=== PATIENT | male | born 1945 | race Caucasian/White ===

== ENCOUNTER 2016-12-31 14:08 | Inpatient (IN) | payer MEDICARE, OTHER ==
[2016-12-31] MEDS ORDERED: NS 0.9% 1000 ML* 1,000 ML IV ONE ×2 (14:43→16:18)
[2016-12-31] MEDS ORDERED: Levofloxacin 750 MG IVPREMIX(* 750 MG/150 ML BAG IVPB ONE (15:00)
[2016-12-31 15:09] LABS: Hematocrit 39 % (42-52); Mean Corpuscular HGB Conc 33 g/dl (31-36); Mean Corpuscular Hemoglobin 34 pg (27-31); Mean Corpuscular Volume 101 fL (80-94); Mean Platelet Volume 7 um3 (7.4-10.4); Red Blood Count 3.87 10^6/ul (4.0-5.4); Red Cell Distribution Width 14 % (10.5-15); White Blood Count 13.1 10^3/ul (3.5-10.8)
[2016-12-31 15:22] LABS: Troponin I 0.02 ng/mL (<0.04)
[2016-12-31 15:23] LABS: Albumin 4.1 g/dL (3.2-5.2); C Reactive Protein 155.06 mg/L (< 5.00); EGFR Non-African American 102.7 (>60); Total Bilirubin 0.3 mg/dL (0.2-1.0); Total Protein 7.1 g/dL (6.4-8.9)
--- NOTE | 2016-12-31 15:42 | RAD ---
Indication: Shortness of breath and cough. Comparison: November 04, 2016 chest radiograph and October 19, 2016 CT. Technique: Sitting AP and lateral chest views. Report: Elevated lung volumes and rarefaction of the interstitial markings. No alveolar consolidation, focal pulmonary lesion, pleural effusion, pneumothorax. The heart, pulmonary vasculature, and mediastinal contours are unremarkable. IMPRESSION: Stigmata of advanced chronic obstructive pulmonary disease and emphysema corresponding with prior CT appearance. No acute cardiopulmonary process evident.
[2016-12-31] MEDS ORDERED: Oseltamivir CAP* 75 MG PO ONE (16:16)
[2016-12-31] MEDS ORDERED: Albuterol/Ipratropium NEB.SOL* Albuterol 2.5 MG/Ipratropium 0.5 MG 3 ML INH ONE (16:16)
[2016-12-31] MEDS ORDERED: Ondansetron INJ* 2 MG/ML VIAL IV PRN (16:18)
[2016-12-31] MEDS ORDERED: Acetaminophen TAB* 325 MG PO PRN (16:18)
[2016-12-31] MEDS ORDERED: Albuterol 2.5 MG/3 ML NEB.SOL* (0.083%) INH PRN (16:18)
[2016-12-31] MEDS ORDERED: NS 0.9% 1000 ML* 1,000 ML IV SCH (16:30)
[2016-12-31] MEDS ORDERED: ACETAMINOPHEN 1000 MG PO SCH (16:30)
--- NOTE | 2016-12-31 16:34 | ED ---
Sonu Alfonso Rebecca, scribed for Lisandro Jones MD on 12/31/16 at 1444 . Shortness of Breath - HPI Summary HPI Summary: Pt is a 71 y/o M BIBA who presents to ED c/o SOB. SOB began suddenly today and has been constant since onset. SOB characterized as moderate dyspnea at rest. Sx aggravated and alleviated by nothing. Additionally c/o productive cough, generalized weakness, fever, chills, decreased appetite and CP secondary to cough. PMHx COPD. SHx current smoker. - History of Current Complaint Time Seen by Provider: 12/31/16 14:38 Hx Obtained From: Patient, Family/Clinical Informatics Physician - Daughter Onset/Duration: Gradual Onset, Still Present Timing: Constant Current Severity: Moderate Dyspnea At: Rest Aggrevating Factors: Nothing Alleviating Factors: Nothing Associated Signs & Symptoms: Cough (Productive), Chest Pain w/Cough, Fever, Chills - Allergy/Home Medications Allergies/Adverse Reactions: Allergies Allergy/AdvReac Type Severity Reaction Status Date / Time No Known Allergies Allergy Verified 11/03/16 11:38 PMH/Surg Hx/FS Hx/Imm Hx Cardiovascular History: Reports: Other Cardiovascular Problems/Disorders - DVT , ALCOHOLISM, SYNCOPAL EPISODE W/ COLLAPSE 05/10 Denies: Hx Hypertension, Hx Pacemaker/ICD Respiratory History: Reports: Hx Chronic Obstructive Pulmonary Disease (COPD) Musculoskeletal History: Reports: Hx Arthritis - HIPS, Hx Orthopedic Injury - Patella fracture and old rib fractures, Other Musculoskeletal History - CONTRACTURE HANDS Sensory History: Reports: Hx Contacts or Glasses - GLASSES Denies: Hx Hearing Aid Opthamlomology History: Reports: Hx Contacts or Glasses - GLASSES Psychiatric History: Reports: Hx Anxiety, Hx Depression - GETTING BETTER WITH RX , Hx Substance Abuse - occasional marijuana Denies: Hx Panic Disorder - Surgical History Surgery Procedure, Year, and Place: TONSILLECTOMY A CHILD Hx Anesthesia Reactions: No Infectious Disease History: Reports: Hx Hepatitis - A CHILD Denies: Hx of Known/Suspected MRSA, Traveled Outside the [place] in Last 30 Days - Family History Known Family History: Negative: Cardiac Disease, Hypertension Family History: No malignant hyperthermia - Social History Alcohol Use: Daily Substance Use Type: Reports: None Hx Tobacco Use: Yes Smoking Status (MU): Heavy Every Day Tobacco Smoker Type: Cigarettes Amount Used/How Often: 1/2 PPD FOR 50 YRS Length of Time of Smoking/Using Tobacco: 50 YRS Have You Smoked in the Last Year: Yes Review of Systems Positive: Fever, Chills Positive: Chest Pain - secondary to cough Positive: Shortness Of Breath - dyspnea at rest, Cough - productive Positive: other - Decreased appetite Positive: Weakness - Generalized weakness All Other Systems Reviewed And Are Negative: Yes Physical Exam - Summary Physical Exam Summary: VITAL SIGNS: Reviewed. GENERAL: Patient is a cachectic, fragile male with some distress secondary to the shortness of breath. However, he is able to speak in full sentences. HEAD AND FACE: Normocephalic and atraumatic. EYES: PERRLA, EOMI x 2, No injected conjunctiva. EARS: Hearing grossly intact. Ear canals and tympanic membranes WNL MOUTH: Dry oral mucosa. NECK: Supple, trachea is midline, no adenopathy, no JVD, no carotid bruit. CHEST: Symmetric, No intercostal or abdominal retraction, LUNGS: Diffuse bilateral wheezing and decreased breath sounds.No crackles. CVS: RRR,, S1 and S2 present, no murmurs or gallops appreciated. ABDOMEN: Soft, non-tender. No signs of distention. Positive BS. No rebound, no guarding, and no masses palpated. EXTREMITIES: FROM in all major joints, no edema, no cyanosis or clubbing. NEURO: Alert and oriented x 3. No acute neurological deficits. Speech is normal and follows commands. SKIN: Dry and warm Triage Information Reviewed: Yes Vital Signs On Initial Exam: Initial Vitals Temp Pulse Resp BP Pulse Ox 101.1 F 106 20 106/55 97 12/31/16 14:40 12/31/16 14:40 12/31/16 14:40 12/31/16 14:40 12/31/16 14:40 Vital Signs Reviewed: Yes Diagnostics - Vital Signs Vital Signs Temp Pulse Resp BP Pulse Ox 12/31/16 15:58 83 20 99 12/31/16 15:47 87 18 91/55 98 12/31/16 15:07 102 20 97 12/31/16 14:43 22 12/31/16 14:42 106/55 12/31/16 14:40 101.1 F 106 20 106/55 97 - Laboratory Lab Results: Lab Results 12/31/16 12/31/16 12/31/16 Range/Units 14:55 14:55 14:55 WBC 13.1 H (3.5-10.8) 10^3/ul RBC 3.87 L (4.0-5.4) 10^6/ul Hgb 13.0 L (14.0-18.0) g/dl Hct 39 L (42-52) % MCV 101 H (80-94) fL MCH 34 H (27-31) pg MCHC 33 (31-36) g/dl RDW 14 (10.5-15) % Plt Count 169 (150-450) 10^3/ul MPV 7 L (7.4-10.4) um3 Neut % (Auto) 90.7 H (38-83) % Lymph % (Auto) 3.0 L (25-47) % Sibley % (Auto) 5.9 (1-9) % Eos % (Auto) 0 (0-6) % Baso % (Auto) 0.4 (0-2) % Absolute Neuts (auto) 11.9 H (1.5-7.7) 10^3/ul Absolute Lymphs (auto) 0.4 L (1.0-4.8) 10^3/ul Absolute Monos (auto) 0.8 (0-0.8) 10^3/ul Absolute Eos (auto) 0 (0-0.6) 10^3/ul Absolute Basos (auto) 0 (0-0.2) 10^3/ul Absolute Nucleated RBC 0 10^3/ul Nucleated RBC % 0 Sodium 125 L (133-145) mmol/L Potassium 4.0 (3.5-5.0) mmol/L Chloride 93 L (101-111) mmol/L Carbon Dioxide 23 (22-32) mmol/L Anion Gap 9 (2-11) mmol/L BUN 15 (6-24) mg/dL Creatinine 0.75 (0.67-1.17) mg/dL Est GFR ( Amer) 132.0 (>60) Est GFR (Non-Af Amer) 102.7 (>60) BUN/Creatinine Ratio 20.0 (8-20) Glucose 111 H (70-100) mg/dL Lactic Acid 1.0 (0.5-2.0) mmol/L Calcium 9.0 (8.6-10.3) mg/dL Total Bilirubin 0.30 (0.2-1.0) mg/dL AST 21 (13-39) U/L ALT 12 (7-52) U/L Alkaline Phosphatase 66 (34-104) U/L Troponin I 0.02 (<0.04) ng/mL C-Reactive Protein 155.06 H (< 5.00) mg/L B-Natriuretic Peptide ( - 100) pg/mL Total Protein 7.1 (6.4-8.9) g/dL Albumin 4.1 (3.2-5.2) g/dL Globulin 3.0 (2-4) g/dL Albumin/Globulin Ratio 1.4 (1-3) Influenza A (Rapid) (Negative) Influenza B (Rapid) (Negative) 12/31/16 12/31/16 Range/Units 14:55 15:37 WBC (3.5-10.8) 10^3/ul RBC (4.0-5.4) 10^6/ul Hgb (14.0-18.0) g/dl Hct (42-52) % MCV (80-94) fL MCH (27-31) pg MCHC (31-36) g/dl RDW (10.5-15) % Plt Count (150-450) 10^3/ul MPV (7.4-10.4) um3 Neut % (Auto) (38-83) % Lymph % (Auto) (25-47) % Sibley % (Auto) (1-9) % Eos % (Auto) (0-6) % Baso % (Auto) (0-2) % Absolute Neuts (auto) (1.5-7.7) 10^3/ul Absolute Lymphs (auto) (1.0-4.8) 10^3/ul Absolute Monos (auto) (0-0.8) 10^3/ul Absolute Eos (auto) (0-0.6) 10^3/ul Absolute Basos (auto) (0-0.2) 10^3/ul Absolute Nucleated RBC 10^3/ul Nucleated RBC % Sodium (133-145) mmol/L Potassium (3.5-5.0) mmol/L Chloride (101-111) mmol/L Carbon Dioxide (22-32) mmol/L Anion Gap (2-11) mmol/L BUN (6-24) mg/dL Creatinine (0.67-1.17) mg/dL Est GFR ( Amer) (>60) Est GFR (Non-Af Amer) (>60) BUN/Creatinine Ratio (8-20) Glucose (70-100) mg/dL Lactic Acid (0.5-2.0) mmol/L Calcium (8.6-10.3) mg/dL Total Bilirubin (0.2-1.0) mg/dL AST (13-39) U/L ALT (7-52) U/L Alkaline Phosphatase (34-104) U/L Troponin I (<0.04) ng/mL C-Reactive Protein (< 5.00) mg/L B-Natriuretic Peptide 161 H ( - 100) pg/mL Total Protein (6.4-8.9) g/dL Albumin (3.2-5.2) g/dL Globulin (2-4) g/dL Albumin/Globulin Ratio (1-3) Influenza A (Rapid) Positive H (Negative) Influenza B (Rapid) Negative (Negative) Result Diagrams: 12/31/16 14:55 12/31/16 14:55 Lab Statement: Any lab studies that have been ordered have been reviewed, and results considered in the medical decision making process. - Radiology CXR Xray Interpretation: No Acute Changes - Stigmata of advanced chronic obstructive pulmonary disease and emphysema corresponding with prior CT appearance. No acute cardiopulmonary process evident. Radiology Interpretation Completed By: Radiologist Course/Dx - Course Assessment/Plan: Pt is a 71 y/o M BIBA who presents to ED c/o SOB. SOB began suddenly today and has been constant since onset. SOB characterized as moderate dyspnea at rest. Sx aggravated and alleviated by nothing. Additionally c/o productive cough, generalized weakness, fever, chills, decreased appetite and CP secondary to cough. PMHx COPD. SHx current smoker. Blood work shows a WBC of 13.1, mild anemia. Na 125, CRP 155, Influenza A positive. CXR: IMPRESSION: Stigmata of advanced chronic obstructive pulmonary disease and emphysema corresponding with prior CT appearance. No acute cardiopulmonary process evident. In the ED course he was given Duonebs, Solumedrol for his COPD exacerbation. Levaquin, and tamiflu for his influenza A +. . He was also given IV fluids since he seems very dehydrated. I discuss my physical exam, findings and test results with Dr. Schwarz from the hospitalist services and she agrees to admit patient to his services. Patient is hemodynamically stable alert and oriented x 3. - Diagnoses Differential Diagnosis/HQI/PQRI: Positive: Asthma, CHF, COPD Exacerbation, Pulmonary Edema Provider Diagnoses: COPD exacerbation, Influenza A, Dehydration, Hyponatremia - Physician Notifications Discussed Care of Patient With: Dr. Schwarz, hospitalist, accepts pt for admission. Time Discussed With Above Provider: 16:21 Discharge - Discharge Plan Condition: Stable Disposition: ADMITTED TO [facility] Referrals: Nahum ESCALERA CARDIOGRAPH OPERATOR,Olya [Primary Care Provider] - The documentation as recorded by the Sonu fox Rebecca accurately reflects the service I personally performed and the decisions made by me, Lisandro Jones MD.
[2016-12-31] MEDS ORDERED: LORazepam TAB(*) 1 MG PO SCH (17:00)
[2016-12-31 17:14] LABS: TSH (Thyroid Stimulating Horm) 1.47 mcIU/mL (0.34-5.60)
[2016-12-31] MEDS: Albuterol/Ipratropium NEB.SOL* Albuterol 2.5 MG/Ipratropium 0.5 MG 3 ML INH SCH ×2 (17:50→20:33)
[2016-12-31 20:23] LABS: Urine Bilirubin Negative (Negative); Urine Glucose Negative (Negative); Urine Nitrite Negative (Negative)
[2016-12-31] MEDS: Mometasone/Formoter 200/5 MDI INH SCH (20:38)
[2016-12-31] MEDS: Oseltamivir CAP* 75 MG PO SCH (21:05)
[2016-12-31] MEDS: Heparin VIAL(*) 5000 UNITS/ML VIAL (FIVE THOUSAND) SUBCUT SCH (21:09)
--- NOTE | 2016-12-31 22:51 | HP ---
HISTORY AND PHYSICAL: DATE OF ADMISSION: 12/31/16 PRIMARY CARE PROVIDER: Olya Sidhu NP. ATTENDING PHYSICIAN WHILE IN THE HOSPITAL: Dr. Jarrett Schwarz * (report dictated by Yves Saldivar NP). CHIEF COMPLAINT: 1. Fever. 2. Cough. 3. Sore throat. HISTORY OF PRESENT ILLNESS: Mr. Rosas is a 71-year-old patient who has a history of COPD, BPH, depression, ETOH abuse, and a history of malnutrition. He comes into the ER today stating the last several days he has noticed he has been coughing, sore throat, runny nose that started about 2 to 3 days ago and has gotten progressively worse to now where he has been having fevers and chills off and on and feeling very weak today. His aide was taking care of him this morning. She was concerned of how he was acting and how weak he was, so she brought him into the hospital for evaluation. There was documented fever at home. He states that he has been more short of breath particularly with exertion, now to the point where even at rest he feels short of breath and he has been coughing, unable to have a productive cough. He was evaluated in the ER. It was noted that he was febrile when he came in, he was tachycardic. It was also noted that he tested positive for the flu, so the hospitalist service was asked to evaluate and admission. PAST MEDICAL HISTORY: Significant for: 1. COPD. 2. BPH. 3. Depression. 4. EtOH abuse. 5. Malnutrition. PAST SURGICAL HISTORY: He has had: 1. Carpal tunnel. 2. Laparoscopic cholecystectomy. HOME MEDICATIONS: According to his handwritten list includes, 1. Celebrex 100 mg daily. 2. Spiriva 1 capsule inhale daily. 3. Thiamine 100 mg daily. 4. Flomax 0.8 mg daily. 5. Ditropan 10 mg p.o. daily. 6. Multivitamin one tablet daily. 7. Dulera two puffs inhale b.i.d. 8. Folic acid 1 mg p.o. daily. 9. Lexapro 20 mg daily. 10. Ventolin one puff inhale every 4 hours as needed. 11. Tylenol 1000 mg p.o. b.i.d. ALLERGIES: No known drug allergies. FAMILY HISTORY: Father has history of COPD. SOCIAL HISTORY: He is a smoker about half a pack a day. He does drink about a 6 pack a day. He lives alone. Surrogate decision maker is his aide, Silvia. REVIEW OF SYSTEMS: There is a documented fever. He denied any significant weight change. No double vision. No ear discharge. He does admit to having rhinorrhea. He does admit to sore throat. He admits cough, dyspnea on exertion , but no orthopnea or nocturnal dyspnea. He denies having any abdominal pain. He does states that he has been feeling nauseous at times. He denies any pruritus or any skin ulcerations. He denies having any syncopal episodes. Review of 14 systems completed, all others negative. PHYSICAL EXAMINATION GENERAL: At this time, Mr. Rosas is a 71-year-old male patient. He is chronically ill appearing. He is sitting in the ER stretcher. He does not appear to be in any acute distress. VITAL SIGNS: Blood pressure 91/55 with pulse of 84, respirations 20, O2 sat 99 % on 2 L, temperature of 101.1. HEENT: Head: Atraumatic, normocephalic. Eyes: EOMs are intact. Sclerae was anicteric and not pale. Throat: Oral mucosa appears to be dry. No oropharyngeal erythema. NECK: Supple. LUNGS: He did have rhonchi in the upper lobes, equal diaphragmatic expansion. HEART: Sounds S1, S2. Regular rate and rhythm. No murmurs, rubs, or gallops. ABDOMEN: Soft, flat, nontender. Bowel sounds present. EXTREMITIES: Pulses 2+ throughout. He is able to move all 4 extremities with 5 /5 strength. NEUROLOGIC: He is awake, alert, oriented x3. Manager Of Project Management were equal. No gross focal deficits. SKIN: He did have an old healing wound and does have some to the abdomen and measures approximately 5 x 2 cm wide. It does have an area of erythema surrounding of no discharge noted. Otherwise, skin is intact. DIAGNOSTIC STUDIES/LAB DATA: Labs today revealed WBC of 13.1, RBC of 3.87, hemoglobin 13, hematocrit of 39, platelet count 169. Sodium 125, potassium 4, chloride of 93, bicarb of 23, BUN 15, creatinine of 0.75, glucose 111, lactic 1 , calcium 9, total bili 0.3, AST 21, ALT 12, alk phos 66. His troponin was 0.02. CRP 155. Albumin 4.1. Serology was positive for flu. He had a chest x- ray obtained today and on my review, I did not appreciate any acute infiltrates or effusion. Radiology read it as stigmata of advanced COPD and emphysema corresponding with prior CT. No acute cardio process evident. Old medical records were reviewed. ASSESSMENT AND PLAN: Mr. Rosas is a 71-year-old male patient coming into the ER today with complaints of weakness, fever, cough, and evaluation found to have an Influenza A. He will be admitted under inpatient status for: 1. Influenza: At this point, we will go ahead and start him on Tamiflu. We will also go ahead and hydrate him, place him on antianemics as needed. In addition to this, we will go ahead and continue to follow. 2. Chronic obstructive pulmonary disease: He does have mild exacerbation. We will go ahead and put him on nebs around the clock. I will put him on Levaquin. In addition to this, we will put him on Dulera. I do not think he needs steroids at this point. We will follow. 3. Hyponatremia: Probably related to dehydration. We will hydrate him and will send off urine osmol, serum osmol, and urine sodium and we will check a TSH and also cortisol level. 4. History of EtOH use. I did put him on the [facility] protocol. We will continue folic acid, thiamine, and multivitamin. 5. Depression: Continue with supportive care. 6. Benign prostatic hypertrophy: Continue meds as prescribed. 7. Malnutrition: Place him on a regular diet and I will order Ensure as well. 8. Deep venous thrombosis prophylaxis. He is high risk. We will go ahead and put him on heparin subcu. 9. Code status: He is a full code. 10. Wound infection: I am concerned that he does have erythema around his abdominal wound from his open lap michael in October. The Levaquin should cover this. We will continue to monitor it. If it gets worse, we may consider having a Surgery evaluate this. TIME SPENT: Time spent on the admission was 60 minutes; greater than half the time was spent [id number] with the patient obtaining my history and physical, other half of the time spent going over the plan of care with the patient and implementing plan of care. I did discuss the plan of care with my attending, Dr. Schwarz; he is in agreement. YVES SALDIVAR NP CC: Olya Sidhu, MOLD CLEANING AND STORAGE SUPERVISOR * [id number]/[facility] #: [id number] [id number]
[2017-01-01] MEDS: Albuterol/Ipratropium NEB.SOL* Albuterol 2.5 MG/Ipratropium 0.5 MG 3 ML INH SCH ×6 (00:50→19:45)
[2017-01-01] MEDS: Heparin VIAL(*) 5000 UNITS/ML VIAL (FIVE THOUSAND) SUBCUT SCH ×3 (05:53→21:52)
[2017-01-01 06:54] LABS: Hematocrit 34 % (42-52); Hemoglobin 11.3 g/dl (14.0-18.0); Mean Corpuscular HGB Conc 33 g/dl (31-36); Mean Corpuscular Hemoglobin 34 pg (27-31); Mean Corpuscular Volume 102 fL (80-94); Mean Platelet Volume 8 um3 (7.4-10.4); Red Blood Count 3.31 10^6/ul (4.0-5.4); Red Cell Distribution Width 14 % (10.5-15); White Blood Count 8.5 10^3/ul (3.5-10.8)
[2017-01-01 07:08] LABS: BUN/Creatinine Ratio 15.6 (8-20); Calcium 8.4 mg/dL (8.6-10.3); EGFR African American 158.5 (>60); EGFR Non-African American 123.3 (>60); Potassium 3.8 mmol/L (3.5-5.0)
[2017-01-01] MEDS: Folic Acid TAB* 1 MG PO SCH (08:05)
[2017-01-01] MEDS: Thiamine TAB* 100 MG TAB PO SCH (08:05)
[2017-01-01] MEDS: Tamsulosin CAP* 0.4 MG PO SCH (08:06)
[2017-01-01] MEDS: Multivitamins/Minerals TAB PO SCH (08:06)
[2017-01-01] MEDS: Oxybutynin XL TAB* 5 MG PO SCH (08:06)
[2017-01-01] MEDS: CMCS: Escitalopram (NF) 10 MG TAB PO SCH (08:06)
[2017-01-01] MEDS: Oseltamivir CAP* 75 MG PO SCH ×2 (08:06→20:12)
[2017-01-01] MEDS: Mometasone/Formoter 200/5 MDI INH SCH ×2 (08:21→19:47)
--- NOTE | 2017-01-01 13:59 | PN ---
Progress Note - Progress Note Note: Subjective: 71 yo male with a history of COPD, BPH, depression, tobacco use and alcohol abuse presented to the ED with cough and malaise and was found to test positive for the flu, leading to his admission. While in the hospital, it was noted that his wound from his open cholecystectomy on 11/04 was still open and with concerns for infection, and a surgical consult was ordered. Pt states he has minimal pain around the wound, and has been changing his dressings daily at home. Objective: Gen-71 yo male appears stated age, laying in hospital bed eating lunch in NAD Skin- A 5cm x 1.5cm x 0.2cm healing open wound with eschar tissue in the RUQ was visualized with a 3cm erythamatous halo extending past the wound edges. The wound was debrided with forceps and a #15 scalpel until pink granular tissue was exposed. Covered with telfa dressing. A/P: Order medihoney or hydrogel if available. Continue to monitor wound healing with daily dressing changes. If not improving, contact surg for another consult.
--- NOTE | 2017-01-01 14:07 | PN ---
Progress Note - Progress Note Note: S: Surgery Progress. Patient seen w/ Dr. Fry and PA student Maricruz Hernandez. Asked to see patient re: concerns for infection of RUQ abd wound. Patient was admitted for Influenza and states that he is improving. He is well know to our service and specifically to Dr. Fry who performed an open cholecystectomy 11/04/16. The wound was packed open and has slowly been gagandeep and filling in. Patient states that it feels about the same as it had at home the past couple of weeks. He is currently on Levofloxacin as well as antiviral for his influenza. O: afeb RUQ abd wound: open wound measures 5x 1.5 x 0.2 cm. There is a rim or erythema, mostly inferior, which extends a maximum of 5 cm in craniocaudad direction. A portion of the wound is covered w/ semi-loose eschar. There is mild tenderness to palp around the wound. Patient states that is c/w previous. There is no purulent drainage. The wound was debrided of eschar (combination of blunt and sharp) which he tolerated well. A/P: open wound RUQ, healing slowly, but does not appear actively infected. Debrided of eschar today. Will order hydrogel or Medihoney (if available). Will continue to follow as outpt in office after d/c. Please contact us if there are any further changes of concern during this hospital stay.
[2017-01-01] MEDS ORDERED: Levofloxacin 750 MG IVPREMIX(* 750 MG/150 ML BAG IVPB SCH (16:00)
--- NOTE | 2017-01-01 16:14 | PN ---
Subjective Date of Service: 01/01/17 Interval History: pt feels " better". stated that he ambulates with a roller walker and hid ingot weigher-Corrine visits him daily x 4-5 hrs. Objective Active Medications: Acetaminophen (Tylenol Tab*) 650 mg PO Q4H PRN PRN Reason: FEVER/PAIN Albuterol (Ventolin 2.5 Mg/3 Ml Neb.Danielle*) 2.5 mg INH Q2H PRN PRN Reason: SOB/WHEEZING Albuterol/Ipratropium (Duoneb Neb.Danielle*) 1 neb INH Q4H [facility] Last Admin: 01/01/17 13:56 Dose: 1 neb Escitalopram Oxalate (Lexapro (Nf)) 20 mg PO QAM [facility] Last Admin: 01/01/17 08:06 Dose: 20 mg Folic Acid (Folvite Tab*) 1 mg PO DAILY [facility] Last Admin: 01/01/17 08:05 Dose: 1 mg Heparin Sodium (Porcine) (Heparin Vial(*)) 5,000 units SUBCUT Q8HR [facility] Last Admin: 01/01/17 15:16 Dose: 5,000 units Lorazepam (Ativan Tab(*)) 0 mg PO .PER WAM SCORE [facility] PRN Reason: Protocol Mometasone Furoate/Formoterol Fumar (Dulera 200/5 Mdi*) 2 puff INH BID [facility] Last Admin: 01/01/17 08:21 Dose: 2 puff Multivitamins/Minerals (Theragran/Minerals Tab*) 1 tab PO DAILY [facility] Last Admin: 01/01/17 08:06 Dose: 1 tab Ondansetron HCl (Zofran Inj*) 4 mg IV Q6H PRN PRN Reason: NAUSEA Oseltamivir Phosphate (Tamiflu Cap*) 75 mg PO BID [facility] Stop: 01/05/17 09:01 Last Admin: 01/01/17 08:06 Dose: 75 mg Oxybutynin Chloride (Ditropan Xl Tab*) 10 mg PO DAILY [facility] Last Admin: 01/01/17 08:06 Dose: 10 mg Tamsulosin HCl (Flomax Cap*) 0.8 mg PO DAILY [facility] Last Admin: 01/01/17 08:06 Dose: 0.8 mg Thiamine HCl (Vitamin B-1 Tab*) 100 mg PO DAILY [facility] Last Admin: 01/01/17 08:05 Dose: 100 mg Vital Signs 12/31/16 12/31/16 12/31/16 16:30 17:00 17:02 Temperature Pulse Rate 91 Respiratory 20 22 18 Rate Blood Pressure 97/63 94/81 (mmHg) O2 Sat by Pulse 98 Oximetry 12/31/16 12/31/16 12/31/16 17:30 18:00 18:30 Temperature Pulse Rate 89 Respiratory 18 23 17 Rate Blood Pressure 118/61 112/66 94/54 (mmHg) O2 Sat by Pulse 90 Oximetry 12/31/16 12/31/16 12/31/16 19:50 20:00 20:40 Temperature 97.7 F Pulse Rate 89 79 Respiratory 20 20 16 Rate Blood Pressure 91/56 (mmHg) O2 Sat by Pulse 100 97 Oximetry 12/31/16 12/31/16 01/01/17 22:27 23:30 00:55 Temperature Pulse Rate 83 101 79 Respiratory 20 Rate Blood Pressure 96/55 136/72 (mmHg) O2 Sat by Pulse 80 97 97 Oximetry 01/01/17 01/01/17 01/01/17 01:24 01:46 04:01 Temperature 99.0 F Pulse Rate 78 90 73 Respiratory 20 16 16 Rate Blood Pressure 98/56 93/56 (mmHg) O2 Sat by Pulse 97 94 100 Oximetry 01/01/17 01/01/17 01/01/17 05:39 06:09 07:30 Temperature 97.7 F 97.8 F Pulse Rate 80 85 84 Respiratory 12 18 16 Rate Blood Pressure 101/58 101/57 (mmHg) O2 Sat by Pulse 98 98 100 Oximetry 01/01/17 01/01/17 01/01/17 08:23 10:10 13:57 Temperature Pulse Rate 67 66 Respiratory 16 16 15 Rate Blood Pressure (mmHg) O2 Sat by Pulse 96 99 Oximetry 01/01/17 15:20 Temperature 98.6 F Pulse Rate 36 Respiratory 17 Rate Blood Pressure 105/57 (mmHg) O2 Sat by Pulse 100 Oximetry Oxygen Devices in Use Now: Nasal Cannula - at 4l Appearance: 71 yo M in nAD, AAOx3, poor historian Eyes: No Scleral Icterus, PERRLA Ears/Nose/Mouth/Throat: NL Teeth, Lips, Gums, Mucous Membranes Moist Neck: NL Appearance and Movements; NL JVP, Trachea Midline Respiratory: Symmetrical Chest Expansion and Respiratory Effort, - - crackles at b/l bases and mild b/l mid lung wheezes Cardiovascular: NL Sounds; No Murmurs; No JVD, RRR Abdominal: - - RUQ open post michael wound at 5 x 2 cm with slough on the bottom and inferior part of wound with slight skin erythema. Abs soft, NT BS+ Lymphatic: No Cervical Adenopathy Extremities: No Edema, No Clubbing, Cyanosis Skin: No Rash or Ulcers, No Nodules or Sclerosis Neurological: Alert and Oriented x 3, NL Muscle Strength and Tone Result Diagrams: 01/01/17 06:17 01/01/17 06:17 Additional Lab and Data: Lab Results 12/31/16 12/31/16 12/31/16 Range/Units 14:55 14:55 14:55 WBC 13.1 H (3.5-10.8) 10^3/ul RBC 3.87 L (4.0-5.4) 10^6/ul Hgb 13.0 L (14.0-18.0) g/dl Hct 39 L (42-52) % MCV 101 H (80-94) fL MCH 34 H (27-31) pg MCHC 33 (31-36) g/dl RDW 14 (10.5-15) % Plt Count 169 (150-450) 10^3/ul MPV 7 L (7.4-10.4) um3 Neut % (Auto) 90.7 H (38-83) % Lymph % (Auto) 3.0 L (25-47) % [place] % (Auto) 5.9 (1-9) % Eos % (Auto) 0 (0-6) % Baso % (Auto) 0.4 (0-2) % Absolute Neuts (auto) 11.9 H (1.5-7.7) 10^3/ul Absolute Lymphs (auto) 0.4 L (1.0-4.8) 10^3/ul Absolute Monos (auto) 0.8 (0-0.8) 10^3/ul Absolute Eos (auto) 0 (0-0.6) 10^3/ul Absolute Basos (auto) 0 (0-0.2) 10^3/ul Absolute Nucleated RBC 0 10^3/ul Nucleated RBC % 0 Sodium 125 L (133-145) mmol/L Potassium 4.0 (3.5-5.0) mmol/L Chloride 93 L (101-111) mmol/L Carbon Dioxide 23 (22-32) mmol/L Anion Gap 9 (2-11) mmol/L BUN 15 (6-24) mg/dL Creatinine 0.75 (0.67-1.17) mg/dL Est GFR ( Amer) 132.0 (>60) Est GFR (Non-Af Amer) 102.7 (>60) BUN/Creatinine Ratio 20.0 (8-20) Glucose 111 H (70-100) mg/dL Lactic Acid 1.0 (0.5-2.0) mmol/L Calcium 9.0 (8.6-10.3) mg/dL Total Bilirubin 0.30 (0.2-1.0) mg/dL AST 21 (13-39) U/L ALT 12 (7-52) U/L Alkaline Phosphatase 66 (34-104) U/L Troponin I 0.02 (<0.04) ng/mL C-Reactive Protein 155.06 H (< 5.00) mg/L B-Natriuretic Peptide ( - 100) pg/mL Total Protein 7.1 (6.4-8.9) g/dL Albumin 4.1 (3.2-5.2) g/dL Globulin 3.0 (2-4) g/dL Albumin/Globulin Ratio 1.4 (1-3) Influenza A (Rapid) (Negative) Influenza B (Rapid) (Negative) 12/31/16 12/31/16 Range/Units 14:55 15:37 WBC (3.5-10.8) 10^3/ul RBC (4.0-5.4) 10^6/ul Hgb (14.0-18.0) g/dl Hct (42-52) % MCV (80-94) fL MCH (27-31) pg MCHC (31-36) g/dl RDW (10.5-15) % Plt Count (150-450) 10^3/ul MPV (7.4-10.4) um3 Neut % (Auto) (38-83) % Lymph % (Auto) (25-47) % [place] % (Auto) (1-9) % Eos % (Auto) (0-6) % Baso % (Auto) (0-2) % Absolute Neuts (auto) (1.5-7.7) 10^3/ul Absolute Lymphs (auto) (1.0-4.8) 10^3/ul Absolute Monos (auto) (0-0.8) 10^3/ul Absolute Eos (auto) (0-0.6) 10^3/ul Absolute Basos (auto) (0-0.2) 10^3/ul Absolute Nucleated RBC 10^3/ul Nucleated RBC % Sodium (133-145) mmol/L Potassium (3.5-5.0) mmol/L Chloride (101-111) mmol/L Carbon Dioxide (22-32) mmol/L Anion Gap (2-11) mmol/L BUN (6-24) mg/dL Creatinine (0.67-1.17) mg/dL Est GFR ( Amer) (>60) Est GFR (Non-Af Amer) (>60) BUN/Creatinine Ratio (8-20) Glucose (70-100) mg/dL Lactic Acid (0.5-2.0) mmol/L Calcium (8.6-10.3) mg/dL Total Bilirubin (0.2-1.0) mg/dL AST (13-39) U/L ALT (7-52) U/L Alkaline Phosphatase (34-104) U/L Troponin I (<0.04) ng/mL C-Reactive Protein (< 5.00) mg/L B-Natriuretic Peptide 161 H ( - 100) pg/mL Total Protein (6.4-8.9) g/dL Albumin (3.2-5.2) g/dL Globulin (2-4) g/dL Albumin/Globulin Ratio (1-3) Influenza A (Rapid) Positive H (Negative) Influenza B (Rapid) Negative (Negative) Assess/Plan/Problems-Billing Assessment: 71 yo M with h/o COPD ( pt stated that he has 02 at home, but rarely uses it), ETOH abuse( 6 pack a day), recent open cholecystectomy ( , with wound healing by secondary intent) who presents with Influenza A. - Patient Problems (1) Sepsis Comment: Secondary to Influenza A Improving symptoms of cough and generalized weakness. Cont Tamilfu D/c Levaquin (2) COPD (chronic obstructive pulmonary disease) Comment: No evidence of exacerbation today Continue dulera, and nebs prn (3) Open abdominal wall wound Comment: post cholecystectomy 11/14/17 appreciate surgical consult. Not infected. cont Medihoney (4) Alcohol abuse Comment: No evidence of withdrawal. No interest in rehab or cessation cont WAM x 24H. (5) Hyponatremia Comment: due to dehydration resolving (6) DVT prophylaxis Comment: heparin sc
[2017-01-02] MEDS: Albuterol/Ipratropium NEB.SOL* Albuterol 2.5 MG/Ipratropium 0.5 MG 3 ML INH SCH ×3 (00:41→09:59)
[2017-01-02] MEDS: Heparin VIAL(*) 5000 UNITS/ML VIAL (FIVE THOUSAND) SUBCUT SCH (05:39)
[2017-01-02 05:46] LABS: BUN/Creatinine Ratio 16.1 (8-20); Calcium 8.8 mg/dL (8.6-10.3); EGFR Non-African American 143.8 (>60); Magnesium 1.5 mg/dL (1.9-2.7); Potassium 3.7 mmol/L (3.5-5.0)
[2017-01-02 07:44] VITALS: BP 105/59
[2017-01-02] MEDS: Tamsulosin CAP* 0.4 MG PO SCH (08:36)
[2017-01-02] MEDS: Multivitamins/Minerals TAB PO SCH (08:36)
[2017-01-02] MEDS: Folic Acid TAB* 1 MG PO SCH (08:36)
[2017-01-02] MEDS: Thiamine TAB* 100 MG TAB PO SCH (08:36)
[2017-01-02] MEDS: Oseltamivir CAP* 75 MG PO SCH (08:36)
[2017-01-02] MEDS: Oxybutynin XL TAB* 5 MG PO SCH (08:38)
[2017-01-02] MEDS: CMCS: Escitalopram (NF) 10 MG TAB PO SCH (08:38)
[2017-01-02] MEDS ORDERED: Magnesium Sulfate 2 GM IV* 2 GM/50 ML BAG IVPB ONE (09:15)
--- NOTE | 2017-01-02 09:27 | PN ---
Subjective Date of Service: 01/02/17 Interval History: Pt is feeling well. He denies any SOB. He has mild tenderness in the RUQ (has an open wound). He feels like he can manage at home. Objective Active Medications: Acetaminophen (Tylenol Tab*) 650 mg PO Q4H PRN PRN Reason: FEVER/PAIN Albuterol (Ventolin 2.5 Mg/3 Ml Neb.Danielle*) 2.5 mg INH Q2H PRN PRN Reason: SOB/WHEEZING Albuterol/Ipratropium (Duoneb Neb.Danielle*) 1 neb INH Q4H [facility] Last Admin: 01/02/17 05:18 Dose: 1 neb Escitalopram Oxalate (Lexapro (Nf)) 20 mg PO QAM [facility] Last Admin: 01/02/17 08:38 Dose: 20 mg Folic Acid (Folvite Tab*) 1 mg PO DAILY [facility] Last Admin: 01/02/17 08:36 Dose: 1 mg Heparin Sodium (Porcine) (Heparin Vial(*)) 5,000 units SUBCUT Q8HR [facility] Last Admin: 01/02/17 05:39 Dose: 5,000 units Magnesium Sulfate (Magnesium Sulfate 2 Gm Iv*) 2 gm in 50 mls @ 50 mls/hr IVPB ONCE ONE Stop: 01/02/17 10:14 Lorazepam (Ativan Tab(*)) 0 mg PO .PER WAM SCORE [facility] PRN Reason: Protocol Mometasone Furoate/Formoterol Fumar (Dulera 200/5 Mdi*) 2 puff INH BID [facility] Last Admin: 01/01/17 19:47 Dose: 2 puff Multivitamins/Minerals (Theragran/Minerals Tab*) 1 tab PO DAILY [facility] Last Admin: 01/02/17 08:36 Dose: 1 tab Ondansetron HCl (Zofran Inj*) 4 mg IV Q6H PRN PRN Reason: NAUSEA Oseltamivir Phosphate (Tamiflu Cap*) 75 mg PO BID [facility] Stop: 01/05/17 09:01 Last Admin: 01/02/17 08:36 Dose: 75 mg Oxybutynin Chloride (Ditropan Xl Tab*) 10 mg PO DAILY [facility] Last Admin: 01/02/17 08:38 Dose: 10 mg Tamsulosin HCl (Flomax Cap*) 0.8 mg PO DAILY [facility] Last Admin: 01/02/17 08:36 Dose: 0.8 mg Thiamine HCl (Vitamin B-1 Tab*) 100 mg PO DAILY [facility] Last Admin: 01/02/17 08:36 Dose: 100 mg Vital Signs 01/01/17 01/01/17 01/01/17 10:10 13:57 15:20 Temperature 98.6 F Pulse Rate 66 36 Respiratory 16 15 17 Rate Blood Pressure 105/57 (mmHg) O2 Sat by Pulse 99 100 Oximetry 01/01/17 01/01/17 01/01/17 17:29 19:08 19:48 Temperature 98.5 F Pulse Rate 76 51 Respiratory 16 16 Rate Blood Pressure 88/54 (mmHg) O2 Sat by Pulse 95 98 99 Oximetry 01/01/17 01/01/17 01/01/17 20:00 23:01 23:59 Temperature 97.8 F Pulse Rate 79 78 Respiratory 18 20 Rate Blood Pressure 130/66 118/66 (mmHg) O2 Sat by Pulse 96 Oximetry 01/02/17 01/02/17 01/02/17 00:44 04:40 05:20 Temperature 97.9 F Pulse Rate 74 70 66 Respiratory 20 20 20 Rate Blood Pressure 106/57 (mmHg) O2 Sat by Pulse 100 99 95 Oximetry 01/02/17 07:35 Temperature 97.7 F Pulse Rate 43 Respiratory 20 Rate Blood Pressure 105/59 (mmHg) O2 Sat by Pulse 97 Oximetry Oxygen Devices in Use Now: Nasal Cannula - 97%-2L Appearance: Eldelry male sitting up in bed, NAD Eyes: No Scleral Icterus Ears/Nose/Mouth/Throat: Mucous Membranes Moist Respiratory: Symmetrical Chest Expansion and Respiratory Effort, Clear to Auscultation - decreased breath sounds throughout but clear Cardiovascular: NL Sounds; No Murmurs; No JVD, RRR, No Edema Abdominal: NL Sounds; No Tenderness; No Distention Extremities: No Clubbing, Cyanosis Skin: No Nodules or Sclerosis, - - Open wound with healthy appearing granulation tissue RUQ, no surrounding erythema Neurological: Alert and Oriented x 3 Result Diagrams: 01/01/17 06:17 01/02/17 05:01 Additional Lab and Data: Lab Results 12/31/16 12/31/16 12/31/16 Range/Units 14:55 14:55 14:55 WBC 13.1 H (3.5-10.8) 10^3/ul RBC 3.87 L (4.0-5.4) 10^6/ul Hgb 13.0 L (14.0-18.0) g/dl Hct 39 L (42-52) % MCV 101 H (80-94) fL MCH 34 H (27-31) pg MCHC 33 (31-36) g/dl RDW 14 (10.5-15) % Plt Count 169 (150-450) 10^3/ul MPV 7 L (7.4-10.4) um3 Neut % (Auto) 90.7 H (38-83) % Lymph % (Auto) 3.0 L (25-47) % [place] % (Auto) 5.9 (1-9) % Eos % (Auto) 0 (0-6) % Baso % (Auto) 0.4 (0-2) % Absolute Neuts (auto) 11.9 H (1.5-7.7) 10^3/ul Absolute Lymphs (auto) 0.4 L (1.0-4.8) 10^3/ul Absolute Monos (auto) 0.8 (0-0.8) 10^3/ul Absolute Eos (auto) 0 (0-0.6) 10^3/ul Absolute Basos (auto) 0 (0-0.2) 10^3/ul Absolute Nucleated RBC 0 10^3/ul Nucleated RBC % 0 Sodium 125 L (133-145) mmol/L Potassium 4.0 (3.5-5.0) mmol/L Chloride 93 L (101-111) mmol/L Carbon Dioxide 23 (22-32) mmol/L Anion Gap 9 (2-11) mmol/L BUN 15 (6-24) mg/dL Creatinine 0.75 (0.67-1.17) mg/dL Est GFR ( Amer) 132.0 (>60) Est GFR (Non-Af Amer) 102.7 (>60) BUN/Creatinine Ratio 20.0 (8-20) Glucose 111 H (70-100) mg/dL Lactic Acid 1.0 (0.5-2.0) mmol/L Calcium 9.0 (8.6-10.3) mg/dL Total Bilirubin 0.30 (0.2-1.0) mg/dL AST 21 (13-39) U/L ALT 12 (7-52) U/L Alkaline Phosphatase 66 (34-104) U/L Troponin I 0.02 (<0.04) ng/mL C-Reactive Protein 155.06 H (< 5.00) mg/L B-Natriuretic Peptide ( - 100) pg/mL Total Protein 7.1 (6.4-8.9) g/dL Albumin 4.1 (3.2-5.2) g/dL Globulin 3.0 (2-4) g/dL Albumin/Globulin Ratio 1.4 (1-3) Influenza A (Rapid) (Negative) Influenza B (Rapid) (Negative) 12/31/16 12/31/16 Range/Units 14:55 15:37 WBC (3.5-10.8) 10^3/ul RBC (4.0-5.4) 10^6/ul Hgb (14.0-18.0) g/dl Hct (42-52) % MCV (80-94) fL MCH (27-31) pg MCHC (31-36) g/dl RDW (10.5-15) % Plt Count (150-450) 10^3/ul MPV (7.4-10.4) um3 Neut % (Auto) (38-83) % Lymph % (Auto) (25-47) % [place] % (Auto) (1-9) % Eos % (Auto) (0-6) % Baso % (Auto) (0-2) % Absolute Neuts (auto) (1.5-7.7) 10^3/ul Absolute Lymphs (auto) (1.0-4.8) 10^3/ul Absolute Monos (auto) (0-0.8) 10^3/ul Absolute Eos (auto) (0-0.6) 10^3/ul Absolute Basos (auto) (0-0.2) 10^3/ul Absolute Nucleated RBC 10^3/ul Nucleated RBC % Sodium (133-145) mmol/L Potassium (3.5-5.0) mmol/L Chloride (101-111) mmol/L Carbon Dioxide (22-32) mmol/L Anion Gap (2-11) mmol/L BUN (6-24) mg/dL Creatinine (0.67-1.17) mg/dL Est GFR ( Amer) (>60) Est GFR (Non-Af Amer) (>60) BUN/Creatinine Ratio (8-20) Glucose (70-100) mg/dL Lactic Acid (0.5-2.0) mmol/L Calcium (8.6-10.3) mg/dL Total Bilirubin (0.2-1.0) mg/dL AST (13-39) U/L ALT (7-52) U/L Alkaline Phosphatase (34-104) U/L Troponin I (<0.04) ng/mL C-Reactive Protein (< 5.00) mg/L B-Natriuretic Peptide 161 H ( - 100) pg/mL Total Protein (6.4-8.9) g/dL Albumin (3.2-5.2) g/dL Globulin (2-4) g/dL Albumin/Globulin Ratio (1-3) Influenza A (Rapid) Positive H (Negative) Influenza B (Rapid) Negative (Negative) Microbiology and Other Data: Microbiology 12/31/16 20:10 Urine Culture - Final Urine No Growth (<1,000 CFU/mL) 01/01/17 20:00 Gram Stain - Final Sputum Expectorated Assess/Plan/Problems-Billing Mr Rosas is a 71 yo M with h/o COPD ( pt stated that he has 02 at home, but rarely uses it), ETOH abuse( 6 pack a day), recent open cholecystectomy ( , with wound healing by secondary intent) who presents with Influenza A. - Patient Problems (1) Influenza A Current Visit: Yes Status: Acute Code(s): J10.1 - FLU DUE TO OTH IDENT INFLUENZA VIRUS W OTH RESP MANIFEST SNOMED Code(s): 189321700 Comment: Continue tamiflu to complete a 5 day course of therapy. He is feeling improved and like he can manage at home. (2) Open abdominal wall wound Current Visit: Yes Status: Acute Code(s): S31.109A - UNSP OPN WND ABD WALL, UNSP Q W/O PENET PERIT CAV, INIT SNOMED Code(s): 542486593 Comment: s/p open cholecystectomly 11/05/2016. His wound has not healed completely. There is good granulation tissue present at the wound base. No signs of infection. Continue medihoney. Follow up with Dr Fry in the clinic in about 1 week. (3) Hyponatremia Current Visit: Yes Status: Chronic Code(s): E87.1 - HYPO-OSMOLALITY AND HYPONATREMIA SNOMED Code(s): 23278432 Comment: Na level is stable at 129. Likely chronic related to his h/o alcoholism. (4) COPD (chronic obstructive pulmonary disease) Current Visit: Yes Status: Chronic Code(s): J44.9 - CHRONIC OBSTRUCTIVE PULMONARY DISEASE, UNSPECIFIED SNOMED Code(s): 93160840 Comment: No signs of exacerbation at this time. Continue inhaler/neb regimen. (5) Alcohol abuse Current Visit: Yes Status: Acute Code(s): F10.10 - ALCOHOL ABUSE, UNCOMPLICATED SNOMED Code(s): 11267293 Comment: No evidence of withdrawal. Encourage abstinence. (6) Hypertension Current Visit: Yes Status: Chronic Code(s): I10 - ESSENTIAL (PRIMARY) HYPERTENSION SNOMED Code(s): 94548457 Comment: Under good control without antihypertensives. (7) DVT prophylaxis Current Visit: Yes Status: Acute Code(s): LIE2282 - SNOMED Code(s): 682686572 Comment: SQ heparin (8) Full code status Current Visit: Yes Status: Acute Code(s): Z78.9 - OTHER SPECIFIED HEALTH STATUS SNOMED Code(s): 132793901
[2017-01-02] MEDS: Mometasone/Formoter 200/5 MDI INH SCH (10:06)
[2017-01-02] MEDS ORDERED: Spiriva Inhaler DEVICE* 1 EACH DEVICE INH ONE (11:00)
--- NOTE | 2017-01-02 12:11 | DS ---
DISCHARGE SUMMARY: DATE OF ADMISSION: 12/31/16 DATE OF DISCHARGE: 01/02/17 PRIMARY CARE PROVIDER: Olya Sidhu NP GENERAL SURGEON: Dmitri Fry MD. PRINCIPAL DIAGNOSES: 1. Influenza. 2. Right upper quadrant open abdominal wound, healing by secondary intention. 3. Hyponatremia - stable. 4. History of alcohol abuse. SECONDARY DIAGNOSES: 1. Chronic obstructive pulmonary disease. 2. Benign prostatic hypertrophy. 3. Depression. DISCHARGE MEDICATIONS: 1. Folic acid 1 mg p.o. daily. 2. Celebrex 100 mg p.o. daily. 3. Spiriva 1 puff inhaled daily. 4. Thiamine 100 mg p.o. daily. 5. Flomax 0.8 mg p.o. daily. 6. Ditropan XL 10 mg p.o. daily. 7. Multivitamin 1 tab p.o. daily. 8. Dulera 200/5 two puffs inhaled twice daily. 9. Lexapro 20 mg p.o. daily. 10. Albuterol one puff inhaled q.4 hours p.r.n. shortness of breath. 11. Tylenol 1000 mg p.o. b.i.d. p.r.n. pain. 12. Tamiflu 75 mg p.o. b.i.d. x6 more doses. HOSPITAL COURSE: Mr. Rosas is a 71-year-old male with a history of COPD, alcohol abuse, BPH, and depression, who presents to the emergency room with complaints of fever, cough, and sore throat. The patient was identified to be positive for influenza. The patient was feeling even more short of breath at the time of admission. The patient was felt to have a mild exacerbation at the time of his admission. The patient has been treated with Tamiflu 75 mg twice daily. He will continue on this for another 6 doses. The patient has no signs of COPD exacerbation at the time of discharge. He was not started on steroids during this hospitalization. He will continue on his usual inhaler regimen at home. The patient was found to be mildly hyponatremic with a sodium of 125 on admission. This trended up to 129. The patient in the past has been chronically hyponatremic. This is likely related to his history of alcohol abuse. The patient is felt to be stable from this standpoint. The patient was also found to have a right upper quadrant open abdominal wound. The patient is status post open cholecystectomy on 11/05/[address] Fry. The patient was seen in consultation by Dr. Fry during his hospitalization. His wound was debrided. It has been recommended that he apply Medihoney to the wound daily and cover with Telfa. The patient will continue on this and follow up with Dr. Fry in the office tomorrow, 01/03/17, at 1: 30 p.m. There are no signs of infection at this time. FOLLOWUP CONCERNS: The patient is being discharged home today, 01/02/17. He is to follow up with Dr. Fry tomorrow, 01/03/17, and with Olya Sidhu NP in the next 4-7 days. ACTIVITY LEVEL: As tolerated. DIET: Regular. CONDITION ON DISCHARGE: Stable. 35 minutes were spent discharging this patient. CC: Olya Sidhu NP; Dr. Fry [id number]/[facility] #: [id number] MTDD
[2017-01-03] MEDS ORDERED: Tiotropium CAP.INH* CAP.INH/18 MCG (USE ORDER SET !) INH SCH (09:00)
== END 2017-01-02 10:25 | disposition home or self-care (01) | DRG 194 ==
LOC: ED 14:08 → MED 16:07
PROVIDERS: ADMIT Internal Medicine; ATTEND Hospitalist
PROC: 0HD7XZZ Extraction of Abdomen Skin, External Approach (ICD-10-PCS; principal; 2017-01-01)
DX: J10.1 Influenza due to other identified influenza virus with other respiratory manifestations (principal); E46 Unspecified protein-calorie malnutrition; E87.1 Hypo-osmolality and hyponatremia; J44.1 Chronic obstructive pulmonary disease with (acute) exacerbation; Z68.1 Body mass index [BMI] 19.9 or less, adult; N40.0 Benign prostatic hyperplasia without lower urinary tract symptoms; F17.210 Nicotine dependence, cigarettes, uncomplicated; F10.10 Alcohol abuse, uncomplicated; E03.9 Hypothyroidism, unspecified; E86.0 Dehydration; M13.852 Other specified arthritis, left hip; M13.851 Other specified arthritis, right hip; F41.9 Anxiety disorder, unspecified; F12.90 Cannabis use, unspecified, uncomplicated; S31.100A Unspecified open wound of abdominal wall, right upper quadrant without penetration into peritoneal cavity, initial encounter; F32.9 Major depressive disorder, single episode, unspecified; I10 Essential (primary) hypertension; Z79.899 Other long term (current) drug therapy; Z90.49 Acquired absence of other specified parts of digestive tract; Z82.5 Family history of asthma and other chronic lower respiratory diseases; Z86.718 Personal history of other venous thrombosis and embolism
CPT/HCPCS: 36415; 71020; 80048; 80053; 81003; 82533; 83605; 83735; 83880; 83930; 83935; 84300; 84443; 84484; 85025; 85610; 86140; 87040; 87070; 87086; 87205; 87502; 93005; 94640; 94760; 99406; A9270-GY; J1644

== ENCOUNTER 2017-06-25 14:59 | Emergency (ER) | payer MEDICARE, OTHER ==
--- NOTE | 2017-06-25 15:52 | RAD ---
Patient: Head injury. CT of the brain was performed without IV contrast. Ventricular structures are midline. No midline shift is noted. The extraction spaces are unremarkable. There is no evidence of intracranial mass or hemorrhage. No other high or low density lesions are identified. When compared to previous exam of October 19, 2016 no significant change is noted. IMPRESSION: There is no evidence of intracranial mass or hemorrhage noted. Mastoid air cells and paranasal sinuses are unremarkable.
--- NOTE | 2017-06-25 15:59 | RAD ---
Indication: Neck injury. CT of the cervical spine was obtained in the axial plane. Sagittal and coronal reconstructed images were obtained. The skull base demonstrates no evidence of fracture. Mastoid air cells are otherwise unremarkable. Degenerative changes of the atlantoaxial joint is noted. At C2-C3 there is degenerative disc disease with spondylytic ridge flattening the thecal sac. There is left uncovertebral joint hypertrophy and left facet arthropathy resulting in left foraminal stenosis. No central stenosis is noted. At C3-C4 bilateral uncovertebral joint hypertrophy is noted. Facet arthropathy is noted. Bilateral foraminal stenosis is noted. No central stenosis is identified. At C4-C5 spondylitic ridge flattens the thecal sac. Bilateral uncovertebral joint hypertrophy narrows both foramen. No central stenosis is noted. At C5-C6 spondylitic ridge flattens the thecal sac. Bilateral uncovertebral joint hypertrophy narrows both foramen. No central stenosis is noted. At C6-C7 spondylitic ridge flattens the thecal sac. Bilateral facet arthropathy is noted. Bilateral foraminal stenosis is noted. No central stenosis is noted. At C7-T1 no fracture is noted. IMPRESSION: Degenerative disc disease with bilateral uncovertebral joint hypertrophy and bilateral foraminal stenosis is noted throughout C3-C4 through C6-C7. No fracture of the cervical spine is noted.
--- NOTE | 2017-06-25 17:38 | RAD ---
INDICATION: Left shoulder injury COMPARISON: None TECHNIQUE: Routine frontal, Y and axial views were obtained. FINDINGS: There is a comminuted and displaced distal clavicular fracture. There is no separation of the AC joint. There is moderate osteoarthritis of the glenohumeral joint. There is an acute, mildly displaced left posterior third rib fracture. There is mild deformity of the left seventh and eighth rib ribs consistent with remote injury. These were evident on the CT. IMPRESSION: COMMINUTED DISTAL CLAVICULAR FRACTURE. LEFT THIRD RIB FRACTURE. UNDERLYING GLENOHUMERAL HUMERAL OSTEOARTHRITIS AND REMOTE POST TRAUMATIC LEFT RIB DEFORMITIES
--- NOTE | 2017-06-25 18:00 | ED ---
Anita Alfonso Edward, scribed for Iliana Mccain MD on 06/25/17 at 1526 . Upper Extremity Pain - HPI Summary HPI Summary: 72 male BIBA s/p fall last night. The patient fell on his L side while using his walker last night. The pt fell on his L shoulder and face, and presents to the ED with L shoulder pain, L rib pain, and ecchymosis over the L eye and the nose. The patient's continuous improvement consultant was present during the fall. No LOC. Denies other symptoms. Lives withself. EtOH and smoker. No DM or HTN. - History of Current Complaint Stated Complaint: LT SHOULDER INJURY Time Seen by Provider: 06/25/17 15:08 Hx Obtained From: Patient Mechanism Of Injury: Fall From A Standing Position Onset/Duration: Started Days Ago - Last night Pain Location: Shoulder - L, Other: - L hip Aggravating Factor(s): Movement Associated Signs & Symptoms: Positive: Bruising - Nose and over L eye, Other - L shoulder and L rib pain - Allergies/Home Medications Allergies/Adverse Reactions: Allergies Allergy/AdvReac Type Severity Reaction Status Date / Time No Known Allergies Allergy Verified 05/15/17 12:37 PMH/Surg Hx/FS Hx/Imm Hx Previously Healthy: No Endocrine/Hematology History: Denies: Hx Diabetes Cardiovascular History: Reports: Other Cardiovascular Problems/Disorders - DVT , ALCOHOLISM, SYNCOPAL EPISODE W/ COLLAPSE 05/10 Denies: Hx Hypertension, Hx Pacemaker/ICD Respiratory History: Reports: Hx Chronic Obstructive Pulmonary Disease (COPD) GI History: Reports: Hx Gall Bladder Disease Musculoskeletal History: Reports: Hx Arthritis - HIPS, Hx Orthopedic Injury - Patella fracture and old rib fractures, Other Musculoskeletal History - CONTRACTURE HANDS Sensory History: Reports: Hx Contacts or Glasses - GLASSES Denies: Hx Hearing Aid Opthamlomology History: Reports: Hx Contacts or Glasses - GLASSES Psychiatric History: Reports: Hx Anxiety, Hx Depression - GETTING BETTER WITH RX , Hx Substance Abuse - occasional marijuana Denies: Hx Panic Disorder - Surgical History Surgery Procedure, Year, and Place: TONSILLECTOMY A CHILD; [facility] 12/2014; GALLBLADDER 09/2016. carpal tunnel right Hx Anesthesia Reactions: No Infectious Disease History: Reports: Hx Hepatitis - A CHILD Denies: Hx of Known/Suspected MRSA - Family History Known Family History: Negative: Cardiac Disease, Hypertension Family History: No malignant hyperthermia - Social History Occupation: Disabled Lives: Assisted Living Alcohol Use: Daily Alcohol Amount: NORMALLY 6 PACK PER DAY, BUT PT HASNT BEEN Hx Substance Use: No Substance Use Type: Reports: None Substance Use Comment - Amount & Last Used: Pt "quit cold turkey" ~1.5month ago. Used to drink 6pk or whiskey/day Hx Tobacco Use: Yes Smoking Status (MU): Heavy Every Day Tobacco Smoker Type: Cigarettes Amount Used/How Often: 1/2 PPD FOR 50 YRS Length of Time of Smoking/Using Tobacco: 50 YRS Have You Smoked in the Last Year: Yes Review of Systems Constitutional: Negative Eyes: Negative ENT: Negative Cardiovascular: Negative Respiratory: Negative Gastrointestinal: Negative Genitourinary: Negative Positive: Arthralgia - L shoulder and L rib pain Positive: Bruising - Over nose and over L eye Neurological: Negative Psychological: Normal All Other Systems Reviewed And Are Negative: Yes Physical Exam Triage Information Reviewed: Yes Vital Signs On Initial Exam: Initial Vitals Temp Pulse Resp BP Pulse Ox 97.5 F 72 20 138/74 98 06/25/17 15:23 06/25/17 15:23 06/25/17 15:23 06/25/17 15:23 06/25/17 15:23 Vital Signs Reviewed: Yes Appearance: Positive: Well-Appearing, No Pain Distress Skin: Positive: Warm, Skin Color Reflects Adequate Perfusion, Dry Eyes: Positive: EOMI, STEFANIA, Other: - 1 cm abrasion over L lateral eye with some contusion. No bony stepoff ENT: Positive: Pharynx normal, TMs normal, Other - Contusion over nose Neck: Positive: Supple, Nontender Respiratory/Lung Sounds: Positive: Clear to Auscultation, Breath Sounds Present. Negative: Rales, Rhonchi, Wheezes Cardiovascular: Positive: RRR, Other - No gallop. Negative: Murmur, Rub Abdomen Description: Positive: Nontender, Soft, Hernia @ - Ventral hernia, Other : - No rebound. Negative: Distended, Guarding Bowel Sounds: Positive: Present Musculoskeletal: Positive: Strength/ROM Intact, Other - Contusion over posterior L shoulder Neurological: Positive: Sensory/Motor Intact, Alert, Oriented to Person Place, Time, CN Intact II-III Psychiatric: Positive: Affect/Mood Appropriate Diagnostics - Vital Signs Vital Signs Temp Pulse Resp BP Pulse Ox 06/25/17 15:26 97.5 F 72 20 138/74 98 06/25/17 15:23 97.5 F 72 20 138/74 98 - Laboratory Lab Statement: Any lab studies that have been ordered have been reviewed, and results considered in the medical decision making process. - Radiology SHOULDER XR Xray Interpretation: Positive (See Comments) - COMMINUTED DISTAL CLAVICULAR FRACTURE. LEFT THIRD RIB FRACTURE. UNDERLYING GLENOHUMERAL HUMERAL OSTEOARTHRITIS AND REMOTE POST TRAUMATIC LEFT RIB DEFORMITIES Radiology Interpretation Completed By: Radiologist - CT BRAIN CT CT Interpretation: No Acute Changes - There is no evidence of intracranial mass or hemorrhage noted. Mastoid air cells and paranasal sinuses are unremarkable. CT Interpretation Completed By: Radiologist C-SPINE CT CT Interpretation: Positive (See Comments) - Degenerative disc disease with bilateral uncovertebral joint hypertrophy and bilateral foraminal stenosis is noted throughout C3-C4 through C6-C7. No fracture of the cervical spine is noted. CT Interpretation Completed By: Radiologist Course/Dx - Course Course Of Treatment: 72 yo male s/p mechanical fall with facial contusions and a 3rd rib fx /clavicle fx f/u with orthopedics. Pt given small script for tylenol with codeine for extreme pain only as he is unstable on his feet - Diagnoses Provider Diagnoses: Clavicle fracture, Rib fracture, Contusion Discharge - Discharge Plan Condition: Stable Disposition: HOME Prescriptions: Acetaminop/Codeine 30 MG TAB* [Tylenol/Codeine 30 MG TAB*] 1 tab PO Q8H PRN #14 tab MDD 3 PRN Reason: Pain Patient Education Materials: Clavicle Fracture (ED), Rib Fracture (ED), Contusion in Adults (ED) Referrals: Nahum RN W[employer] SOFTENER SERVICER AND INSTALLER,Olya [Primary Care Provider] - 3 Days (Please f/u in 2-3 days) The documentation as recorded by the Anita fox Edward accurately reflects the service I personally performed and the decisions made by me, Iliana Mccain MD.
[2017-06-25 18:30] VITALS: BP 129/72
== END 2017-06-25 18:30 | disposition home or self-care (01) ==
LOC: ED 14:59
DX: S22.32XA Fracture of one rib, left side, initial encounter for closed fracture (principal); S42.032A Displaced fracture of lateral end of left clavicle, initial encounter for closed fracture; F17.200 Nicotine dependence, unspecified, uncomplicated; S00.83XA Contusion of other part of head, initial encounter; J44.9 Chronic obstructive pulmonary disease, unspecified; F41.9 Anxiety disorder, unspecified; F32.9 Major depressive disorder, single episode, unspecified; F17.210 Nicotine dependence, cigarettes, uncomplicated; W19.XXXA Unspecified fall, initial encounter; Y92.9 Unspecified place or not applicable
CPT/HCPCS: 70450; 72125; 99282

== ENCOUNTER 2017-06-29 19:59 | Inpatient (IN) | payer MEDICARE, OTHER ==
[2017-06-29] MEDS ORDERED: NS 0.9% 1000 ML* 1,000 ML IV ONE (20:27)
[2017-06-29] MEDS ORDERED: Thiamine IV 100 MG, Folic Acid IV* 1 MG, Multiple Vitamin IV ADULT* 10 ML in NS 0.9% 10... IV ONE (20:28)
[2017-06-29] MEDS ORDERED: Magnesium Sulfate 2 GM IV* 2 GM/50 ML BAG IVPB ONE (20:28)
--- NOTE | 2017-06-29 20:57 | RAD ---
INDICATION: Short of breath COMPARISON: December 31, 2016 TECHNIQUE: An AP portable view obtained at 2045 hours is submitted. FINDINGS: Bones/Soft Tissues: There are no acute bony findings. Cardiomediastinal: The cardiomediastinal silhouette is normal. Lungs: There are no infiltrates. There is hyperinflation. Pleura: There are no pleural effusions. Other: None IMPRESSION: HYPERINFLATION. NO ACTIVE DISEASE.
[2017-06-29 21:18] LABS: ALT 13 U/L (7-52); Alkaline Phosphatase 74 U/L (34-104); BUN/Creatinine Ratio 17.9 (8-20); Blood Urea Nitrogen 15 mg/dL (6-24); CO2 Carbon Dioxide 27 mmol/L (22-32); Calcium 9.3 mg/dL (8.6-10.3); Chloride 98 mmol/L (101-111); EGFR African American 115.5 (>60); EGFR Non-African American 89.8 (>60); Globulin 3.2 g/dL (2-4); Glucose 116 mg/dL (70-100); Sodium 130 mmol/L (133-145); Total Protein 7.2 g/dL (6.4-8.9)
[2017-06-29 21:19] LABS: Anion Gap 5 mmol/L (2-11)
--- NOTE | 2017-06-29 21:20 | RAD ---
INDICATION: Fall. Intracranial injury COMPARISON: CT brain June 25, 2017 TECHNIQUE: Noncontrast axial source images were acquired from the skull base to the vertex. FINDINGS: Ventricles/sulci: There is age-related cortical atrophy with compensatory dilatation of the CSF spaces. Brain parenchyma: There is periventricular and subcortical white matter change compatible with chronic ischemia. Intracranial hemorrhage:None. Extra-axial spaces: There are no abnormal extra axial fluid collections or evidence of extra-axial mass. Calvarium: There is no calvarial fracture or other calvarial abnormality. Scalp: There is no evidence of scalp or extracalvarial soft tissue abnormality. Paranasal sinuses/mastoid: The paranasal sinuses and mastoid air cells are clear. Other: None. IMPRESSION: CORTICAL INVOLUTIONAL CHANGE. CHRONIC MICROVASCULAR ISCHEMIA. STABLE EXAMINATION RELATIVE TO THE JUNE 25, 2017 STUDY
[2017-06-29 21:29] LABS: Alcohol < 10 mg/dL (<10)
[2017-06-29 22:07] LABS: Add Diff/Slide Review? Slide Review Added; Comments Flag Yes; Hematocrit 43 % (42-52); Hemoglobin 14.5 g/dl (14.0-18.0); Mean Corpuscular HGB Conc 34 g/dl (31-36); Mean Corpuscular Hemoglobin 36 pg (27-31); Mean Corpuscular Volume 106 fL (80-94); Mean Platelet Volume 9 um3 (7.4-10.4); Red Blood Count 4.06 10^6/ul (4.0-5.4); Red Cell Distribution Width 13 % (10.5-15); White Blood Count 8.4 10^3/ul (3.5-10.8)
[2017-06-29] MEDS ORDERED: Mouth Piece, Nicotine* 1 EACH CARTRIDGE INH ONE (23:00)
[2017-06-29] MEDS ORDERED: Albuterol 2.5 MG/3 ML NEB.SOL* (0.083%) INH PRN (23:02)
[2017-06-29] MEDS ORDERED: CMCS: Melatonin (NF) 3 MG TAB PO PRN (23:02)
[2017-06-29] MEDS ORDERED: Nicotine Inhaler* 10 MG AMP INH PRN (23:02)
[2017-06-29] MEDS ORDERED: Ondansetron INJ* 2 MG/ML VIAL IV PRN (23:02)
[2017-06-29] MEDS ORDERED: Thiamine IV* 100 MG/ML 2 ML VIAL IM ONE (23:22)
--- NOTE | 2017-06-29 23:22 | HP ---
H&P (Free Text) History and Physical: PCP: Serene Sidhu NP Date/Time of Evaluation: 06/29/2017 2230 CC: fall HPI: Mr Rosas is a 72YO male HX COPD, alcoholism, & recurrent falls who fell ~1 week ago sustaining a L clavicular FX. Tonight he re-presents reporting he got up to go to the refrigerator, lost his balance, and fell again. He reports some spinning dizziness just before and after the fall which resolved quickly. He was on the floor for ~20minutes due to pain from his clavicular FX and limitations in using his L arm. His evaluation is negative, but he feels unsafe to return home out of fear of further falls. PMedHx COPD alcoholism malnutrition BPH depression Ambulatory Orders Escitalopram (NF) [Lexapro 20 mg (NF)] 20 mg PO QAM 07/06/15 Multivitamins/Minerals TAB* [Theragran/minerals TAB*] 1 tab PO QAM 07/06/15 celeCOXIB CAP* [Celebrex CAP*] 100 mg PO QAM 07/06/15 Albuterol HFA INHALER* [Ventolin HFA Inhaler*] 1 puff INH Q4H PRN #0 10/19/16 Tamsulosin CAP* [Flomax CAP*] 0.8 mg PO DAILY #0 10/19/16 Oxybutynin XL TAB* [Ditropan Xl TAB*] 10 mg PO DAILY 10/23/16 Folic Acid TAB* [Folvite TAB*] 1 mg PO DAILY #30 tab 10/24/16 Mometasone/Formoter 200/5 MDI* [Dulera 200/5 MDI*] 2 puff INH BID #1 mdi Thiamine TAB* [Vitamin B-1 TAB 100 MG*] 100 mg PO DAILY #30 tab 10/24/16 Tiotropium CAP.INH* [Spiriva CAP.INH*] 1 cap.inh INH QAM #1 cap.inh 10/24/16 Acetaminophen [Acetaminophen Extra Stren] 1,000 mg PO BID PRN 11/03/16 Oseltamivir CAP* [Tamiflu CAP*] 75 mg PO BID #6 cap 01/02/17 Acetaminop/Codeine 30 MG TAB* [Tylenol/Codeine 30 MG TAB*] 1 tab PO Q8H PRN #14 tab MDD 3 06/25/17 Allergies No Known Allergies Allergy (Verified 06/29/17 20:08) PSurgHx carpal tunnel release open choleystectomy SocHx: light daily smoker, admits to 6 beers/day, occasional recreational drugs ; single, lives alone, 3 adult children; 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 Father passed in his 80s of emphysema. ROS: as above, otherwise reviewed and all were negative Constitutional: NAD, normally developed, thin unkempt appearing white male vitals: Vital Signs Temp 36.8 C 06/29/17 20:04 Pulse 77 06/29/17 20:04 Resp 18 06/29/17 20:04 BP 94/62 06/29/17 20:04 Pulse Ox 91 06/29/17 20:04 Intake & Output 06/28/17 06/29/17 06/29/17 23:59 11:59 23:59 Intake Total 50 Balance 50 Weight 54.431 kg Intake: IV Fluids 50 HEENM: atraumatic; sclera/conjunctiva: non-icteric/clear; hearing: clinically intact; oropharynx: clear, mucosa tacky Neck: soft tissue: non-tender; thyroid: normal Pulmonary: clear to auscultation bilaterally, good to fair aeration, no accessory muscle use CV: RR/RR, normal S1S2, no carotid bruit, no jugular venous distention, 2+ B DP/ PT, no edema Abdominal: soft, non-distended, non-tender, no rebound/guarding/rigidity, normoactive bowel sounds, no hepatosplenomegaly or masses, no costovertebral angle tenderness Musculoskeletal: general: deformity of L clavicle w/ tenderness and overlying healing bruise consistent with fall ~1 week ago Integumental: as above, otherwise notable for abrasion to L anterior ankle w/o erythema, discharge, malodor, tenderness, or induration Psychiatric orientation: AA&O to PPS affect: calm mood: cooperative eye contact: good content: reliable responses: timely insight: fair to poor Testing: Lab Results 06/29/17 06/29/17 06/29/17 Range/Units 20:55 20:55 20:55 WBC 8.4 (3.5-10.8) 10^3/ul RBC 4.06 (4.0-5.4) 10^6/ul Hgb 14.5 (14.0-18.0) g/dl Hct 43 (42-52) % MCV 106 H (80-94) fL MCH 36 H (27-31) pg MCHC 34 (31-36) g/dl RDW 13 (10.5-15) % Plt Count 220 (150-450) 10^3/ul MPV 9 (7.4-10.4) um3 Neut % (Auto) 77.6 (38-83) % Lymph % (Auto) 8.3 L (25-47) % [place] % (Auto) 11.7 H (1-9) % Eos % (Auto) 1.8 (0-6) % Baso % (Auto) 0.6 (0-2) % Absolute Neuts (auto) 6.5 (1.5-7.7) 10^3/ul Absolute Lymphs (auto) 0.7 L (1.0-4.8) 10^3/ul Absolute Monos (auto) 1.0 H (0-0.8) 10^3/ul Absolute Eos (auto) 0.1 (0-0.6) 10^3/ul Absolute Basos (auto) 0 (0-0.2) 10^3/ul Absolute Nucleated RBC 0 10^3/ul Nucleated RBC % 0 INR (Anticoag Therapy) 0.93 (0.89-1.11) Sodium (133-145) mmol/L Potassium Chloride (101-111) mmol/L Carbon Dioxide (22-32) mmol/L Anion Gap (2-11) mmol/L BUN (6-24) mg/dL Creatinine (0.67-1.17) mg/dL Est GFR ( Amer) (>60) Est GFR (Non-Af Amer) (>60) BUN/Creatinine Ratio (8-20) Glucose (70-100) mg/dL Lactic Acid 1.0 (0.5-2.0) mmol/L Calcium (8.6-10.3) mg/dL Magnesium Total Bilirubin (0.2-1.0) mg/dL AST ALT (7-52) U/L Alkaline Phosphatase (34-104) U/L Total Protein (6.4-8.9) g/dL Albumin (3.2-5.2) g/dL Globulin (2-4) g/dL Albumin/Globulin Ratio (1-3) Serum Alcohol (<10) mg/dL 06/29/17 06/29/17 Range/Units 20:55 22:30 WBC (3.5-10.8) 10^3/ul RBC (4.0-5.4) 10^6/ul Hgb (14.0-18.0) g/dl Hct (42-52) % MCV (80-94) fL MCH (27-31) pg MCHC (31-36) g/dl RDW (10.5-15) % Plt Count (150-450) 10^3/ul MPV (7.4-10.4) um3 Neut % (Auto) (38-83) % Lymph % (Auto) (25-47) % [place] % (Auto) (1-9) % Eos % (Auto) (0-6) % Baso % (Auto) (0-2) % Absolute Neuts (auto) (1.5-7.7) 10^3/ul Absolute Lymphs (auto) (1.0-4.8) 10^3/ul Absolute Monos (auto) (0-0.8) 10^3/ul Absolute Eos (auto) (0-0.6) 10^3/ul Absolute Basos (auto) (0-0.2) 10^3/ul Absolute Nucleated RBC 10^3/ul Nucleated RBC % INR (Anticoag Therapy) (0.89-1.11) Sodium 130 L (133-145) mmol/L Potassium TNP 4.2 Chloride 98 L (101-111) mmol/L Carbon Dioxide 27 (22-32) mmol/L Anion Gap 5 (2-11) mmol/L BUN 15 (6-24) mg/dL Creatinine 0.84 (0.67-1.17) mg/dL Est GFR ( Amer) 115.5 (>60) Est GFR (Non-Af Amer) 89.8 (>60) BUN/Creatinine Ratio 17.9 (8-20) Glucose 116 H (70-100) mg/dL Lactic Acid (0.5-2.0) mmol/L Calcium 9.3 (8.6-10.3) mg/dL Magnesium TNP Total Bilirubin 0.70 (0.2-1.0) mg/dL AST TNP 14 ALT 13 (7-52) U/L Alkaline Phosphatase 74 (34-104) U/L Total Protein 7.2 (6.4-8.9) g/dL Albumin 4.0 (3.2-5.2) g/dL Globulin 3.2 (2-4) g/dL Albumin/Globulin Ratio 1.3 (1-3) Serum Alcohol < 10 (<10) mg/dL ECG, personally reviewed: sinus RBBB rate 70, no ischemia CXR, personally reviewed: IMPRESSION: HYPERINFLATION. NO ACTIVE DISEASE. CT brain WO, personally reviewed: IMPRESSION: CORTICAL INVOLUTIONAL CHANGE. CHRONIC MICROVASCULAR ISCHEMIA. STABLE EXAMINATION RELATIVE TO THE JUNE 25, 2017 STUDY Impression: 72M presenting with mechanical fall reporting he is unable to care for himself at home DIAGNOSIS & PLAN Primary recurrent falls, unsteady gait : L clavicular FX 2nd fall ~1 week ago : PT/OT evaluations subacute L clavicular FX : s/p fall ~1 week ago : pain control : continue sling immobilization Secondary COPD : albuterol nebs PRN : mometasone/formoterol : tiotropium alcoholism : WAM protocol BPH : continue tamsulosin & oxybutynin once reconciled depression : continue escitalopram once reconciled Admission Rational: observation for PT/OT evaluation and social service manager consult SNF placement, no safe discharge plan DVTp: SCDs Code Status: full HCP: Silvia anderson
[2017-06-29] MEDS ORDERED: LORazepam INJ* 2 MG/ML 1 ML VIAL IM SCH (23:45)
--- NOTE | 2017-06-29 23:55 | ED ---
Renu Alfonso Alfonso, scribed for Josias Levy MD on 06/29/17 at 2020 . Adult Trauma - HPI Summary HPI Summary: This patient is a 72 year old M BIBA to [facility] accompanied by automotive customer experience advisor with a chief complaint of a fall at 1900 today. Pt states I got dizzy, loss my balance , and fell backwards. Pt rates the pain 2/10 in severity. Pt reports head trauma, balance loss, and shoulder pain (fractured collar bone and left-sided third rib three days ago and sore since). Pt denies fever, chills, CP, SOB, abdominal pain, LOC, shaking, and weakness. Denies taking blood thinning medications and thiamine. Pt denies ETOH use today (normally has 6 beers a day but was recently prescribed codeine medication thus began a period of cessation) . Tobacco abuse disorder. Patient is on nasal cannula at home. Pt sees Dr. Miguel (neurologist) who per automotive customer experience advisor thinks he may have had strokes. PMHx of right hand nerve damage, COPD, and syncopal episodes. History of recent falls. - History of Current Complaint Chief Complaint: EDHeadInjury Stated Complaint: FALL Time Seen by Provider: 06/29/17 20:11 Hx Obtained From: Patient, Family/Soda Dialyzer - Soda Dialyzer Mechanism of Injury: Fall Loss of Consciousness: no loss of consciousness Onset/Duration: Started Minutes Ago - 1900 today, Resolved Onset of Pain: Prior to Arrival Onset Severity: Moderate Current Severity: Moderate Pain Intensity: 2 Pain Scale Used: 0-10 Numeric Location: Head Associated Signs & Symptoms: Positive: Other: - Pt reports head trauma, balance loss, and shoulder pain (fractured collar bone and left-sided third rib three days ago and sore since). Pt denies fever, chills, CP, SOB, abdominal pain, LOC , shaking, and weakness. Related History: Similar Episode, Alcohol Abuse - normally has 6 beers a day but was recently prescribed codeine medication thus began a period of cessation - Additional Pertinent History Primary Care Physician: MARIO - Allergy/Home Medications Allergies/Adverse Reactions: Allergies Allergy/AdvReac Type Severity Reaction Status Date / Time No Known Allergies Allergy Verified 06/29/17 20:08 Home Medications: Home Medications Aspirin Low Dose CHEW TAB* [Aspirin Low Dose TAB*] 81 mg PO DAILY 06/29/17 [ History Confirmed 06/29/17] PMH/Surg Hx/FS Hx/Imm Hx Endocrine/Hematology History: Denies: Hx Diabetes Cardiovascular History: Reports: Other Cardiovascular Problems/Disorders - DVT , ALCOHOLISM, SYNCOPAL EPISODE W/ COLLAPSE 05/10 Denies: Hx Hypertension, Hx Pacemaker/ICD Respiratory History: Reports: Hx Chronic Obstructive Pulmonary Disease (COPD) GI History: Reports: Hx Gall Bladder Disease Musculoskeletal History: Reports: Hx Arthritis - HIPS, Hx Orthopedic Injury - Patella fracture and old rib fractures, Other Musculoskeletal History - CONTRACTURE HANDS Sensory History: Reports: Hx Contacts or Glasses - GLASSES Denies: Hx Hearing Aid Opthamlomology History: Reports: Hx Contacts or Glasses - GLASSES Neurological History: Reports: Other Neuro Impairments/Disorders - Right hand nerve damage Psychiatric History: Reports: Hx Anxiety, Hx Depression - GETTING BETTER WITH RX , Hx Substance Abuse - occasional marijuana Denies: Hx Panic Disorder - Surgical History Surgery Procedure, Year, and Place: TONSILLECTOMY A CHILD; [facility] 12/2014; GALLBLADDER 09/2016. carpal tunnel right Hx Anesthesia Reactions: No - Immunization History Date of Tetanus Vaccine: utd Date of Influenza Vaccine: utd Infectious Disease History: Yes Infectious Disease History: Reports: Hx Hepatitis - A CHILD Denies: Hx of Known/Suspected MRSA, Traveled Outside the [place] in Last 30 Days - Family History Known Family History: Negative: Cardiac Disease, Hypertension Family History: No malignant hyperthermia - Social History Alcohol Use: Daily Alcohol Amount: NORMALLY 6 PACK PER DAY, BUT PT HASNT BEEN Hx Substance Use: No Substance Use Type: Reports: None, Marijuana Substance Use Comment - Amount & Last Used: occasionally Hx Tobacco Use: Yes Smoking Status (MU): Heavy Every Day Tobacco Smoker Type: Cigarettes Amount Used/How Often: 1/2 PPD FOR 50 YRS Length of Time of Smoking/Using Tobacco: 50 YRS Have You Smoked in the Last Year: Yes Review of Systems Negative: Fever, Chills Negative: Chest Pain Negative: Shortness Of Breath Negative: Abdominal Pain Positive: Other - Positive fall and shoulder pain (fractured collar bone and left-sided third rib three days ago and sore since). Neurological: Other - Positive head trauma and balance loss; Negative LOC, shaking, and weakness. All Other Systems Reviewed And Are Negative: Yes Physical Exam - Summary Physical Exam Summary: The patient is well-nourished in no acute distress and in no acute pain. No owen signs. No raccoon eyes. The skin has ecchymosis at the left orbit which appears old. Ecchymosis at the left shoulder and left chest. HEENT: The head is normocephalic and atraumatic. The pupils are equal and reactive. The conjunctivae are clear and without drainage. Nares are patent and without drainage. Mouth reveals dry mucous membranes and the throat is without erythema and exudate. The external ears are intact. The ear canals are patent and without drainage. The tympanic membranes are intact. Neck is supple with full range of motion and non-tender. There are no carotid bruits. There is no neck vein distension. Respiratory: Chest is non-tender. Lungs are clear to auscultation and breath sounds are decreased on the left side. Cardiovascular: Heart is regular rate and rhythm. There is no murmur or rub auscultated. Pulses are symmetrical and equal. There are good distal pulses. Abdomen: The abdomen is soft and non-tender. There are normal bowel sounds heard in all four quadrants and there is no organomegaly palpated. Musculoskeletal: There is no back pain noted. Extremities have full range of motion. There is a 3 second capillary refill. There is LLE pitting edema. Left sided occipital tenderness and soft tissue tenderness. Neurological: Patient is alert and cooperative. The patient has symmetrical motor strength in all four extremities. Cranial nerves are grossly intact. Deep tendon reflexes are symmetrical and equal in all four extremities. Psychiatric: The patient has an appropriate affect and does not exhibit any anxiety or depression. Triage Information Reviewed: Yes Vital Signs On Initial Exam: Initial Vitals Temp Pulse Resp BP Pulse Ox 98.3 F 75 18 94/62 90 06/29/17 20:01 06/29/17 20:01 06/29/17 20:01 06/29/17 20:01 06/29/17 20:01 Vital Signs Reviewed: Yes - Pato Coma Scale Coma Scale Total: 15 Diagnostics - Vital Signs Vital Signs Temp Pulse Resp BP Pulse Ox 06/29/17 20:04 98.3 F 77 18 94/62 91 06/29/17 20:01 98.3 F 75 18 94/62 90 - Laboratory Lab Results: Lab Results 06/29/17 06/29/17 06/29/17 Range/Units 20:55 20:55 20:55 WBC 8.4 (3.5-10.8) 10^3/ul RBC 4.06 (4.0-5.4) 10^6/ul Hgb 14.5 (14.0-18.0) g/dl Hct 43 (42-52) % MCV 106 H (80-94) fL MCH 36 H (27-31) pg MCHC 34 (31-36) g/dl RDW 13 (10.5-15) % Plt Count 220 (150-450) 10^3/ul MPV 9 (7.4-10.4) um3 Neut % (Auto) 77.6 (38-83) % Lymph % (Auto) 8.3 L (25-47) % Yell % (Auto) 11.7 H (1-9) % Eos % (Auto) 1.8 (0-6) % Baso % (Auto) 0.6 (0-2) % Absolute Neuts (auto) 6.5 (1.5-7.7) 10^3/ul Absolute Lymphs (auto) 0.7 L (1.0-4.8) 10^3/ul Absolute Monos (auto) 1.0 H (0-0.8) 10^3/ul Absolute Eos (auto) 0.1 (0-0.6) 10^3/ul Absolute Basos (auto) 0 (0-0.2) 10^3/ul Absolute Nucleated RBC 0 10^3/ul Nucleated RBC % 0 INR (Anticoag Therapy) 0.93 (0.89-1.11) Sodium (133-145) mmol/L Potassium Chloride (101-111) mmol/L Carbon Dioxide (22-32) mmol/L Anion Gap (2-11) mmol/L BUN (6-24) mg/dL Creatinine (0.67-1.17) mg/dL Est GFR ( Amer) (>60) Est GFR (Non-Af Amer) (>60) BUN/Creatinine Ratio (8-20) Glucose (70-100) mg/dL Lactic Acid 1.0 (0.5-2.0) mmol/L Calcium (8.6-10.3) mg/dL Magnesium Total Bilirubin (0.2-1.0) mg/dL AST ALT (7-52) U/L Alkaline Phosphatase (34-104) U/L Total Protein (6.4-8.9) g/dL Albumin (3.2-5.2) g/dL Globulin (2-4) g/dL Albumin/Globulin Ratio (1-3) Serum Alcohol (<10) mg/dL 06/29/17 06/29/17 Range/Units 20:55 22:30 WBC (3.5-10.8) 10^3/ul RBC (4.0-5.4) 10^6/ul Hgb (14.0-18.0) g/dl Hct (42-52) % MCV (80-94) fL MCH (27-31) pg MCHC (31-36) g/dl RDW (10.5-15) % Plt Count (150-450) 10^3/ul MPV (7.4-10.4) um3 Neut % (Auto) (38-83) % Lymph % (Auto) (25-47) % Yell % (Auto) (1-9) % Eos % (Auto) (0-6) % Baso % (Auto) (0-2) % Absolute Neuts (auto) (1.5-7.7) 10^3/ul Absolute Lymphs (auto) (1.0-4.8) 10^3/ul Absolute Monos (auto) (0-0.8) 10^3/ul Absolute Eos (auto) (0-0.6) 10^3/ul Absolute Basos (auto) (0-0.2) 10^3/ul Absolute Nucleated RBC 10^3/ul Nucleated RBC % INR (Anticoag Therapy) (0.89-1.11) Sodium 130 L (133-145) mmol/L Potassium TNP 4.2 Chloride 98 L (101-111) mmol/L Carbon Dioxide 27 (22-32) mmol/L Anion Gap 5 (2-11) mmol/L BUN 15 (6-24) mg/dL Creatinine 0.84 (0.67-1.17) mg/dL Est GFR ( Amer) 115.5 (>60) Est GFR (Non-Af Amer) 89.8 (>60) BUN/Creatinine Ratio 17.9 (8-20) Glucose 116 H (70-100) mg/dL Lactic Acid (0.5-2.0) mmol/L Calcium 9.3 (8.6-10.3) mg/dL Magnesium TNP Total Bilirubin 0.70 (0.2-1.0) mg/dL AST TNP 14 ALT 13 (7-52) U/L Alkaline Phosphatase 74 (34-104) U/L Total Protein 7.2 (6.4-8.9) g/dL Albumin 4.0 (3.2-5.2) g/dL Globulin 3.2 (2-4) g/dL Albumin/Globulin Ratio 1.3 (1-3) Serum Alcohol < 10 (<10) mg/dL Result Diagrams: 06/29/17 20:55 06/29/17 22:30 Lab Statement: Any lab studies that have been ordered have been reviewed, and results considered in the medical decision making process. - Radiology CXR Radiology Interpretation Completed By: Radiologist - HYPERINFLATION. NO ACTIVE DISEASE. - CT Brain CT Interpretation Completed By: Radiologist - CORTICAL INVOLUTIONAL CHANGE. CHRONIC MICROVASCULAR ISCHEMIA. STABLE EXAMINATION RELATIVE TO THE JUNE 25, 2017 STUDY - EKG 2132 Cardiac Rate: NL - BPM 70 EKG Rhythm: Sinus Rhythm EKG Interpretation: Poor R-wave prog, RBBB, and nonspecific T-wave changes in inferior leads Adult Trauma Course/Dx - Course Assessment/Plan: 72 year old M BIBA to [facility] accompanied by automotive customer experience advisor with a chief complaint of a fall at 1900 today. Pt states I got dizzy, loss my balance , and fell backwards. Pt reports head trauma, balance loss, and shoulder pain ( fractured collar bone and left-sided third rib three days ago and sore since). Pt denies fever, chills, CP, SOB, abdominal pain, LOC, shaking, and weakness. Denies taking blood thinning medications and thiamine. History of recent falls. CXR reveals HYPERINFLATION. NO ACTIVE DISEASE. CT brain reveals CORTICAL INVOLUTIONAL CHANGE. CHRONIC MICROVASCULAR ISCHEMIA. STABLE EXAMINATION RELATIVE TO THE JUNE 25, 2017 STUDY. An EKG reveals NSR, poor r wave progression , RBBB, and nonspecific T-wave changes in inferior leads. Consulted Dr. Corcoran (hospitalist) who will see the patient in the ED. Patient is unable to ambulate and care for himself at home. Soda Dialyzer is also requesting admission. At 2250 Dr. Corcoran agrees to admit. Patient will be admitted with follow up from Dr. Corcoran. Pt is agreeable with this plan. - Diagnoses Differential Diagnosis/HQI/PQRI: Positive: Fracture, Other - intrcranial bleed, etoh withdraw, hyponatremia, pneumothorax, ambulatory dysfunction, etoh abuse Provider Diagnoses: Ambulatory dysfunction, Left rib fracture, Fracture of left clavicle, History of ETOH abuse - Physician Notifications Discussed Care Of Patient With: Jose Corcoran Time Discussed With Above Provider: 22:26 Instructed by Provider To: Other - Consulted Dr. Corcoran (hospitalist) who will see the patient in the ED. At 2250 Dr. Corcoran agrees to admit. Discharge - Discharge Plan Condition: Stable Disposition: ADMITTED TO [facility] documentation as recorded by the Renu fox Alfonso accurately reflects the service I personally performed and the decisions made by Cam nolan Drew, MD.
[2017-06-30] MEDS: Acetaminop/Codeine 30 MG TAB* 1 TAB (300 MG/30 MG) PO PRN ×3 (00:56→23:44)
[2017-06-30] MEDS: NS 0.9% 1000 ML* 1,000 ML IV SCH ×2 (02:15→22:00)
[2017-06-30] MEDS: Omeprazole CAP* 20 MG PO SCH (05:58)
[2017-06-30] MEDS: Mometasone/Formoter 200/5 MDI INH SCH ×2 (07:35→19:59)
[2017-06-30] MEDS: Tiotropium CAP.INH* CAP.INH/18 MCG INH SCH (07:35)
[2017-06-30] MEDS ORDERED: Spiriva Inhaler DEVICE* 1 EACH DEVICE INH ONE (09:00)
[2017-06-30] MEDS: Docusate CAP* 100 MG PO SCH ×2 (09:38→20:44)
[2017-06-30] MEDS: Folic Acid TAB* 1 MG PO SCH (09:38)
[2017-06-30] MEDS: Thiamine TAB* 100 MG TAB PO SCH (09:38)
[2017-06-30] MEDS: Tamsulosin CAP* 0.4 MG PO SCH (09:38)
[2017-06-30] MEDS: Multivitamins/Minerals TAB PO SCH (09:38)
[2017-06-30] MEDS: Oxybutynin XL TAB* 5 MG PO SCH (09:38)
[2017-06-30] MEDS: CMCS: Escitalopram (NF) 10 MG TAB PO SCH (09:38)
[2017-06-30] MEDS: Aspirin Low Dose CHEW TAB* 81 MG PO SCH (09:38)
--- NOTE | 2017-06-30 10:52 | PN ---
Subjective Date of Service: 06/30/17 Interval History: Patient seen and examined at bedside. Pt states that he is feeling well this morning. He states that he has some left should discomfort. Denies fever, chills , lightheadedness or dizziness, shortness of breath, chest discomfort, N/V/D. Per NSG staff Pt had some coughing with breakfast this AM, but was able to pass bedside swallow eval. Family History: Unchanged from Admission Social History: Unchanged from Admission Past Medical History: Unchanged from Admission Objective Active Medications: Acetaminophen (Tylenol Tab*) 650 mg PO Q6H PRN Reason: FEVER/PAIN Acetaminophen/Codeine Phosphate (Tylenol/Codeine 30 Mg Tab*) 1 tab PO Q8H PRN Reason: PAIN Albuterol (Ventolin 2.5 Mg/3 Ml Neb.Danielle*) 2.5 mg INH Q2H PRN Reason: SOB/ WHEEZING Aspirin (Aspirin Low Dose Tab*) 81 mg PO DAILY [facility] Docusate Sodium (Colace Cap*) 200 mg PO BID [facility] Escitalopram Oxalate (Lexapro (Nf)) 20 mg PO QAM [facility] Folic Acid (Folvite Tab*) 1 mg PO DAILY [facility] Sodium Chloride (Ns 0.9% 1000 Ml*) 1,000 mls @ 50 mls/hr IV PER RATE [facility] Lorazepam (Ativan Inj*) 0 - 6 mg IM .PER [facility] PROTOCOL [facility] Reason: Protocol Melatonin (Melatonin (Nf)) 3 mg PO BEDTIME PRN; Protocol Reason: Sleep Mometasone Furoate/Formoterol Fumar (Dulera 200/5 Mdi*) 2 puff INH BID [facility] Multivitamins/Minerals (Theragran/Minerals Tab*) 1 tab PO DAILY [facility] Nicotine (Nicotine Inhaler*) 10 mg INH Q2H PRN Reason: CRAVING Omeprazole (Prilosec Cap*) 20 mg PO DAILY@0600 [facility] Ondansetron HCl (Zofran Inj*) 4 mg IV Q6H PRN Reason: NAUSEA Oxybutynin Chloride (Ditropan Xl Tab*) 10 mg PO DAILY [facility] Tamsulosin HCl (Flomax Cap*) 0.8 mg PO DAILY [facility] Thiamine HCl (Vitamin B-1 Tab*) 100 mg PO DAILY [facility] Tiotropium [place] (Spiriva Cap.Inh*) 1 cap INH QAM [facility] Vital Signs 08/03/1206/30/17 06/30/17 23:54 00:20 00:21 Temperature 97.4 F 97.4 F Pulse Rate 87 68 68 Respiratory 20 20 Rate Blood Pressure 102/62 116/69 116/69 (mmHg) O2 Sat by Pulse 84 95 95 Oximetry 06/30/17 06/30/17 06/30/17 00:22 00:56 04:17 Temperature 97.8 F Pulse Rate 81 70 Respiratory 18 16 Rate Blood Pressure 125/74 98/58 (mmHg) O2 Sat by Pulse 94 Oximetry 06/30/17 06/30/17 06/30/17 04:56 06:10 07:39 Temperature 97.7 F 98.0 F Pulse Rate 61 63 Respiratory 16 16 18 Rate Blood Pressure 117/62 117/65 (mmHg) O2 Sat by Pulse 94 96 Oximetry 06/30/17 07:40 Temperature Pulse Rate 67 Respiratory 18 Rate Blood Pressure (mmHg) O2 Sat by Pulse 93 Oximetry Oxygen Devices in Use Now: None Appearance: NAD, laying in bed Ears/Nose/Mouth/Throat: Mucous Membranes Moist Respiratory: Symmetrical Chest Expansion and Respiratory Effort, - - Rhonchi bilateral Cardiovascular: NL Sounds; No Murmurs; No JVD, RRR Abdominal: NL Sounds; No Tenderness; No Distention Extremities: No Edema Skin: No Rash or Ulcers, - - Ecchymosis to left upper chest and shoulder Neurological: Alert and Oriented x 3, NL Muscle Strength and Tone Lines/Tubes/Other Access: Clean, Dry and Intact Peripheral IV - site benign Nutrition: Taking PO's Result Diagrams: 06/29/17 20:55 06/29/17 22:30 Additional Lab and Data: Assess/Plan/Problems-Billing Assessment: Mr. Rosas is a 72 yo male with PMH significant for COPD, alcoholism, BPH, depression, malnutrition and a left clavicular fracture who presented to the emergency room unable to care for himself. - Patient Problems (1) Unsteady gait Code(s): R26.81 - UNSTEADINESS ON FEET SNOMED Code(s): 13769193 Comment: - Recurrent falls - PT/OT eval pending (2) Closed left clavicular fracture Code(s): S42.002A - FRACTURE OF UNSP PART OF LEFT CLAVICLE, INIT FOR CLOS FX SNOMED Code(s): 75825609 Comment: - Subacute - Continue Pain management - Continue sling immobilization (3) Alcohol abuse Code(s): F10.10 - ALCOHOL ABUSE, UNCOMPLICATED SNOMED Code(s): 65963391 Comment: - No evidence of withdrawal - Pt reports drinking ~ 6 beers/day - Continue WAM monitoring - Encourage abstinence (4) COPD (chronic obstructive pulmonary disease) Code(s): J44.9 - CHRONIC OBSTRUCTIVE PULMONARY DISEASE, UNSPECIFIED SNOMED Code(s): 59963098 Comment: - No signs of exacerbation at this time. - Continue inhaler/neb regimen. (5) BPH (benign prostatic hyperplasia) Code(s): N40.0 - BENIGN PROSTATIC HYPERPLASIA WITHOUT LOWER URINRY TRACT SYMP SNOMED Code(s): 779776341 Comment: - Continue tamsulosin and oxybutynin (6) Depression Code(s): F32.9 - MAJOR DEPRESSIVE DISORDER, SINGLE EPISODE, UNSPECIFIED SNOMED Code(s): 07420843 Comment: - Continue lexapro (7) DVT prophylaxis Code(s): TAK6314 - SNOMED Code(s): 869785815 Comment: - SCDs (8) Full code status Code(s): Z78.9 - OTHER SPECIFIED HEALTH STATUS SNOMED Code(s): 295226377 Status and Disposition: OBV to Inpatient. Pt will need SNF placement.
[2017-06-30 15:22] LABS: Urine Bilirubin Negative (Negative); Urine Glucose Negative (Negative); Urine Nitrite Negative (Negative)
[2017-06-30] MEDS: Acetaminophen TAB* 325 MG PO PRN (20:47)
[2017-07-01] MEDS: Mometasone/Formoter 200/5 MDI INH SCH ×2 (07:16→19:39)
[2017-07-01] MEDS: Tiotropium CAP.INH* CAP.INH/18 MCG INH SCH (07:16)
[2017-07-01] MEDS: Omeprazole CAP* 20 MG PO SCH (07:20)
[2017-07-01] MEDS: Oxybutynin XL TAB* 5 MG PO SCH (10:21)
[2017-07-01] MEDS: Folic Acid TAB* 1 MG PO SCH (10:21)
[2017-07-01] MEDS: Tamsulosin CAP* 0.4 MG PO SCH (10:21)
[2017-07-01] MEDS: Thiamine TAB* 100 MG TAB PO SCH (10:21)
[2017-07-01] MEDS: CMCS: Escitalopram (NF) 10 MG TAB PO SCH (10:21)
[2017-07-01] MEDS: Docusate CAP* 100 MG PO SCH ×2 (10:22→20:18)
[2017-07-01] MEDS: Aspirin Low Dose CHEW TAB* 81 MG PO SCH (10:22)
[2017-07-01] MEDS: Acetaminop/Codeine 30 MG TAB* 1 TAB (300 MG/30 MG) PO PRN ×2 (10:22→20:19)
[2017-07-01] MEDS: Multivitamins/Minerals TAB PO SCH (10:22)
--- NOTE | 2017-07-01 10:25 | PN ---
Subjective Date of Service: 07/01/17 Interval History: Patient seen and examined at bedside. Pt states that he is feeling well today. Denies fever, chills, shortness of breath, chest discomfort, N/V/D. Pt states that he is having left shoulder pain this morning. Family History: Unchanged from Admission Social History: Unchanged from Admission Past Medical History: Unchanged from Admission Objective Active Medications: Acetaminophen (Tylenol Tab*) 650 mg PO Q6H PRN Reason: FEVER/PAIN Acetaminophen/Codeine Phosphate (Tylenol/Codeine 30 Mg Tab*) 1 tab PO Q8H PRN Reason: PAIN Albuterol (Ventolin 2.5 Mg/3 Ml Neb.Danielle*) 2.5 mg INH Q2H PRN Reason: SOB/ WHEEZING Aspirin (Aspirin Low Dose Tab*) 81 mg PO DAILY [facility] Docusate Sodium (Colace Cap*) 200 mg PO BID [facility] Escitalopram Oxalate (Lexapro (Nf)) 20 mg PO QAM [facility] Folic Acid (Folvite Tab*) 1 mg PO DAILY [facility] Sodium Chloride (Ns 0.9% 1000 Ml*) 1,000 mls @ 50 mls/hr IV PER RATE [facility] Lorazepam (Ativan Inj*) 0 - [address] [facility] PROTOCOL [facility] Reason: Protocol Melatonin (Melatonin (Nf)) 3 mg PO BEDTIME PRN; Protocol Reason: Sleep Mometasone Furoate/Formoterol Fumar (Dulera 200/5 Mdi*) 2 puff INH BID [facility] Multivitamins/Minerals (Theragran/Minerals Tab*) 1 tab PO DAILY [facility] Nicotine (Nicotine Inhaler*) 10 mg INH Q2H PRN Reason: CRAVING Omeprazole (Prilosec Cap*) 20 mg PO DAILY@0600 [facility] Ondansetron HCl (Zofran Inj*) 4 mg IV Q6H PRN Reason: NAUSEA Oxybutynin Chloride (Ditropan Xl Tab*) 10 mg PO DAILY [facility] Tamsulosin HCl (Flomax Cap*) 0.8 mg PO DAILY [facility] Thiamine HCl (Vitamin B-1 Tab*) 100 mg PO DAILY [facility] Tiotropium [place] (Spiriva Cap.Inh*) 1 cap INH QAM [facility] Vital Signs 06/30/17 06/30/17 06/30/17 12:15 14:20 14:22 Temperature 97.7 F Pulse Rate 71 56 Respiratory 18 18 18 Rate Blood Pressure 110/58 95/56 (mmHg) O2 Sat by Pulse 91 95 Oximetry 06/30/17 06/30/17 06/30/17 16:17 18:21 19:20 Temperature 97.8 F 98.1 F Pulse Rate 66 80 Respiratory 22 18 16 Rate Blood Pressure 105/57 94/63 (mmHg) O2 Sat by Pulse 95 90 Oximetry 06/30/17 06/30/17 06/30/17 19:50 20:00 20:50 Temperature 97.9 F Pulse Rate 71 71 Respiratory 18 20 16 Rate Blood Pressure 94/57 (mmHg) O2 Sat by Pulse 94 96 Oximetry 06/30/17 06/30/17 06/30/17 21:14 23:31 23:44 Temperature 98.0 F 98.3 F Pulse Rate 71 67 Respiratory 22 16 16 Rate Blood Pressure 103/58 132/63 (mmHg) O2 Sat by Pulse 92 93 Oximetry 07/01/17 07/01/17 07/01/17 01:17 01:44 03:10 Temperature Pulse Rate 69 60 Respiratory 14 16 16 Rate Blood Pressure 104/62 121/60 (mmHg) O2 Sat by Pulse 93 94 Oximetry 07/01/17 07/01/17 07/01/17 07:19 07:40 08:00 Temperature 96.4 F Pulse Rate 18 60 Respiratory 58 17 17 Rate Blood Pressure 127/65 (mmHg) O2 Sat by Pulse 93 93 Oximetry Oxygen Devices in Use Now: None Appearance: NAD, laying in bed Result Diagrams: 06/29/17 20:55 06/29/17 22:30 Additional Lab and Data: Assess/Plan/Problems-Billing Assessment: Mr. Rosas is a 72 yo male with PMH significant for COPD, alcoholism, BPH, depression, malnutrition and a left clavicular fracture who presented to the emergency room unable to care for himself. - Patient Problems (1) Unsteady gait Code(s): R26.81 - UNSTEADINESS ON FEET SNOMED Code(s): 16271219 Comment: - Recurrent falls - OT eval pending - PT needs identified and will continue PT (2) Closed left clavicular fracture Code(s): S42.002A - FRACTURE OF UNSP PART OF LEFT CLAVICLE, INIT FOR CLOS FX SNOMED Code(s): 20273762 Comment: - Subacute - Continue Pain management - Continue sling immobilization (3) Alcohol abuse Code(s): F10.10 - ALCOHOL ABUSE, UNCOMPLICATED SNOMED Code(s): 62306211 Comment: - No evidence of withdrawal - Pt reports drinking ~ 6 beers/day - Continue WAM monitoring - Encourage abstinence (4) COPD (chronic obstructive pulmonary disease) Code(s): J44.9 - CHRONIC OBSTRUCTIVE PULMONARY DISEASE, UNSPECIFIED SNOMED Code(s): 45310544 Comment: - No signs of exacerbation at this time. - Continue inhaler/neb regimen. (5) BPH (benign prostatic hyperplasia) Code(s): N40.0 - BENIGN PROSTATIC HYPERPLASIA WITHOUT LOWER URINRY TRACT SYMP SNOMED Code(s): 925393105 Comment: - Continue tamsulosin and oxybutynin (6) Depression Code(s): F32.9 - MAJOR DEPRESSIVE DISORDER, SINGLE EPISODE, UNSPECIFIED SNOMED Code(s): 14900227 Comment: - Continue lexapro (7) DVT prophylaxis Code(s): TQW3075 - SNOMED Code(s): 980905610 Comment: - SCDs (8) Full code status Code(s): Z78.9 - OTHER SPECIFIED HEALTH STATUS SNOMED Code(s): 577310321 Status and Disposition: Inpatient. Pt will need SNF placement.
[2017-07-02] MEDS: Omeprazole CAP* 20 MG PO SCH (06:30)
[2017-07-02] MEDS: Mometasone/Formoter 200/5 MDI INH SCH ×2 (08:08→19:46)
[2017-07-02] MEDS: Tiotropium CAP.INH* CAP.INH/18 MCG INH SCH (08:09)
[2017-07-02] MEDS: Aspirin Low Dose CHEW TAB* 81 MG PO SCH (08:15)
[2017-07-02] MEDS: CMCS: Escitalopram (NF) 10 MG TAB PO SCH (08:15)
[2017-07-02] MEDS: Thiamine TAB* 100 MG TAB PO SCH (08:15)
[2017-07-02] MEDS: Docusate CAP* 100 MG PO SCH ×2 (08:15→19:28)
[2017-07-02] MEDS: Oxybutynin XL TAB* 5 MG PO SCH (08:15)
[2017-07-02] MEDS: Tamsulosin CAP* 0.4 MG PO SCH (08:15)
[2017-07-02] MEDS: Folic Acid TAB* 1 MG PO SCH (08:15)
[2017-07-02] MEDS: Multivitamins/Minerals TAB PO SCH (08:15)
--- NOTE | 2017-07-02 11:57 | PN ---
Subjective Date of Service: 07/02/17 Interval History: Patient seen and examined at bedside. He reports feeling "pretty well" this morning, denying fever/chills, CP, SOB, abd pain, n/v. Currently denies left shoulder pain or pain at clavicle. Family History: Unchanged from Admission Social History: Unchanged from Admission Past Medical History: Unchanged from Admission Objective Active Medications: Acetaminophen (Tylenol Tab*) 650 mg PO Q6H PRN PRN Reason: FEVER/PAIN Last Admin: 06/30/17 20:47 Dose: 650 mg Acetaminophen/Codeine Phosphate (Tylenol/Codeine 30 Mg Tab*) 1 tab PO Q8H PRN PRN Reason: PAIN Last Admin: 07/01/17 20:19 Dose: 1 tab Albuterol (Ventolin 2.5 Mg/3 Ml Neb.Danielle*) 2.5 mg INH Q2H PRN PRN Reason: SOB/WHEEZING Aspirin (Aspirin Low Dose Tab*) 81 mg PO DAILY [facility] Last Admin: 07/02/17 08:15 Dose: 81 mg Docusate Sodium (Colace Cap*) 200 mg PO BID [facility] Last Admin: 07/02/17 08:15 Dose: 200 mg Escitalopram Oxalate (Lexapro (Nf)) 20 mg PO QAM [facility] Last Admin: 07/02/17 08:15 Dose: 20 mg Folic Acid (Folvite Tab*) 1 mg PO DAILY [facility] Last Admin: 07/02/17 08:15 Dose: 1 mg Lorazepam (Ativan Inj*) 0 - 6 mg IM .PER [facility] PROTOCOL [facility] PRN Reason: Protocol Melatonin (Melatonin (Nf)) 3 mg PO BEDTIME PRN; Protocol PRN Reason: Sleep Mometasone Furoate/Formoterol Fumar (Dulera 200/5 Mdi*) 2 puff INH BID [facility] Last Admin: 07/02/17 08:08 Dose: 2 puff Multivitamins/Minerals (Theragran/Minerals Tab*) 1 tab PO DAILY [facility] Last Admin: 07/02/17 08:15 Dose: 1 tab Nicotine (Nicotine Inhaler*) 10 mg INH Q2H PRN PRN Reason: CRAVING Last Admin: 06/30/17 00:59 Dose: 10 mg Omeprazole (Prilosec Cap*) 20 mg PO DAILY@0600 [facility] Last Admin: 07/02/17 06:30 Dose: 20 mg Ondansetron HCl (Zofran Inj*) 4 mg IV Q6H PRN PRN Reason: NAUSEA Oxybutynin Chloride (Ditropan Xl Tab*) 10 mg PO DAILY [facility] Last Admin: 07/02/17 08:15 Dose: 10 mg Tamsulosin HCl (Flomax Cap*) 0.8 mg PO DAILY [facility] Last Admin: 07/02/17 08:15 Dose: 0.8 mg Thiamine HCl (Vitamin B-1 Tab*) 100 mg PO DAILY [facility] Last Admin: 07/02/17 08:15 Dose: 100 mg Tiotropium [place] (Spiriva Cap.Inh*) 1 cap INH QAM [facility] Last Admin: 07/02/17 08:09 Dose: 1 cap.inh Vital Signs 07/01/17 07/01/17 07/01/17 12:22 16:56 19:47 Temperature 98.2 F Pulse Rate 58 64 Respiratory 20 18 18 Rate Blood Pressure 109/55 (mmHg) O2 Sat by Pulse 94 93 Oximetry 07/01/17 07/01/17 07/01/17 20:10 20:19 20:21 Temperature 98.2 F Pulse Rate 64 Respiratory 24 16 16 Rate Blood Pressure 102/60 (mmHg) O2 Sat by Pulse 95 Oximetry 07/01/17 07/01/17 07/02/17 22:19 23:36 03:15 Temperature 98.1 F 97.9 F Pulse Rate 63 66 Respiratory 16 16 15 Rate Blood Pressure 116/62 106/64 (mmHg) O2 Sat by Pulse 95 94 Oximetry 07/02/17 07/02/17 07/02/17 07:21 08:00 08:10 Temperature 97.6 F Pulse Rate 57 57 Respiratory 18 18 18 Rate Blood Pressure 114/62 (mmHg) O2 Sat by Pulse 96 96 Oximetry Oxygen Devices in Use Now: None Appearance: Male patient, lying in bed, NAD Eyes: No Scleral Icterus Ears/Nose/Mouth/Throat: Clear Oropharnyx, Mucous Membranes Moist, - - missing several teeth Neck: NL Appearance and Movements; NL JVP Respiratory: Symmetrical Chest Expansion and Respiratory Effort, Clear to Auscultation Cardiovascular: NL Sounds; No Murmurs; No JVD, RRR Abdominal: NL Sounds; No Tenderness; No Distention Extremities: - - left clavicle immobilzer in place Skin: - - ecchymosis to left clavicle/shoulder Neurological: Alert and Oriented x 3 Lines/Tubes/Other Access: Clean, Dry and Intact Peripheral IV Nutrition: Taking PO's Result Diagrams: 06/29/17 20:55 06/29/17 22:30 Additional Lab and Data: Assess/Plan/Problems-Billing Assessment: Mr. Rosas is a 72 yo male with PMH significant for COPD, alcoholism, BPH, depression, malnutrition and a left clavicular fracture who presented to the emergency room unable to care for himself. - Patient Problems (1) Unsteady gait Code(s): R26.81 - UNSTEADINESS ON FEET Comment: Recurrent falls PT/OT following with patient (2) Closed left clavicular fracture Code(s): S42.002A - FRACTURE OF UNSP PART OF LEFT CLAVICLE, INIT FOR CLOS FX Comment: Subacute Continue pain management, sling immobilization (3) Alcohol abuse Code(s): F10.10 - ALCOHOL ABUSE, UNCOMPLICATED Comment: No evidence of withdrawal Pt reports drinking ~ 6 beers/day Continue WAM monitoring Encourage abstinence (4) COPD (chronic obstructive pulmonary disease) Code(s): J44.9 - CHRONIC OBSTRUCTIVE PULMONARY DISEASE, UNSPECIFIED Comment: No signs of exacerbation at this time. Continue inhaler/neb regimen. (5) BPH (benign prostatic hyperplasia) Code(s): N40.0 - BENIGN PROSTATIC HYPERPLASIA WITHOUT LOWER URINRY TRACT SYMP Comment: Continue tamsulosin and oxybutynin (6) Depression Code(s): F32.9 - MAJOR DEPRESSIVE DISORDER, SINGLE EPISODE, UNSPECIFIED Comment: Continue escitalopram. (7) DVT prophylaxis Comment: SCDs (8) Full code status Code(s): Z78.9 - OTHER SPECIFIED HEALTH STATUS Status and Disposition: Inpatient. Pt will need SNF placement. Counseling and/or Coordination of Care Minutes: 40
[2017-07-02] MEDS ORDERED: Senna TAB PO PRN (15:36)
[2017-07-02] MEDS ORDERED: Polyethylene Glycol 3350* 17 GM PACKET PO PRN (15:36)
[2017-07-02] MEDS ORDERED: Magnesium Hydroxide LIQ* 30 ML UDC PO PRN (15:36)
[2017-07-02] MEDS: Acetaminop/Codeine 30 MG TAB* 1 TAB (300 MG/30 MG) PO PRN (19:28)
[2017-07-03] MEDS: Acetaminophen TAB* 325 MG PO PRN (00:54)
[2017-07-03] MEDS: Omeprazole CAP* 20 MG PO SCH (05:38)
[2017-07-03] MEDS: Acetaminop/Codeine 30 MG TAB* 1 TAB (300 MG/30 MG) PO PRN (05:38)
[2017-07-03 07:58] VITALS: BP 120/65
--- NOTE | 2017-07-03 08:16 | DCNOTE ---
Subjective Date of Service: 07/03/17 Interval History: Patient seen and examined at bedside. He is pleasant and denies any complaints, including left shoulder pain, CP, SOB , abd pain. He is in agreement with plan to transfer to [facility]. No other acute concerns from pt or nursing. Family History: Unchanged from Admission Social History: Unchanged from Admission Past Medical History: Unchanged from Admission Objective Active Medications: Acetaminophen (Tylenol Tab*) 650 mg PO Q6H PRN PRN Reason: FEVER/PAIN Last Admin: 07/03/17 00:54 Dose: 650 mg Acetaminophen/Codeine Phosphate (Tylenol/Codeine 30 Mg Tab*) 1 tab PO Q8H PRN PRN Reason: PAIN Last Admin: 07/03/17 05:38 Dose: 1 tab Albuterol (Ventolin 2.5 Mg/3 Ml Neb.Danielle*) 2.5 mg INH Q2H PRN PRN Reason: SOB/WHEEZING Aspirin (Aspirin Low Dose Tab*) 81 mg PO DAILY [facility] Last Admin: 07/02/17 08:15 Dose: 81 mg Docusate Sodium (Colace Cap*) 200 mg PO BID [facility] Last Admin: 07/02/17 19:28 Dose: 200 mg Escitalopram Oxalate (Lexapro (Nf)) 20 mg PO QAM [facility] Last Admin: 07/02/17 08:15 Dose: 20 mg Folic Acid (Folvite Tab*) 1 mg PO DAILY [facility] Last Admin: 07/02/17 08:15 Dose: 1 mg Lorazepam (Ativan Inj*) 0 - 6 mg IM .PER [facility] PROTOCOL [facility] PRN Reason: Protocol Magnesium Hydroxide (Milk Of Magnesia Liq*) 30 ml PO Q4H PRN PRN Reason: CONSTIPATION Last Admin: 07/02/17 15:43 Dose: 30 ml Melatonin (Melatonin (Nf)) 3 mg PO BEDTIME PRN; Protocol PRN Reason: Sleep Last Admin: 07/03/17 00:53 Dose: 3 mg Mometasone Furoate/Formoterol Fumar (Dulera 200/5 Mdi*) 2 puff INH BID [facility] Last Admin: 07/02/17 19:46 Dose: 2 puff Multivitamins/Minerals (Theragran/Minerals Tab*) 1 tab PO DAILY [facility] Last Admin: 07/02/17 08:15 Dose: 1 tab Nicotine (Nicotine Inhaler*) 10 mg INH Q2H PRN PRN Reason: CRAVING Last Admin: 06/30/17 00:59 Dose: 10 mg Omeprazole (Prilosec Cap*) 20 mg PO DAILY@0600 [facility] Last Admin: 07/03/17 05:38 Dose: 20 mg Ondansetron HCl (Zofran Inj*) 4 mg IV Q6H PRN PRN Reason: NAUSEA Oxybutynin Chloride (Ditropan Xl Tab*) 10 mg PO DAILY [facility] Last Admin: 07/02/17 08:15 Dose: 10 mg Polyethylene Glycol/Electrolytes (Miralax*) 17 gm PO DAILY PRN PRN Reason: CONSTIPATION Last Admin: 07/02/17 15:43 Dose: 17 gm Senna (Senokot Tab*) 2 tab PO BEDTIME PRN PRN Reason: CONSTIPATION Last Admin: 07/02/17 19:29 Dose: 2 tab Tamsulosin HCl (Flomax Cap*) 0.8 mg PO DAILY [facility] Last Admin: 07/02/17 08:15 Dose: 0.8 mg Thiamine HCl (Vitamin B-1 Tab*) 100 mg PO DAILY [facility] Last Admin: 07/02/17 08:15 Dose: 100 mg Tiotropium [place] (Spiriva Cap.Inh*) 1 cap INH QAM [facility] Last Admin: 07/02/17 08:09 Dose: 1 cap.inh Vital Signs 07/02/17 07/02/17 07/02/17 15:37 19:16 19:28 Temperature 98.1 F Pulse Rate 69 72 Respiratory 20 22 16 Rate Blood Pressure 108/63 108/65 (mmHg) O2 Sat by Pulse 95 92 Oximetry 07/02/17 07/02/17 07/02/17 19:35 19:51 21:28 Temperature Pulse Rate 68 Respiratory 16 18 18 Rate Blood Pressure (mmHg) O2 Sat by Pulse 94 Oximetry 07/02/17 07/03/17 07/03/17 23:36 03:20 05:38 Temperature 98.0 F 98.4 F Pulse Rate 61 58 Respiratory 16 16 18 Rate Blood Pressure 113/61 136/62 (mmHg) O2 Sat by Pulse 95 93 Oximetry 07/03/17 07/03/17 07:38 07:39 Temperature 98.2 F Pulse Rate 60 Respiratory 16 16 Rate Blood Pressure 120/65 (mmHg) O2 Sat by Pulse 95 Oximetry Oxygen Devices in Use Now: None Appearance: Male patient, lying in bed, in NAD Eyes: No Scleral Icterus Ears/Nose/Mouth/Throat: Clear Oropharnyx, Mucous Membranes Moist Neck: NL Appearance and Movements; NL JVP Respiratory: Symmetrical Chest Expansion and Respiratory Effort, Clear to Auscultation Cardiovascular: NL Sounds; No Murmurs; No JVD, RRR Abdominal: NL Sounds; No Tenderness; No Distention Extremities: - - immobilizer to left clavicle/shoulder Skin: - - ecchymosis to left chest/shoulder Neurological: Alert and Oriented x 3 Lines/Tubes/Other Access: Clean, Dry and Intact Peripheral IV Nutrition: Taking PO's Result Diagrams: 06/29/17 20:55 06/29/17 22:30 Additional Lab and Data: Assess/Plan/Problems-Billing Assessment: Mr. Rosas is a 72 yo male with PMH significant for COPD, alcoholism, BPH, depression, malnutrition and a left clavicular fracture who presented to the emergency room unable to care for himself. - Patient Problems (1) Unsteady gait Code(s): R26.81 - UNSTEADINESS ON FEET Comment: Recurrent falls Pt feels unsafe at home, in agreement with NH placement PT/OT following with patient - would benefit from continued PT/OT (2) Closed left clavicular fracture Code(s): S42.002A - FRACTURE OF UNSP PART OF LEFT CLAVICLE, INIT FOR CLOS FX Comment: Subacute Continue pain management, sling immobilization Outpatient f/u with [facility] provider (3) Alcohol abuse Code(s): F10.10 - ALCOHOL ABUSE, UNCOMPLICATED Comment: No evidence of withdrawal Pt reports drinking ~ 6 beers/day Continue TNM monitoring Encourage abstinence (4) COPD (chronic obstructive pulmonary disease) Code(s): J44.9 - CHRONIC OBSTRUCTIVE PULMONARY DISEASE, UNSPECIFIED Comment: No signs of exacerbation at this time. Continue inhaler/neb regimen. (5) BPH (benign prostatic hyperplasia) Code(s): N40.0 - BENIGN PROSTATIC HYPERPLASIA WITHOUT LOWER URINRY TRACT SYMP Comment: Continue tamsulosin and oxybutynin (6) Depression Code(s): F32.9 - MAJOR DEPRESSIVE DISORDER, SINGLE EPISODE, UNSPECIFIED Comment: Continue escitalopram. (7) DVT prophylaxis Comment: SCDs (8) Full code status Code(s): Z78.9 - OTHER SPECIFIED HEALTH STATUS Status and Disposition: Inpatient. Discharge to [facility].
[2017-07-03] MEDS: Mometasone/Formoter 200/5 MDI INH SCH (08:27)
[2017-07-03] MEDS: Tiotropium CAP.INH* CAP.INH/18 MCG INH SCH (08:28)
--- NOTE | 2017-07-03 08:53 | DS ---
CC: Olya Sidhu NP * DATE OF ADMISSION: 06/29/17 DATE OF DISCHARGE: 07/03/17 PRIMARY CARE PROVIDER: Olya Sidhu NP ATTENDING PHYSICIAN: Desiree Dias MD* (dictated by Krista Pires NP) PRIMARY DISCHARGE DIAGNOSES: 1. Unsteady gait with recurrent falls. 2. Subacute left clavicular fracture. SECONDARY DISCHARGE DIAGNOSES: 1. Chronic obstructive pulmonary disease. 2. History of alcohol abuse. 3. Malnutrition. 4. Benign prostatic hypertrophy. MEDICATIONS AT DISCHARGE: 1. Celebrex 100 mg q a.m. 2. Spiriva one capsule inhaled q a.m. 3. Thiamine 100 mg daily. 4. Tamsulosin 0.8 mg daily. 5. Oxybutynin XL 10 mg daily. 6. Multivitamin one tab q a.m. 7. Dulera 200/5 two puffs inhaled bid. 8. Folic acid 1 mg daily. 9. Escitalopram 20 mg q a.m. 10. Aspirin 81 mg daily. 11. Albuterol inhaler one puff inhaled q 4 hours prn. 12. Tylenol with codeine one tab q 8 hours prn. 13. Senna two tabs at bedtime prn. 14. Omeprazole 20 mg daily at 0600. 15. Melatonin 3 mg at bedtime prn. 16. Milk of magnesia 30 mL q 6 hours prn. 17. Docusate 200 mg bid. 18. Acetaminophen 650 mg q 6 hours prn. HOSPITAL COURSE OF STAY: For full details, please refer to the H and P provided by Dr. Corcoran on 06/29/17. In summary, Mr. Rosas is a 72-year- old male who formerly lived at home by himself. The patient has been having recurrent falls, most recently about 10 days ago where he sustained a left clavicular fracture. Prior to admission, the patient reported that he tried to get up to go to his kitchen, lost his balance, and fell again. He had some feelings of dizziness before and after the fall which resolved quickly. He was unable to get himself easily, especially with the pain from his clavicular fracture. The patient felt unsafe to return home out of fear for further falls. He was admitted here, monitored on the [facility] protocol given his history of alcohol abuse, but did not score. He has been working with physical and occupational therapies. Patient requires two or more person assist given his weakness, poor balance, and left upper extremity pain. He is reportedly very unsteady. Occupational therapy reports that the patient is able to feed himself with assistance for set up. The patient does have an immobilizer for the left clavicular fracture. [place] of ADLs should be encouraged. Patient reports good pain control while he was here. He has no other acute complaints or concerns. In regards to his history of alcohol abuse, he was reportedly drinking approximately six beers a day; and, again, was placed here on the [place] protocol but has not scored, withdrawal here in the hospital. DISPOSITION AT DISCHARGE: Mr. Rosas will be discharged to [facility] on 07/03. Recommend continued PT and OT to work on strengthening and encouraging independence with ADLs. OUTPATIENT FOLLOW-UP NEEDS: Patient will need to follow up with provider regarding his clavicular fracture. He can continue wearing the immobilizer at this time. DIET: Regular diet. ACTIVITIES: As tolerated. CONDITION: Stable. DISPOSITION: [facility]. TIME SPENT: Time spent on this discharge was approximately 45 minutes. Again, this is only a brief summary of patient's hospital course of stay. For full details, please refer to the full medical record. If you have any further questions or need further assistance, please feel free to contact me at [phone]. KRISTA PIRES NP [id number]/CPS #: [id number] DILMA
[2017-07-03] MEDS: Oxybutynin XL TAB* 5 MG PO SCH (09:07)
[2017-07-03] MEDS: Docusate CAP* 100 MG PO SCH (09:08)
[2017-07-03] MEDS: Tamsulosin CAP* 0.4 MG PO SCH (09:08)
[2017-07-03] MEDS: Thiamine TAB* 100 MG TAB PO SCH (09:08)
[2017-07-03] MEDS: Folic Acid TAB* 1 MG PO SCH (09:08)
[2017-07-03] MEDS: Multivitamins/Minerals TAB PO SCH (09:08)
[2017-07-03] MEDS: CMCS: Escitalopram (NF) 10 MG TAB PO SCH (09:08)
[2017-07-03] MEDS: Aspirin Low Dose CHEW TAB* 81 MG PO SCH (09:08)
== END 2017-07-03 11:30 | DRG 92 ==
LOC: ED 19:59 → MED 23:00 → OBSVTOIN 06-30 10:58
PROVIDERS: ADMIT Hospitalist; ATTEND Internal Medicine
DX: R26.81 Unsteadiness on feet (principal); E46 Unspecified protein-calorie malnutrition; J44.9 Chronic obstructive pulmonary disease, unspecified; Z68.1 Body mass index [BMI] 19.9 or less, adult; S42.002D Fracture of unspecified part of left clavicle, subsequent encounter for fracture with routine healing; W18.30XD Fall on same level, unspecified, subsequent encounter; F10.20 Alcohol dependence, uncomplicated; N40.0 Benign prostatic hyperplasia without lower urinary tract symptoms; F32.9 Major depressive disorder, single episode, unspecified; Z91.81 History of falling; Z79.1 Long term (current) use of non-steroidal anti-inflammatories (NSAID); Z79.899 Other long term (current) drug therapy; F17.210 Nicotine dependence, cigarettes, uncomplicated; Z82.5 Family history of asthma and other chronic lower respiratory diseases
CPT/HCPCS: 36415; 70450; 71010; 80053; 80320; 81003; 83605; 85025; 85610; 93005; 94640; 94760; 99406; A9270-GY; G0480; J3411; J3475

== ENCOUNTER 2018-05-16 06:41 | Day surgery (SDC) | payer MEDICARE, OTHER ==
[~2018-05-16 06:41] MED LIST: Buffered Lidocaine 0.9% SYRIN* 5 ML/SYR SYRINGE INTRADERM ONE; Dexamethasone IV* 4 MG/ML 1 ML (4 MG) IV SLOW PU ONE; Famotidine IV* 10 MG/ML 2 ML (20 mg) IV ONE
[2018-05-16] MEDS ORDERED: Famotidine IV* 10 MG/ML 2 ML (20 mg) ONE (07:42)
[2018-05-16] MEDS ORDERED: ceFAZolin 2 GM PREMIX (*) 2 GM/50 ML BAG IVPB ONE (07:42)
[2018-05-16] MEDS ORDERED: Dexamethasone IV* 4 MG/ML 1 ML (4 MG) ONE (07:42)
[2018-05-16] MEDS ORDERED: Lidocaine 0.5%* 50 ML SDV ONE (08:43)
[2018-05-16] MEDS ORDERED: fentaNYL* 50 MCG/ML 2 ML VIAL (100 MCG VIAL) ONE (08:44)
[2018-05-16] MEDS ORDERED: Midazolam* 1 MG/ML 2 ML VIAL (2 MG) ONE (08:44)
[2018-05-16] MEDS ORDERED: Bupivacaine 0.5% SDV PF* 30ML VIAL ONE (09:36)
[2018-05-16 11:28] VITALS: BP 115/65
--- NOTE | 2018-05-17 06:06 | OP ---
DATE OF OPERATION: 05/16/18 - [facility] DATE OF : 45 SURGEON: Rivas Ruffin MD POST DOC FELLOWSHIP: ADARSH Molina ANESTHESIOLOGIST: Dr. Bacon. ANESTHESIA: Thrall block with MAC. PRE-OP DIAGNOSES: 1. 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 2. 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 POST-OP DIAGNOSES: 1. 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 2. 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 OPERATIVE PROCEDURE: Intrinsic release of his right hand via proximal intrinsic slide of the dorsal and palmar interossei. INDICATIONS: Joshua is 73. He has had strokes. 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 The ulnar innervated FDP to the ring and small fingers are also spastic. I told him I did not want to do a fractional lengthening that has very concerned that I would weaken the hand too much and he would lose his ability to generate a tight director life. The biggest issue is that we need to see if we can get the MP joint out of so much flexion to allow him to be able to get things into the hand easier. He understands that there is a chance that with the spasticity of the FDP muscle to the ring and small fingers , the additional surgery may be needed to allow him to sufficiently open up the hand. ESTIMATED BLOOD LOSS: 2 mL. COMPLICATIONS: None. FINDINGS: As expected. DESCRIPTION OF PROCEDURE: Joshua was seen in the preoperative holding area. The correct side, site, and procedure were identified. We came back to the operating room where a Thrall block was performed after the tourniquet had been inflated. The arm was then prepped and draped in the usual fashion and a time- out was performed. I began by making a transverse incision over the distal third of the metacarpals all the way across the dorsum of the hand. Full thickness flaps were raised off of the paratenon dorsally. Care was taken to preserve the traversing sensory nerves and veins. I then incised the interval between the first and second metacarpal bones. I then performed a release of the palmar and dorsal interossei after origin on the second and third metacarpals. I then in similar fashion performed the release of the palmar and dorsal interossei between the third and the fourth metacarpals and then in similar fashion I performed a release of the origin of the palmar and dorsal interossei between the fourth and the fifth metacarpal bones. This significantly improved. The MP joint extension in the index and middle fingers,, the ring finger, although the MP joint extension was dramatically improved. There is still a lot of spasticity of the extrinsics and so it remained with some contracture at the IP joints and the Volkmann's angle on those 2 fingers was around 60 degrees. After I performed the intrinsic release via proximal slide, I came ulnar and isolated out the hypothenar muscles. I released these off of the fifth metacarpal. I clearly could not come across and released them off of the origin of the hook of the hamate, but I was able to isolate the proximal tendon and then divide this transversally with the tenotomy scissors after this was done, the MP joint extension at the small finger dramatically improved. At this point , I could easily bring the MP joints to 90 degrees for all 4 fingers, clearly the extrinsic tightness remained in the ring and small fingers. Everything was looking good, so we irrigated out the wound. The skin was closed with 4-0 nylon suture. A well padded compression dressing was applied as the short arm splint was applied holding the MP joints and IP joints in full extension. The tourniquet was deflated, the hand pinked up immediately. He was then awoken up and taken to the recovery room in stable condition. [id number]/CPS #: [id number] DILMA
== END 2018-05-16 11:35 | disposition home or self-care (01) ==
LOC: OREAST 06:41
PROVIDERS: ATTEND Orthopaedic Surgery Hand Surgery
DX: G81.10 Spastic hemiplegia affecting unspecified side (principal); M72.0 Palmar fascial fibromatosis [Dupuytren]; J44.9 Chronic obstructive pulmonary disease, unspecified; F32.9 Major depressive disorder, single episode, unspecified; F10.10 Alcohol abuse, uncomplicated; F17.210 Nicotine dependence, cigarettes, uncomplicated; Z79.82 Long term (current) use of aspirin
CPT/HCPCS: J0690; J1100; J2250; J3010

== ENCOUNTER 2018-07-24 12:30 | Observation (INO) | payer MEDICARE, OTHER ==
--- OUTSIDE RECORDS SUMMARY | 2018-07-24 12:42 | XMS REPORT ---
:1945 External Reference #:[id number] Author Organization [employer] Address [address] [place] [id number] Phone [phone] Care Team Providers Name Role Phone Olya Sidhu FNP Primary Care Physician Unavailable Payers Type Date Identification Numbers Payment Subscriber Provider Health Maintenance Effective: Policy Number: Medicare Blue Joshua Perez Organization (HMO) 08/26/2014 [id number] o Group Number: [id number] [address] [address] PayID: [id number] [place] [address] [facility] Part B Policy Number: [id number] Medicaid Joshua Perez Group Name: 1 1 [address] PayID: [id number] [place] [address] Problems Date Description Provider Status Onset: 05/01/2017 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 Family History Date Family Member(s) Problem(s) Comments General Non Contributory Social History Type Date Description Comments Marital Status Lives With Alone ETOH Use consumes 5-6 beers per day Recreational Drug Use Denies Drug Use Smoking Light tobacco smoker (10 or fewer cigarettes/day) Exercise Type/Frequency Does not exercise Allergies, Adverse Reactions, Alerts Date Description Reaction Status Severity Comments 03/03/2014 NKDA active Medications Medication Date Status Form Strength Qnty SIG Indications Ordering Provider Hydrocodone-Jose Carlos 05/15/ Active Tablets 5-325mg 30tab 1 or 2 tabs Rivas taminophen 2018 s by mouth Ruffin, every 6-8 MD hours as needed for pain Aspirin Adult 05/01/ Active Tablets DR 81mg 90tab 1 by mouth G81.11 Boogie Fields Low Dose 2017 s five days a jacquelyn Miguel M.D. Centrum / Active one tab Unknown 0000 daily Spiriva / Active Capsules 18mcg 1 unit Unknown Handihaler 0000 inhalation daily Celecoxib / Active Capsules 100mg take one Unknown 0000 bid Escitalopram / Active Tablets 20mg 1 by mouth Unknown Oxalate 0000 every day Flomax / Active Capsules 0.8mg 1 by mouth Unknown 0000 every day Ditropan XL / Active Tablets ER 10mg 1 by mouth Unknown 0000 24HR every day Oxybutynin / Active Tablets ER 10mg 1 by mouth Unknown Chloride ER 0000 24HR every day Proair HFA / Active Aerosol 108(90Base 2 puffs by Unknown 0000 ) mcg/Act mouth every 4 hours as needed Bupropion HCL / Active Tablets ER 150mg 1 by mouth Unknown ER (SR) 0000 12HR every day Acetaminophen / Active Tablets 500mg 2 tabs bid Unknown 0000 [place] 07/05/ Hx Tablets 5-325mg 40tab 1-2 by Destiney 2015 s mouth every Bustamante-Conner 4 hours as chayoDebbie needed Anti / Hx Unknown Infammatory - 2013 Xiaflex / Hx Unknown - 2014 Meclizine HCL / Hx Tablets 12.5mg one tab q6h Unknown 0000 prn Amoxicillin/Cla / Hx Tablets 875-125mg Unknown vulanate 0000 Potassium Vitamin B-1 / Hx Tablets 100mg daily Unknown - 2016 Hydrocodone-Jose Carlos / Hx Tablets 5-325mg as needed Unknown taminophen - 2016 Thiamine HCL 00/ Hx Tablets 100mg 1 by mouth Unknown 0000 - every day 2016 Dulera / Hx Aerosol 200-5mcg/A 2 puff Unknown 0000 - ct twice a day 2016 Medications Administered in Office Medication Date Status Form Strength Qnty SIG Indications Ordering Provider Xiaflex Inj Administered Injection [place] Collagenase,Cl 014 Bustamante-Paige ostridium g, M.D. Histolyticum, 0.01MG Xiaflex Inj Administered Injection [place] Collagenase,Cl 014 Bustamante-Paige ostridium g, M.D. Histolyticum, 0.01MG Xiaflex Inj Administered Injection [place] Collagenase,Cl 011 Bustamante-Paige ostridium g, M.D. Histolyticum, 0.01MG Vital Signs Date Vital Result Comment 07/09/2018 Height 66 inches 5'6" Respiratory Rate 18 /min Pain Level 0 05/28/2018 Height 66 inches 5'6" Heart Rate 81 /min Respiratory Rate 19 /min Body Temperature 98.4 F Pain Level 2 05/10/2018 Height 66 inches 5'6" Weight 125.00 lb BP Systolic Sitting 108 mmHg BP Diastolic Sitting 68 mmHg Respiratory Rate 16 /min Body Temperature 97.0 F BMI (Body Mass Index) 20.2 kg/m2 05/03/2018 Heart Rate 66 /min Respiratory Rate 18 /min Body Temperature 98.1 F 04/26/2018 Weight 121.00 lb Heart Rate 72 /min BP Systolic 114 mmHg BP Diastolic 60 mmHg Respiratory Rate 16 /min Body Temperature 97.7 F 04/19/2018 Height 66 inches 5'6" Weight 120.00 lb Heart Rate 78 /min Respiratory Rate 14 /min Body Temperature 97.8 F Pain Level 5 BMI (Body Mass Index) 19.4 kg/m2 03/26/2018 Height 66 inches 5'6" Weight 120.00 lb Heart Rate 86 /min BP Systolic 98 mmHg BP Diastolic 60 mmHg BMI (Body Mass Index) 19.4 kg/m2 05/01/2017 Height 66 inches 5'6" Weight 117.00 lb Heart Rate 82 /min BP Systolic Sitting 118 mmHg BP Diastolic Sitting 70 mmHg BMI (Body Mass Index) 18.9 kg/m2 04/03/2017 Height 66 inches 5'6" Weight 113.31 lb Heart Rate 84 /min BP Systolic Sitting 100 mmHg BP Diastolic Sitting 68 mmHg Respiratory Rate 16 /min BMI (Body Mass Index) 18.3 kg/m2 01/09/2017 Heart Rate 90 /min BP Systolic 130 mmHg BP Diastolic 80 mmHg Respiratory Rate 18 /min Body Temperature 98.0 F 12/13/2016 Heart Rate 86 /min Respiratory Rate 20 /min Body Temperature 96.0 F 11/22/2016 Height 66 inches 5'6" Weight 113.00 lb Heart Rate 72 /min BP Systolic 128 mmHg BP Diastolic 70 mmHg Respiratory Rate 16 /min Body Temperature 96.6 F BMI (Body Mass Index) 18.2 kg/m2 11/15/2016 Heart Rate 84 /min BP Systolic 104 mmHg BP Diastolic 62 mmHg Respiratory Rate 18 /min Body Temperature 97.8 F 11/03/2016 Height 66 inches 5'6" Weight 113.00 lb Heart Rate 78 /min BP Systolic Sitting 96 mmHg BP Diastolic Sitting 58 mmHg Respiratory Rate 16 /min Body Temperature 97.0 F BMI (Body Mass Index) 18.2 kg/m2 10/27/2016 Height 66 inches 5'6" Weight 114.00 lb Heart Rate 88 /min BP Systolic 118 mmHg BP Diastolic 76 mmHg Respiratory Rate 20 /min Body Temperature 96.7 F BMI (Body Mass Index) 18.4 kg/m2 10/05/2015 Height 66 inches 5'6" Weight 114.00 lb Pain Level 2 BMI (Body Mass Index) 18.4 kg/m2 09/07/2015 Height 66 inches 5'6" Weight 114.00 lb Pain Level 2 BMI (Body Mass Index) 18.4 kg/m2 08/18/2015 Height 66 inches 5'6" Weight 114.00 lb Heart Rate 96 /min BP Systolic 116 mmHg BP Diastolic 77 mmHg BMI (Body Mass Index) 18.4 kg/m2 07/05/2015 Height 66 inches 5'6" Weight 114.00 lb Heart Rate 83 /min BP Systolic 134 mmHg BP Diastolic 72 mmHg BMI (Body Mass Index) 18.4 kg/m2 06/30/2015 Height 66 inches 5'6" Weight 135.00 lb Heart Rate 105 /min BP Systolic 139 mmHg BP Diastolic 83 mmHg BMI (Body Mass Index) 21.8 kg/m2 03/17/2015 Height 66 inches 5'6" Weight 135.00 lb Body Temperature 96.9 F BMI (Body Mass Index) 21.8 kg/m2 03/16/2015 Height 66 inches 5'6" Weight 135.00 lb Pain Level 0 BMI (Body Mass Index) 21.8 kg/m2 02/10/2015 Height 66 inches 5'6" Weight 135.00 lb Pain Level 0 BMI (Body Mass Index) 21.8 kg/m2 11/06/2014 Height 66 inches 5'6" Weight 135.00 lb Heart Rate 70 /min BP Systolic 130 mmHg BP Diastolic 80 mmHg BMI (Body Mass Index) 21.8 kg/m2 10/06/2014 Height 66 inches 5'6" Weight 128.00 lb Heart Rate 78 /min BP Systolic 121 mmHg BP Diastolic 76 mmHg BMI (Body Mass Index) 20.7 kg/m2 07/17/2014 Height 66 inches 5'6" Weight 128.00 lb Heart Rate 92 /min BMI (Body Mass Index) 20.7 kg/m2 05/27/2014 Height 66 inches 5'6" Weight 125.00 lb Body Temperature 99.4 F BMI (Body Mass Index) 20.2 kg/m2 04/21/2014 Height 66 inches 5'6" Weight 140.00 lb Heart Rate 92 /min BMI (Body Mass Index) 22.6 kg/m2 04/01/2014 Height 66 inches 5'6" Weight 140.00 lb Heart Rate 100 /min BP Systolic 144 mmHg BP Diastolic 97 mmHg BMI (Body Mass Index) 22.6 kg/m2 03/31/2014 Height 66 inches 5'6" Weight 130.00 lb Body Temperature 98.6 F BMI (Body Mass Index) 21.0 kg/m2 03/03/2014 Height 66 inches 5'6" Weight 130.00 lb Heart Rate 76 /min BP Systolic 119 mmHg BP Diastolic 74 mmHg BMI (Body Mass Index) 21.0 kg/m2 08/18/2011 Height 66 inches 5'6" Weight 135.00 lb Heart Rate 86 /min BP Systolic 143 mmHg BP Diastolic 84 mmHg BMI (Body Mass Index) 21.8 kg/m2 Results Test Date Test Result H/L Range Note Laboratory test 04/30/2018 Blood Urea Nitrogen 10 mg/dL 6-24 finding BUN Creatinine 04/30/2018 Creatinine 0.84 mg/dL 0.67-1.17 Egfr Non- 89.6 >60 Egfr 115.2 >60 1 Lipid Profile (Trig/Chol/HDL) 05/15/2017 Triglycerides 47 mg/dL 2 Cholesterol 133 mg/dL 3 HDL Cholesterol 71.0 mg/dL 4 LDL Cholesterol 53 mg/dL 5 Vitamin B6 04/17/2017 Pyridoxal 5-Phosphate 60 g/L 5-50 6 Pyridoxic Acid 41 g/L 3-30 7 Laboratory test finding 04/17/2017 Vitamin B1 (Whole Blood) 104 nmol/L 70 -180 8 Vitamin B12 And Folate 04/17/2017 Vitamin B12 566 pg/mL 180-914 9 Serum Folic Acid (Folate) > 20.00 ng/mL >3.99 10 Laboratory test finding 04/17/2017 Lyme Disease Serology Negative Negative 11 Protein Electrophoresis 04/17/2017 Total Protein(Pep) 7.2 g/dL 6.3 - 7.9 Albumin 3.9 g/dL 3.4-4.7 Alpha-1 Globulin 0.3 g/dL 0.1-0.3 Alpha-2 Globulin 1.0 g/dL 0.6-1.0 Beta Globulin 0.8 g/dL 0.7-1.2 Gamma Globulin 1.3 g/dL 0.6-1.6 Albumin/Globulin Ratio 1.18 Impression See Comment 12 Laboratory test finding 04/17/2017 TSH (Thyroid Stim 1.66 mcIU/mL 0.34- 5.60 13 Horm) Comp Metabolic Panel 04/17/2017 Sodium 133 mmol/L 133-145 Potassium 5.0 mmol/L 3.5-5.0 Chloride 100 mmol/L Low 101-111 Co2 Carbon Dioxide 29 mmol/L 22-32 Anion Gap 4 mmol/L 2-11 Glucose 111 mg/dL High 70-100 Blood Urea Nitrogen 12 mg/dL 6-24 Creatinine 0.80 mg/dL 0.67-1.17 BUN/Creatinine Ratio 15.0 8-20 Calcium 9.7 mg/dL 8.6-10.3 Total Protein 6.8 g/dL 6.4-8.9 Albumin 4.3 g/dL 3.2-5.2 Globulin 2.5 g/dL 2-4 Albumin/Globulin Ratio 1.7 1-3 Total Bilirubin 0.60 mg/dL 0.2-1.0 Alkaline Phosphatase 64 U/L 34-104 Alt 16 U/L 7-52 Ast 22 U/L 13-39 Egfr Non- 95.0 >60 Egfr 122.2 >60 14 CBC Auto Diff 04/17/2017 White Blood Count 6.8 10^3/uL 3.5-10.8 Red Blood Count 4.12 10^6/uL 4.0-5.4 Hemoglobin 14.0 g/dL 14.0-18.0 Hematocrit 42 % 42-52 Mean Corpuscular Volume 102 fL High 80-94 Mean Corpuscular Hemoglobin 34 pg High 27-31 Mean Corpuscular HGB Conc 33 g/dL 31-36 Red Cell Distribution Width 14 % 10.5-15 Platelet Count 210 10^3/uL 150-450 Mean Platelet Volume 8 um3 7.4-10.4 Abs Neutrophils 4.4 10^3/uL 1.5-7.7 Abs Lymphocytes 1.5 10^3/uL 1.0-4.8 Abs Monocytes 0.8 10^3/uL 0-0.8 Abs Eosinophils 0.2 10^3/uL 0-0.6 Abs Basophils 0.1 10^3/uL 0-0.2 Abs Nucleated RBC 0.01 10^3/uL Granulocyte % 64.4 % 38-83 Lymphocyte % 21.3 % Low 25-47 Monocyte % 11.1 % High 1-9 Eosinophil % 2.4 % 0-6 Basophil % 0.8 % 0-2 Nucleated Red Blood Cells % 0.1 Laboratory test finding 11/05/2016 Surgical Pathology SEE RESULT BELOW 15 Laboratory test finding 08/26/2015 Surgical Pathology SEE RESULT BELOW 16 1 Because ethnic data is not always readily available, this report includes an eGFR for both -Americans and non- Americans. The National Kidney Disease Education Program (NKDEP) does not endorse the use of the MDRD equation for patients that are not between the ages of 18 and 70, are , have extremes of body size, muscle mass, or nutritional status, or are non- or non-. According to the National Kidney Foundation, irrespective of diagnosis, the stage of the disease is based on the level of kidney function: Stage Description GFR(mL/min/1.73 m(2)) 1 Kidney damage with normal or decreased GFR 90 2 Kidney damage with mild decrease in GFR 60-89 3 Moderate decrease in GFR 30-59 4 Severe decrease in GFR 15-29 5 Kidney failure <15 (or dialysis) 2 Desirable <150 Borderline high 150-199 High 200-499 Very High >500 3 Desirable <200 Borderline high 200-239 High >239 4 Low <40 Desirable: 40-60 High: >60 5 Desirable: <100 mg/dL Near Optimal: 100-129 mg/dL Borderline High: 130-159 mg/dL High: 160-189 mg/dL Very High: >189 mg/dL 6 In this sample, the elevated pyridoxal 5-phosphate is likely related to dietary supplementation. ADDITIONAL INFORMATION This test was developed and its performance characteristics determined by [facility] in a manner consistent with CLIA requirements. This test has not been cleared or approved by the U.S. Food and Drug Administration. 7 ADDITIONAL INFORMATION This test was developed and its performance characteristics determined by [facility] in a manner consistent with CLIA requirements. This test has not been cleared or approved by the U.S. Food and Drug Administration. Test Performed by: [facility] [place] [address] 8 ADDITIONAL INFORMATION This test was developed and its performance characteristics determined by [facility] in a manner consistent with CLIA requirements. This test has not been cleared or approved by the U.S. Food and Drug Administration. Test Performed by: [place] [address] 9 Normal Range 180 to 914 Indeterminate Range 145 to 180 Deficient Range <145 10 Copy Result to: OLYA SIDHU ([id number]) 11 Serologic response to B. burgdorferi infection is not detected, but cannot rule out early infection during which low or undetectable antibody levels to B. burgdorferi may be present. If clinically indicated, a new serum specimen should be submitted in 7-14 days. Test Performed by: [place] [address] 12 RESULT: No apparent monoclonal protein on serum electrophoresis. Test Performed by: [place] [address] 13 Copy Result to: OLYA SIDHU ([id number]) 14 Because ethnic data is not always readily available, this report includes an eGFR for both -Americans and non- Americans. The National Kidney Disease Education Program (NKDEP) does not endorse the use of the MDRD equation for patients that are not between the ages of 18 and 70, are , have extremes of body size, muscle mass, or nutritional status, or are non- or non-. According to the National Kidney Foundation, irrespective of diagnosis, the stage of the disease is based on the level of kidney function: Stage Description GFR(mL/min/1.73 m(2)) 1 Kidney damage with normal or decreased GFR 90 2 Kidney damage with mild decrease in GFR 60-89 3 Moderate decrease in GFR 30-59 4 Severe decrease in GFR 15-29 5 Kidney failure <15 (or dialysis) 15 SEE RESULT BELOW Name: JOSHUA PEREZ JEAN CLAUDE : [address]: Edy Arce MD Acct: [id number] Unit: [id number] AGE: 71 Location: [place] [address] Re11/04/16 SEX: M Status: ADM IN SPEC: [id number] WESLY: 11/05/16- [facility] [place] DR: Dmitri Fry MD REQ: [id number] RECD: 11/05/161028 STATUS: SOUT _ ORDERED: LEVEL III FINAL DIAGNOSIS Gallbladder, cholecystectomy: -- Acute and chronic cholecystitis. PRE-OPERATIVE DIAGNOSIS Cholecystitis GROSS DESCRIPTION The specimen is received in formalin labeled, Gallbladder, and consists of a 6.5 x 2.3 x 2.0 cm previously disrupted gallbladder. The serosa is smooth mottled joiner- brown. The lumen contains scant green-yellow viscid bile. Choleliths are not identified within the lumen or the container. The mucosa is velvety araujo-green and the wall thickness measures up to 0.6 cm. Machine Setter Automatic sections, one cassette. Signed (signature on file) Fabiola Ocasio MD 1031 END OF REPORT * ML=Testing performed at Main Lab DEPARTMENT OF PATHOLOGY, [address] [place] [address] Ruel Alaniz M.D. Director [facility] # [id number] 16 SEE RESULT BELOW Name: JOSHUA PEREZ : [address]: Destiney Senior Acct: [id number] Unit: [id number] AGE: 70 Location: [facility] Re08/26/15 SEX: M Status: [facility] SPEC: [id number] WESLY: 08/26/15 [facility] [place] DR: Destiney Senior MD REQ: [id number] RECD: 08/26/15 STATUS: SOUT _ ORDERED: LEVEL III FINAL DIAGNOSIS Tendon, right hand, excision: -- Benign fibroconnective tissue with fibrosis. PRE-OPERATIVE DIAGNOSIS Right hand Dupuytren's. GROSS DESCRIPTION The specimen is received in formalin labeled, Right Hand Dupuytren's Tissue, and consists of a 3.4 x 1.5 x 0.5 cm aggregate of araujo rubbery irregular fibrous tissue fragments. Machine Setter Automatic sections, one cassette. Signed (signature on file) Fabiola Ocasio MD 01/10 1400 END OF REPORT * ML=Testing performed at Main Lab DEPARTMENT OF PATHOLOGY, [address] [place] [address] Ruel Alaniz M.D. Director [facility] # [id number] Procedures Date CPT Code Description Status 05/16/2018 07974 Release Intrinsic Muscles Hand Completed 05/16/2018 00493 Release Intrinsic Muscles Hand Completed 11/09/2016 63403 EKG, Interpretation Only Completed 11/08/2016 42460 EKG, Interpretation Only Completed 11/07/2016 82490 EKG, Interpretation Only Completed 11/06/2016 08438 EKG, Interpretation Only Completed 11/05/2016 68485 Cholecystectomy Completed 11/05/2016 46490 Cholecystectomy Completed 10/21/2016 67955 EKG, Interpretation Only Completed 10/19/2016 33707 EKG, Interpretation Only Completed 08/26/2015 81473 Fasciectomy,Partial Palmar W/ Release Of Single Digit Completed Incldg PIP 08/26/2015 22500 Fasciectomy,Partial Palmar W/ Release Of Single Digit Completed Incldg PIP 05/07/2015 97124 ECHO Transthorasic Realtime 2D W Doppler & Color Flow Completed Hosp 03/17/2015 31775 Manipulation,Palmar Fascial Cord, Post Enzyme Injection Completed Single 03/16/2015 Injection,Enzyme Palmar Fascial Cord Completed 10/07/2014 00480 Manipulation,Palmar Fascial Cord, Post Enzyme Injection Completed Single 10/06/2014 Injection,Enzyme Palmar Fascial Cord Completed 04/23/2014 39237 Carpal Tunnel Release Completed 04/23/2014 82891 Neuroplasty &/Or Transposition; Ulnar Nerve AT Elbow Completed 04/23/2014 63393 Neuroplasty &/Or Transposition; Ulnar Nerve AT Elbow Completed 04/17/2014 39574 Stress Test Completed 04/01/2014 81364 Manipulation,Palmar Fascial Cord, Post Enzyme Injection Completed Single 03/31/2014 Injection,Enzyme Palmar Fascial Cord Completed 11/08/2011 34200 Unlisted Procedure, Hands/Fingers Completed 11/07/201171150 Inject Tendon Sheath Or Ligament Aponeurosis Eg Plantar Completed Fascia 08/18/2011 22611 Rad Exam; Hand Comp Completed 03/11/2009 12259 ECHO Stress Test Incl Perf Contiuous ekg Monitoring Completed W/Phys Superv Encounters Type Date Location Provider CPT E/M Dx Office Visit 05/03/2018 [place] [address] K43.2 2:00p Of [facility] Office Visit 04/26/2018 [facility] Ugo Ervin, 66122 K43.2 1:00p Of [facility] PA Office Visit 04/19/2018 [place] [address] G81.10 1:00p Of [place] M72.0 Office Visit 03/26/2018 2:00p [facility] Boogie Miguel, 73691 F10.20 Debbie G56.21 G81.11 G56.01 G62.1 Office Visit 06/29/2017 7:05a [facility], 18407 R26.81 Assoc, Hospitalists Debbie S42.002D W19.xxxA F10.20 Office Visit 05/01/2017 10:15a [facility] Boogie Miguel, 00688 G56.21 MLeón G62.9 G81.11 Office Visit 04/03/2017 10:00a [facility] Boogie RubénNarciso Myriam, 86334 G56.01 Services Of [facility] Debbie G56.21 G62.9 G81.11 Office Visit 01/02/2017 12:51p [facility] Zenaida Cancino, 79084 J11.1 Hospitalists DRamiro J44.9 F10.10 F32.9 Office Visit 01/01/2017 12:48p [facility] Cheryl Guerrero, 71566 J44.9 Hospitalists Debbie J11.1 F32.9 F10.10 Office Visit 12/31/2016 12:41p [facility] Slim Saldivar, 68873 J44.9 Hospitalists N.PNarciso J11.1 F10.10 F32.9 Office Visit 11/10/2016 12:27p [facility] Gilmar Altagraciaa-Bakari, 35623 K81.9 Assoc,pc PA Hospitalists J44.9 F10.20 Office Visit 11/09/2016 12:26p [facility] Altagraciaa-Bakari, 18423 K81.0 Assoc,pc PA Hospitalists J44.9 F10.20 Z72.0 Office Visit 11/08/2016 12:25p [facility] Altagraciaa-Bakari, 96952 K81.9 Assoc,pc PA Hospitalists J44.9 F10.20 Z72.0 Office Visit 11/07/2016 12:25p [facility] [place] [address] K81.9 Hospitalists J44.9 F10.20 Z72.0 Office Visit 11/06/2016 12:24p [facility] [place] [address] K81.9 Hospitalists J44.9 F10.20 Z72.0 Office Visit 11/05/2016 12:23p [facility] Nury Doran, N.P. 97564 K81.9 Hospitalists J44.9 F10.20 Z72.0 Office Visit 11/05/2016 7:00a [facility] Dmitri Fry, 26707 K80.00 Of Aliya MACEDO A41.9 Office Visit [facility]/04[facility]2016 [facility] Doran [facility] 41798 K81.9 Hospitalists J44.9 F10.20 Z72.0 Office Visit 11/04/2016 7:00a [facility] Dmitri Fry 38492 K80.00 Of Aliya MACEDO Office Visit 11/03/2016 7:00a [facility] Dmitri Fry 84312 K80.00 Of Aliya MACEDO A41.9 F10.230 J44.9 Office Visit 11/03/2016 11:30a [facility] Dmitri Fry 41458 K80.00 Of Aliya MACEDO F10.230 J44.9 Office Visit 10/27/2016 3:00p [facility] Dmitri Fry, 86991 K80.00 Of Aliya MACEDO F10.230 J44.9 Office Visit 10/24/2016 12:41p [facility] Nichelle Leigh, DENYS 12766 K80.00 Assoc,pc Hospitalists T79.6xxA F10.230 Office Visit 10/24/2016 7:00a [facility] Of Dmitri Fry, 11202 K81.0 Aliya MACEDO Office Visit 10/23/2016 12:40p [place] [address] K80.00 Assoc,pc Hospitalists T79.6xxA F10.230 Office Visit 10/23/2016 7:00a [facility] Of Dmitri Fry, 90684 K81.0 Aliya MACEDO Office Visit 10/22/2016 7:00a [facility] [place], [address] K81.0 Endoscopy Technician FACS Office Visit 10/22/2016 [facility] 9[address] K80.00 Assoc,pc Hospitalists ADARSH Espinosa T79.6xxA F10.230 Office Visit 10/21/2016 12:38p [facility] Gilmar Espinosa, 54289 K80.00 Assoc,pc PA Hospitalists T79.6xxA F10.230 Office Visit 10/21/2016 7:00a [place] [address] K81.0 Of Endoscopy Technician J44.9 F10.10 Office Visit 10/20/2016 12:36p [facility] Fermin Ventura, 73122 K80.00 Assoc, Hospitalists De[facility] T79.6xxA F10.230 Office Visit 10/20/2016 7:00a [place] [address] K81.0 Of Endoscopy Technician D72.829 Office Visit 07/06/2015 7:53a [facility] Assoc,pc ADARSH Avila 97359 860.0 Hospitalists 958.7 807.09 305.00 Office Visit 06/30/2015 8:30a [facility] Destiney 41264 728.6 Of [place] Senior M.D. Office Visit 05/10/2015 9:53a [facility] Marry Wright N.P. 14352 276.2 Assoc, Hospitalists 780.2 924.01 276.1 Office Visit 05/09/2015 [facility] Doran N.P[facility] 46197 276.2 Hospitalists 780.2 924.01 276.1 Office Visit 05/08/2015 [facility] Dorna N.P. 48163 780.2 Hospitalists 924.01 276.1 276.2 Office Visit 05/07/2015 7:00a [facility] Nellie Huerta M.D. 39203 715.35 Of [place] Office Visit 05/07/2015 9:51a [place], [address] 780.2 Assoc, Hospitalkentrell Lewis 924.01 276.1 276.2 Office Visit 02/10/2015 10:45a [facility] Destiney Senior, 24165 728.6 Of [facility] M.D. Office Visit 11/06/2014 2:00p [facility] Luz JUDI Giraldo-C 79416 728.6 Of [facility] Office Visit 07/17/2014 11:30a [facility] Luz JUDI Giraldo-C 58033 354.0 Of [facility]. 728.6 354.2 Office Visit 03/03/2014 11:00a [facility] Destiney Senior, 20486 354.0 Of C.M.Maricruz Lewis 728.6 305.1 Office Visit 08/18/2011 11:30a [facility] Destiney Senior, 12578 727.04 Of C.M.Maricruz Lewis Office Visit 03/11/2009 4:00p [facility] Lawrence Cruz, 46846 786.09 M.D. 786.50 Office Visit 03/11/2009 3:30p [facility] ECHO Schedule 89395 786.09 786.50 Plan of Care Future Appointment(s):09/10/2018 1:00 pm - Rivas Ruffin MD at [facility]08/09/2018 1:00 pm - Dmitri Fry MD at [facility]
--- NOTE | 2018-07-24 13:06 | ED ---
Complex/Multi-Sys Presentation - HPI Summary HPI Summary: This patient is a 73 year old M presenting to [facility] accompanied by barkeep with a chief complaint of right hip pain with three falls in the past week. Business Continuity Strategy Director states that today there is lower extremity swelling. Right hip pain is 8/10 upon triage. She states he has taken 200mg x7 Ibuprofen. She states he has a history of alcoholism and drinks roughly 6 beers a day. He is supposed to use 1L of [place] O2 at home. His SaO2 without oxygen is typically 93%. PMHx of COPD and depression. - History Of Current Complaint Chief Complaint: EDGeneral Time Seen by Provider: 07/24/18 12:51 Hx Obtained From: Patient Onset/Duration: Lasting Weeks Timing: Constant Location: Pain At: - R hip Associated Signs And Symptoms: Positive: Weakness - Allergies/Home Medications Allergies/Adverse Reactions: Allergies Allergy/AdvReac Type Severity Reaction Status Date / Time No Known Allergies Allergy Verified 05/16/18 07:51 Home Medications: Home Medications Ibuprofen TAB* [Advil TAB*] 600 mg PO Q6H PRN 07/24/18 [History Confirmed ] Umeclidin/Vilant 62.5 MDI(NF) [ANORO 62.5/25 Ellipta DEVICE (NF)] 1 puff INH DAILY 07/24/18 [History Confirmed 07/24/18] PMH/Surg Hx/FS Hx/Imm Hx Endocrine/Hematology History: Denies: Hx Diabetes Cardiovascular History: Reports: Other Cardiovascular Problems/Disorders - DVT , ALCOHOLISM, SYNCOPAL EPISODE W/ COLLAPSE 05/10 Denies: Hx Hypertension, Hx Pacemaker/ICD Respiratory History: Reports: Hx Chronic Obstructive Pulmonary Disease (COPD), Other Respiratory Problems/Disorders - COPD GI History: Reports: Hx Gall Bladder Disease, Other GI Disorders - Cholecystectomy History: Reports: Other Problems/Disorders - BPH Denies: Hx Dialysis, Hx Renal Disease Musculoskeletal History: Reports: Hx Arthritis - HIPS, Hx Orthopedic Injury - Patella fracture and old rib fractures, Other Musculoskeletal History - CONTRACTURE HANDS Sensory History: Reports: Hx Contacts or Glasses Denies: Hx Cataracts, Hx Eye Injury, Hx Hearing Aid, Hx Hearing Problem Opthamlomology History: Reports: Hx Contacts or Glasses Denies: Hx Cataracts, Hx Eye Injury Neurological History: Reports: Other Neuro Impairments/Disorders - Right hand nerve damage Denies: Hx Dementia Psychiatric History: Reports: Hx Anxiety, Hx Depression - GETTING BETTER WITH RX , Hx Substance Abuse - occasional marijuana, alcohol Denies: Hx Panic Disorder - Surgical History Surgery Procedure, Year, and Place: TONSILLECTOMY A CHILD; [facility] 12/2014; GALLBLADDER 09/2016. carpal tunnel right Hx Anesthesia Reactions: No - Immunization History Date of Tetanus Vaccine: utd Date of Influenza Vaccine: utd Infectious Disease History: No Infectious Disease History: Reports: Hx Hepatitis - A CHILD Denies: Hx of Known/Suspected MRSA, Traveled Outside the [place] in Last 30 Days - Family History Known Family History: Negative: Cardiac Disease, Hypertension Family History: No malignant hyperthermia - Social History Alcohol Use: Daily Alcohol Amount: 6 beers/daily Hx Substance Use: No Substance Use Type: Reports: Marijuana Substance Use Comment - Amount & Last Used: occasional Hx Tobacco Use: Yes Smoking Status (MU): Heavy Every Day Tobacco Smoker Type: Cigarettes Amount Used/How Often: 1/2 PPD FOR 50 YRS Length of Time of Smoking/Using Tobacco: 50 YRS Have You Smoked in the Last Year: Yes Review of Systems Positive: Myalgia - right hip pain Positive: Weakness - falls All Other Systems Reviewed And Are Negative: Yes Physical Exam - Summary Physical Exam Summary: Appearance: Well appearing, no pain distress Skin: warm, dry, reflects adequate perfusion Head/face: normal Eyes: EOMI, STEFANIA ENT: normal Neck: supple, non-tender Respiratory: CTA, breath sounds present Cardiovascular: RRR, pulses symmetrical Abdomen: non-tender, soft Bowel: present Musculoskeletal: mild tenderness to R hip, mild pitting edema to lower extremity , strength/ROM intact Neuro: normal, sensory motor intact, A&Ox3 Triage Information Reviewed: Yes Vital Signs On Initial Exam: Initial Vitals Temp Pulse Resp BP Pulse Ox 98.3 F 69 14 108/62 94 07/24/18 12:42 07/24/18 12:42 07/24/18 12:42 07/24/18 12:42 07/24/18 12:42 Vital Signs Reviewed: Yes Diagnostics - Vital Signs Vital Signs Temp Pulse Resp BP Pulse Ox 07/24/18 12:42 98.3 F 69 14 108/62 94 - Laboratory Result Diagrams: 07/24/18 13:21 07/24/18 13:21 Lab Statement: Any lab studies that have been ordered have been reviewed, and results considered in the medical decision making process. - Radiology CXR Radiology Interpretation Completed By: Radiologist - Stigmata of obstructive lung disease. No acute pulmonary or cardiac process evident. ED Physician has reviewed this report. Hip XR Radiology Interpretation Completed By: Radiologist - #. No radiographic evidence for RIGHT hip fracture. #. Moderately severe LEFT and mild RIGHT hip osteoarthritis. ED Physician has reviewed this report. - CT Brain CT CT Interpretation Completed By: Radiologist - Chronic finding of involutional change and advanced chronic small vessel ischemic disease. No acute intracranial process evident. ED Physician has reviewed this report. - EKG 1405 Cardiac Rate: NL - 61 BPM EKG Rhythm: Sinus Rhythm EKG Interpretation: no acute changes Complex Multi-Symp Course/Dx Course Of Treatment: 73 year old M presenting to [facility] accompanied by barkeep with a chief complaint of right hip pain with three falls in the past week. Business Continuity Strategy Director states that today there is lower extremity swelling. She states he has a history of alcoholism and drinks roughly 6 beers a day.A Brain CT reveals , "Chronic finding of involutional change and advanced chronic small vessel ischemic. disease. No acute intracranial process evident." A CXR is negative. A hip XR reveals bilateral hip OA worse on the left. EKG is unremarkable. Bloodwork is unremarkable. Patient is given 1L of IVF. - Diagnoses Differential Diagnoses/HQI/PQRI: Metabolic Abnormality, Urinary Tract Infection Provider Diagnoses: Recurrent falls, Alcoholism, Arthritis of right hip Discharge - Sign-Out/Discharge Documenting (check all that apply): Patient Departure - Discharge Plan Condition: Stable Disposition: ADMITTED TO [facility] - Billing Disposition and Condition Condition: STABLE Disposition: Admitted to [facility] - Attestation Statements Document Initiated by Scribe: Yes Documenting Scribe: Omayra Allen Provider For Whom Renuka is Documenting (Include Credential): Yosvany Loredo MD Scribe Attestation: Omayra Alfonso, samanthaibed for Yosvany Loredo MD on 07/24/18 at 1742. Scribe Documentation Reviewed: Yes Provider Attestation: The documentation as recorded by the scribeOmayra accurately reflects the service I personally performed and the decisions made by Yosvany nolan MD
[2018-07-24] MEDS ORDERED: NS 0.9% 1000 ML* 1,000 ML IV ONE (13:09)
[2018-07-24 13:29] LABS: ABS Basophils 0 10^3/ul (0-0.2); ABS Eosinophils 0.2 10^3/ul (0-0.6); ABS Lymphocytes 1.2 10^3/ul (1.0-4.8); ABS Monocytes 0.8 10^3/ul (0-0.8); ABS Neutrophils 4.1 10^3/ul (1.5-7.7); ABS Nucleated RBC 0 10^3/ul; Eosinophil % 3.2 % (0-6); Hematocrit 41 % (42-52); Hemoglobin 13.6 g/dl (14.0-18.0); Mean Corpuscular HGB Conc 34 g/dl (31-36); Mean Corpuscular Hemoglobin 35 pg (27-31); Mean Corpuscular Volume 104 fL (80-94); Mean Platelet Volume 7.3 um3 (7.4-10.4); Nucleated Red Blood Cells % 0; Platelet Count 216 10^3/ul (150-450); Red Blood Count 3.88 10^6/ul (4.00-5.40); Red Cell Distribution Width 13 % (10.5-15); White Blood Count 6.3 10^3/ul (3.5-10.8)
[2018-07-24 13:45] LABS: INR 0.94 (0.77-1.02)
[2018-07-24 13:49] LABS: EGFR Non-African American 96.1 (>60)
--- NOTE | 2018-07-24 14:01 | RAD ---
Indication: Recurrent falls. Ataxia. Comparison: June 29, 2017 CT. April 17, 2017 MRI. Technique: Noncontrast CT vertex of skull through foramen magnum. Report: Mild prominence of the cerebral sulci and cerebellar fissures reflecting atrophy. Proportional mild prominence of the ventricles. Patent basal cisterns. Periventricular, subcortical, and symmetric superior parietal lobule and posterior frontal cortical decreased density most consistent with chronic microvascular disease without change. No new region of joiner matter white matter obscuration, intra or extra-axial hemorrhage, or mass effect. Unremarkable orbital contents. Unremarkable scalp and skull base. Clear visualized paranasal sinuses and mastoid air spaces. Unremarkable scalp. IMPRESSION: #. Chronic finding of involutional change and advanced chronic small vessel ischemic disease. No acute intracranial process evident.
--- NOTE | 2018-07-24 14:45 | RAD ---
Indication: Falls. Comparison: May 02, [address] June 29, 2017 chest radiograph. Technique: Portable chest 1407 hours Report: Elevated lung volumes and rarefaction of the interstitial markings. No focal pulmonary lesion, compelling alveolar consolidation, pleural effusion, pneumothorax. The heart, pulmonary vasculature, and mediastinal contours are unremarkable. Multiple healed LEFT rib fractures. No acute fracture evident. IMPRESSION: #. Stigmata of obstructive lung disease. No acute pulmonary or cardiac process evident.
--- NOTE | 2018-07-24 14:50 | RAD ---
Indication: Increasing RIGHT lower extremity pain. Multiple recent falls. RIGHT femur fracture about one year ago. Comparison: May 02, 2018 CT. Technique: AP pelvis and AP and frog-leg lateral views RIGHT hip. Report: Negative for pelvic fracture or pelvic joint diastases. Ankylosis of the sacroiliac joints. No cortical disruption or suspicious trabecular irregularity to indicate fracture of the RIGHT proximal femur. Normal articular alignment at the RIGHT hip. LEFT greater than RIGHT hip osteophytosis. Preserved RIGHT hip joint space. Moderate superior joint space narrowing at the LEFT hip and partial loss of LEFT femoral head sphericity as well as associated subchondral sclerosis. Peripheral vascular calcifications. Unremarkable soft tissue contours. IMPRESSION: #. No radiographic evidence for RIGHT hip fracture. #. Moderately severe LEFT and mild RIGHT hip osteoarthritis.
[2018-07-24 15:55] LABS: Urine Appearance Clear; Urine Blood Negative (Negative); Urine Color Yellow; Urine Ketones 1+ (Negative); Urine Protein Negative (Negative); Urine Specific Gravity 1.012 (1.010-1.030); Urine Urobilinogen Positive (Negative)
--- NOTE | 2018-07-24 16:25 | ED ---
Progress - Progress Note Progress Note: AT 1657 Plan and results were discussed with the patient and his daughter. As per daughter, the patient has been drinking quite a bit and falling several times. Dr. Loredo stated there is no need for admission due to his labs and scans were all within normal limits, however, he offered admission to the patient. The patient refused admission and would like to go home. 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 Patient will be discharged. AT 1716 Patient attempted to walk with walker and he is having trouble ambulating even with additional assistance. Course/Dx - Course Course Of Treatment: A 73 y/o male accompanied by his daughter presents to ED c/ o right hip pain s/p several falls. A Hip/Pelvis XR, Brain CT, EKG, CXR, UA and blood work was all within normal limits. In the ED course, the patient recieved IV fluids. During reevaluation, plan and results were discussed with the patient and his daughter. As per daughter, the patient has been drinking quite a bit and falling several times. Dr. Loredo stated there is no need for admission due to his labs and scans were all within normal limits, however, he offered admission to the patient. The patient refused admission and would like to go home. 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 After original discharge, patient attempted to walk with walker and he is having trouble ambulating even with additional assistance. Patient care was discussed with hospitalist, Dr. Cancino, who accepts patient for admission as now the patient would like to be admitted. Patient will be admitted with a diagnosis of recurrent falls, arthritis of the hip and alcoholism. Patient is agreeable with this plan. - Diagnoses Provider Diagnoses: Recurrent falls, Alcoholism, Arthritis of right hip - Provider Notifications Discussed Care Of Patient With: Zenaida Cancino Time Discussed With Above Provider: 17:16 Instructed by Provider To: Other - Accepts patient for admission. Discharge - Sign-Out/Discharge Documenting (check all that apply): Patient Departure - ADMIT - Discharge Plan Condition: Stable Disposition: ADMITTED TO [facility] Referrals: Angélica Yu [Primary Care Provider] - - Billing Disposition and Condition Condition: STABLE Disposition: Admitted to [facility] - Attestation Statements Document Initiated by Scribe: Yes Documenting Scribe: Taj Ortiz Provider For Whom Scribe is Documenting (Include Credential): Yosvany Loredo Scribe Attestation: I, Taj Ortiz, scribed for Yosvany Loredo on 07/24/18 at 1742. Scribe Documentation Reviewed: Yes Provider Attestation: The documentation as recorded by the scribe, Taj Ortiz accurately reflects the service I personally performed and the decisions made by me, Yosvany Loredo
[2018-07-24] MEDS ORDERED: Albuterol 2.5 MG/3 ML NEB.SOL* (0.083%) INH PRN (18:45)
[2018-07-24] MEDS ORDERED: Acetaminophen TAB* 325 MG PO PRN (18:45)
[2018-07-24] MEDS ORDERED: oxyCODONE/Acetamin 5/325 MG* TAB PO PRN (18:45)
[2018-07-24] MEDS ORDERED: Al Hydrox/Mg Hydrox/Simet LIQ* 30 ML UDC PO PRN (18:45)
[2018-07-24] MEDS ORDERED: Albuterol HFA INHALER* 8 gm MDI INH PRN (18:51)
[2018-07-24] MEDS ORDERED: Thiamine IV* 100 MG/ML 2 ML VIAL IM ONE (18:55)
[2018-07-24] MEDS ORDERED: LORazepam TAB(*) 1 MG PO SCH (19:00)
[2018-07-24] MEDS ORDERED: Thiamine TAB* 100 MG TAB PO SCH (19:00)
[2018-07-24] MEDS ORDERED: Thiamine IV* 100 MG, Folic Acid IV* 1 MG, Multiple Vitamin IV ADULT* 10 ML in NS 0.9% 1... IV ONE (19:32)
[2018-07-24] MEDS: Folic Acid TAB* 1 MG PO SCH (21:18)
[2018-07-24] MEDS: Heparin VIAL(*) 5000 UNITS/ML VIAL (FIVE THOUSAND) SUBCUT SCH (21:19)
[2018-07-24] MEDS: celeCOXIB CAP* 100 MG PO SCH (21:19)
[2018-07-24] MEDS: Thiamine TAB* 100 MG TAB PO SCH (21:22)
--- NOTE | 2018-07-24 23:21 | HP ---
CC: Dr. Olya Sidhu in [place]. * HISTORY AND PHYSICAL: DATE OF ADMISSION: 07/24/18 PROVIDER: Erin Sánchez NP PRIMARY CARE PROVIDER: Dr. Olya Sidhu in [place]. ATTENDING PHYSICIAN WHILE IN THE HOSPITAL: Shante Jurado MD * (dictated by Erin Sánchez NP) CHIEF COMPLAINT: 1. Weakness/falls. 2. Hyponatremia. HISTORY OF PRESENT ILLNESS: Mr. Rosas is a 73-year-old male who carries a past medical history significant for COPD, hep C, arthritis, depression, alcohol abuse, and history of CVA who presented to the emergency room after a fall at home. The patient and his daughter report that he has fallen 2 to 3 times over the past month; last fall was today. After his fall today, he complained of right hip pain. He also reports that he has chronic right hip pain x2 months. He denies any loss of consciousness. He denies any dizziness or lightheadedness. He denies any neck or back pain after the fall. He reports that his legs became weak and he just fell onto his right hip. He denies any head injury. While in the emergency room, he had routine lab work drawn. He was found to have mild hyponatremia with a sodium level of 129. His troponins were negative. He had negative hip x-ray as well. His urine was within normal limits and his alcohol level was less than 10. Given his inability to safely ambulate, we were asked to see and evaluate him for admission. The patient will be admitted under observation for weakness and falls and hyponatremia. PAST MEDICAL HISTORY: Significant for: 1. COPD. 2. Hepatitis C. 3. Arthritis. 4. Depression. 5. Alcohol abuse. 6. CVA. PAST SURGICAL HISTORY: 1. Cholecystectomy in 2016. 2. Carpal tunnel release. MEDICATIONS: Home medications include: 1. Aspirin 81 mg p.o. daily. 2. Multivitamin 2 tablets p.o. daily. 3. Ventolin inhaler 2 puffs q.4 hours as needed. 4. Ellipta 1 puff inhaled daily. 5. Ibuprofen 600 mg p.o. q.6 hours as needed for pain. 6. Lexapro 20 mg p.o. q.a.m. 7. Bupropion 150 mg p.o. q.a.m. 8. Celebrex 100 mg p.o. b.i.d. 9. Tamsulosin 0.4 mg q.p.m. 10. Ditropan 10 mg p.o. q.a.m. ALLERGIES TO MEDICATIONS: No known drug allergies. FAMILY HISTORY: No reported history of coronary artery disease, diabetes, or cancers in the family. SOCIAL HISTORY: The patient does report he smokes 1 pack per day x50 years. He reports 6 to 8 beers per day. Denies any illicit drug use. He lives alone. He is . Surrogate decision maker in the event he is unable to make his own decisions is his daughter, Valerie. Her phone number is [phone] for home, cell phone is [phone]. He is a full code. REVIEW OF SYSTEMS: There was no documented fever. No significant weight change. There was no double vision. Denies any ear discharge. Denies any rhinorrhea or sore throat. He denies any lightheadedness or dizziness. Denies any loss of consciousness. He denies any chest pain. Denies any orthopnea or nocturnal dyspnea. There was no abdominal pain. No nausea, vomiting, diarrhea. No dysuria or urinary frequency. No hematuria. No seizures, no loss of consciousness. No pruritus, no skin ulcerations. No depression or anxiety. A review of 14 systems was completed and all others are negative. PHYSICAL EXAMINATION GENERAL: At this time, Mr. Rosas is a 73-year-old male who appears comfortable , resting on the stretcher in the emergency room. VITAL SIGNS: As follows, blood pressure was 139/73, heart rate 63, respirations were 13, O2 saturation was 99% on room air, temperature on admission was 98.3. HEENT: Head is atraumatic, normocephalic. Eyes: EOMs are intact. Sclerae anicteric and not pale. Oral mucosa appeared to be moist. NECK: Supple. LUNGS: Clear to auscultation bilaterally. No wheezes, rales, or rhonchi. CARDIAC: S1, S2. Regular rate and rhythm. No murmurs, rubs, or gallops. ABDOMEN: Soft and nontender. He does have an umbilical hernia that is soft and nontender. Bowel sounds are present x4. EXTREMITIES: Pulses are +2 throughout. He is able to move all 4 extremities with 5/5 strength. NEUROLOGIC: He is awake, alert, oriented x3. His speech is clear. There are no gross focal deficits. DIAGNOSTIC STUDIES/LAB DATA: WBCs are 6.3, hemoglobin 13.6, hematocrit was 41 , platelet count was 216. INR was 0.94. APTT was 28.3. Sodium 129, potassium 4.5, chloride 98, carbon dioxide was 26, BUN was 8, creatinine 0.79. Magnesium was 1.9. Calcium 8.7. Troponin was 0.01. BNP was 93. TSH was 1.3. Urine color was yellow, appearance is clear, pH was 6.0, specific gravity of 1.012, urine protein was negative, urine ketones was +1, urine blood was negative, nitrites were negative, urobilinogen was positive, urine leukocyte esterase was negative, urine glucose was negative, serum alcohol was less than 10. EKG showed a sinus rhythm at a rate of 61. He had a chest x-ray, radiologist's impression, stigmata of obstructive lung disease, no acute pulmonary or cardiac process is evident. He had a CT of the brain, chronic findings of involutional changes and advanced chronic small vessel ischemic disease, no acute intracranial process was evident. He had a hip and pelvis x-ray, radiologist's impression, no radiographic evidence of right hip fracture, moderate to severe left and mild right hip osteoarthritis. ASSESSMENT AND PLAN: Mr. Rosas is a 73-year-old male who presented to the emergency room after a fall at home today, complaining of right hip pain. We were asked to see and evaluate him due to his weakness and hyponatremia as well as his fall and inability to ambulate. He will be admitted under observation for: 1. Weakness. I suspect this is related to his right hip pain and deconditioning. The patient has walked with a walker x3 years. I will order PT evaluation. He should be out of the bed with assist. Based on the physical therapy evaluation, he may need short term rehab as the daughter does report that the patient has dwindling since stopping physical therapy. 2. Hyponatremia. The patient received 1 L of normal saline in the emergency room. We will repeat BMP in the a.m. 3. Chronic obstructive pulmonary disease. He will continue on Ellipta inhaler and albuterol inhaler. 4. Alcohol abuse. He will continue on multivitamin. I will place him on folic acid and thiamine. He will also be placed on WAM protocol and give Ativan p.o. as needed for withdrawal symptoms. 5. Depression. Continue his bupropion ER 150 mg p.o. daily and Lexapro 20 mg p.o. daily. 6. FEN. He will be placed on heart healthy, caffeine okay diet. 7. Code status. He is a full code. 8. DVT prophylaxis. I will place him on heparin subcu 5000 units and SCDs. 9. Disposition. He will be placed on observation on the medical floor. TIME SPENT: Time spent on this admission was approximately 60 minutes, greater than half the time was spent with the patient obtaining my history and physical , the other half of the time was spent going over my plan of care and implementing my plan of care. I have discussed this with my attending Dr. Shante Jurado and she is in agreement with my plan. ERIN SÁNCHEZ, DENYS [id number]/CPS #: [id number] DILMA
[2018-07-25] MEDS: Heparin VIAL(*) 5000 UNITS/ML VIAL (FIVE THOUSAND) SUBCUT SCH ×2 (06:23→14:05)
[2018-07-25 08:24] LABS: ABS Basophils 0.1 10^3/ul (0-0.2); ABS Eosinophils 0.3 10^3/ul (0-0.6); ABS Lymphocytes 1.3 10^3/ul (1.0-4.8); ABS Monocytes 0.5 10^3/ul (0-0.8); ABS Neutrophils 2.8 10^3/ul (1.5-7.7); ABS Nucleated RBC 0 10^3/ul; Eosinophil % 5.5 % (0-6); Hematocrit 39 % (42-52); Hemoglobin 13.1 g/dl (14.0-18.0); Lymphocyte % 25.6 % (25-47); Mean Corpuscular HGB Conc 34 g/dl (31-36); Mean Corpuscular Hemoglobin 35 pg (27-31); Mean Corpuscular Volume 104 fL (80-94); Nucleated Red Blood Cells % 0; Platelet Count 204 10^3/ul (150-450); Red Blood Count 3.71 10^6/ul (4.00-5.40); Red Cell Distribution Width 13 % (10.5-15)
[2018-07-25] MEDS: Multivitamins/Minerals TAB PO SCH (08:25)
[2018-07-25] MEDS: Folic Acid TAB* 1 MG PO SCH (08:26)
[2018-07-25] MEDS: BuPROPion XL* 150 MG TAB.XL PO SCH (08:26)
[2018-07-25] MEDS: Aspirin 81 mg CHEW TAB* 81 MG TAB.CHEW PO SCH (08:26)
[2018-07-25] MEDS: Thiamine TAB* 100 MG TAB PO SCH (08:26)
[2018-07-25] MEDS: CMCS:Escitalopram (NF) 10 MG TAB PO SCH (08:29)
[2018-07-25] MEDS: Oxybutynin XL TAB* 5 MG PO SCH (08:30)
[2018-07-25] MEDS: celeCOXIB CAP* 100 MG PO SCH ×2 (08:31→20:04)
[2018-07-25 08:42] LABS: EGFR Non-African American 120.4 (>60)
[2018-07-25] MEDS ORDERED: Multivitamins/Minerals TAB PO SCH (09:00)
[2018-07-25] MEDS: Umeclidin/Vilant 62.5 MDI 62.5/25 mcg 14 INH ELLIPTA DEVICE INH SCH (14:11)
--- NOTE | 2018-07-25 14:13 | PN ---
Subjective Date of Service: 07/25/18 Interval History: Pt seen and examined. Meds and labs reviewed. CC: Weakness, but improving ROS: Denied FORD/dizziness, F/C, N/V, CP, SOB, increased cough, sputum production , abd pain, diarrhea, constipation, dysuria, myalgias, arthralgias, throat pain , and new skin lesions. The rest of the 14 point ROS are unremarkable. PHYSICAL EXAM: GEN APPEARANCE: Awake, not in acute distress HEENT: NC/AT, PERRLA, moist oral mucosa, (-) throat erythema NECK: Soft, supple, (-) cervical LAD, (-)JVD HEART: S1S2 WNL, RRR, No MRG CHEST: CTA, BL, GAE, No W/R/R ABD: Soft, ND/NT, NABS 4x Q EXT: No C/C/E SKIN: Warm to touch PSYCH: No active psychosis, hallucinations, depression, SI/HI Objective Active Medications: Acetaminophen (Tylenol Tab*) 650 mg PO Q4H PRN PRN Reason: FEVER/PAIN Al Hydrox/Mg Hydrox/Simethicone (Maalox Plus*) 30 ml PO Q6H PRN PRN Reason: INDIGESTION Albuterol (Ventolin 2.5 Mg/3 Ml Neb.Danielle*) 2.5 mg INH RT.P3PA-RAMMI AWAKE PRN PRN Reason: sob/wheezing Albuterol (Ventolin Hfa Inhaler*) 2 puff INH Q4H PRN PRN Reason: SHORTNESS OF BREATH Aspirin (Aspirin 81 Mg Chew Tab*) 81 mg PO QAM [facility] Last Admin: 07/25/18 08:26 Dose: 81 mg Bupropion HCl (Wellbutrin Xl *) 150 mg PO QAM [facility] Last Admin: 07/25/18 08:26 Dose: 150 mg Celecoxib (Celebrex Cap*) 100 mg PO BID [facility] Last Admin: 07/25/18 08:31 Dose: 100 mg Escitalopram Oxalate (Lexapro (Nf)) 20 mg PO QAM [facility] Last Admin: 07/25/18 08:29 Dose: 20 mg Folic Acid (Folvite Tab*) 1 mg PO DAILY [facility] Last Admin: 07/25/18 08:26 Dose: 1 mg Heparin Sodium (Porcine) (Heparin Vial(*)) 5,000 units SUBCUT Q12H [facility] Lorazepam (Ativan Tab(*)) 0 - 6 mg PO .[facility] PROTOCOL VIKY; Protocol Multivitamins/Minerals (Theragran/Minerals Tab*) 1 tab PO QAM [facility] Last Admin: 07/25/18 08:25 Dose: 1 tab Oxybutynin Chloride (Ditropan Xl Tab*) 10 mg PO QAM [facility] Last Admin: 07/25/18 08:30 Dose: 10 mg Oxycodone/Acetaminophen (Percocet 5/325 Tab*) 1 tab PO Q8H PRN PRN Reason: Pain Last Admin: 07/24/18 21:20 Dose: 1 tab Tamsulosin HCl (Flomax Cap*) 0.4 mg PO QPM [facility] Thiamine HCl (Vitamin B-1 Tab*) 100 mg PO 0900 [facility] Last Admin: 07/25/18 08:26 Dose: 100 mg Umeclidinium/Vilanterol (Anoro 62.5/25 Ellipta Device (Nf)) 1 inh INH DAILY [facility] Vital Signs - 8 hr 07/25/18 07/25/18 07/25/18 07:06 08:00 09:04 Temperature 97.6 F 97.3 F Pulse Rate 58 58 Respiratory 17 17 16 Rate Blood Pressure 112/61 119/56 (mmHg) O2 Sat by Pulse 100 97 Oximetry 07/25/18 07/25/18 10:57 13:49 Temperature 98.0 F 97.4 F Pulse Rate 58 60 Respiratory 16 Rate Blood Pressure 102/53 111/54 (mmHg) O2 Sat by Pulse 96 96 Oximetry Oxygen Devices in Use Now: Nasal Cannula Result Diagrams: 07/25/18 08:10 07/25/18 08:10 Assess/Plan/Problems-Billing Assessment: - Patient Problems (1) Weakness Current Visit: Yes Status: Acute Code(s): R53.1 - WEAKNESS SNOMED Code(s) : 13767497 Comment: -Awaiting PT evaluation to see if any other needs prior to D/C -Likely due to deconditioning related to chronic right hip pain -Pt on Celcoxib and Oxycodone PRN -Pt mentions he feels better today -Continue watchful waiting (2) Hyponatremia Current Visit: Yes Status: Acute Code(s): E87.1 - HYPO-OSMOLALITY AND HYPONATREMIA SNOMED Code(s): 81233935 Comment: -Improved -Reported to have received 1L of NS in ER -Possibly mild hypovolemia with component of mild SIADH due to pain as discussed above -Given Sodium levels are now almost normal, will not send urine lytes -Continue watchful waiting (3) COPD (chronic obstructive pulmonary disease) Current Visit: Yes Status: Acute Code(s): J44.9 - CHRONIC OBSTRUCTIVE PULMONARY DISEASE, UNSPECIFIED SNOMED Code(s): 75845750 Comment: -Continue Albuterol and Ellipta -Not in acute exacerbation (4) ETOH abuse Current Visit: Yes Status: Acute Code(s): F10.10 - ALCOHOL ABUSE, UNCOMPLICATED SNOMED Code(s): 94318493 Comment: -Continue MV -Continue WAM protocol (5) DVT prophylaxis Current Visit: No Status: Acute Code(s): BUY6502 - SNOMED Code(s): 351711530 Comment: -Will decrease Heparin SQ to q12h Status and Disposition: -Awaiting PT eval
[2018-07-25] MEDS ORDERED: Tamsulosin CAP* 0.4 MG PO SCH (18:00)
[2018-07-26] MEDS: Heparin VIAL(*) 5000 UNITS/ML VIAL (FIVE THOUSAND) SUBCUT SCH ×2 (03:49→13:40)
[2018-07-26 06:42] LABS: ABS Basophils 0 10^3/ul (0-0.2); ABS Eosinophils 0.3 10^3/ul (0-0.6); ABS Lymphocytes 1.5 10^3/ul (1.0-4.8); ABS Monocytes 0.7 10^3/ul (0-0.8); ABS Neutrophils 3.7 10^3/ul (1.5-7.7); ABS Nucleated RBC 0 10^3/ul; Eosinophil % 4.6 % (0-6); Hematocrit 39 % (42-52); Hemoglobin 13.2 g/dl (14.0-18.0); Lymphocyte % 23.9 % (25-47); Mean Corpuscular HGB Conc 34 g/dl (31-36); Mean Corpuscular Hemoglobin 35 pg (27-31); Mean Corpuscular Volume 105 fL (80-94); Mean Platelet Volume 7.7 um3 (7.4-10.4); Nucleated Red Blood Cells % 0; Platelet Count 205 10^3/ul (150-450); Red Blood Count 3.76 10^6/ul (4.00-5.40); Red Cell Distribution Width 13 % (10.5-15); White Blood Count 6.2 10^3/ul (3.5-10.8)
[2018-07-26] MEDS: Umeclidin/Vilant 62.5 MDI 62.5/25 mcg 14 INH ELLIPTA DEVICE INH SCH (07:52)
[2018-07-26] MEDS ORDERED: Magnesium Sulfate IV* 3 GM in NS 0.9% 100 ML* 100 ML IVPB ONE (08:46)
[2018-07-26] MEDS: Multivitamins/Minerals TAB PO SCH (09:32)
[2018-07-26] MEDS: Oxybutynin XL TAB* 5 MG PO SCH (09:33)
[2018-07-26] MEDS: celeCOXIB CAP* 100 MG PO SCH (09:33)
[2018-07-26] MEDS: Thiamine TAB* 100 MG TAB PO SCH (09:33)
[2018-07-26] MEDS: Aspirin 81 mg CHEW TAB* 81 MG TAB.CHEW PO SCH (09:33)
[2018-07-26] MEDS: Folic Acid TAB* 1 MG PO SCH (09:33)
[2018-07-26] MEDS: BuPROPion XL* 150 MG TAB.XL PO SCH (09:33)
[2018-07-26] MEDS: CMCS:Escitalopram (NF) 10 MG TAB PO SCH (09:33)
[2018-07-26 15:25] VITALS: BP 109/58
--- NOTE | 2018-07-26 16:00 | DS ---
CC: Dr. Yosvany Loredo; Dr. Angélica Yu * DATE OF ADMISSION: 07/24/2018. DATE OF DISCHARGE: 07/26/2018. DATE OF SERVICE: 07/26/2018. DISCHARGE DIAGNOSES: 1. Weakness likely secondary to deconditioning related to his chronic right hip pain, improving. 2. Hyponatremia, improved, likely secondary to mild hypovolemia as well as mild component of SIADH due to chronic right hip pain, improved. 3. COPD, not in acute exacerbation. 4. Alcohol abuse, currently not in withdrawal. HISTORY OF PRESENT ILLNESS/HOSPITAL COURSE: The patient is a 73-year-old, gentleman with a history of COPD, hepatitis C, depression, and CVA who presented to the emergency room after a fall at home on 07/24/2018. The patient and his daughter reported that he has fallen two to three times over the last month and his last fall was on the day of this admission. At that time , he denied any loss of consciousness, dizziness, lightheadedness, nor any prodromal symptoms. On subsequent evaluation, he was found to be mildly hyponatremic with a sodium of 129 and has been given IV fluids due to his mild dehydration on presentation which then subsequently improved his sodium levels along with better control of his pain. He was also seen by physical therapy who recommended subacute rehab and hence the patient was placed to [facility]. Mild hypomagnesemia was also corrected prior to his discharge. The patient had been advised to follow-up and/or call his PCP/facility MD within three days post DC and if he needs more controlled substances for his pain, to ask the [facility] staff to have this prescribed for him upon his evaluation. He was advised to call my office regarding any questions, concerns , or further clarifications regarding his discharges and/or prescriptions and to take his medications as prescribed. REVIEW OF SYSTEMS: On review of systems, the patient denied any recent headaches, dizziness, fevers, chills, nausea, vomiting, chest pain, shortness of breath, increased cough nor sputum production, abdominal pain, diarrhea, constipation, pain and/or increased frequency on urination, myalgias, arthralgias, throat pain, or new skin lesions. The rest of the 14 point review of systems are otherwise unremarkable. PHYSICAL EXAMINATION: General appearance: The patient is awake, alert, and oriented times three. Not in acute distress. Most recent vital signs of record : Temperature 97.9 degrees Fahrenheit, 66 beats per minute heart rate, 18 per minute respiratory rate saturating at 97 percent room air with a blood pressure of 115/70. HEENT: Normocephalic, atraumatic. PERRLA. Extraocular muscles intact. Negative for icterus, moist oral mucosa. Negative throat erythema. Neck: Soft, supple with no cervical lymphadenopathy. No JVD. Heart: S1, S2 within normal limits. Regular rate and rhythm. No murmurs, rubs or gallops. Chest: Clear to auscultation bilaterally. Good air entry. No wheezes, rales or rhonchi. Abdomen: Soft, nondistended, nontender. Normoactive bowel sounds times four. Extremities: No cyanosis or clubbing with 1+ bilateral lower extremity edema. Psychiatric: No active psychosis, depression, suicidal nor homicidal ideation. Skin: Warm to touch. DISCHARGE MEDICATIONS: 1. Tylenol 650 mg p.o. q.6 prn. 2. Albuterol two puffs inhalation q.4 prn. 3. Aspirin 81 mg p.o. q.a.m. 4. Bupropion 150 mg p.o. q.a.m. 5. Celecoxib 100 mg p.o. b.i.d. 6. Escitalopram 20 mg p.o. q.a.m. 7. Folic Acid 1 mg p.o. daily. 8. Multivitamin one tab p.o. q.a.m. 9. Oxybutynin 10 mg p.o. q.a.m. 10. Tamsulosin 0.4 mg q.p.m. 11. Thiamine 100 mg p.o. daily. 12. Anoro Ellipta 62.5/25 MDI one puff inhalation daily. 13. Percocet 5/325 one tab p.o. q.8 prn 10 tabs dispensed with 0 refills. The total time spent evaluating the patient, reviewing pertinent data and appropriate documentation is 45 minutes. [id number]/[facility] #: [id number] MTDD
== END 2018-07-26 17:10 ==
LOC: ED 12:30 → MED 19:42
PROVIDERS: ADMIT Student in an Organized Health Care Education/Training Program; ATTEND Student in an Organized Health Care Education/Training Program
DX: R53.1 Weakness (principal); M25.551 Pain in right hip; G89.29 Other chronic pain; E87.1 Hypo-osmolality and hyponatremia; J44.9 Chronic obstructive pulmonary disease, unspecified; F10.20 Alcohol dependence, uncomplicated; E83.42 Hypomagnesemia; Z79.82 Long term (current) use of aspirin; Z79.899 Other long term (current) drug therapy; B19.20 Unspecified viral hepatitis C without hepatic coma; Z86.73 Personal history of transient ischemic attack (TIA), and cerebral infarction without residual deficits; F17.210 Nicotine dependence, cigarettes, uncomplicated; M79.89 Other specified soft tissue disorders; F41.9 Anxiety disorder, unspecified; F32.9 Major depressive disorder, single episode, unspecified; I45.10 Unspecified right bundle-branch block; I49.1 Atrial premature depolarization
CPT/HCPCS: 36415; 70450; 71045; 80048; 80053; 80320; 81003; 82550; 83735; 83880; 84100; 84443; 84484; 85025; 85610; 85730; 93005; 96365; 96366; 96367; 96372; 99283; A9270-GY; G0378; G0480; G8978-GP-CK; G8979-GP-CI; J1644; J3411; J3475

== ENCOUNTER 2019-01-02 02:36 | Emergency (ER) | payer MEDICARE, OTHER ==
--- NOTE | 2019-01-02 02:48 | ED ---
Lower Extremity - HPI Summary HPI Summary: This patient is a 73 year old F brought in by ambulance to ED with hx of arthritis and chronic R hip pain and a chief complaint of R hip pain since 1 day ago. The CC is described as radiating down the R leg. He has been to the ED before for chronic R hip pain. The patient rates the pain 8/10 in severity. Symptoms aggravated by movement. Symptoms alleviated by nothing. Patient denies recent falls or trauma. Patient takes Ibuprofen for pain and does not take Percocet anymore. He does not see an orthopedist after his hip replacement. Patient uses a walker. - History of Current Complaint Chief Complaint: EDHipPelvisInjury Stated Complaint: RIGHT LEG PAIN Time Seen by Provider: 01/02/19 02:42 Hx Obtained From: Patient Onset of Pain: Immediate, Days - 1 day ago Onset/Duration: Still Present Severity Initially: Severe - 8/10 Severity Currently: Severe - 8/10 Pain Intensity: 8 Pain Scale Used: 0-10 Numeric Timing: Constant Location: Radiates To - R hip pain radiating down the R leg Aggravating Factor(s): Movement Alleviating Factor(s): Nothing - Allergies/Home Medications Allergies/Adverse Reactions: Allergies Allergy/AdvReac Type Severity Reaction Status Date / Time No Known Allergies Allergy Verified 05/16/18 07:51 PMH/Surg Hx/FS Hx/Imm Hx Endocrine/Hematology History: Denies: Hx Diabetes Cardiovascular History: Reports: Other Cardiovascular Problems/Disorders - DVT , ALCOHOLISM, SYNCOPAL EPISODE W/ COLLAPSE 05/10 Denies: Hx Hypertension, Hx Pacemaker/ICD Respiratory History: Reports: Hx Chronic Obstructive Pulmonary Disease (COPD), Other Respiratory Problems/Disorders - COPD GI History: Reports: Hx Gall Bladder Disease, Other GI Disorders - Cholecystectomy History: Reports: Other Problems/Disorders - BPH Denies: Hx Dialysis, Hx Renal Disease Musculoskeletal History: Reports: Hx Arthritis - HIPS, Hx Orthopedic Injury - Patella fracture and old rib fractures, Other Musculoskeletal History - CONTRACTURE HANDS, chronic R hip pain Sensory History: Reports: Hx Contacts or Glasses Denies: Hx Cataracts, Hx Eye Injury, Hx Hearing Aid, Hx Hearing Problem Opthamlomology History: Reports: Hx Contacts or Glasses Denies: Hx Cataracts, Hx Eye Injury Neurological History: Reports: Other Neuro Impairments/Disorders - Right hand nerve damage Denies: Hx Dementia Psychiatric History: Reports: Hx Anxiety, Hx Depression - GETTING BETTER WITH RX , Hx Substance Abuse - occasional marijuana, alcohol Denies: Hx Panic Disorder - Surgical History Surgery Procedure, Year, and Place: TONSILLECTOMY A CHILD; [facility] 12/2014; GALLBLADDER 09/2016. carpal tunnel right Hx Anesthesia Reactions: No - Immunization History Date of Tetanus Vaccine: utd Date of Influenza Vaccine: utd Infectious Disease History: No Infectious Disease History: Reports: Hx Hepatitis - A CHILD Denies: Hx of Known/Suspected MRSA, Traveled Outside the [place] in Last 30 Days - Family History Known Family History: Negative: Cardiac Disease, Hypertension Family History: No malignant hyperthermia - Social History Alcohol Use: Daily Alcohol Amount: 6packs Hx Substance Use: No Substance Use Type: Reports: None Substance Use Comment - Amount & Last Used: occasional Hx Tobacco Use: Yes Smoking Status (MU): Heavy Every Day Tobacco Smoker Type: Cigarettes Amount Used/How Often: 1/2 PPD FOR 50 YRS Length of Time of Smoking/Using Tobacco: 50 YRS Have You Smoked in the Last Year: Yes Review of Systems Negative: Fever Positive: Other - R hip pain radiating down the R leg, has chronic R hip pain; denies recent falls or trauma All Other Systems Reviewed And Are Negative: Yes Physical Exam - Summary Physical Exam Summary: VITAL SIGNS: Reviewed. GENERAL: Patient is a well-developed and nourished MALE who is lying comfortable in the stretcher. Patient is not in any acute respiratory distress. HEAD AND FACE: No signs of trauma. No ecchymosis, hematomas or skull depressions. No sinus tenderness. EYES: PERRLA, EOMI x 2, No injected conjunctiva, no nystagmus. EARS: Hearing grossly intact. Ear canals and tympanic membranes are within normal limits. MOUTH: Oropharynx within normal limits. NECK: Supple, trachea is midline, no adenopathy, no JVD, no carotid bruit, no c- spine tenderness, neck with full ROM. CHEST: Symmetric, no tenderness at palpation LUNGS: Clear to auscultation bilaterally. No wheezing or crackles. CVS: Regular rate and rhythm, S1 and S2 present, no murmurs or gallops appreciated. ABDOMEN: Soft, non-tender. No signs of distention. No rebound no guarding, and no masses palpated. Bowel sounds are normal. EXTREMITIES: No edema, no cyanosis or clubbing. Minimal decreased of motion of R hip because of pain. NEURO: Alert and oriented x 3. No acute neurological deficits. Speech is normal and follows commands. SKIN: Dry and warm Triage Information Reviewed: Yes Vital Signs On Initial Exam: Initial Vitals Temp Pulse Resp BP Pulse Ox 97.8 F 79 16 188/92 95 01/02/19 02:40 01/02/19 02:40 01/02/19 02:40 01/02/19 02:40 01/02/19 02:40 Vital Signs Reviewed: Yes Diagnostics - Vital Signs Vital Signs Temp Pulse Resp BP Pulse Ox 01/02/19 02:40 97.8 F 79 16 188/92 95 - Laboratory Lab Statement: Any lab studies that have been ordered have been reviewed, and results considered in the medical decision making process. - Radiology R hip/pelvis XR Radiology Interpretation Completed By: ED Physician Summary of Radiographic Findings: No fracture. Pending radiologist official report. Re-Evaluation - Re-Evaluation First Eval Re-Evaluation Time: 03:35 Comment: Discussed results of XR and plan for discharge. Lower Extremity Course/Dx - Course Assessment/Plan: This patient is a 73 year old F brought in by ambulance to ED with hx of arthritis and chronic R hip pain and a chief complaint of R hip pain since 1 day ago. The CC is described as radiating down the R leg. He has been to the ED before for chronic R hip pain. In the ED course, the patient was given Percocet. R hip XR reveals no fracture, per ED physician. This patient will be discharged with prescription for Percocet and follow up with his PCP and recommendation for physical therapy. - Diagnoses Differential Diagnosis/HQI/PQRI: Positive: Other - chronic right hip pain Provider Diagnoses: Chronic right hip pain Discharge - Sign-Out/Discharge Documenting (check all that apply): Patient Departure - discharge Patient Received Moderate/Deep Sedation with Procedure: No - Discharge Plan Condition: Stable Disposition: HOME Prescriptions: oxyCODONE/Acetamin 5/325 MG* [Percocet 5/325 TAB*] 1 tab PO Q6H PRN #14 tab MDD 4 PRN Reason: Pain Patient Education Materials: Hip Pain (ED) Referrals: Angélica Lyman CNA INSTRUCTOR [Primary Care Provider] - (Follow up in 1-2 days.) Additional Instructions: Take Percocet as needed. Follow up with your PCP in 1-2 days. Recommend physical therapy. RETURN TO THE EMERGENCY DEPARTMENT FOR CHANGING OR WORSENING SYMPTOMS. - Attestation Statements Document Initiated by Scribe: Yes Documenting Scribe: Gilberto Dove Provider For Whom Renuka is Documenting (Include Credential): Debora Huddleston MD Scribe Attestation: Gilberto Alfonso, scribed for Debora Huddleston MD on 01/02/19 at 0349. Status of Scribe Document: Ready
[2019-01-02] MEDS ORDERED: oxyCODONE/Acetamin 5/325 MG* TAB PO ONE (02:57)
[2019-01-02 04:56] VITALS: BP 122/70
== END 2019-01-02 04:54 | disposition home or self-care (01) ==
LOC: ED 02:36
DX: M25.551 Pain in right hip (principal); G89.29 Other chronic pain; F17.210 Nicotine dependence, cigarettes, uncomplicated
CPT/HCPCS: 99282; A9270-GY

== ENCOUNTER 2019-01-05 01:15 | Inpatient (IN) | payer MEDICARE, OTHER ==
[2019-01-05] MEDS ORDERED: Albuterol/Ipratropium NEB.SOL* Albuterol 2.5 MG/Ipratropium 0.5 MG 3 ML INH ONE (01:46)
--- NOTE | 2019-01-05 01:46 | ED ---
Back Pain - HPI Summary HPI Summary: This patient is a 73 year old M brought in by ambulance with a chief complaint of chronic right hip pain since earlier today. The patient rates the pain 10/10 in severity. Patient reports cough, hoarse voice, dry throat, fever, and confusion. Patient denies difficulty breathing. The patient is supposed to be on oxygen at home, but he does not use it. The patient states he is out of his pain medications. He claims that he was prescribed medication from his doctor, but there are no records of this. The patient has carpal tunnel in his right hand. PMHX arthritis, COPD. SHX current smoker, lives alone. Vitals in the room : HR 93 bpm BP 152/65. - History of Current Complaint Chief Complaint: EDGeneral Stated Complaint: RT HIP PAIN Time Seen by Provider: 01/05/19 01:22 Hx Obtained From: Patient Onset/Duration: Gradual Onset Onset/Duration: Started Weeks Ago Timing: Constant Back Pain Location: Is Discrete @ - right hip Severity Currently: Severe Pain Intensity: 10 Pain Scale Used: 0-10 Numeric Associated Signs And Symptoms: Positive: Fever - Allergies/Home Medications Allergies/Adverse Reactions: Allergies Allergy/AdvReac Type Severity Reaction Status Date / Time No Known Allergies Allergy Verified 05/16/18 07:51 PMH/Surg Hx/FS Hx/Imm Hx Endocrine/Hematology History: Denies: Hx Diabetes Cardiovascular History: Reports: Other Cardiovascular Problems/Disorders - DVT , ALCOHOLISM, SYNCOPAL EPISODE W/ COLLAPSE 05/10 Denies: Hx Hypertension, Hx Pacemaker/ICD Respiratory History: Reports: Hx Chronic Obstructive Pulmonary Disease (COPD), Other Respiratory Problems/Disorders - COPD GI History: Reports: Hx Gall Bladder Disease, Other GI Disorders - Cholecystectomy History: Reports: Other Problems/Disorders - BPH Denies: Hx Dialysis, Hx Renal Disease Musculoskeletal History: Reports: Hx Arthritis - HIPS, Hx Orthopedic Injury - Patella fracture and old rib fractures, Other Musculoskeletal History - CONTRACTURE HANDS, chronic R hip pain Sensory History: Reports: Hx Contacts or Glasses Denies: Hx Cataracts, Hx Eye Injury, Hx Hearing Aid, Hx Hearing Problem Opthamlomology History: Reports: Hx Contacts or Glasses Denies: Hx Cataracts, Hx Eye Injury Neurological History: Reports: Other Neuro Impairments/Disorders - Right hand nerve damage Denies: Hx Dementia Psychiatric History: Reports: Hx Anxiety, Hx Depression - GETTING BETTER WITH RX Denies: Hx Panic Disorder - Surgical History Surgery Procedure, Year, and Place: TONSILLECTOMY A CHILD; [facility] 12/2014; GALLBLADDER 09/2016. carpal tunnel right Hx Anesthesia Reactions: No - Immunization History Date of Tetanus Vaccine: utd Date of Influenza Vaccine: utd Infectious Disease History: No Infectious Disease History: Reports: Hx Hepatitis - A CHILD Denies: Hx of Known/Suspected MRSA, Traveled Outside the [place] in Last 30 Days - Family History Known Family History: Negative: Cardiac Disease, Hypertension Family History: No malignant hyperthermia - Social History Alcohol Use: Daily Alcohol Amount: 6packs Hx Substance Use: No Substance Use Type: Reports: None Substance Use Comment - Amount & Last Used: occasional Hx Tobacco Use: Yes Smoking Status (MU): Heavy Every Day Tobacco Smoker Type: Cigarettes Amount Used/How Often: 1/2 PPD FOR 50 YRS Length of Time of Smoking/Using Tobacco: 50 YRS Have You Smoked in the Last Year: Yes Review of Systems Positive: Fever ENT: Other - dry throat Positive: Cough. Negative: Shortness Of Breath Positive: Arthralgia - right hip Neurological: Other - confusion All Other Systems Reviewed And Are Negative: Yes Physical Exam - Summary Physical Exam Summary: VITAL SIGNS: Reviewed. GENERAL: Patient is a well-developed and nourished male who is lying comfortable in the stretcher. Patient is not in any acute respiratory distress. HEAD AND FACE: No signs of trauma. No ecchymosis, hematomas or skull depressions. No sinus tenderness. EYES: PERRLA, EOMI x 2, No injected conjunctiva, no nystagmus. EARS: Hearing grossly intact. Ear canals and tympanic membranes are within normal limits. MOUTH: Oropharynx within normal limits. NECK: Supple, trachea is midline, no adenopathy, no JVD, no carotid bruit, no c- spine tenderness, neck with full ROM. CHEST: Symmetric, no tenderness at palpation LUNGS: Clear to auscultation bilaterally. There are bilateral rhonchi. CVS: Regular rate and rhythm, S1 and S2 present, no murmurs or gallops appreciated. ABDOMEN: Soft, non-tender. No signs of distention. No rebound no guarding, and no masses palpated. Bowel sounds are normal. EXTREMITIES: FROM in all major joints, no edema, no cyanosis or clubbing. Right hip pain without swelling or decreased ROM. NEURO: Alert and oriented x 3. No acute neurological deficits. Speech is normal and follows commands. SKIN: Dry and warm GCS: 15 Triage Information Reviewed: Yes Vital Signs On Initial Exam: Initial Vitals Temp Pulse Resp BP Pulse Ox 100.5 F 104 20 152/65 93 01/05/19 01:18 01/05/19 01:18 01/05/19 01:18 01/05/19 01:18 01/05/19 01:18 Vital Signs Reviewed: Yes Diagnostics - Vital Signs Vital Signs Temp Pulse Resp BP Pulse Ox 01/05/19 01:18 100.5 F 104 20 152/65 93 - Laboratory Result Diagrams: 01/05/19 01:59 01/05/19 10:21 Lab Statement: Any lab studies that have been ordered have been reviewed, and results considered in the medical decision making process. - Radiology CXR' Radiology Interpretation Completed By: ED Physician Summary of Radiographic Findings: No acute process, pending official report Hip X Ray' Radiology Interpretation Completed By: ED Physician Summary of Radiographic Findings: Bilateral hip arthritis, no fracture. Pending official report. - EKG 05:09 Cardiac Rate: NL - 93 bpm EKG Rhythm: Sinus Rhythm Ectopy: PVCs Summary of EKG Findings: This is a poor baseline because the patient is tremulous. There are PVCs and RBBB. Re-Evaluation - Re-Evaluation First Eval Re-Evaluation Time: 04:30 Change: Worse Comment: Upon discharge, the patient was unsteady on his feet and had unsteady gait. He was also tremulous. The patient stated that he normally drink 5 drinks a day, and his last drink was yesterday. He appears to be going through withdrawal, so I will talk to the hospitalist about admission to the hospital. Back Pain Course/Dx - Course Course Of Treatment: This patient is a 73 year old M brought in by ambulance with a chief complaint of chronic right hip pain since earlier today. The patient rates the pain 10/10 in severity. Patient reports cough, hoarse voice, dry throat, fever, and confusion. Patient denies difficulty breathing. EKG reveals NSR 93 bpm, PVCs and RBBB. Bad baseline because the patient is tremulous. CXR reveals, per ED physician, no acute process. Hip x ray reveals , per ED physician, bilaterial hip arthritis, no fracture. Pending official radiology report. Test results with no significant abnormalities. In the ED course the patient was given Acetaminophen, Albuterol, Morphine, Ondansetron, and IV fluids. Patient care was discussed with Dr. Lu, hospitalist, and they recommend admission. The patient will be admitted. The patient is agreeable with this plan. - Diagnoses Provider Diagnoses: Chronic hip pain, Arthritis, Alcohol withdrawal, COPD (chronic obstructive pulmonary disease) - Provider Notifications Discussed Care Of Patient With: Maria Isabel Lu Time Discussed With Above Provider: 04:35 Instructed by Provider To: Admit As Inpatient Discharge - Sign-Out/Discharge Documenting (check all that apply): Patient Departure - admission Patient Received Moderate/Deep Sedation with Procedure: No - Discharge Plan Condition: Fair Disposition: ADMITTED TO [facility] - Billing Disposition and Condition Condition: FAIR Disposition: Admitted to [facility] - Attestation Statements Document Initiated by Scribe: Yes Documenting Scribe: Jose Mcfarlane Provider For Whom Renuka is Documenting (Include Credential): Debora Huddleston MD Scribe Attestation: Jose Alfonso, scribed for Debora Huddleston MD on 01/05/19 at 2123. Scribe Documentation Reviewed: Yes Provider Attestation: The documentation as recorded by the Jose fox accurately reflects the service I personally performed and the decisions made by Sandrine nolan MD Status of Scribe Document: Viewed
[2019-01-05] MEDS ORDERED: Acetaminophen TAB* 325 MG PO ONE (01:47)
[2019-01-05] MEDS ORDERED: NS 0.9% 1000 ML** 2,000 ML IV ONE (01:47)
[2019-01-05] MEDS ORDERED: Ondansetron INJ* 2 MG/ML VIAL IV ONE (01:48)
[2019-01-05] MEDS ORDERED: Morphine VIAL* 10 MG/ML 1 ML VIAL IV ONE (01:48)
[2019-01-05 02:12] LABS: ABS Basophils 0.1 10^3/ul (0-0.2); ABS Eosinophils 0.1 10^3/ul (0-0.6); ABS Lymphocytes 0.8 10^3/ul (1.0-4.8); ABS Monocytes 0.9 10^3/ul (0-0.8); ABS Neutrophils 8.5 10^3/ul (1.5-7.7); ABS Nucleated RBC 0 10^3/ul; Eosinophil % 0.6 %; Hematocrit 40 % (42-52); Hemoglobin 13.6 g/dl (14.0-18.0); Lymphocyte % 7.4 %; Mean Corpuscular HGB Conc 34 g/dl (31-36); Mean Corpuscular Hemoglobin 35 pg (27-31); Mean Corpuscular Volume 102 fL (80-94); Mean Platelet Volume 7.4 fL (7.4-10.4); Nucleated Red Blood Cells % 0; Platelet Count 197 10^3/ul (150-450); Red Blood Count 3.93 10^6/ul (4.00-5.40); Red Cell Distribution Width 13 % (10.5-15); White Blood Count 10.3 10^3/ul (3.5-10.8)
[2019-01-05] MEDS: Albuterol 2.5 MG/3 ML NEB.SOL* (0.083%) INH SCH ×2 (02:17→02:30)
[2019-01-05 02:18] LABS: Activated Partial Thrombo Time 29.2 seconds (26.0-36.3); INR 0.97 (0.77-1.02)
[2019-01-05 02:33] LABS: Albumin 3.9 g/dL (3.2-5.2); Albumin/Globulin Ratio 1.4 (1-3); BUN/Creatinine Ratio 14.1 (8-20); C Reactive Protein 73.12 mg/L (<8.01); Calcium 9.3 mg/dL (8.6-10.3); EGFR African American 106.9 (>60); EGFR Non-African American 88.4 (>60); Globulin 2.7 g/dL (2-4); Potassium 4.3 mmol/L (3.5-5.0); Total Bilirubin 0.5 mg/dL (0.2-1.0); Total Protein 6.6 g/dL (6.4-8.9)
[2019-01-05 03:25] LABS: Influenza A Molecular NEGATIVE (Negative); Influenza B Molecular NEGATIVE (Negative)
[2019-01-05] MEDS ORDERED: Thiamine IV* 100 MG, Folic Acid IV* 1 MG, Multiple Vitamin IV ADULT* 10 ML in NS 0.9% 1... IV ONE (04:30)
[2019-01-05] MEDS ORDERED: Diazepam SYRINGE* 5 MG/ML 2 ML SYRINGE (10 MG total) IV ONE (04:32)
[2019-01-05] MEDS ORDERED: Ondansetron INJ* 2 MG/ML VIAL IV PRN (04:59)
[2019-01-05] MEDS ORDERED: chlordiazePOXIDE CAP* 10 MG PO PRN (05:00)
[2019-01-05] MEDS ORDERED: Diazepam INJ (NF) 5 MG/ML 10 ML VIAL (50 MG TOTAL) IV ONE (05:00)
[2019-01-05] MEDS ORDERED: Morphine VIAL* 4 MG/ML VIAL (1 ml vial) IV PRN (05:02)
[2019-01-05] MEDS ORDERED: NS 0.9% 1000 ML** 1,000 ML IV SCH (05:15)
[2019-01-05] MEDS ORDERED: Azithromycin IV(*) 500 MG in NS 0.9% 250 ML* 250 ML IVPB SCH (06:00)
[2019-01-05] MEDS ORDERED: Albuterol/Ipratropium NEB.SOL* Albuterol 2.5 MG/Ipratropium 0.5 MG 3 ML INH SCH (07:00)
[2019-01-05] MEDS: Umeclidin/Vilant 62.5 MDI 62.5/25 mcg 14 INH ELLIPTA DEVICE INH SCH (07:42)
--- NOTE | 2019-01-05 07:52 | HP ---
CC: Sai Lyman NP HISTORY AND PHYSICAL: DATE OF ADMISSION: 01/05/19 PRIMARY CARE PROVIDER: Angélica Lyman NP CHIEF COMPLAINT: Hip pain. HISTORY OF PRESENT ILLNESS: This is a 73-year-old male with a history of arthritis, COPD, who has ch ronic right-sided hip pain, who now presents to the emergency room because of right-sided hip pain. The patient states that the pain is 4/10, gradually worsening over the course of the past few days. The patient states that the change in weather is causing his pain to be more severe and that is why gee oswald came to the emergency room. The patient also reports that he drinks about 5 beers a day and his la st drink was 2 days ago, and since then he has been feeling slightly agitated. The patient is also having some shortness of breath associated with cough and white- colored sputum p roduction. The patient reports no fever, however, was found to have low-grade temperature in the [facility] [place] [place]; he does not have any chest pain. PAST MEDICAL HISTORY: 1. COPD. 2. Hepatitis. 3. Arthritis. 4. Depression. 5. Alcohol abuse. 6. Strokes. PAST SURGICAL HISTORY: 1. Cholecystectomy 2015 with resulting incisional hernia. 2. Carpal tunnel release. HOME MEDICATIONS: 1. Anoro Ellipta 62.5/25 one puff inhaled daily. 2. Percocet 5/325 one capsule every 6 hours as needed. 3. Celebrex 100 mg twice a day. 4. Flomax 0.4 mg at bedtime. 5. Oxybutynin XL 10 mg in the morning. 6. Multivitamins 1 tab daily. 7. Folic acid 1 mg daily. 8. Lexapro 20 mg daily. 9. Thiamine 100 mg daily. 10. Bupropion 150 mg daily. 11. Aspirin 81 mg daily. 12. Albuterol inhaler 2 puffs inhaled every 4 hours as needed. 13. Maalox Plus 30 mL every 6 hours as needed. ALLERGIES: No known drug allergies. FAMILY HISTORY: Father: COPD, was a smoker. SOCIAL HISTORY: The patient smokes about 1 pack per day for about 50 plus years, he drinks about 5 b eers a day, he lives alone. He states that he does not have a decision maker/health care proxy design ated yet and he does wish to be full code currently. REVIEW OF SYSTEMS: No chills, patient was noted to have fever in the emergency room, no changes in h is vision or hearing, no sore throat, no chest pain, no palpitations. He is having cough of white-co lored sputum production with shortness of breath. There is no paroxysmal nocturnal dyspnea, no abdom inal pain, no nausea, no vomiting, no diarrhea. He does have chronic joint pain, does not have any h eadaches, no changes in his neurological status, no depression, otherwise review of systems was done and is negative. PHYSICAL EXAMINATION GENERAL: He is a chronically-appearing male, slightly agitated appearing, lying in an ER stretcher. VITAL SIGNS: Blood pressure of 141/77, heart rate of 109, O2 sat of 98, temperature of 98.9, T-max 1 00.5. HEENT: Atraumatic, normocephalic. Extraocular muscles are intact. There is no icterus. There is n o conjunctiva or pallor; oral mucosa is dry; no nystagmus. Neck is supple. Range of motion intact. T here is no oropharyngeal erythema. LUNGS: There is mild tachypnea with no use of accessory muscles. Currently, he has oxygenation on. There is moderate wheezing heard throughout lung sosa. HEART: There is no chest wall tenderness. Regular rate and rhythm. S1, S2 present. No murmurs, ru bs, or gallops. ABDOMEN: Bowel sounds are normoactive in all 4 quadrants. Abdomen is soft, nontender, nondistended. The patient does have an incisional hernia noted at the abdomen region; it is about 3 cm and we are able to push it back in. EXTREMITIES: Dorsalis pedis is 2+ bilaterally, there is no lower extremity edema, no calf tenderness . NEUROLOGICAL: He does have bilateral hand tremors; patient is alert, oriented x3; speech is clear an d coherent; he is able to follow my commands. With no focal neurological deficits. SKIN: There are no rashes or lesions identified. DIAGNOSTIC STUDIES/LAB DATA: Sodium of 129, potassium of 4.3, chloride of 96, BUN 12, creatinine of 0.85, glucose of 124, CRP of 73.12, influenza A and B are negative. WBC 10.3, hemoglobin 13.6, hematocrit of 40, platelets of 197, INR of 0.97. Chest x-ray does not show any acute pathology, this was read by me, official read is pending. Pelvis x-ray was done, results are pending. IMPRESSION AND PLAN: 1. Chronic obstructive pulmonary disease with moderate exacerbation: Continue supplemental oxygen, prednisone 40 mg daily, azithromycin, DuoNebs. We will monitor closely. I advised the patient to st op smoking. 2. Hyponatremia: Gentle IV hydration. 3. Alcohol use/abuse. We will monitor for signs and symptoms of withdrawal. Currently, patient does appear to have some tremors, perhaps he is undergoing mild alcohol withdrawal. We will do a WAM ass essment on him and start patient on Librium as needed for withdrawal syndrome. The patient to be giv en a banana bag in the emergency room, continue daily folic acid, thiamine, multivitamins. 4. Benign prostatic hypertrophy: Continue Flomax. 5. Continue other home medications. 6. History of stroke: Continue aspirin. 7. DVT prophylaxis with heparin 5000 units subcutaneous. 8. The patient is also having hip pain: Continue home Percocet; we will give morphine for severe pa in. 9. Pelvis x-ray is pending. 10. Regular diet. 11. Activity for as bathroom privileges. 12. We will also get a social group worker consultation, oxygenation to keep his O2 sat greater than 90%. [id number]/[facility] #: [id number]
[2019-01-05] MEDS: predniSONE TAB* 20 MG PO SCH (08:23)
[2019-01-05] MEDS: Aspirin 81 mg CHEW TAB* 81 MG TAB.CHEW PO SCH (08:24)
[2019-01-05] MEDS: BuPROPion XL* 150 MG TAB.XL PO SCH (08:24)
[2019-01-05] MEDS: Oxybutynin XL TAB* 5 MG PO SCH (08:24)
[2019-01-05] MEDS: Multivitamins/Minerals TAB PO SCH (08:24)
[2019-01-05] MEDS: CMCS:Escitalopram (NF) 10 MG TAB PO SCH (08:24)
[2019-01-05] MEDS: Folic Acid TAB* 1 MG PO SCH (08:24)
[2019-01-05] MEDS: celeCOXIB CAP* 100 MG PO SCH ×2 (08:25→20:13)
[2019-01-05] MEDS: Heparin VIAL(*) 5000 UNITS/ML VIAL (FIVE THOUSAND) SUBCUT SCH ×2 (08:25→20:13)
[2019-01-05] MEDS: Nicotine PATCH 14 MG/24 HR* PATCH TRANSDERM SCH (08:26)
[2019-01-05] MEDS: Thiamine TAB* 100 MG TAB PO SCH (08:27)
[2019-01-05] MEDS ORDERED: Albuterol/Ipratropium NEB.SOL* Albuterol 2.5 MG/Ipratropium 0.5 MG 3 ML INH PRN (08:59)
[2019-01-05] MEDS ORDERED: Thiamine TAB* 100 MG TAB PO SCH (09:00)
[2019-01-05] MEDS: oxyCODONE/Acetamin 5/325 MG* TAB PO PRN (10:28)
[2019-01-05 11:11] LABS: Calcium 8.2 mg/dL (8.6-10.3); Potassium 3.6 mmol/L (3.5-5.0)
[2019-01-05 11:16] LABS: BUN/Creatinine Ratio 13.2 (8-20); EGFR African American 121.6 (>60); EGFR Non-African American 100.5 (>60)
--- NOTE | 2019-01-05 14:02 | PN ---
Subjective Date of Service: 01/05/19 Interval History: Patient is feeling persistently SOB. Patient has significant pain in his hip which is improving. Patient is significantly limited by both pain and SOB. Patient denies CP, N/V, abdominal pain, dysuria, dizziness, or other pain. Family History: Unchanged from Admission Social History: Unchanged from Admission Past Medical History: Unchanged from Admission Objective Active Medications: Acetaminophen (Tylenol Tab*) 650 mg PO Q6H PRN PRN Reason: FEVER/PAIN Albuterol/Ipratropium (Duoneb (Albuterol 2.5 Mg/Ipratropium 0.5 Mg)) 1 neb INH Q4H PRN PRN Reason: SOB/WHEEZING Aspirin (Aspirin 81 Mg Chew Tab*) 81 mg PO [facility] Last Admin: 01/05/19 08:24 Dose: 81 mg Bupropion HCl (Wellbutrin Xl *) 150 mg PO [facility] Last Admin: 01/05/19 08:24 Dose: 150 mg Celecoxib (Celebrex Cap*) 100 mg PO BID [facility] Last Admin: 01/05/19 08:25 Dose: 100 mg Escitalopram Oxalate (Lexapro (Nf)) 20 mg PO [facility] Last Admin: 01/05/19 08:24 Dose: 20 mg Folic Acid (Folvite Tab*) 1 mg PO DAILY [facility] Last Admin: 01/05/19 08:24 Dose: 1 mg Heparin Sodium (Porcine) (Heparin Vial(*)) 5,000 units SUBCUT Q12HR [facility] Last Admin: 01/05/19 08:25 Dose: 5,000 units Azithromycin 250 mg/ Sodium (Chloride) 250 mls @ 250 mls/hr IVPB Q24H [facility] Multivitamins/Minerals (Theragran/Minerals Tab*) [facility] Last Admin: 01/05/19 08:24 Dose: 1 tab Nicotine (Nicotine Patch 14 Mg/24 Hr*) 1 patch TRANSDERM DAILY [facility] Last Admin: 01/05/19 08:26 Dose: 1 patch Ondansetron HCl (Zofran Inj*) 4 mg IV Q6H PRN PRN Reason: NAUSEA Oxybutynin Chloride (Ditropan Xl Tab*) 10 mg PO [facility] Last Admin: 01/05/19 08:24 Dose: 10 mg Oxycodone/Acetaminophen (Percocet 5/325 Tab*) 1 tab PO Q6H PRN PRN Reason: PAIN Last Admin: 01/05/19 10:28 Dose: 1 tab Pharmacy Profile Note (Nicotine Patch Removal Note*) 1 note PATCH OFF 2100 [facility] Prednisone (Deltasone Tab*) 40 mg PO DAILY [facility] Last Admin: 01/05/19 08:23 Dose: 40 mg Tamsulosin HCl (Flomax Cap*) 0.4 mg PO QPM [facility] Thiamine HCl (Vitamin B-1 Tab*) 100 mg PO DAILY [facility] Last Admin: 01/05/19 08:27 Dose: 100 mg Umeclidinium/Vilanterol (Anoro 62.5/25 Ellipta Device (Nf)) 1 inh INH DAILY [facility] Last Admin: 01/05/19 07:42 Dose: Not Given Vital Signs - 8 hr 01/05/19 01/05/19 01/05/19 06:10 06:28 07:50 Temperature 98.9 F 98.4 F Pulse Rate 61 92 Respiratory 16 20 20 Rate Blood Pressure 92/53 102/62 (mmHg) O2 Sat by Pulse 96 100 99 Oximetry 01/05/19 01/05/19 01/05/19 08:00 08:07 10:00 Temperature 97.7 F Pulse Rate 80 Respiratory 20 16 18 Rate Blood Pressure 105/61 (mmHg) O2 Sat by Pulse 99 Oximetry 01/05/19 01/05/19 01/05/19 10:04 10:28 11:59 Temperature 97.7 F 97.7 F Pulse Rate 86 88 Respiratory 16 20 16 Rate Blood Pressure 99/57 91/55 (mmHg) O2 Sat by Pulse 99 98 Oximetry 01/05/19 01/05/19 12:00 12:25 Temperature Pulse Rate Respiratory 16 20 Rate Blood Pressure (mmHg) O2 Sat by Pulse Oximetry Oxygen Devices in Use Now: Nasal Cannula Appearance: Patient is a 73yo male who appears stated age and is sitting in the bed in [facility]. Eyes: No Scleral Icterus, PERRLA Ears/Nose/Mouth/Throat: NL Teeth, Lips, Gums, Clear Oropharnyx, Mucous Membranes Moist Neck: NL Appearance and Movements; NL JVP, Trachea Midline Respiratory: Symmetrical Chest Expansion and Respiratory Effort, - - Expiratory Wheezing, Rhonchi throughout. Cardiovascular: NL Sounds; No Murmurs; No JVD, RRR, No Edema Abdominal: NL Sounds; No Tenderness; No Distention, No Hepatosplenomegaly Lymphatic: No Cervical Adenopathy Extremities: No Edema, No Clubbing, Cyanosis Skin: No Rash or Ulcers, No Nodules or Sclerosis Neurological: Alert and Oriented x 3, NL Sensation, NL Muscle Strength and Tone , - - CN II-XII intact. Result Diagrams: 01/05/19 01:59 01/05/19 10:21 Microbiology and Other Data: Microbiology 01/05/19 02:50 Influenza Types A,B Antigen - Final Nasal Specimen received for Influenza A/B Molecular testing Assess/Plan/Problems-Billing Assessment: Patient is a 73yo male with a PMH for COPD, Alcohol abuse, and CVA who presents to the emergency department with severe right hip pain and shortness of breath who is admitted for a COPD exacerbation. - Patient Problems (1) COPD (chronic obstructive pulmonary disease) Current Visit: No Status: Acute Code(s): J44.9 - CHRONIC OBSTRUCTIVE PULMONARY DISEASE, UNSPECIFIED SNOMED Code(s): 66873995 Comment: - In acute exacerbation with poor lung exam and SALES - Continue inhalers, steroids, azithromycin - Mild improvement. (2) Right hip pain Current Visit: Yes Status: Acute Code(s): M25.551 - PAIN IN RIGHT HIP SNOMED Code(s): 53736888 Comment: - Chronic Issue, now controlled with oral pain medications (3) Hyponatremia Current Visit: No Status: Acute Code(s): E87.1 - HYPO-OSMOLALITY AND HYPONATREMIA SNOMED Code(s): 63422947 Comment: - Improved with fluids, likely due to solute depletion due to alcoholism - Monitor (4) Alcohol abuse Current Visit: No Status: Chronic Code(s): F10.10 - ALCOHOL ABUSE, UNCOMPLICATED SNOMED Code(s): 23142837 Comment: - No current evidence of withdrawal - Monitor with WAM and start Ativan if indicated. - Difficulty ambulating in the ED, Will order PT. (5) DVT prophylaxis Current Visit: No Status: Acute Code(s): RHT4593 - SNOMED Code(s): 903047230 Comment: - Heparin SubQ Status and Disposition: Observation for COPD exacerbation.
[2019-01-05] MEDS: Acetaminophen TAB* 325 MG PO PRN (17:30)
[2019-01-05] MEDS: Tamsulosin CAP* 0.4 MG PO SCH (17:31)
[2019-01-05] MEDS ORDERED: NS 0.9% 1000 ML** 1,000 ML IV ONE (18:48)
[2019-01-05] MEDS: Nicotine Patch Removal NOTE PATCH OFF SCH (20:13)
[2019-01-05] MEDS: NS 0.9% 1000 ML** 1,000 ML IV SCH (20:28)
[2019-01-06] MEDS ORDERED: Azithromycin IV(*) 250 MG in NS 0.9% 250 ML* 250 ML IVPB SCH (06:00)
[2019-01-06 06:25] LABS: ABS Basophils 0 10^3/ul (0-0.2); ABS Eosinophils 0 10^3/ul (0-0.6); ABS Lymphocytes 1.1 10^3/ul (1.0-4.8); ABS Neutrophils 8.4 10^3/ul (1.5-7.7); ABS Nucleated RBC 0 10^3/ul; Eosinophil % 0.2 %; Hematocrit 34 % (42-52); Hemoglobin 11.4 g/dl (14.0-18.0); Mean Corpuscular HGB Conc 34 g/dl (31-36); Mean Corpuscular Hemoglobin 34 pg (27-31); Mean Corpuscular Volume 103 fL (80-94); Mean Platelet Volume 7.9 fL (7.4-10.4); Nucleated Red Blood Cells % 0.1; Platelet Count 167 10^3/ul (150-450); Red Cell Distribution Width 13 % (10.5-15); White Blood Count 10.6 10^3/ul (3.5-10.8)
[2019-01-06 06:43] LABS: BUN/Creatinine Ratio 16.7 (8-20); Calcium 8.5 mg/dL (8.6-10.3); EGFR African American 143.2 (>60); EGFR Non-African American 118.3 (>60); Magnesium 1.8 mg/dL (1.9-2.7); Potassium 4.1 mmol/L (3.5-5.0)
[2019-01-06] MEDS ORDERED: Magnesium Sulfate 2 GM IV* 2 GM/50 ML BAG IVPB ONE (07:32)
[2019-01-06] MEDS: Umeclidin/Vilant 62.5 MDI 62.5/25 mcg 14 INH ELLIPTA DEVICE INH SCH (07:43)
[2019-01-06 07:55] LABS: C Reactive Protein 114.67 mg/L (<8.01)
[2019-01-06] MEDS: CMCS:Escitalopram (NF) 10 MG TAB PO SCH (08:51)
[2019-01-06] MEDS: Oxybutynin XL TAB* 5 MG PO SCH (08:52)
[2019-01-06] MEDS: Thiamine TAB* 100 MG TAB PO SCH (08:52)
[2019-01-06] MEDS: BuPROPion XL* 150 MG TAB.XL PO SCH (08:52)
[2019-01-06] MEDS: predniSONE TAB* 20 MG PO SCH (08:52)
[2019-01-06] MEDS: Folic Acid TAB* 1 MG PO SCH (08:52)
[2019-01-06] MEDS: Multivitamins/Minerals TAB PO SCH (08:52)
[2019-01-06] MEDS: Aspirin 81 mg CHEW TAB* 81 MG TAB.CHEW PO SCH (08:52)
[2019-01-06] MEDS: Acetaminophen TAB* 325 MG PO PRN (08:52)
[2019-01-06] MEDS: celeCOXIB CAP* 100 MG PO SCH ×2 (08:53→20:12)
[2019-01-06] MEDS: Nicotine PATCH 14 MG/24 HR* PATCH TRANSDERM SCH (08:54)
[2019-01-06] MEDS: Heparin VIAL(*) 5000 UNITS/ML VIAL (FIVE THOUSAND) SUBCUT SCH ×2 (08:55→20:12)
[2019-01-06] MEDS: cefTRIAXone(*) 1 GM in NS 0.9% 50 ML* 50 ML IVPB SCH (11:25)
[2019-01-06] MEDS: NS 0.9% 1000 ML** 1,000 ML IV SCH (11:27)
[2019-01-06 12:31] LABS: Urine Appearance Cloudy; Urine Bilirubin Negative (Negative); Urine Blood Negative (Negative); Urine Color Yellow; Urine Glucose Negative (Negative); Urine Ketones Negative (Negative); Urine Nitrite Negative (Negative); Urine Protein Negative (Negative); Urine Specific Gravity 1.015 (1.010-1.030); Urine Urobilinogen Negative (Negative)
[2019-01-06] MEDS: Albuterol/Ipratropium NEB.SOL* Albuterol 2.5 MG/Ipratropium 0.5 MG 3 ML INH SCH ×2 (12:44→19:43)
--- NOTE | 2019-01-06 15:49 | PN ---
Subjective Date of Service: 01/06/19 Interval History: Patient is feeling better today but is still SOB with minimal exertion and feels very weak. Patient has intermittent non-productive cough. Patient denies CP, F/C, N/V, abdominal pain, diarrhea, dysuria, palpitations, presyncope, or other pain. Family History: Unchanged from Admission Social History: Unchanged from Admission Past Medical History: Unchanged from Admission Objective Active Medications: Acetaminophen (Tylenol Tab*) 650 mg PO Q6H PRN PRN Reason: FEVER/PAIN Last Admin: 01/06/19 08:52 Dose: 650 mg Albuterol/Ipratropium (Duoneb (Albuterol 2.5 Mg/Ipratropium 0.5 Mg)) 1 neb INH [id number] AWAKE [facility] Last Admin: 01/06/19 12:44 Dose: 1 neb Aspirin (Aspirin 81 Mg Chew Tab*) 81 mg PO QAM [facility] Last Admin: 01/06/19 08:52 Dose: 81 mg Azithromycin (Zithromax Tab*) 250 mg PO DAILY [facility] Stop: 01/09/19 09:01 Bupropion HCl (Wellbutrin Xl *) 150 mg PO QAM [facility] Last Admin: 01/06/19 08:52 Dose: 150 mg Celecoxib (Celebrex Cap*) 100 mg PO BID [facility] Last Admin: 01/06/19 08:53 Dose: 100 mg Escitalopram Oxalate (Lexapro (Nf)) 20 mg PO QAM [facility] Last Admin: 01/06/19 08:51 Dose: 20 mg Folic Acid (Folvite Tab*) 1 mg PO DAILY [facility] Last Admin: 01/06/19 08:52 Dose: 1 mg Heparin Sodium (Porcine) (Heparin Vial(*)) 5,000 units SUBCUT Q12HR [facility] Last Admin: 01/06/19 08:55 Dose: 5,000 units Sodium Chloride (Ns 0.9% 1000 Ml) 1,000 mls @ 75 mls/hr IV PER RATE [facility] Last Admin: 01/06/19 11:27 Dose: 75 mls/hr Ceftriaxone Sodium 1 gm/ (Sodium Chloride) 50 mls @ 200 mls/hr IVPB Q24H [facility] Last Admin: 01/06/19 11:25 Dose: 200 mls/hr Multivitamins/Minerals (Theragran/Minerals Tab*) 1 tab PO QAM [facility] Last Admin: 01/06/19 08:52 Dose: 1 tab Nicotine (Nicotine Patch 14 Mg/24 Hr*) 1 patch TRANSDERM DAILY [facility] Last Admin: 01/06/19 08:54 Dose: 1 patch Ondansetron HCl (Zofran Inj*) 4 mg IV Q6H PRN PRN Reason: NAUSEA Oxybutynin Chloride (Ditropan Xl Tab*) 10 mg PO QAM [facility] Last Admin: 01/06/19 08:52 Dose: 10 mg Oxycodone/Acetaminophen (Percocet 5/325 Tab*) 1 tab PO Q6H PRN PRN Reason: PAIN Last Admin: 01/05/19 10:28 Dose: 1 tab Pharmacy Profile Note (Nicotine Patch Removal Note*) 1 note PATCH OFF 2100 [facility] Last Admin: 01/05/19 20:13 Dose: 1 note Prednisone (Deltasone Tab*) 40 mg PO DAILY [facility] Last Admin: 01/06/19 08:52 Dose: 40 mg Tamsulosin HCl (Flomax Cap*) 0.4 mg PO QPM [facility] Last Admin: 01/05/19 17:31 Dose: 0.4 mg Thiamine HCl (Vitamin B-1 Tab*) 100 mg PO DAILY [facility] Last Admin: 01/06/19 08:52 Dose: 100 mg Umeclidinium/Vilanterol (Anoro 62.5/25 Ellipta Device (Nf)) 1 inh INH DAILY [facility] Last Admin: 01/06/19 07:43 Dose: Not Given Vital Signs - 8 hr 01/06/19 01/06/19 01/06/19 11:24 12:44 15:40 Temperature 97.3 F 97.9 F Pulse Rate 64 69 70 Respiratory 20 18 17 Rate Blood Pressure 101/56 105/58 (mmHg) O2 Sat by Pulse 99 99 98 Oximetry Oxygen Devices in Use Now: Nasal Cannula Appearance: Patient is a 73yo male who appears stated age and is sitting in the bed in [facility]. Eyes: No Scleral Icterus, PERRLA Ears/Nose/Mouth/Throat: NL Teeth, Lips, Gums, Clear Oropharnyx, Mucous Membranes Moist Neck: NL Appearance and Movements; NL JVP, Trachea Midline Respiratory: - - Wheezing and Rhonchi throughout, worsened from previous exam. Diminished breath sounds. Cardiovascular: NL Sounds; No Murmurs; No JVD, RRR, No Edema Abdominal: NL Sounds; No Tenderness; No Distention, No Hepatosplenomegaly Lymphatic: No Cervical Adenopathy Extremities: No Edema, No Clubbing, Cyanosis Skin: No Rash or Ulcers, No Nodules or Sclerosis Neurological: Alert and Oriented x 3, NL Sensation, NL Muscle Strength and Tone , - - CN II-XII intact. Result Diagrams: 01/06/19 06:08 01/06/19 06:08 Microbiology and Other Data: Microbiology 01/05/19 02:50 Influenza Types A,B Antigen - Final Nasal Specimen received for Influenza A/B Molecular testing Assess/Plan/Problems-Billing Assessment: Patient is a 73yo male with a PMH for COPD, Alcohol abuse, and CVA who presents to the emergency department with severe right hip pain and shortness of breath who is admitted for a COPD exacerbation. - Patient Problems (1) COPD (chronic obstructive pulmonary disease) Current Visit: No Status: Acute Code(s): J44.9 - CHRONIC OBSTRUCTIVE PULMONARY DISEASE, UNSPECIFIED SNOMED Code(s): 64196002 Comment: - In acute exacerbation with poor lung exam and SALES - Continue inhalers, steroids, azithromycin - Mild improvement. - Fever on admission with hypotension - Add Ceftriaxone for possible Bronchopneumonia, no infiltrate on repeat CXR. (2) Right hip pain Current Visit: Yes Status: Acute Code(s): M25.551 - PAIN IN RIGHT HIP SNOMED Code(s): 62294800 Comment: - Chronic Issue, now controlled with oral pain medications (3) Weakness Current Visit: No Status: Acute Code(s): R53.1 - WEAKNESS SNOMED Code(s): 34593782 Comment: - Difficulty ambulating - No focal deficits - Likely deconditioning and current COPD exacerbation - PT/OT, may need rehab at D/C. (4) Hyponatremia Current Visit: No Status: Acute Code(s): E87.1 - HYPO-OSMOLALITY AND HYPONATREMIA SNOMED Code(s): 80805611 Comment: - Improved with fluids, likely due to solute depletion due to alcoholism - Monitor (5) Alcohol abuse Current Visit: No Status: Chronic Code(s): F10.10 - ALCOHOL ABUSE, UNCOMPLICATED SNOMED Code(s): 61912808 Comment: - No current evidence of withdrawal (6) DVT prophylaxis Current Visit: No Status: Acute Code(s): ZBY8274 - SNOMED Code(s): 150637458 Comment: - Heparin SubQ Status and Disposition: Inpatient for COPD exacerbation, possible pnuemonia, and difficulty ambulating.
[2019-01-06] MEDS: Tamsulosin CAP* 0.4 MG PO SCH (17:21)
[2019-01-06] MEDS: Nicotine Patch Removal NOTE PATCH OFF SCH (20:13)
[2019-01-06] MEDS ORDERED: Albuterol/Ipratropium NEB.SOL* Albuterol 2.5 MG/Ipratropium 0.5 MG 3 ML INH PRN (20:35)
[2019-01-07] MEDS: NS 0.9% 1000 ML** 1,000 ML IV SCH ×2 (00:26→12:54)
[2019-01-07 06:02] LABS: ABS Basophils 0 10^3/ul (0-0.2); ABS Eosinophils 0.1 10^3/ul (0-0.6); ABS Lymphocytes 1.2 10^3/ul (1.0-4.8); ABS Monocytes 0.8 10^3/ul (0-0.8); ABS Neutrophils 6.4 10^3/ul (1.5-7.7); ABS Nucleated RBC 0 10^3/ul; Eosinophil % 0.7 %; Hematocrit 33 % (42-52); Hemoglobin 11.1 g/dl (14.0-18.0); Lymphocyte % 14.2 %; Mean Corpuscular HGB Conc 34 g/dl (31-36); Mean Corpuscular Hemoglobin 35 pg (27-31); Mean Corpuscular Volume 102 fL (80-94); Mean Platelet Volume 7.1 fL (7.4-10.4); Nucleated Red Blood Cells % 0; Platelet Count 186 10^3/ul (150-450); Red Cell Distribution Width 13 % (10.5-15); White Blood Count 8.5 10^3/ul (3.5-10.8)
[2019-01-07 06:16] LABS: BUN/Creatinine Ratio 14.9 (8-20); Calcium 8.7 mg/dL (8.6-10.3); EGFR African American 140.7 (>60); EGFR Non-African American 116.3 (>60); Magnesium 1.9 mg/dL (1.9-2.7); Potassium 3.8 mmol/L (3.5-5.0)
[2019-01-07] MEDS: Umeclidin/Vilant 62.5 MDI 62.5/25 mcg 14 INH ELLIPTA DEVICE INH SCH (07:21)
[2019-01-07] MEDS: Aspirin 81 mg CHEW TAB* 81 MG TAB.CHEW PO SCH (09:28)
[2019-01-07] MEDS: BuPROPion XL* 150 MG TAB.XL PO SCH (09:28)
[2019-01-07] MEDS: Folic Acid TAB* 1 MG PO SCH (09:28)
[2019-01-07] MEDS: Azithromycin TAB* 250 MG PO SCH (09:28)
[2019-01-07] MEDS: predniSONE TAB* 20 MG PO SCH (09:29)
[2019-01-07] MEDS: Multivitamins/Minerals TAB PO SCH (09:29)
[2019-01-07] MEDS: celeCOXIB CAP* 100 MG PO SCH ×2 (09:29→20:18)
[2019-01-07] MEDS: CMCS:Escitalopram (NF) 10 MG TAB PO SCH (09:29)
[2019-01-07] MEDS: Thiamine TAB* 100 MG TAB PO SCH (09:29)
[2019-01-07] MEDS: Oxybutynin XL TAB* 5 MG PO SCH (09:29)
[2019-01-07] MEDS: Nicotine PATCH 14 MG/24 HR* PATCH TRANSDERM SCH (09:31)
[2019-01-07] MEDS: Heparin VIAL(*) 5000 UNITS/ML VIAL (FIVE THOUSAND) SUBCUT SCH ×2 (09:32→20:18)
[2019-01-07] MEDS: cefTRIAXone(*) 1 GM in NS 0.9% 50 ML* 50 ML IVPB SCH (09:34)
[2019-01-07] MEDS: Acetaminophen TAB* 325 MG PO PRN (10:37)
--- NOTE | 2019-01-07 17:12 | PN ---
Subjective Date of Service: 01/07/19 Interval History: Resting in bed on assessment. Nasal cannula in place. Reports he has oxygen at home which is he suppose to be wearing, but has not been complaint. Reports he feels improved today. Reports shortness of breath is improving. Reports he continues to have occasional cough. Patient continues to experience right hip pain, but less severe than on admission. Denies cp, palpitations, nausea, vomiting, diarrhea, urinary symptoms, fever, chills. Family History: Unchanged from Admission Social History: Unchanged from Admission Past Medical History: Unchanged from Admission Objective Active Medications: Acetaminophen (Tylenol Tab*) 650 mg PO Q6H PRN PRN Reason: FEVER/PAIN Last Admin: 01/07/19 10:37 Dose: 650 mg Albuterol/Ipratropium (Duoneb (Albuterol 2.5 Mg/Ipratropium 0.5 Mg)) 1 neb INH Q4H PRN PRN Reason: SOB/WHEEZING Last Admin: 01/07/19 09:20 Dose: 1 neb Aspirin (Aspirin 81 Mg Chew Tab*) 81 mg PO QAM [facility] Last Admin: 01/07/19 09:28 Dose: 81 mg Azithromycin (Zithromax Tab*) 250 mg PO DAILY [facility] Stop: 01/09/19 09:01 Last Admin: 01/07/19 09:28 Dose: 250 mg Bupropion HCl (Wellbutrin Xl *) 150 mg PO QAM [facility] Last Admin: 01/07/19 09:28 Dose: 150 mg Celecoxib (Celebrex Cap*) 100 mg PO BID [facility] Last Admin: 01/07/19 09:29 Dose: 100 mg Escitalopram Oxalate (Lexapro (Nf)) 20 mg PO QAM [facility] Last Admin: 01/07/19 09:29 Dose: 20 mg Folic Acid (Folvite Tab*) 1 mg PO DAILY [facility] Last Admin: 01/07/19 09:28 Dose: 1 mg Heparin Sodium (Porcine) (Heparin Vial(*)) 5,000 units SUBCUT Q12HR [facility] Last Admin: 01/07/19 09:32 Dose: 5,000 units Sodium Chloride (Ns 0.9% 1000 Ml) 1,000 mls @ 75 mls/hr IV PER RATE [facility] Last Admin: 01/07/19 12:54 Dose: 75 mls/hr Ceftriaxone Sodium 1 gm/ (Sodium Chloride) 50 mls @ 200 mls/hr IVPB Q24H [facility] Last Admin: 01/07/19 09:34 Dose: 200 mls/hr Multivitamins/Minerals (Theragran/Minerals Tab*) 1 tab PO QAM [facility] Last Admin: 01/07/19 09:29 Dose: 1 tab Nicotine (Nicotine Patch 14 Mg/24 Hr*) 1 patch TRANSDERM DAILY [facility] Last Admin: 01/07/19 09:31 Dose: 1 patch Ondansetron HCl (Zofran Inj*) 4 mg IV Q6H PRN PRN Reason: NAUSEA Oxybutynin Chloride (Ditropan Xl Tab*) 10 mg PO QAM [facility] Last Admin: 01/07/19 09:29 Dose: 10 mg Oxycodone/Acetaminophen (Percocet 5/325 Tab*) 1 tab PO Q6H PRN PRN Reason: PAIN Last Admin: 01/05/19 10:28 Dose: 1 tab Pharmacy Profile Note (Nicotine Patch Removal Note*) 1 note PATCH OFF 2100 [facility] Last Admin: 01/06/19 20:13 Dose: 1 note Prednisone (Deltasone Tab*) 40 mg PO DAILY [facility] Last Admin: 01/07/19 09:29 Dose: 40 mg Tamsulosin HCl (Flomax Cap*) 0.4 mg PO QPM [facility] Last Admin: 01/06/19 17:21 Dose: 0.4 mg Thiamine HCl (Vitamin B-1 Tab*) 100 mg PO DAILY [facility] Last Admin: 01/07/19 09:29 Dose: 100 mg Umeclidinium/Vilanterol (Anoro 62.5/25 Ellipta Device (Nf)) 1 inh INH DAILY [facility] Last Admin: 01/07/19 07:21 Dose: Not Given Vital Signs - 8 hr 01/07/19 01/07/19 11:39 15:47 Temperature 97.6 F 97.4 F Pulse Rate 88 75 Respiratory 16 16 Rate Blood Pressure 138/90 100/56 (mmHg) O2 Sat by Pulse 98 95 Oximetry Oxygen Devices in Use Now: Nasal Cannula Appearance: Comfortable, NAD Eyes: No Scleral Icterus Ears/Nose/Mouth/Throat: Clear Oropharnyx, Mucous Membranes Moist Neck: NL Appearance and Movements; NL JVP Respiratory: Symmetrical Chest Expansion and Respiratory Effort, - - Sporadic wheeze heard. No rhonchi. Slight decrease in aeration. Remainder clear Cardiovascular: NL Sounds; No Murmurs; No JVD, RRR, No Edema Abdominal: NL Sounds; No Tenderness; No Distention Lymphatic: No Cervical Adenopathy Extremities: No Clubbing, Cyanosis Skin: No Rash or Ulcers Neurological: Alert and Oriented x 3 Nutrition: Taking PO's Result Diagrams: 01/07/19 05:51 01/07/19 05:51 Additional Lab and Data: Laboratory Results - last 24 hr 01/07/19 01/07/19 05:51 05:51 WBC 8.5 RBC 3.20 L Hgb 11.1 L Hct 33 L MCV 102 H MCH 35 H MCHC 34 RDW 13 Plt Count 186 MPV 7.1 L Neut % (Auto) 75.3 Lymph % (Auto) 14.2 Citrus % (Auto) 9.4 Eos % (Auto) 0.7 Baso % (Auto) 0.4 Absolute Neuts (auto) 6.4 Absolute Lymphs (auto) 1.2 Absolute Monos (auto) 0.8 Absolute Eos (auto) 0.1 Absolute Basos (auto) 0 Absolute Nucleated RBC 0 Nucleated RBC % 0 Sodium 135 Potassium 3.8 Chloride 103 Carbon Dioxide 26 Anion Gap 6 BUN 10 Creatinine 0.67 Est GFR ( Amer) 140.7 Est GFR (Non-Af Amer) 116.3 BUN/Creatinine Ratio 14.9 Glucose 90 Calcium 8.7 Magnesium 1.9 Microbiology and Other Data: Microbiology 01/05/19 02:20 Blood Venous Aerobic Blood Culture - Preliminary No Growth Day 2 01/05/19 02:20 Blood Venous Anaerobic Blood Culture - Preliminary No Growth Day 2 01/05/19 01:59 Blood Venous Aerobic Blood Culture - Preliminary No Growth Day 2 01/05/19 01:59 Blood Venous Anaerobic Blood Culture - Preliminary No Growth Day 2 01/05/19 02:50 Nasal Influenza Types A,B Antigen - Final Specimen received for Influenza A/B Molecular testing Assess/Plan/Problems-Billing Assessment: Patient is a 73yo male with a PMH for COPD, Alcohol abuse, and CVA who presents to the emergency department with severe right hip pain and shortness of breath who is admitted for a COPD exacerbation. - Patient Problems (1) COPD (chronic obstructive pulmonary disease) Comment: - In acute exacerbation, but mildly improving - Continue inhalers, steroids, azithromycin - Fever on admission with hypotension - Add Ceftriaxone for possible Bronchopneumonia, no infiltrate on repeat CXR. - Continues to have sob with min exertion (2) Right hip pain Comment: - Chronic issue, now controlled with oral pain medications (3) Weakness Current Visit: No Status: Acute Code(s): R53.1 - WEAKNESS SNOMED Code(s): 39571850 Comment: - Difficulty ambulating - No focal deficits - Likely deconditioning and current COPD exacerbation - PT/OT, may need rehab at D/C. (4) Hyponatremia Comment: - Na 129 on admission, likely chronic related to his h/o alcoholism and possible dehydration. - Improved with hydration as it is now 135 - Monitor (5) Alcohol abuse Comment: - No current evidence of withdrawal (6) DVT prophylaxis Comment: - Heparin SubQ Status and Disposition: Inpatient for COPD exacerbation, possible pnuemonia, and difficulty ambulating. Attending: Jarrett Schwarz
[2019-01-07] MEDS: Tamsulosin CAP* 0.4 MG PO SCH (17:17)
[2019-01-07] MEDS: Nicotine Patch Removal NOTE PATCH OFF SCH (20:18)
[2019-01-08] MEDS: NS 0.9% 1000 ML** 1,000 ML IV SCH (02:25)
[2019-01-08 06:13] LABS: ABS Basophils 0 10^3/ul (0-0.2); ABS Eosinophils 0.1 10^3/ul (0-0.6); ABS Lymphocytes 1.2 10^3/ul (1.0-4.8); ABS Monocytes 0.9 10^3/ul (0-0.8); ABS Neutrophils 4.7 10^3/ul (1.5-7.7); ABS Nucleated RBC 0 10^3/ul; Eosinophil % 1.5 %; Hematocrit 35 % (42-52); Hemoglobin 11.9 g/dl (14.0-18.0); Lymphocyte % 17.2 %; Mean Corpuscular HGB Conc 34 g/dl (31-36); Mean Corpuscular Hemoglobin 35 pg (27-31); Mean Corpuscular Volume 102 fL (80-94); Mean Platelet Volume 7.1 fL (7.4-10.4); Nucleated Red Blood Cells % 0; Platelet Count 223 10^3/ul (150-450); Red Blood Count 3.41 10^6/ul (4.00-5.40); Red Cell Distribution Width 13 % (10.5-15); White Blood Count 6.9 10^3/ul (3.5-10.8)
[2019-01-08 06:39] LABS: BUN/Creatinine Ratio 11.3 (8-20); C Reactive Protein 52.05 mg/L (<8.01); Calcium 8.9 mg/dL (8.6-10.3); EGFR African American 131.6 (>60); EGFR Non-African American 108.8 (>60); Potassium 3.9 mmol/L (3.5-5.0)
[2019-01-08] MEDS: Umeclidin/Vilant 62.5 MDI 62.5/25 mcg 14 INH ELLIPTA DEVICE INH SCH (07:11)
[2019-01-08] MEDS: Azithromycin TAB* 250 MG PO SCH (08:52)
[2019-01-08] MEDS: Aspirin 81 mg CHEW TAB* 81 MG TAB.CHEW PO SCH (08:52)
[2019-01-08] MEDS: predniSONE TAB* 20 MG PO SCH (08:52)
[2019-01-08] MEDS: CMCS:Escitalopram (NF) 10 MG TAB PO SCH (08:52)
[2019-01-08] MEDS: celeCOXIB CAP* 100 MG PO SCH ×2 (08:53→20:55)
[2019-01-08] MEDS: BuPROPion XL* 150 MG TAB.XL PO SCH (08:53)
[2019-01-08] MEDS: Multivitamins/Minerals TAB PO SCH (08:53)
[2019-01-08] MEDS: Oxybutynin XL TAB* 5 MG PO SCH (08:53)
[2019-01-08] MEDS: Thiamine TAB* 100 MG TAB PO SCH (08:53)
[2019-01-08] MEDS: Folic Acid TAB* 1 MG PO SCH (08:53)
[2019-01-08] MEDS: Nicotine PATCH 14 MG/24 HR* PATCH TRANSDERM SCH (09:00)
[2019-01-08] MEDS: Heparin VIAL(*) 5000 UNITS/ML VIAL (FIVE THOUSAND) SUBCUT SCH ×2 (09:03→20:56)
[2019-01-08] MEDS ORDERED: Albuterol/Ipratropium NEB.SOL* Albuterol 2.5 MG/Ipratropium 0.5 MG 3 ML INH SCH (11:00)
[2019-01-08] MEDS: cefTRIAXone(*) 1 GM in NS 0.9% 50 ML* 50 ML IVPB SCH (12:39)
[2019-01-08] MEDS: oxyCODONE/Acetamin 5/325 MG* TAB PO PRN (13:59)
[2019-01-08] MEDS: Albuterol/Ipratropium NEB.SOL* Albuterol 2.5 MG/Ipratropium 0.5 MG 3 ML INH SCH ×2 (14:38→19:49)
--- NOTE | 2019-01-08 17:54 | PN ---
Subjective Date of Service: 01/08/19 Interval History: Resting in chair on assessment. Reports he feels less weak today and was able to walk further with physical therapy today. Mild increase in shortness of breath today, but patient attributes it to more activity. Reports right hip pain well controlled. Only increases a little with activity. Denies chest pain, palpitations, dizziness, nausea, vomiting, diarrhea. Family History: Unchanged from Admission Social History: Unchanged from Admission Past Medical History: Unchanged from Admission Objective Active Medications: Acetaminophen (Tylenol Tab*) 650 mg PO Q6H PRN PRN Reason: FEVER/PAIN Last Admin: 01/07/19 10:37 Dose: 650 mg Albuterol/Ipratropium (Duoneb (Albuterol 2.5 Mg/Ipratropium 0.5 Mg)) 1 neb INH [id number] AWAKE [facility] Last Admin: 01/08/19 14:38 Dose: 1 neb Aspirin (Aspirin 81 Mg Chew Tab*) 81 mg PO QAM [facility] Last Admin: 01/08/19 08:52 Dose: 81 mg Azithromycin (Zithromax Tab*) 250 mg PO DAILY [facility] Stop: 01/09/19 09:01 Last Admin: 01/08/19 08:52 Dose: 250 mg Bupropion HCl (Wellbutrin Xl *) 150 mg PO QAM [facility] Last Admin: 01/08/19 08:53 Dose: 150 mg Celecoxib (Celebrex Cap*) 100 mg PO BID [facility] Last Admin: 01/08/19 08:53 Dose: 100 mg Escitalopram Oxalate (Lexapro (Nf)) 20 mg PO QAM [facility] Last Admin: 01/08/19 08:52 Dose: 20 mg Folic Acid (Folvite Tab*) 1 mg PO DAILY [facility] Last Admin: 01/08/19 08:53 Dose: 1 mg Heparin Sodium (Porcine) (Heparin Vial(*)) 5,000 units SUBCUT Q12HR [facility] Last Admin: 01/08/19 09:03 Dose: 5,000 units Ceftriaxone Sodium 1 gm/ (Sodium Chloride) 50 mls @ 200 mls/hr IVPB Q24H [facility] Last Admin: 01/08/19 12:39 Dose: 200 mls/hr Multivitamins/Minerals (Theragran/Minerals Tab*) 1 tab PO QAM [facility] Last Admin: 02/13/19 08:53 Dose: 1 tab Nicotine (Nicotine Patch 14 Mg/24 Hr*) 1 patch TRANSDERM DAILY [facility] Last Admin: 01/08/19 09:00 Dose: 1 patch Ondansetron HCl (Zofran Inj*) 4 mg IV Q6H PRN PRN Reason: NAUSEA Oxybutynin Chloride (Ditropan Xl Tab*) 10 mg PO QAM [facility] Last Admin: 01/08/19 08:53 Dose: 10 mg Oxycodone/Acetaminophen (Percocet 5/325 Tab*) 1 tab PO Q6H PRN PRN Reason: PAIN Last Admin: 01/08/19 13:59 Dose: 1 tab Pharmacy Profile Note (Nicotine Patch Removal Note*) 1 note PATCH OFF 2100 [facility] Last Admin: 01/07/19 20:18 Dose: 1 note Prednisone (Deltasone Tab*) 30 mg PO DAILY [facility] Tamsulosin HCl (Flomax Cap*) 0.4 mg PO QPM [facility] Last Admin: 01/07/19 17:17 Dose: 0.4 mg Thiamine HCl (Vitamin B-1 Tab*) 100 mg PO DAILY [facility] Last Admin: 01/08/19 08:53 Dose: 100 mg Umeclidinium/Vilanterol (Anoro 62.5/25 Ellipta Device (Nf)) 1 inh INH DAILY [facility] Last Admin: 01/08/19 07:11 Dose: Not Given Vital Signs - 8 hr 01/08/19 01/08/19 01/08/19 11:23 13:59 14:40 Temperature 98.5 F Pulse Rate 81 68 Respiratory 20 18 18 Rate Blood Pressure 121/70 (mmHg) O2 Sat by Pulse 95 98 Oximetry Oxygen Devices in Use Now: Nasal Cannula Appearance: NAD Eyes: No Scleral Icterus Ears/Nose/Mouth/Throat: Clear Oropharnyx, Mucous Membranes Moist Neck: NL Appearance and Movements; NL JVP Respiratory: Symmetrical Chest Expansion and Respiratory Effort, - - Sporadic rhonchi and wheeze. Cardiovascular: NL Sounds; No Murmurs; No JVD, RRR, No Edema Abdominal: NL Sounds; No Tenderness; No Distention Lymphatic: No Cervical Adenopathy Extremities: No Edema Skin: No Rash or Ulcers Neurological: Alert and Oriented x 3, NL Muscle Strength and Tone Nutrition: Taking PO's Result Diagrams: 01/08/19 05:59 01/08/19 05:59 Additional Lab and Data: Laboratory Results - last 24 hr 01/08/19 01/08/19 05:59 05:59 WBC 6.9 RBC 3.41 L Hgb 11.9 L Hct 35 L MCV 102 H MCH 35 H MCHC 34 RDW 13 Plt Count 223 MPV 7.1 L Neut % (Auto) 67.5 Lymph % (Auto) 17.2 [place] % (Auto) 13.4 Eos % (Auto) 1.5 Baso % (Auto) 0.4 Absolute Neuts (auto) 4.7 Absolute Lymphs (auto) 1.2 Absolute Monos (auto) 0.9 H Absolute Eos (auto) 0.1 Absolute Basos (auto) 0 Absolute Nucleated RBC 0 Nucleated RBC % 0 Sodium 135 Potassium 3.9 Chloride 102 Carbon Dioxide 29 Anion Gap 4 BUN 8 Creatinine 0.71 Est GFR ( Amer) 131.6 Est GFR (Non-Af Amer) 108.8 BUN/Creatinine Ratio 11.3 Glucose 93 Calcium 8.9 C-Reactive Protein 52.05 H Microbiology and Other Data: Microbiology 01/05/19 02:20 Blood Venous Aerobic Blood Culture - Preliminary No Growth Day 3 01/05/19 02:20 Blood Venous Anaerobic Blood Culture - Preliminary No Growth Day 3 01/05/19 01:59 Blood Venous Aerobic Blood Culture - Preliminary No Growth Day 3 01/05/19 01:59 Blood Venous Anaerobic Blood Culture - Preliminary No Growth Day 3 01/05/19 02:50 Nasal Influenza Types A,B Antigen - Final Specimen received for Influenza A/B Molecular testing Assess/Plan/Problems-Billing Assessment: Patient is a 73yo male with a PMH for COPD, Alcohol abuse, and CVA who presents to the emergency department with severe right hip pain and shortness of breath who is admitted for a COPD exacerbation. - Patient Problems (1) COPD (chronic obstructive pulmonary disease) Comment: - In acute exacerbation, but improving - Continue inhalers, steroids, azithromycin - Fever on admission with hypotension - Add Ceftriaxone for possible Bronchopneumonia, no infiltrate on repeat CXR. - Continues to have sob with exertion, but able to exert self more than previously. - Given lung exam today, I have ordered nebs to be scheduled (2) Right hip pain Comment: - Chronic issue, now controlled with oral pain medications (3) Weakness Current Visit: No Status: Acute Code(s): R53.1 - WEAKNESS SNOMED Code(s): 62493080 Comment: - Difficulty ambulating, improving with PT - No focal deficits - Likely deconditioning and current COPD exacerbation - PT/OT, may need rehab at D/C. (4) Hyponatremia Comment: - Na 129 on admission, likely chronic related to his h/o alcoholism and possible dehydration. - Improved with hydration as it is now 135 - Monitor (5) Alcohol abuse Comment: - No current evidence of withdrawal (6) DVT prophylaxis Comment: - Heparin SubQ Status and Disposition: Inpatient for COPD exacerbation, possible pnuemonia, and difficulty ambulating. Attending: Jarrett Schwarz
[2019-01-08] MEDS: Tamsulosin CAP* 0.4 MG PO SCH (19:49)
[2019-01-08] MEDS: Nicotine Patch Removal NOTE PATCH OFF SCH (20:56)
[2019-01-09] MEDS: Albuterol/Ipratropium NEB.SOL* Albuterol 2.5 MG/Ipratropium 0.5 MG 3 ML INH SCH ×2 (01:18→06:16)
[2019-01-09 07:47] VITALS: BP 127/62
[2019-01-09] MEDS: Umeclidin/Vilant 62.5 MDI 62.5/25 mcg 14 INH ELLIPTA DEVICE INH SCH (07:56)
[2019-01-09] MEDS ORDERED: Albuterol/Ipratropium NEB.SOL* Albuterol 2.5 MG/Ipratropium 0.5 MG 3 ML INH PRN (07:59)
[2019-01-09] MEDS ORDERED: predniSONE TAB* 10 MG PO SCH (09:00)
[2019-01-09] MEDS: Azithromycin TAB* 250 MG PO SCH (09:49)
[2019-01-09] MEDS: BuPROPion XL* 150 MG TAB.XL PO SCH (09:49)
[2019-01-09] MEDS: Oxybutynin XL TAB* 5 MG PO SCH (09:49)
[2019-01-09] MEDS: Heparin VIAL(*) 5000 UNITS/ML VIAL (FIVE THOUSAND) SUBCUT SCH (09:49)
[2019-01-09] MEDS: CMCS:Escitalopram (NF) 10 MG TAB PO SCH (09:50)
[2019-01-09] MEDS: celeCOXIB CAP* 100 MG PO SCH (09:50)
[2019-01-09] MEDS: Folic Acid TAB* 1 MG PO SCH (09:51)
[2019-01-09] MEDS: Nicotine PATCH 14 MG/24 HR* PATCH TRANSDERM SCH (09:51)
[2019-01-09] MEDS: Multivitamins/Minerals TAB PO SCH (09:51)
[2019-01-09] MEDS: Thiamine TAB* 100 MG TAB PO SCH (09:51)
[2019-01-09] MEDS: Aspirin 81 mg CHEW TAB* 81 MG TAB.CHEW PO SCH (09:51)
[2019-01-09] MEDS: cefTRIAXone(*) 1 GM in NS 0.9% 50 ML* 50 ML IVPB SCH (09:58)
--- NOTE | 2019-01-09 10:21 | DS ---
CC: Angélica Lyman NP * DISCHARGE SUMMARY: DATE OF ADMISSION: 01/05/19 DATE OF DISCHARGE: 01/09/19 PRIMARY CARE PROVIDER: Angélica Lyman NP. ATTENDING PROVIDER: Dr. Cancino * (DICTATED BY LELIA CAUSEY NP) PRIMARY DIAGNOSES: 1. Chronic obstructive pulmonary disease exacerbation. 2. Right hip pain. 3. Weakness. 4. Hyponatremia. SECONDARY DIAGNOSES: 1. Hepatitis. 2. Arthritis. 3. Depression. 4. Alcohol abuse. 5. Strokes. STUDIES COMPLETED WHILE IN THE HOSPITAL: 1. EKG, impression: Normal sinus rhythm, right bundle-branch block. 2. Chest x-ray, impression 01/05/19: No evidence of acute disease. 3. Repeat chest x-ray, impression 01/06/19: COPD. Small left pleural effusion. 4. Pelvis x-ray: Impression: Moderate bilateral osteoarthritic changes in hips. PROCEDURES WHILE IN THE HOSPITAL: No procedures. CONSULTATIONS WHILE IN THE HOSPITAL: No consultations. DISCHARGE HOME MEDICATIONS: [place] Medications: 1. Vantin 200 mg p.o. b.i.d. x5 days. 2. Prednisone taper as follows: 30 mg x2 days, 20 mg x2 days, 10 mg x2 days, and 5 mg x2 days. 3. DuoNeb 1 inhalation q.4 hours p.r.n. Continued Home Medications: 1. Anoro Ellipta 62.5/25 1 puff inhaled daily. 2. Percocet 1 cap every 6 hours as needed. 3. Celebrex 100 mg twice daily. 4. Flomax 0.4 mg at bedtime. 5. Oxybutynin XL 10 mg in the morning. 6. Multivitamins 1 tab p.o. daily. 7. Folic acid 1 mg daily. 8. Lexapro 20 mg daily. 9. Thiamine 100 mg daily. 10. Bupropion 150 mg daily. 11. Aspirin 81 mg daily. 12. Albuterol inhaler 2 puffs inhaled every 4 hours as needed. 13. Maalox Plus 30 mL every 6 hours as needed. Discontinued Home Medications: No home medications discontinued. Changed Home Medications: No home medications changed. HISTORY OF PRESENT ILLNESS/HOSPITAL COURSE: Mr. Rosas is a 73-year-old male with a past medical history significant for osteoarthritis, COPD, chronic right hip pain who presented to the emergency room on 01/05/19 with complaints of hip pain and shortness of breath with cough and white-colored sputum production. For further details, please see the history and physical dictated by Dr. Lu on 01/05/19. In short, patient was found to have a low-grade temp while in the emergency room. In addition, he was requiring supplemental oxygen and was noted to be hyponatremic; therefore, he was admitted for further evaluation and treatment. During this hospital stay, patient received antibiotics, IV fluids, and steroids. Patient was initially started on azithromycin, but ceftriaxone was added due to concern for bronchopneumonia. Patient has improved with this treatment. Patient was initially requiring supplemental oxygen to maintain O2 saturation, but today his saturation is within normal limits on room air. Patient initially received nebulizers as scheduled, but it is now p.r.n. and patient is on his home inhalers. As for the right hip pain, this is a chronic issue. There was no acute evidence found on x- ray. It is now controlled with pain medications. Patient was also noted to be hyponatremic on admission, which improved with fluids. Finally, patient has also had some increase in weakness, which we suspected due to deconditioning and has current COPD exacerbation. Patient has been seen by Physical Therapy and it was decided that patient would benefit from a short stay at an acute rehab facility. Patient was agreeable to this. Patient is stable for discharge to [facility] today. Vital signs as follows: Temp 97.6, HR 64, O2 saturation 93% on room air, BP 127 /62. REVIEW OF SYSTEMS: Patient reports improvement in cough as it is less frequent and less severe. Patient reports improvement in shortness of breath with exertion. Patient also reports improvement in hip pain. Patient continues to complain of some weakness that is slowly improving with physical therapy. Patient denies chest pain, palpitations, dizziness, nausea, vomiting, diarrhea, headache, fevers, chills. Fourteen-point review of systems completed and all others were negative. PHYSICAL EXAMINATION: General: Mr. Rosas is a 73-year-old male who is lying in bed, in no acute distress, appears stated age. HEENT: PERRLA. EOMs intact. Oral mucosa is moist, without lesions. Neck: Supple. No lymphadenopathy. Respiratory: Sporadic rhonchi heard on auscultation. This rhonchi cleared with cough. Sporadic wheeze heard. Improved aeration compared to previous days. Cardiac: S1, S2 present. No murmurs, rubs, or gallops. Abdomen: Soft, nontender. Bowel sounds x4. Hernia present, which is patient's baseline. Extremities: No pain currently. No deformities. No edema. No clubbing or cyanosis. Skin: Skin is intact. Neuro: No focal weakness or deficits. LABORATORY DATA: WBC 6.9, hemoglobin 11.9, hematocrit 35, platelets 223. Sodium 135, potassium 3.9, chloride 102, carbon dioxide 29, BUN 8, creatinine 0.71. DISCHARGE PLAN/FOLLOWUP: 1. COPD exacerbation: As mentioned in the HPI, patient continues to improve. Patient should continue Vantin 200 mg b.i.d. x5 days. Patient has completed a course of azithromycin while hospitalized. Patient should also continue on steroid taper. Patient should continue his inhalers as same from home. Patient should be provided with DuoNeb p.r.n. as needed. Patient reports that he does have oxygen at home, which he is supposed to be using as needed. Therefore, patient's O2 saturation should be monitored and oxygen applied as needed. Patient should be encouraged to cough and deep breathe. 2. Right hip pain: As mentioned in the HPI, this has improved during his stay. Patient to continue his oral pain medications as same. Patient will very much benefit from physical therapy. 3. Weakness: As mentioned above, patient had some weakness while inpatient, which we suspect is likely due to deconditioning and COPD exacerbation. Patient is slowly improving with physical therapy; therefore, he will benefit from further physical therapy at the rehab facility. 4. Hyponatremia: Patient was initially hyponatremic on admission, which has improved with fluids. Patient should be encouraged to stay hydrated and eat a regular diet. 5. Alcohol abuse: Patient has a history of alcohol abuse, but no evidence of withdrawal during this admission. Patient's electrolytes should be monitored routinely. 6. Hepatitis: Patient should follow up with primary care. 7. Arthritis: Patient should continue home pain medication regimen and would very much benefit from physical therapy. 8. Depression: Patient should continue Lexapro as same. 9. Strokes: Patient should continue aspirin 81 mg p.o. daily. 10. Education: I have discussed at length signs of new or worsening condition and when to return to the emergency room. Patient states understanding and agrees. This plan was discussed with my attending, Dr. Cancino, who agreed with my plan. TIME SPENT: Approximately 35 minutes were spent on this discharge, greater than half that time was spent [id number] with the patient discussing my discharge plan and instructions. LELIA CAUSEY, DENYS [id number]/CPS #: [id number] DILMA
== END 2019-01-09 13:10 | DRG 190 ==
LOC: ED 01:15 → MEDTELE 05:01
PROVIDERS: ADMIT Internal Medicine; ATTEND Hospitalist
DX: J44.1 Chronic obstructive pulmonary disease with (acute) exacerbation (principal); J18.9 Pneumonia, unspecified organism; E87.1 Hypo-osmolality and hyponatremia; J90 Pleural effusion, not elsewhere classified; M19.90 Unspecified osteoarthritis, unspecified site; K75.9 Inflammatory liver disease, unspecified; F32.9 Major depressive disorder, single episode, unspecified; F10.10 Alcohol abuse, uncomplicated; Y90.9 Presence of alcohol in blood, level not specified; R53.1 Weakness; M16.0 Bilateral primary osteoarthritis of hip; N40.0 Benign prostatic hyperplasia without lower urinary tract symptoms; F41.9 Anxiety disorder, unspecified; F17.210 Nicotine dependence, cigarettes, uncomplicated; G89.29 Other chronic pain; J44.0 Chronic obstructive pulmonary disease with (acute) lower respiratory infection; I49.3 Ventricular premature depolarization; I45.10 Unspecified right bundle-branch block; Z79.82 Long term (current) use of aspirin; Z83.6 Family history of other diseases of the respiratory system; Z99.81 Dependence on supplemental oxygen; Z86.718 Personal history of other venous thrombosis and embolism; Z90.49 Acquired absence of other specified parts of digestive tract; Z86.73 Personal history of transient ischemic attack (TIA), and cerebral infarction without residual deficits
CPT/HCPCS: 36415; 71045; 71046; 72170; 80048; 80053; 81003; 83605; 83735; 85025; 85610; 85730; 86140; 87040; 93005; 94640; 99284; A9270-GY; G8978-GP-CL; G8979-GP-CJ; J0456; J0696; J1644; J2270; J2405; J3360; J3411; J3475; J7512

== ENCOUNTER 2019-09-26 02:49 | Emergency (ER) | payer MEDICARE, OTHER ==
--- NOTE | 2019-09-26 03:09 | ED ---
Complex/Multi-Sys Presentation - HPI Summary HPI Summary: This pt is a 74 Y/O M presenting to [facility] with a CC of headaches and the inability to sleep. He states that he has been feeling poorly for about a week and has been weak and dizzy. He states that his symptoms started after he hit his head and has had a headache since then. He states that he hit his head on his nightstand. He denies any decreased appetite, abdominal pain, CP, N/V, and SOB. He states no aggravating or alleviating factors. He states that he has a PMHx of a recent hernia, COPD, and 3 strokes. - History Of Current Complaint Chief Complaint: EDWeakness Time Seen by Provider: 09/26/19 03:00 Hx Obtained From: Patient Onset/Duration: Sudden Onset, Lasting Weeks - 1, Still Present, Worse Since - after hitting his head Timing: Constant Severity Currently: Moderate Severity Initially: Moderate Character: Typical Headache Aggravating Factor(s): Hitting his head on his dresser. Alleviating Factor(s): nothing Associated Signs And Symptoms: Positive: Dizziness, Weakness, Headache, Other - NEGATIVE: decreased appetite. Negative: SOB, Chest Pain, Nausea, Vomiting, Abdominal Pain, Fever - Allergies/Home Medications Allergies/Adverse Reactions: Allergies Allergy/AdvReac Type Severity Reaction Status Date / Time No Known Allergies Allergy Verified 02/28/19 20:14 PMH/Surg Hx/FS Hx/Imm Hx Previously Healthy: Yes Endocrine/Hematology History: Denies: Hx Diabetes Cardiovascular History: Reports: Hx Deep Vein Thrombosis - DVT, Other Cardiovascular Problems/Disorders - DVT 05/10, ALCOHOLISM, SYNCOPAL EPISODE W/ COLLAPSE 05/10 Denies: Hx Hypertension, Hx Pacemaker/ICD Respiratory History: Reports: Hx Chronic Obstructive Pulmonary Disease (COPD), Other Respiratory Problems/Disorders - COPD GI History: Reports: Hx Gall Bladder Disease, Other GI Disorders - Cholecystectomy History: Reports: Other Problems/Disorders - BPH Denies: Hx Dialysis, Hx Renal Disease Musculoskeletal History: Reports: Hx Arthritis - HIPS, Hx Orthopedic Injury - Patella fracture and old rib fractures, Other Musculoskeletal History - CONTRACTURE HANDS, chronic R hip pain Sensory History: Reports: Hx Contacts or Glasses Denies: Hx Cataracts, Hx Eye Injury, Hx Hearing Aid, Hx Hearing Problem Opthamlomology History: Reports: Hx Contacts or Glasses Denies: Hx Cataracts, Hx Eye Injury Neurological History: Reports: Other Neuro Impairments/Disorders - Right hand nerve damage Denies: Hx Dementia Psychiatric History: Reports: Hx Anxiety, Hx Depression - GETTING BETTER WITH RX , Hx Substance Abuse - occasional marijuana, alcohol Denies: Hx Panic Disorder - Surgical History Surgery Procedure, Year, and Place: TONSILLECTOMY A CHILD; [facility] 12/2014; GALLBLADDER 09/2016. carpal tunnel right Hx Anesthesia Reactions: No - Immunization History Date of Tetanus Vaccine: utd Date of Influenza Vaccine: utd Infectious Disease History: Reports: Hx Hepatitis - A CHILD Denies: Hx of Known/Suspected MRSA - Family History Known Family History: Negative: Cardiac Disease, Hypertension Family History: No malignant hyperthermia - Social History Alcohol Use: Daily Alcohol Amount: 6packs Hx Substance Use: No Substance Use Type: Reports: None Substance Use Comment - Amount & Last Used: occasional Hx Tobacco Use: Yes Smoking Status (MU): Heavy Every Day Tobacco Smoker Type: Cigarettes Amount Used/How Often: 1/2 PPD FOR 50 YRS Length of Time of Smoking/Using Tobacco: 50 YRS Have You Smoked in the Last Year: Yes Review of Systems Constitutional: Negative - decreased appetite Positive: Other - dizziness . Negative: Fever Negative: Chest Pain Negative: Shortness Of Breath Negative: Abdominal Pain, Vomiting, Nausea Positive: Headache, Weakness All Other Systems Reviewed And Are Negative: Yes Physical Exam - Summary Physical Exam Summary: Appearance: Well-appearing, Well-nourished, lying in bed comfortably Skin: Warm, dry, no obvious rash Eyes: sclera anicteric, no conjunctival pallor ENT: mucous membranes moist, pharynx appears normal Neck: Supple, nontender Respiratory: Clear to auscultation, no signs of respiratory distress Cardiovascular: Normal S1, S2. No murmurs. Normal distal pulses in tibial and radial bilaterally. Abdomen: Soft, nontender, normal active bowel sounds present Musculoskeletal: Normal, Strength/ROM Intact Neurological: A&Ox3, awake and alert, mentation is normal, speech is fluent and appropriate Psychiatric: affect is normal, does not appear anxious or depressed Triage Information Reviewed: Yes Vital Signs On Initial Exam: Vital Signs (72 hours) 09/26/19 09/26/19 09/26/19 02:54 02:56 03:00 Temperature 98.5 F Pulse Rate 70 72 70 Respiratory 26 19 19 Rate Blood Pressure 122/65 122/65 (mmHg) O2 Sat by Pulse 95 97 96 Oximetry 09/26/19 09/26/19 03:24 04:00 Temperature Pulse Rate 70 68 Respiratory 15 17 Rate Blood Pressure 126/75 (mmHg) O2 Sat by Pulse 97 95 Oximetry Vital Signs Reviewed: Yes Procedures - Sedation Patient Received Moderate/Deep Sedation with Procedure: No Diagnostics - Laboratory Result Diagrams: 09/26/19 03:30 09/26/19 03:30 Lab Statement: Any lab studies that have been ordered have been reviewed, and results considered in the medical decision making process. - Radiology CXR Radiology Interpretation Completed By: ED Physician Summary of Radiographic Findings: No acute process. Pending offical review. - CT Brain CT CT Interpretation Completed By: Radiologist Summary of CT Findings: No acute intracranial processes. ED physician has reviewed this report. - EKG 0410 Cardiac Rate: NL - 65 BPM EKG Rhythm: Sinus Rhythm Summary of EKG Findings: EKG at 0410 shows a NSR at 65 BPM with Atrial premature complexes, a RBBB, and an old inferior infarct. Interpreted by James Nassar MD at 09/26/19 0415. Re-Evaluation - Re-Evaluation First Eval Re-Evaluation Time: 04:41 Change: Improved Comment: Pt was informed of his labratory and imaging results. He was also informed that if he can ambulate on his own he will be discharged home. Complex Multi-Symp Course/Dx Course Of Treatment: This pt is a 74 Y/O M presenting to [facility] with a CC of headaches and the inability to sleep. He states that he has been feeling poorly for about a week and has been weak and dizzy. He states that his symptoms started after he hit his head and has had a headache since then. His PE showed no abnormalities. He has abnormal laboratory values in RBC, Hgb, Hct, MCV, MCH , MPV, Absolute monos, Ur specific gravity, Sodium, chloride, and Magnesium. His CXR shows the following: No acute process. EKG at 0410 shows a NSR at 65 BPM with Atrial premature complexes, a RBBB, and an old inferior infarct. His Brain CT shows no acute intracranial processes. He will be discharged home with a Dx of weakness if he is able to ambulate on his own due to his living conditions. - Diagnoses Provider Diagnoses: Weakness Discharge ED - Sign-Out/Discharge Documenting (check all that apply): Patient Departure - discharge - Discharge Plan Condition: Good Disposition: HOME Patient Education Materials: Weakness (ED) Referrals: Angélica Lyman NP [Primary Care Provider] - - Billing Disposition and Condition Condition: GOOD Disposition: Home - Attestation Statements Document Initiated by Renuka: Yes Documenting Scribe: Francisco Mir Provider For Whom Renuka is Documenting (Include Credential): James Nassar MD Scribe Attestation: Francisco Alfonso, scribed for James Nassar MD on 09/26/19 at 1906. Scribe Documentation Reviewed: Yes Provider Attestation: The documentation as recorded by the Francisco fox accurately reflects the service I personally performed and the decisions made by James nolan MD Status of Scribe Document: Viewed
[2019-09-26 03:20] LABS: Urine Appearance Clear; Urine Bilirubin Negative (Negative); Urine Blood Negative (Negative); Urine Color Yellow; Urine Glucose Negative (Negative); Urine Ketones Negative (Negative); Urine Nitrite Negative (Negative); Urine Protein Negative (Negative); Urine Specific Gravity 1.005 (1.010-1.030); Urine Urobilinogen Negative (Negative)
[2019-09-26 03:37] LABS: ABS Basophils 0.1 10^3/ul (0-0.2); ABS Eosinophils 0.2 10^3/ul (0-0.6); ABS Lymphocytes 1.5 10^3/ul (1.0-4.8); ABS Monocytes 0.9 10^3/ul (0-0.8); ABS Neutrophils 5.1 10^3/ul (1.5-7.7); Eosinophil % 2.1 %; Hematocrit 40 % (42-52); Hemoglobin 13.9 g/dL (14.0-18.0); Lymphocyte % 19.8 %; Mean Corpuscular HGB Conc 35 g/dL (31-36); Mean Corpuscular Hemoglobin 36 pg (27-31); Mean Corpuscular Volume 102 fL (80-94); Mean Platelet Volume 7.2 fL (7.4-10.4); Platelet Count 221 10^3/uL (150-450); Red Blood Count 3.93 10^6 /uL (4.18-5.48); Red Cell Distribution Width 13 % (10-15); White Blood Count 7.7 10^3/uL (3.5-10.8)
[2019-09-26 03:54] LABS: ALT 14 U/L (7-52); AST 19 U/L (13-39); Albumin 3.8 g/dL (3.2-5.2); Albumin/Globulin Ratio 1.5 (1-3); Alkaline Phosphatase 71 U/L (34-104); Anion Gap 5 mmol/L (2-11); Blood Urea Nitrogen 8 mg/dL (6-24); CO2 Carbon Dioxide 27 mmol/L (22-32); Calcium 8.9 mg/dL (8.6-10.3); Chloride 94 mmol/L (101-111); EGFR African American 127.1 (>60); Globulin 2.6 g/dL (2-4); Glucose 91 mg/dL (70-100); Magnesium 1.7 mg/dL (1.9-2.7); Sodium 126 mmol/L (135-145); Total Protein 6.4 g/dL (6.4-8.9)
[2019-09-26 03:56] LABS: Troponin I 0.03 ng/mL (<0.04)
[2019-09-26 04:16] LABS: Alcohol < 10 mg/dL (<10)
[2019-09-26 04:31] LABS: TSH (Thyroid Stimulating Horm) 2.83 mcIU/mL (0.34-5.60)
[2019-09-26 09:50] VITALS: BP 130/63
== END 2019-09-26 06:19 | disposition home or self-care (01) ==
LOC: ED 02:49
DX: R53.1 Weakness (principal); R42 Dizziness and giddiness; R51 Headache; I45.10 Unspecified right bundle-branch block; J44.9 Chronic obstructive pulmonary disease, unspecified; Z86.718 Personal history of other venous thrombosis and embolism; F17.210 Nicotine dependence, cigarettes, uncomplicated
CPT/HCPCS: 36415; 70450; 71046; 80053; 80320; 81003; 83605; 83735; 84443; 84484; 85025; 93005; 99282; G0480

== ENCOUNTER 2020-02-13 16:27 | Emergency (ER) | payer MEDICARE, OTHER ==
[2020-02-13] MEDS ORDERED: NS 0.9% 1000 ML** 1,000 ML IV ONE (16:50)
--- NOTE | 2020-02-13 16:51 | ED ---
Complex/Multi-Sys Presentation - HPI Summary HPI Summary: Patient with history of COPD and chronic EtOH complains of mild SOB, weakness, lightheadedness 3 days, with "a couple falls". States pain to the back of his head status post fall and mild headache. Denies any other injuries or pain from falls. Denies fever, no cough, sore throat, CP, and/V/D, abdominal pain, change in urine, change in BM. Ambulates with walker at baseline. States he drinks a sixpack daily. Last alcohol intake last night. Home O2 at night only. Medical history COPD, EtOH, HTN. No anti-coag. Positive smoker. - History Of Current Complaint Chief Complaint: EDWeakness Time Seen by Provider: 02/13/20 16:47 Hx Obtained From: Patient Onset/Duration: Gradual Onset, Lasting Days Timing: Constant Severity Currently: Moderate Character: Dull Associated Signs And Symptoms: Positive: Weakness, Headache, SOB - Allergies/Home Medications Allergies/Adverse Reactions: Allergies Allergy/AdvReac Type Severity Reaction Status Date / Time No Known Allergies Allergy Verified 02/13/20 16:39 Home Medications: Home Medications Escitalopram * [Lexapro 20 mg (NF)] 20 mg PO QAM 07/06/15 [History Confirmed ] celeCOXIB CAP* [Celebrex CAP*] 100 mg PO BID MDD 200 mg 07/06/15 [History Confirmed 02/13/20] Tamsulosin CAP* [Flomax CAP*] 0.4 mg PO QPM #0 10/19/16 [History Confirmed 02/12] Oxybutynin XL TAB* [Ditropan Xl TAB*] 10 mg PO QAM 10/23/16 [History Confirmed 02/13/20] Aspirin 81 mg CHEW TAB* 81 mg PO QAM 06/29/17 [History Confirmed 02/13/20] Umeclidin/Vilant 62.5 MDI(NF) [ANORO 62.5/25 Ellipta DEVICE (NF)] 1 puff INH DAILY 07/24/18 [History Confirmed 02/13/20] Folic Acid TAB* [Folvite TAB*] 1 mg PO DAILY #30 tab 07/26/18 [Rx Confirmed ] Acetaminophen TAB* [Tylenol TAB*] 650 mg PO Q4H PRN tab 03/03/19 [Rx Confirmed 02/13/20] Atorvastatin* [Lipitor*] 80 mg PO DAILY 02/13/20 [History Confirmed 02/13/20] Levothyroxine TAB* [Synthroid TAB*] 150 mcg PO DAILY 02/13/20 [History Confirmed 02/13/20] Metoprolol Succinate XL TAB* [Toprol XL TAB*] 25 mg PO DAILY 02/13/20 [History Confirmed 02/13/20] Multivitamins/Minerals TAB* [Theragran/minerals TAB*] 1 tab PO DAILY 02/13/20 [ History Confirmed 02/13/20] PMH/Surg Hx/FS Hx/Imm Hx Endocrine/Hematology History: Denies: Hx Diabetes Cardiovascular History: Reports: Hx Deep Vein Thrombosis - DVT, Other Cardiovascular Problems/Disorders - DVT 05/10, ALCOHOLISM, SYNCOPAL EPISODE W/ COLLAPSE 05/10 Denies: Hx Hypertension, Hx Pacemaker/ICD Respiratory History: Reports: Hx Chronic Obstructive Pulmonary Disease (COPD), Other Respiratory Problems/Disorders - COPD GI History: Reports: Hx Gall Bladder Disease, Other GI Disorders - Cholecystectomy History: Reports: Other Problems/Disorders - BPH Denies: Hx Dialysis, Hx Renal Disease Musculoskeletal History: Reports: Hx Arthritis - HIPS, Hx Orthopedic Injury - Patella fracture and old rib fractures, Other Musculoskeletal History - CONTRACTURE HANDS, chronic R hip pain Sensory History: Reports: Hx Contacts or Glasses Denies: Hx Cataracts, Hx Eye Injury, Hx Hearing Aid, Hx Hearing Problem Opthamlomology History: Reports: Hx Contacts or Glasses Denies: Hx Cataracts, Hx Eye Injury EENT History: Denies: Hx Deafness Neurological History: Reports: Other Neuro Impairments/Disorders - Right hand nerve damage Denies: Hx Dementia Psychiatric History: Reports: Hx Anxiety, Hx Depression - GETTING BETTER WITH RX , Hx Substance Abuse - occasional marijuana, alcohol Denies: Hx Panic Disorder - Surgical History Surgery Procedure, Year, and Place: TONSILLECTOMY A CHILD; [facility] 12/2014; GALLBLADDER 09/2016. carpal tunnel right Hx Anesthesia Reactions: No - Immunization History Date of Tetanus Vaccine: utd Date of Influenza Vaccine: utd Infectious Disease History: No Infectious Disease History: Reports: Hx Hepatitis - A CHILD Denies: Hx of Known/Suspected MRSA, Traveled Outside the [place] in Last 30 Days - Family History Known Family History: Negative: Cardiac Disease, Hypertension Family History: No malignant hyperthermia - Social History Alcohol Use: Daily Alcohol Amount: 6packs Hx Substance Use: No Substance Use Type: Reports: None Substance Use Comment - Amount & Last Used: occasional Hx Tobacco Use: Yes Smoking Status (MU): Heavy Every Day Tobacco Smoker Type: Cigarettes Amount Used/How Often: 1/2 PPD FOR 50 YRS Length of Time of Smoking/Using Tobacco: 50 YRS Have You Smoked in the Last Year: Yes Review of Systems Constitutional: Negative Eyes: Negative ENT: Negative Cardiovascular: Negative Positive: Shortness Of Breath Gastrointestinal: Negative Genitourinary: Negative Musculoskeletal: Negative Skin: Negative Positive: Headache Psychological: Normal All Other Systems Reviewed And Are Negative: Yes Physical Exam Triage Information Reviewed: Yes Vital Signs On Initial Exam: Initial Vitals Pulse BP Pulse Ox 48 132/72 97 02/13/20 16:36 02/13/20 16:36 02/13/20 16:36 Vital Signs Reviewed: Yes Appearance: Positive: Well-Appearing Skin: Positive: Warm Head/Face: Positive: Normal Head/Face Inspection Eyes: Positive: Normal Neck: Positive: Supple Respiratory/Lung Sounds: Positive: Rhonchi Cardiovascular: Positive: Normal Abdomen Description: Positive: Nontender Musculoskeletal: Positive: Normal Neurological: Positive: Normal Psychiatric: Positive: Normal AVPU Assessment: Alert - [place] Coma Scale Best Eye Response: 4 - Spontaneous Best Motor Response: 6 - Obeys Commands Best Verbal Response: 5 - Oriented Coma Scale Total: 15 Procedures - Sedation Patient Received Moderate/Deep Sedation with Procedure: No Diagnostics - Vital Signs Vital Signs Temp Pulse Resp BP Pulse Ox 02/13/20 16:37 97.8 F 49 18 132/72 96 02/13/20 16:36 48 132/72 97 - Laboratory Result Diagrams: 02/13/20 17:01 02/13/20 20:01 Lab Statement: Any lab studies that have been ordered have been reviewed, and results considered in the medical decision making process. Complex Multi-Symp Course/Dx Course Of Treatment: Patient with history of COPD and chronic EtOH complains of mild SOB, weakness, lightheadedness 3 days, with "a couple falls". States pain to the back of his head status post fall and mild headache. Denies any other injuries or pain from falls. Denies fever, no cough, sore throat, CP, and/ V/D, abdominal pain, change in urine, change in BM. Ambulates with walker at baseline. States he drinks a sixpack daily. Last alcohol intake last night. Home O2 at night only. Medical history COPD, EtOH, HTN. No anti-coag. Positive smoker. Bradycardic. Vital signs otherwise within normal limits. Hyperkalemic, resolved with 1 L normal saline. Labs otherwise patient baseline. Chest x-ray negative. CT brain negative. EKG Sinus bradycardia which is consistent with baseline. Flu Negative. Normal saline and thiamine bag administered. - Diagnoses Provider Diagnoses: Lightheadedness, Falls Discharge ED - Sign-Out/Discharge Documenting (check all that apply): Patient Departure - Discharge Plan Condition: Stable Disposition: HOME Patient Education Materials: Fall Prevention for Older Adults (ED), Lightheadedness (ED) Referrals: Angélica Lyman NP [Primary Care Provider] - Additional Instructions: Follow-up with primary care. Return to the ED for any new or worsening symptoms. - Billing Disposition and Condition Condition: STABLE Disposition: Home - Attestation Statements Provider Attestation: I was available for consultation for this patient. I did not evaluate the patient or participate in any medical decision making or disposition decisions unless I am specifically named in the chart as having consulted on the patient. If I have consulted on the patient, please see my own ED note on the patient encounter. Kadeem Hernández MD
[2020-02-13 17:11] LABS: ABS Basophils 0.1 10^3/ul (0-0.2); ABS Eosinophils 0.1 10^3/ul (0-0.6); ABS Lymphocytes 1.2 10^3/ul (1.0-4.8); ABS Monocytes 0.8 10^3/ul (0-0.8); ABS Neutrophils 5.3 10^3/ul (1.5-7.7); Eosinophil % 1.5 %; Hematocrit 41 % (42-52); Hemoglobin 14.3 g/dL (14.0-18.0); Lymphocyte % 15.7 %; Mean Corpuscular HGB Conc 35 g/dL (31-36); Mean Corpuscular Hemoglobin 35 pg (27-31); Mean Corpuscular Volume 101 fL (80-94); Mean Platelet Volume 7.3 fL (7.4-10.4); Platelet Count 209 10^3/uL (150-450); Red Blood Count 4.07 10^6 /uL (4.18-5.48); Red Cell Distribution Width 13 % (10-15); White Blood Count 7.4 10^3/uL (3.5-10.8)
[2020-02-13 17:28] LABS: C Reactive Protein < 1.00 mg/L (<8.01); Magnesium 1.8 mg/dL (1.9-2.7)
--- OUTSIDE RECORDS SUMMARY | 2020-02-13 17:30 | XMS REPORT ---
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 [place]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 History of History of Diagnosis Active 2018-11 Ethan falling falling 2-30 Anguish [id number] Nicotine Nicotine Diagnosis Active 2018-11 Ethan dependence, dependence, 2-30 Anguish cigarettes, cigarettes, [id number] uncomplicat 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 2018-11 Ethan (current) (current) 2-30 Anguish use of use of [id number] aspirin aspirin Pain frequent Pain Mgmt Resolve 2018-112020-01-14 Sadie pain d 2-30 11:08:00 Travis 11:30: [id number] 00 Respiratory dyspnea Respirator Resolve 2018-112020-01-16 Sadie present y d 2-30 10:32:00 Robeline 11:30: [id number] 00 Respiratory oxygen Respirator Resolve 2018-112020-01-16 Sadie treatments y d 2-30 10:32:00 Rob[place] in home 11:30: [id number] 00 Respiratory lung sounds Respirator Resolve 2018-112020-01-14 Sadie deficit y d 2-30 11:08:00 Rob[place] 11:30: [id number] 00 Endo/Andrew anti-coagul Endo/Andrew Resolve 2018-112020-01-14 Sadie ation d 2-30 11:08:00 Travis therapy 11:30: [id number] 00 Nutrition nutritional Nutrition Resolve 2018-112020-01-14 Sadie restriction d 2- 11:08:00 Robeline s 11:30: [id number] 00 Elimination urinary Eliminatio Resolve 2018-112020-01-14 Sadie incontinenc n d 2 11:08:00 Travis e 11:30: [id number] 00 Neuro confusion Neuro/Emot Resolve 2018-112020-01-14 Sadie present ion d 2- 11:08:00 Travis 11:30: [id number] 00 Neuro impaired Neuro/Emot Resolve 2018-112020-01-14 Sadie decision-ma ion d 2 11:08:00 Robeline manuel 11:30: [id number] 00 Neuro memory Neuro/Emot Resolve 2018-112020-01-14 Sadie deficit ion d 2 11:08:00 Rob[place] needing 11:30: [id number] supervision 00 Activity ADL Activity Resolve 2018-112020-01-14 Sadie assistance d 2 11:08:00 Travis required 11:30: [id number] 00 Activity self-care Activity Resolve 2018-112020-01-14 Sadie deficit d 2 11:08:00 Rob[place] 11:30: [id number] 00 Safety cannot be Safety Resolve 2018-112020-01-14 Sadie left alone d 2 11:08:00 Travis 11:30: [id number] 00 Safety knowledge/s Safety Resolve 2018-112020-01-14 Sadie kill d 2 11:08:00 Robeline deficit: pt 11:30: [id number] 00 Safety fall risk Safety Resolve 2018-112020-01-14 Sadie factor d 2 11:08:00 Travis present 11:30: [id number] 00 Safety risk for Safety Resolve 2018-112020-01-14 Sadie hospitaliza d 2 11:08:00 Travis tion 11:30: [id number] 00 Medication oral med Meds Resolve 2018-112020-01-14 Sadie assistance d 2- 11:08:00 Travis required 11:30: [id number] 00 Medication knowledge/s Meds Resolve 2018-112020-01-14 Sadie kill d 2-30 11:08:00 Robeline deficit: pt 11:30: [id number] 00 Musculoskel transfer Musculoske Resolve 2018-112020-01-14 Sadie etal assistance letal d 2 11:08:00 Travis required 11:30: [id number] 00 Musculoskel requires Musculoske Resolve 2018-112020-01-14 Sadie etal human letal d 2 11:08:00 Robeline assist to 11:30: [id number] leave home 00 Safety can be left Safety Resolve 2018-112020-01-14 Ethan alone for d 2 11:08:00 Anguish only short 12:08: [id number] periods 00 Bed transfer PT/OT: Bed Resolve 2018-112020-01-16 Ethan Mobility/Tr deficit: Mobility/T d 230 10:32:00 Anguish ansfer sit/stand ransfer 12:08: [id number] 00 Bed transfer PT/OT: Bed Resolve 2018-112020-01-16 Ethan Mobility/Tr deficit: Mobility/T d 2 10:32:00 Anguish ansfer toilet/comm ransfer 12:08: [id number] ode 00 Balance/End balance/regulatory coordinator PT/OT: Resolve 2018-112020-01-16 Ethan soliz rdination Balance/En d 10:32:00 Anguish deficit durance 12:08: [id number] 00 Balance/End endurance PT/OT: Resolve 2018-112020-01-16 Ethan urance deficit Balance/En d 10:32:00 Anguish durance 12:08: [id number] 00 Gait/Locomo gait PT/OT: Resolve 2018-112020-01-16 Ethan tion assistive Gait/Locom d 230 10:32:00 Anguish problems device otion 12:08: [id number] present 00 Gait/Locomo gait PT/OT: Resolve 2018-112020-01-16 Ethan tion deficit Gait/Locom d 230 10:32:00 Anguish problems otion 12:08: [id number] 00 OT: Self self-care OT: Resolve 2020-01-16 Stefany Care deficit Self-Care d 12-02 10:32:00 Mode 13:00: [id number] 00 Allergies, Adverse Reactions, Alerts Allergy Allergy Status Severity Reaction(s) Onset Inactive Treating Comments Name Type Date Date Clinician Unknown None Active Unknown None Unknown No Known Allergies For This Patient Medications Ordered Filled Start Stop Current Ordering Indication Dosage Frequency Signature Comments Components Medication Medication Date Date Medication? Clinician (SIG) Name Name ProAir HFA ProAir HFA 2018-11- Yes Samodal Unknown Unknown 90 90 01-16 Jhon MACEDO mcg/actuati mcg/actuati on aerosol on aerosol inhaler inhaler aspirin 81 aspirin 81 2018-11- Yes Samodal Unknown Unknown mg chewable mg chewable 01-16 Jhon MACEDO tablet tablet buPROPion buPROPion 2019- No Gianluca Unknown Unknown HCl 150 mg HCl 150 mg 01-16 ,Kathlee tablet,12 tablet,12 n E. hr hr sustained-r sustained-r elease(smok elease(smok ing ing deterrent) deterrent) escitalopra escitalopra 2018-11- Yes Samodal Unknown Unknown m 20 mg m 20 mg 01-16 Jhon MACEDO tablet tablet folic acid folic acid 2018-11- Yes Samodal Unknown Unknown 1 mg tablet 1 mg tablet 01-16 Jhon MACEDO oxybutynin oxybutynin 2018-11- Yes Samodal Unknown Unknown chloride ER chloride ER 01-16 Jhon MACEDO 10 mg 10 mg tablet,exte tablet,exte nded nded release 24 release 24 hr hr tamsulosin tamsulosin 2018-11- Yes Samodal Unknown Unknown 0.4 mg 0.4 mg 01-16 Jhon MACEDO capsule capsule Anoro Anoro 2018-11- Yes Samodal Unknown Unknown Ellipta Ellipta 01-16 Jhon MACEDO 62.5 mcg-25 62.5 mcg-25 mcg/actuati mcg/actuati on powder on powder for for inhalation inhalation celecoxib celecoxib 2018-11- Yes Samodal Unknown Unknown 100 mg 100 mg 01-16 Jhon MACEDO capsule capsule multivitami multivitami 2018-11- Yes Samodal Unknown Unknown n capsule n capsule 01-16 Jhon MACEDO oxygen oxygen 2018-11 Yes Samodal Unknown Unknown 01-16 Jhon MACEDO Vital Signs Vital Name Observation Time Observation Value Comments SYSTOLIC mm[Hg] 2020-01-16 18:10:30 98 mm[Hg] mm[Hg] Method: Sit SYSTOLIC mm[Hg] 2019-11-24 18:09:37 100 mm[Hg] mm[Hg] Method: Stand DIASTOLIC mm[Hg] 2020-01-16 18:10:30 52 mm[Hg] mm[Hg] Method: Sit DIASTOLIC mm[Hg] 2019-11-24 18:09:37 60 mm[Hg] mm[Hg] Method: Stand PULSE 2020-01-16 18:10:30 80 /min /min TEMP 2020-01-16 18:10:30 98 [degF] Procedures This patient has no known procedures. Results This patient has no known results.
--- OUTSIDE RECORDS SUMMARY | 2020-02-13 17:30 | XMS REPORT ---
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 [id number] [place]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 History of History of Diagnosis Active 2018-11 Ethan falling falling 2-30 Anguish [id number] Nicotine Nicotine Diagnosis Active 2018-11 Ethan dependence, dependence, 2-30 Anguish cigarettes, cigarettes, [id number] uncomplicat uncomplicat 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 (current) (current) 2-30 Anguish use of use of [id number] aspirin aspirin Pain frequent Pain Mgmt Active 2018-11 Sadie pain [place] 11:30: [id number] 00 Respiratory dyspnea Respirator Active 2018-11 Sadie present y [place] 11:30: [id number] 00 Respiratory oxygen Respirator Active 2018-11 Sadie treatments y [place] in home 11:30: [id number] 00 Respiratory lung sounds Respirator Active 2018-11 Sadie deficit y [place] 11:30: [id number] 00 Endo/Andrew anti-coagul Endo/Andrew Active 2018-11 Sadie ation [place] therapy 11:30: [id number] 00 Nutrition nutritional Nutrition Active 2018-11 Sadie restriction [place] s 11:30: [id number] 00 Elimination urinary Eliminatio Active 2018-11 Sadie incontinenc n [place] e 11:30: [id number] 00 Neuro confusion Neuro/Emot Active 2018-11 Sadie present ion [place] 11:30: [id number] 00 Neuro impaired Neuro/Emot Active 2018-11 Sadie decision-ma ion [place] manuel 11:30: [id number] 00 Neuro memory Neuro/Emot Active 2018-11 Sadie deficit ion [place] needing 11:30: [id number] supervision 00 Activity ADL Activity Active 2018-11 Sadie assistance [place] required 11:30: [id number] 00 Activity self-care Activity Active 2018-11 Sadie deficit [place] 11:30: [id number] 00 Safety cannot be Safety Active 2018-11 Sadie left alone [place] 11:30: [id number] 00 Safety knowledge/s Safety Active 2018-11 Sadie kill [place] deficit: pt 11:30: [id number] 00 Safety fall risk Safety Active 2018-11 Sadie factor [place] present 11:30: [id number] 00 Safety risk for Safety Active 2018-11 Sadie hospitaliza [place] tion 11:30: [id number] 00 Medication oral med Meds Active 2018-11 Sadie assistance [place] required 11:30: [id number] 00 Medication knowledge/s Meds Active 2018-11 Sadie kill [place] deficit: pt 11:30: [id number] 00 Musculoskel transfer Musculoske Active 2018-11 Sadie etal assistance letal [place] required 11:30: [id number] 00 Musculoskel requires Musculoske Active 2018-11 Sadie etal human letal [place] assist to 11:30: [id number] leave home 00 Safety can be left Safety Active 2018-11 Ethan alone for Anguish only short 12:08: [id number] periods 00 Bed transfer PT/OT: Bed Active 2018-11 Ethan Mobility/Tr deficit: Mobility/T Anguish ansfer sit/stand ransfer 12:08: [id number] 00 Bed transfer PT/OT: Bed Active 2018-11 Ethan Mobility/Tr deficit: Mobility/T 2-30 Anguish ansfer toilet/comm ransfer 12:08: [id number] ode 00 Balance/End balance/corporate coordinator PT/OT: Active 2018-11 Ethan soliz rdination Balance/En 2-30 Anguish deficit durance 12:08: [id number] 00 Balance/End endurance PT/OT: Active 2018-11 Ethan urance deficit Balance/En 2-30 Anguish durance 12:08: [id number] 00 Gait/Locomo gait PT/OT: Active 2018-11 Ethan tion assistive Gait/Locom 2-30 Anguish problems device otion 12:08: [id number] present 00 Gait/Locomo gait PT/OT: Active 2018-11 Ethan tion deficit Gait/Locom 2-30 Anguish problems otion 12:08: [id number] 00 OT: Self self-care OT: Active Stefany Care deficit Self-Care -07 Mode 13:00: [id number] 00 Allergies, Adverse Reactions, Alerts Allergy Allergy Status Severity Reaction(s) Onset Inactive Treating Comments Name Type Date Date Clinician Unknown None Active Unknown None Unknown No Known Allergies For This Patient Medications Ordered Filled Start Stop Current Ordering Indication Dosage Frequency Signature Comments Components Medication Medication Date Date Medication? Clinician (SIG) Name Name ProAir HFA ProAir HFA 2018-11 Yes Samodal Unknown Unknown 90 90 2-30 Jhon MACEDO mcg/actuati mcg/actuati on aerosol on aerosol inhaler inhaler aspirin 81 aspirin 81 2018-11 Yes Samodal Unknown Unknown mg chewable mg chewable 2-30 Jhon MACEDO tablet tablet buPROPion buPROPion No Gianluca Unknown Unknown HCl 150 mg HCl 150 mg Yenni MACEDO tablet,12 tablet,12 n E. hr hr sustained-r sustained-r elease(smok elease(smok ing ing deterrent) deterrent) escitalopra escitalopra 2018-11 Yes Samodal Unknown Unknown m 20 mg m 20 mg 2-30 Jhon MACEDO tablet tablet folic acid folic acid 2018-11 Yes Samodal Unknown Unknown 1 mg tablet 1 mg tablet 2-30 Jhon MACEDO oxybutynin oxybutynin 2018-11 Yes Samodal Unknown Unknown chloride ER chloride ER 2-30 Jhon MACEDO 10 mg 10 mg tablet,exte tablet,exte nded nded release 24 release 24 hr hr tamsulosin tamsulosin 2018-11 Yes Samodal Unknown Unknown 0.4 mg 0.4 mg 2-30 ,Jhon capsule capsule Anoro Anoro 2018-11 Yes Samodal Unknown Unknown Ellipta Ellipta 2-30 Jhon MACEDO 62.5 mcg-25 62.5 mcg-25 mcg/actuati mcg/actuati on powder on powder for for inhalation inhalation celecoxib celecoxib 2018-11 Yes Samodal Unknown Unknown 100 mg 100 mg 2-30 ,Jhon capsule capsule multivitami multivitami 2018-11 Yes Samodal Unknown Unknown n capsule n capsule 2-30 Jhon MACEDO oxygen oxygen 2018-11 Yes Samodal Unknown Unknown 2-30 Jhon MACEDO Vital Signs Vital Name Observation Time Observation Value Comments SYSTOLIC mm[Hg] 2019-11-24 18:09:37 100 mm[Hg] mm[Hg] Method: Stand DIASTOLIC mm[Hg] 2019-11-24 18:09:37 60 mm[Hg] mm[Hg] Method: Stand RESP RATE 2019-11-24 18:09:37 18 /min /min TEMP 2019-12-29 18:10:12 98.1 [degF] Procedures This patient has no known procedures. Results This patient has no known results.
--- OUTSIDE RECORDS SUMMARY | 2020-02-13 17:30 | XMS REPORT ---
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 History of History of Diagnosis Active 2018-11 Ethan falling falling 2-30 Anguish [id number] Nicotine Nicotine Diagnosis Active 2018-11 Ethan dependence, dependence, 2-30 Anguish cigarettes, cigarettes, [id number] 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) (current) 2-30 Anguish use of use of [id number] aspirin aspirin Pain frequent Pain Mgmt Active 2018-11 Sadie pain [place] 11:30: [id number] 00 Respiratory dyspnea Respirator Active 2018-11 Sadie present y [place] 11:30: [id number] 00 Respiratory oxygen Respirator Active 2018-11 Sadie treatments y [place] in home 11:30: [id number] 00 Respiratory lung sounds Respirator Active 2018-11 Sadie deficit y [place] 11:30: [id number] 00 Endo/Andrew anti-coagul Endo/Andrew Active 2018-11 Sadie ation [place] therapy 11:30: [id number] 00 Nutrition nutritional Nutrition Active 2018-11 Sadie restriction [place] s 11:30: [id number] 00 Elimination urinary Eliminatio Active 2018-11 Sadie incontinenc n [place] e 11:30: [id number] 00 Neuro confusion Neuro/Emot Active 2018-11 Sadie present ion [place] 11:30: [id number] 00 Neuro impaired Neuro/Emot Active 2018-11 Sadie decision-ma ion [place] manuel 11:30: [id number] 00 Neuro memory Neuro/Emot Active 2018-11 Sadie deficit ion [place] needing 11:30: [id number] supervision 00 Activity ADL Activity Active 2018-11 Sadie assistance [place] required 11:30: [id number] 00 Activity self-care Activity Active 2018-11 Sadie deficit [place] 11:30: [id number] 00 Safety cannot be Safety Active 2018-11 Sadie left alone [place] 11:30: [id number] 00 Safety knowledge/s Safety Active 2018-11 Sadie kill [place] deficit: pt 11:30: [id number] 00 Safety fall risk Safety Active 2018-11 Sadie factor [place] present 11:30: [id number] 00 Safety risk for Safety Active 2018-11 Sadie hospitaliza [place] tion 11:30: [id number] 00 Medication oral med Meds Active 2018-11 Sadie assistance [place] required 11:30: [id number] 00 Medication knowledge/s Meds Active 2018-11 Sadie kill [place] deficit: pt 11:30: [id number] 00 Musculoskel transfer Musculoske Active 2018-11 Sadie etal assistance letal [place] required 11:30: [id number] 00 Musculoskel requires Musculoske Active 2018-11 Sadie etal human letal [place] assist to 11:30: [id number] leave home 00 Safety can be left Safety Active 2018-11 Ethan alone for Anguish only short 12:08: [id number] periods 00 Bed transfer PT/OT: Bed Active 2018-11 Ethan Mobility/Tr deficit: Mobility/T Anguish ansfer sit/stand ransfer 12:08: [id number] 00 Bed transfer PT/OT: Bed Active 2018-11 Ethan Mobility/Tr deficit: Mobility/T 2-30 Anguish ansfer toilet/comm ransfer 12:08: [id number] ode 00 Balance/End balance/reimbursement coordinator PT/OT: Active 2018-11 Ethan soliz rdination Balance/En 2-30 Anguish deficit [place] 12:08: [id number] 00 Balance/End endurance PT/OT: Active 2018-11 Ethan urance deficit Balance/En 2-30 Anguish durance 12:08: [id number] 00 Gait/Locomo gait PT/OT: Active 2018-11 Ethan tion assistive Gait/Locom 2-30 Anguish problems device otion 12:08: [id number] present 00 Gait/Locomo gait PT/OT: Active 2018-11 Ethan tion deficit Gait/Locom 2-30 Anguish problems otion 12:08: [id number] 00 OT: Self self-care OT: Active Stefany Care deficit Self-Care -07 Mode 13:00: [id number] 00 Allergies, Adverse Reactions, Alerts Allergy Allergy [...] Unknown Unknown 100 mg 100 mg 2-30 MD,Jhon capsule capsule multivitami multivitami 2018-11 Yes Samodal Unknown Unknown n capsule n capsule 2-30 Jhon MACEDO oxygen oxygen 2018-11 Yes Samodal Unknown Unknown 2-30 Jhon MACEDO Vital Signs Vital Name Observation Time Observation Value Comments SYSTOLIC mm[Hg] 2020-01-09 18:10:23 104 mm[Hg] mm[Hg] Method: Sit SYSTOLIC mm[Hg] 2019-11-24 18:09:37 100 mm[Hg] mm[Hg] Method: Stand DIASTOLIC mm[Hg] 2020-01-09 18:10:23 58 mm[Hg] mm[Hg] Method: Sit DIASTOLIC mm[Hg] 2019-11-24 18:09:37 60 mm[Hg] mm[Hg] Method: Stand PULSE 2020-01-09 18:10:23 70 /min /min RESP RATE 2019-11-24 18:09:37 18 /min /min TEMP 2020-01-09 18:10:23 98 [degF] Procedures This patient has no known procedures. Results This patient has no known results.
--- OUTSIDE RECORDS SUMMARY | 2020-02-13 17:30 | XMS REPORT ---
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 [id number] [place]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 History of History of Diagnosis Active 2018-11 Ethan falling falling 2-30 Anguish [id number] Nicotine Nicotine Diagnosis Active 2018-11 Ethan dependence, dependence, 2-30 Anguish cigarettes, cigarettes, [id number] uncomplicat uncomplicat ed 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-11 Ethan (current) (current) 2-30 Anguish use of use of [id number] aspirin aspirin Pain frequent Pain Mgmt Active 2018-11 Sadie pain [place] 11:30: [id number] 00 Respiratory dyspnea Respirator Active 2018-11 Sadie present y [place] 11:30: [id number] 00 Respiratory oxygen Respirator Active 2018-11 Sadie treatments y [place] in home 11:30: [id number] 00 Respiratory lung sounds Respirator Active 2018-11 Sadie deficit y [place] 11:30: [id number] 00 Endo/Andrew anti-coagul Endo/Andrew Active 2018-11 Sadie ation [place] therapy 11:30: [id number] 00 Nutrition nutritional Nutrition Active 2018-11 Sadie restriction [place] s 11:30: [id number] 00 Elimination urinary Eliminatio Active 2018-11 Sadie incontinenc n [place] e 11:30: [id number] 00 Neuro confusion Neuro/Emot Active 2018-11 Sadie present ion [place] 11:30: [id number] 00 Neuro impaired Neuro/Emot Active 2018-11 Sadie decision-ma ion [place] manuel 11:30: [id number] 00 Neuro memory Neuro/Emot Active 2018-11 Sadie deficit ion [place] needing 11:30: [id number] supervision 00 Activity ADL Activity Active 2018-11 Sadie assistance [place] required 11:30: [id number] 00 Activity self-care Activity Active 2018-11 Sadie deficit [place] 11:30: [id number] 00 Safety cannot be Safety Active 2018-11 Sadie left alone [place] 11:30: [id number] 00 Safety knowledge/s Safety Active 2018-11 Sadie kill [place] deficit: pt 11:30: [id number] 00 Safety fall risk Safety Active 2018-11 Sadie factor [place] present 11:30: [id number] 00 Safety risk for Safety Active 2018-11 Sadie hospitaliza [place] tion 11:30: [id number] 00 Medication oral med Meds Active 2018-11 Sadie assistance [place] required 11:30: [id number] 00 Medication knowledge/s Meds Active 2018-11 Sadie kill [place] deficit: pt 11:30: [id number] 00 Musculoskel transfer Musculoske Active 2018-11 Sadie etal assistance letal [place] required 11:30: [id number] 00 Musculoskel requires Musculoske Active 2018-11 Sadie etal human letal [place] assist to 11:30: [id number] leave home 00 Safety can be left Safety Active 2018-11 Ethan alone for Anguish only short 12:08: [id number] periods 00 Bed transfer PT/OT: Bed Active 2018-11 Ethan Mobility/Tr deficit: Mobility/T Anguish ansfer sit/stand ransfer 12:08: [id number] 00 Bed transfer PT/OT: Bed Active 2018-11 Ethan Mobility/Tr deficit: Mobility/T 2-30 Anguish ansfer toilet/comm ransfer 12:08: [id number] ode 00 Balance/End balance/lean manufacturing coordinator PT/OT: Active 2018-11 Ethan soliz rdination Balance/En 2-30 Anguish deficit [place] 12:08: [id number] 00 Balance/End endurance PT/OT: Active 2018-11 Ethan urance deficit Balance/En 2-30 Anguish durance 12:08: [id number] 00 Gait/Locomo gait PT/OT: Active 2018-11 Ethan tion assistive Gait/Locom 2-30 Anguish problems device otion 12:08: [id number] present 00 Gait/Locomo gait PT/OT: Active 2018-11 Ethan tion deficit Gait/Locom 2-30 Anguish problems otion 12:08: [id number] 00 OT: Self self-care OT: Active Stefany Care deficit Self-Care -07 Mode 13:00: [id number] 00 Allergies, Adverse Reactions, Alerts Allergy Allergy [...] Unknown Unknown n capsule n capsule 2-30 ,Jhon oxygen oxygen 2018-11 Yes Samodal Unknown Unknown 2-30 Jhon MACEDO Vital Signs Vital Name Observation Time Observation Value Comments SYSTOLIC mm[Hg] 2019-12-29 18:10:12 100 mm[Hg] mm[Hg] Method: Sit SYSTOLIC mm[Hg] 2019-11-24 18:09:37 100 mm[Hg] mm[Hg] Method: Stand DIASTOLIC mm[Hg] 2019-12-29 18:10:12 54 mm[Hg] mm[Hg] Method: Sit DIASTOLIC mm[Hg] 2019-11-24 18:09:37 60 mm[Hg] mm[Hg] Method: Stand PULSE 2019-12-29 18:10:12 67 /min /min RESP RATE 2019-11-24 18:09:37 18 /min /min TEMP 2019-12-29 18:10:12 98.1 [degF] Procedures This patient has no known procedures. Results This patient has no known results.
--- OUTSIDE RECORDS SUMMARY | 2020-02-13 17:30 | XMS REPORT ---
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 [id number] [place]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 History of History of Diagnosis Active 2018-11 Ethan falling falling 2-30 Anguish [id number] Nicotine Nicotine Diagnosis Active 2018-11 Ethan dependence, dependence, 2-30 Anguish cigarettes, cigarettes, [id number] uncomplicat uncomplicat ed ed [facility]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) (current) 2-30 Anguish use of use of [id number] aspirin aspirin Pain frequent Pain Mgmt Active 2018-11 Sadie pain [place] 11:30: [id number] 00 Respiratory dyspnea Respirator Active 2018-11 Sadie present y [place] 11:30: [id number] 00 Respiratory oxygen Respirator Active 2018-11 Sadie treatments y [place] in home 11:30: [id number] 00 Respiratory lung sounds Respirator Active 2018-11 Sadie deficit y [place] 11:30: [id number] 00 Endo/Andrew anti-coagul Endo/Andrew Active 2018-11 Sadie ation [place] therapy 11:30: [id number] 00 Nutrition nutritional Nutrition Active 2018-11 Sadie restriction [place] s 11:30: [id number] 00 Elimination urinary Eliminatio Active 2018-11 Sadie incontinenc n [place] e 11:30: [id number] 00 Neuro confusion Neuro/Emot Active 2018-11 Sadie present ion [place] 11:30: [id number] 00 Neuro impaired Neuro/Emot Active 2018-11 Sadie decision-ma ion [place] manuel 11:30: [id number] 00 Neuro memory Neuro/Emot Active 2018-11 Sadie deficit ion [place] needing 11:30: [id number] supervision 00 Activity ADL Activity Active 2018-11 Sadie assistance [place] required 11:30: [id number] 00 Activity self-care Activity Active 2018-11 Sadie deficit [place] 11:30: [id number] 00 Safety cannot be Safety Active 2018-11 Sadie left alone [place] 11:30: [id number] 00 Safety knowledge/s Safety Active 2018-11 Sadie kill [place] deficit: pt 11:30: [id number] 00 Safety fall risk Safety Active 2018-11 Sadie factor [place] present 11:30: [id number] 00 Safety risk for Safety Active 2018-11 Sadie hospitaliza [place] tion 11:30: [id number] 00 Medication oral med Meds Active 2018-11 Sadie assistance [place] required 11:30: [id number] 00 Medication knowledge/s Meds Active 2018-11 Sadie kill [place] deficit: pt 11:30: [id number] 00 Musculoskel transfer Musculoske Active 2018-11 Sadie etal assistance letal [place] required 11:30: [id number] 00 Musculoskel requires Musculoske Active 2018-11 Sadie etal human letal [place] assist to 11:30: [id number] leave home 00 Safety can be left Safety Active 2018-11 Ethan alone for Anguish only short 12:08: [id number] periods 00 Bed transfer PT/OT: Bed Active 2018-11 Ethan Mobility/Tr deficit: Mobility/T Anguish ansfer sit/stand ransfer 12:08: [id number] 00 Bed transfer PT/OT: Bed Active 2018-11 Ethan Mobility/Tr deficit: Mobility/T 2-30 Anguish ansfer toilet/comm ransfer 12:08: [id number] ode 00 Balance/End balance/title i coordinator PT/OT: Active 2018-11 Ethan soliz rdination Balance/En 2-30 Anguish deficit [place] 12:08: [id number] 00 Balance/End endurance PT/OT: Active 2018-11 Ethan urance deficit Balance/En 2-30 Anguish durance 12:08: [id number] 00 Gait/Locomo gait PT/OT: Active 2018-11 Ethan tion assistive Gait/Locom 2-30 Anguish problems device otion 12:08: [id number] present 00 Gait/Locomo gait PT/OT: Active 2018-11 Ethan tion deficit Gait/Locom 2-30 Anguish problems otion 12:08: [id number] 00 OT: Self self-care OT: Active Stefany Care deficit Self-Care -07 Mode 13:00: [id number] 00 Allergies, Adverse Reactions, Alerts Allergy Allergy [...]
--- OUTSIDE RECORDS SUMMARY | 2020-02-13 17:30 | XMS REPORT ---
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 [id number] [place]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 History of History of Diagnosis Active 2018-11 Ethan falling falling 2-30 Anguish [id number] Nicotine Nicotine Diagnosis Active 2018-11 Ethan dependence, dependence, 2-30 Anguish cigarettes, cigarettes, [id number] uncomplicat uncomplicat 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) (current) 2-30 Anguish use of use of [id number] aspirin aspirin Pain frequent Pain Mgmt Active 2018-11 Sadie pain [place] 11:30: [id number] 00 Respiratory dyspnea Respirator Active 2018-11 Sadie present y [place] 11:30: [id number] 00 Respiratory oxygen Respirator Active 2018-11 Sadie treatments y [place] in home 11:30: [id number] 00 Respiratory lung sounds Respirator Active 2018-11 Sadie deficit y [place] 11:30: [id number] 00 Endo/Andrew anti-coagul Endo/Andrew Active 2018-11 Sadie ation [place] therapy 11:30: [id number] 00 Nutrition nutritional Nutrition Active 2018-11 Sadie restriction [place] s 11:30: [id number] 00 Elimination urinary Eliminatio Active 2018-11 Sadie incontinenc n [place] e 11:30: [id number] 00 Neuro confusion Neuro/Emot Active 2018-11 Sadie present ion [place] 11:30: [id number] 00 Neuro impaired Neuro/Emot Active 2018-11 Sadie decision-ma ion [place] manuel 11:30: [id number] 00 Neuro memory Neuro/Emot Active 2018-11 Sadie deficit ion [place] needing 11:30: [id number] supervision 00 Activity ADL Activity Active 2018-11 Sadie assistance [place] required 11:30: [id number] 00 Activity self-care Activity Active 2018-11 Sadie deficit [place] 11:30: [id number] 00 Safety cannot be Safety Active 2018-11 Sadie left alone [place] 11:30: [id number] 00 Safety knowledge/s Safety Active 2018-11 Sadie kill [place] deficit: pt 11:30: [id number] 00 Safety fall risk Safety Active 2018-11 Sadie factor [place] present 11:30: [id number] 00 Safety risk for Safety Active 2018-11 Sadie hospitaliza [place] tion 11:30: [id number] 00 Medication oral med Meds Active 2018-11 Sadie assistance [place] required 11:30: [id number] 00 Medication knowledge/s Meds Active 2018-11 Sadie kill [place] deficit: pt 11:30: [id number] 00 Musculoskel transfer Musculoske Active 2018-11 Sadie etal assistance letal [place] required 11:30: [id number] 00 Musculoskel requires Musculoske Active 2018-11 Sadie etal human letal [place] assist to 11:30: [id number] leave home 00 Safety can be left Safety Active 2018-11 Ethan alone for Anguish only short 12:08: [id number] periods 00 Bed transfer PT/OT: Bed Active 2018-11 Ethan Mobility/Tr deficit: Mobility/T Anguish ansfer sit/stand ransfer 12:08: [id number] 00 Bed transfer PT/OT: Bed Active 2018-11 Ethan Mobility/Tr deficit: Mobility/T 2-30 Anguish ansfer toilet/comm ransfer 12:08: [id number] ode 00 Balance/End balance/revenue coordinator PT/OT: Active 2018-11 Ethan soliz rdination Balance/En 2-30 Anguish deficit [place] 12:08: [id number] 00 Balance/End endurance PT/OT: Active 2018-11 Ethan urance deficit Balance/En 2-30 Anguish durance 12:08: [id number] 00 Gait/Locomo gait PT/OT: Active 2018-11 Ethan tion assistive Gait/Locom 2-30 Anguish problems device otion 12:08: [id number] present 00 Gait/Locomo gait PT/OT: Active 2018-11 Ethan tion deficit Gait/Locom 2-30 Anguish problems otion 12:08: [id number] 00 OT: Self self-care OT: Active Stefany Care deficit Self-Care -07 Mode 13:00: [id number] 00 Allergies, Adverse Reactions, Alerts Allergy Allergy [...]
--- OUTSIDE RECORDS SUMMARY | 2020-02-13 17:30 | XMS REPORT ---
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 [id number] [place]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 History of History of Diagnosis Active 2018-11 Ethan falling falling 2-30 Anguish [id number] Nicotine Nicotine Diagnosis Active 2018-11 Ethan dependence, dependence, 2-30 Anguish cigarettes, cigarettes, [id number] uncomplicat uncomplicat 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-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 (current) (current) 2-30 Anguish use of use of [id number] aspirin aspirin Pain frequent Pain Mgmt Active 2018-11 Sadie pain [place] 11:30: [id number] 00 Respiratory dyspnea Respirator Active 2018-11 Sadie present y [place] 11:30: [id number] 00 Respiratory oxygen Respirator Active 2018-11 Sadie treatments y [place] in home 11:30: [id number] 00 Respiratory lung sounds Respirator Active 2018-11 Sadie deficit y [place] 11:30: [id number] 00 Endo/Andrew anti-coagul Endo/Andrew Active 2018-11 Sadie ation [place] therapy 11:30: [id number] 00 Nutrition nutritional Nutrition Active 2018-11 Sadie restriction [place] s 11:30: [id number] 00 Elimination urinary Eliminatio Active 2018-11 Sadie incontinenc n [place] e 11:30: [id number] 00 Neuro confusion Neuro/Emot Active 2018-11 Sadie present ion [place] 11:30: [id number] 00 Neuro impaired Neuro/Emot Active 2018-11 Sadie decision-ma ion [place] manuel 11:30: [id number] 00 Neuro memory Neuro/Emot Active 2018-11 Sadie deficit ion [place] needing 11:30: [id number] supervision 00 Activity ADL Activity Active 2018-11 Sadie assistance [place] required 11:30: [id number] 00 Activity self-care Activity Active 2018-11 Sadie deficit [place] 11:30: [id number] 00 Safety cannot be Safety Active 2018-11 Sadie left alone [place] 11:30: [id number] 00 Safety knowledge/s Safety Active 2018-11 Sadie kill [place] deficit: pt 11:30: [id number] 00 Safety fall risk Safety Active 2018-11 Sadie factor [place] present 11:30: [id number] 00 Safety risk for Safety Active 2018-11 Sadie hospitaliza [place] tion 11:30: [id number] 00 Medication oral med Meds Active 2018-11 Sadie assistance [place] required 11:30: [id number] 00 Medication knowledge/s Meds Active 2018-11 Sadie kill [place] deficit: pt 11:30: [id number] 00 Musculoskel transfer Musculoske Active 2018-11 Sadie etal assistance letal [place] required 11:30: [id number] 00 Musculoskel requires Musculoske Active 2018-11 Sadie etal human letal [place] assist to 11:30: [id number] leave home 00 Safety can be left Safety Active 2018-11 Ethan alone for Anguish only short 12:08: [id number] periods 00 Bed transfer PT/OT: Bed Active 2018-11 Ethan Mobility/Tr deficit: Mobility/T Anguish ansfer sit/stand ransfer 12:08: [id number] 00 Bed transfer PT/OT: Bed Active 2018-11 Ethan Mobility/Tr deficit: Mobility/T 2-30 Anguish ansfer toilet/comm ransfer 12:08: [id number] ode 00 Balance/End balance/loss prevention coordinator PT/OT: Active 2018-11 Ethan soliz rdination Balance/En 2-30 Anguish deficit [place] 12:08: [id number] 00 Balance/End endurance PT/OT: Active 2018-11 Ethan urance deficit Balance/En 2-30 Anguish durance 12:08: [id number] 00 Gait/Locomo gait PT/OT: Active 2018-11 Ethan tion assistive Gait/Locom 2-30 Anguish problems device otion 12:08: [id number] present 00 Gait/Locomo gait PT/OT: Active 2018-11 Ethan tion deficit Gait/Locom 2-30 Anguish problems otion 12:08: [id number] 00 OT: Self self-care OT: Active Stefany Care deficit Self-Care -07 Mode 13:00: [id number] 00 Allergies, Adverse Reactions, Alerts Allergy Allergy [...]
--- OUTSIDE RECORDS SUMMARY | 2020-02-13 17:30 | XMS REPORT ---
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 [place]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 History of History of Diagnosis Active 2018-11 Ethan falling falling 2-30 Anguish [id number] Nicotine Nicotine Diagnosis Active 2018-11 Ethan dependence, dependence, 2-30 Anguish cigarettes, cigarettes, [id number] 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 (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) (current) 2-30 Anguish use of use of [id number] aspirin aspirin Pain frequent Pain Mgmt Resolve 2018-112020-01-14 Sadie pain d - 11:08:00 [place] 11:30: [id number] 00 Respiratory dyspnea Respirator Active 2018-11 Sadie present y - [place] 11:30: [id number] 00 Respiratory oxygen Respirator Active 2018-11 Sadie treatments y -30 [place] in home 11:30: [id number] 00 Respiratory lung sounds Respirator Resolve 2018-112020-01-14 Sadie deficit y d 30 11:08:00 [place] 11:30: [id number] 00 Endo/Andrew anti-coagul Endo/Andrew Resolve 2018-112020-01-14 Sadie ation d 11:08:00 [place] therapy 11:30: [id number] 00 Nutrition nutritional Nutrition Resolve 2018-112020-01-14 Sadie restriction d 2-30 11:08:00 Travis s 11:30: [id number] 00 Elimination urinary Eliminatio Resolve 2018-112020-01-14 Sadie incontinenc n d 2 11:08:00 Travis e 11:30: [id number] 00 Neuro confusion Neuro/Emot Resolve 2018-112020-01-14 Sadie present ion d 2- 11:08:00 [place] 11:30: [id number] 00 Neuro impaired Neuro/Emot Resolve 2018-112020-01-14 Sadie decision-ma ion d 2 11:08:00 [place] manuel 11:30: [id number] 00 Neuro memory Neuro/Emot Resolve 2018-112020-01-14 Sadie deficit ion d 2 11:08:00 [place] needing 11:30: [id number] supervision 00 Activity ADL Activity Resolve 2018-112020-01-14 Sadie assistance d 2 11:08:00 [place] required 11:30: [id number] 00 Activity self-care Activity Resolve 2018-112020-01-14 Sadie deficit d 2 11:08:00 [place] 11:30: [id number] 00 Safety cannot be Safety Resolve 2018-112020-01-14 Sadie left alone d 2 11:08:00 [place] 11:30: [id number] 00 Safety knowledge/s Safety Resolve 2018-112020-01-14 Sadie kill d 2- 11:08:00 Travis deficit: pt 11:30: [id number] 00 Safety fall risk Safety Resolve 2018-112020-01-14 Sadie factor d 2- 11:08:00 [place] present 11:30: [id number] 00 Safety risk for Safety Resolve 2018-112020-01-14 Sadie hospitaliza d 2 11:08:00 [place] tion 11:30: [id number] 00 Medication oral med Meds Resolve 2018-112020-01-14 Sadie assistance d 2-30 11:08:00 [place] required 11:30: [id number] 00 Medication knowledge/s Meds Resolve 2018-112020-01-14 Sadie kill d 2-30 11:08:00 Travis deficit: pt 11:30: [id number] 00 Musculoskel transfer Musculoske Resolve 2018-112020-01-14 Sadie etal assistance letal d 2-30 11:08:00 [place] required 11:30: [id number] 00 Musculoskel requires Musculoske Resolve 2018-112020-01-14 Sadie etal human letal d 2-30 11:08:00 [place] assist to 11:30: [id number] leave home 00 Safety can be left Safety Resolve 2018-112020-01-14 Ethan alone for d 2-30 11:08:00 Anguish only short 12:08: [id number] periods 00 Bed transfer PT/OT: Bed Active 2018-11 Ethan Mobility/Tr deficit: Mobility/T 2-30 Anguish ansfer sit/stand ransfer 12:08: [id number] 00 Bed transfer PT/OT: Bed Active 2018-11 Ethan Mobility/Tr deficit: Mobility/T 2-30 Anguish ansfer toilet/comm ransfer 12:08: [id number] ode 00 Balance/End balance/cook chili PT/OT: Active 2018-11 Ethan urance rdination Balance/En 2-30 Anguish deficit durance 12:08: [id number] 00 Balance/End endurance PT/OT: Active 2018-11 Ethan urance deficit Balance/En 2-30 Anguish durance 12:08: [id number] 00 Gait/Locomo gait PT/OT: Active 2018-11 Ethan tion assistive Gait/Locom 2-30 Anguish problems device otion 12:08: [id number] present 00 Gait/Locomo gait PT/OT: Active 2018-11 Ethan tion deficit Gait/Locom 2-30 Anguish problems otion 12:08: [id number] 00 OT: Self self-care OT: Active Stefany Care deficit Self-Care 12-02 Mode 13:00: [id number] 00 Allergies, Adverse Reactions, Alerts Allergy Allergy [...] Unknown HCl 150 mg HCl 150 mg ,Kathlee tablet,12 tablet,12 n E. hr hr [...] Unknown Unknown 0.4 mg 0.4 mg 2-30 Jhon MACEDO capsule capsule Anoro Anoro 2018-11 Yes Samodal Unknown Unknown Ellipta Ellipta 2-30 Jhon MACEDO 62.5 mcg-25 62.5 mcg-25 mcg/actuati mcg/actuati on powder on powder for for inhalation inhalation celecoxib celecoxib 2018-11 Yes Samodal Unknown Unknown 100 mg 100 mg 2-30 Jhon MACEDO capsule capsule multivitami multivitami 2018-11 Yes Samodal Unknown Unknown n capsule n capsule 2-30 Jhon MACEDO oxygen oxygen 2018-11 Yes Samodal Unknown Unknown 2-30 Jhon MACEDO Vital Signs Vital Name Observation Time Observation Value Comments SYSTOLIC mm[Hg] 2020-01-14 18:10:28 122 mm[Hg] mm[Hg] Method: Sit SYSTOLIC mm[Hg] 2019-11-24 18:09:37 100 mm[Hg] mm[Hg] Method: Stand DIASTOLIC mm[Hg] 2020-01-14 18:10:28 68 mm[Hg] mm[Hg] Method: Sit DIASTOLIC mm[Hg] 2019-11-24 18:09:37 60 mm[Hg] mm[Hg] Method: Stand PULSE 2020-01-14 18:10:28 64 /min /min RESP RATE 2019-11-24 18:09:37 18 /min /min TEMP 2020-01-14 18:10:28 98 [degF] Procedures This patient has no known procedures. Results This patient has no known results.
--- OUTSIDE RECORDS SUMMARY | 2020-02-13 17:30 | XMS REPORT ---
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 [id number] [place]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 History of History of Diagnosis Active 2018-11 Ethan falling falling 2-30 Anguish [id number] Nicotine Nicotine Diagnosis Active 2018-11 Ethan dependence, dependence, 2-30 Anguish cigarettes, cigarettes, [id number] uncomplicat 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-11 Ethan (current) (current) 2-30 Anguish use of use of [id number] aspirin aspirin Pain frequent Pain Mgmt Resolve 2018-112020-01-14 Sadie pain d - 11:08:00 [place] 11:30: [id number] 00 Respiratory dyspnea Respirator Active 2018-11 Sadie present y - [place] 11:30: [id number] 00 Respiratory oxygen Respirator Active 2018-11 Sadie treatments y -30 [place] in home 11:30: [id number] 00 Respiratory lung sounds Respirator Resolve 2018-112020-01-14 Sadie deficit y d 30 11:08:00 [place] 11:30: [id number] 00 Endo/Andrew anti-coagul Endo/Andrew Resolve 2018-112020-01-14 Sadie ation d 11:08:00 Center therapy 11:30: [id number] 00 Nutrition nutritional Nutrition Resolve 2018-112020-01-14 Sadie restriction d 2-30 11:08:00 [place] s 11:30: [id number] 00 Elimination urinary Eliminatio Resolve 2018-112020-01-14 Sadie incontinenc n d 2 11:08:00 [place] e 11:30: [id number] 00 Neuro confusion Neuro/Emot Resolve 2018-112020-01-14 Sadie present ion d 2- 11:08:00 [place] 11:30: [id number] 00 Neuro impaired Neuro/Emot Resolve 2018-112020-01-14 Sadie decision-ma ion d 2 11:08:00 [facility] manuel 11:30: [id number] 00 Neuro memory Neuro/Emot Resolve 2018-112020-01-14 Sadie deficit ion d 2 11:08:00 [place] needing 11:30: [id number] supervision 00 Activity ADL Activity Resolve 2018-112020-01-14 Sadie assistance d 2 11:08:00 [place] required 11:30: [id number] 00 Activity self-care Activity Resolve 2018-112020-01-14 Sadie deficit d 2 11:08:00 [place] 11:30: [id number] 00 Safety cannot be Safety Resolve 2018-112020-01-14 Sadie left alone d 2 11:08:00 [place] 11:30: [id number] 00 Safety knowledge/s Safety Resolve 2018-112020-01-14 Sadie kill d 2- 11:08:00 Travis deficit: pt 11:30: [id number] 00 Safety fall risk Safety Resolve 2018-112020-01-14 Sadie factor d 2- 11:08:00 [facility] present 11:30: [id number] 00 Safety risk for Safety Resolve 2018-112020-01-14 Sadie hospitaliza d 2 11:08:00 Travis tion 11:30: [id number] 00 Medication oral med Meds Resolve 2018-112020-01-14 Sadie assistance d 2-30 11:08:00 [place] required 11:30: [id number] 00 Medication knowledge/s Meds Resolve 2018-112020-01-14 Sadie kill d 2-30 11:08:00 Travis deficit: pt 11:30: [id number] 00 Musculoskel transfer Musculoske Resolve 2018-112020-01-14 Sadie etal assistance letal d 2-30 11:08:00 [facility] required 11:30: [id number] 00 Musculoskel requires Musculoske Resolve 2018-112020-01-14 Sadie etal human letal d 2-30 11:08:00 Center assist to 11:30: [id number] leave home 00 Safety can be left Safety Resolve 2018-112020-01-14 Ethan alone for d 2-30 11:08:00 Anguish only short 12:08: [id number] periods 00 Bed transfer PT/OT: Bed Active 2018-11 Ethan Mobility/Tr deficit: Mobility/T 2-30 Anguish ansfer sit/stand ransfer 12:08: [id number] 00 Bed transfer PT/OT: Bed Active 2018-11 Ethan Mobility/Tr deficit: Mobility/T 2-30 Anguish ansfer toilet/comm ransfer 12:08: [id number] ode 00 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/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/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 PT/OT: Active 2018-11 Ethan urance rdination Balance/En 2-30 Anguish deficit durance 12:08: [id number] 00 Balance/End endurance PT/OT: Active 2018-11 Ethan urance deficit Balance/En 2-30 Anguish durance 12:08: [id number] 00 Gait/Locomo gait PT/OT: Active 2018-11 Ethan tion assistive Gait/Locom 2-30 Anguish problems device otion 12:08: [id number] present 00 Gait/Locomo gait PT/OT: Active 2018-11 Ethan tion deficit Gait/Locom 2-30 Anguish problems otion 12:08: [id number] 00 OT: Self self-care OT: Active Stefany Care deficit Self-Care 12-02 Mode 13:00: [id number] 00 Allergies, Adverse Reactions, Alerts Allergy Allergy [...]
--- OUTSIDE RECORDS SUMMARY | 2020-02-13 17:30 | XMS REPORT ---
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 Anguish disease of disease of [id number] [place]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 History of History of Diagnosis Active 2018-11 Ethan falling falling 2-30 Anguish [id number] Nicotine Nicotine Diagnosis Active 2018-11 Ethan dependence, dependence, 2-30 Anguish cigarettes, cigarettes, [id number] uncomplicat 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-11 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 (current) (current) 2-30 Anguish use of use of [id number] aspirin aspirin Pain frequent Pain Mgmt Resolve 2018-112020-01-14 Sadie pain d 2-30 11:08:00 [place] 11:30: [id number] 00 Respiratory dyspnea Respirator Resolve 2018-112020-01-16 Sadie present y d 2-30 10:32:00 [place] 11:30: [id number] 00 Respiratory oxygen Respirator Resolve 2018-112020-01-16 Sadie treatments y d 2-30 10:32:00 [place] in home 11:30: [id number] 00 Respiratory lung sounds Respirator Resolve 2018-112020-01-14 Sadie deficit y d 2-30 11:08:00 [place] 11:30: [id number] 00 Endo/Andrew anti-coagul Endo/Andrew Resolve 2018-112020-01-14 Sadie ation d 2-30 11:08:00 Travis therapy 11:30: [id number] 00 Nutrition nutritional Nutrition Resolve 2018-112020-01-14 Sadie restriction d 2- 11:08:00 [place] s 11:30: [id number] 00 Elimination urinary Eliminatio Resolve 2018-112020-01-14 Sadie incontinenc n d 2 11:08:00 [place] e 11:30: [id number] 00 Neuro confusion Neuro/Emot Resolve 2018-112020-01-14 Sadie present ion d 2- 11:08:00 [place] 11:30: [id number] 00 Neuro impaired Neuro/Emot Resolve 2018-112020-01-14 Sadie decision-ma ion d 2 11:08:00 [place] manuel 11:30: [id number] 00 Neuro memory Neuro/Emot Resolve 2018-112020-01-14 Sadie deficit ion d 2 11:08:00 [place] needing 11:30: [id number] supervision 00 Activity ADL Activity Resolve 2018-112020-01-14 Sadie assistance d 2 11:08:00 [place] required 11:30: [id number] 00 Activity self-care Activity Resolve 2018-112020-01-14 Sadie deficit d 2 11:08:00 [place] 11:30: [id number] 00 Safety cannot be Safety Resolve 2018-112020-01-14 Sadie left alone d 2 11:08:00 [place] 11:30: [id number] 00 Safety knowledge/s Safety Resolve 2018-112020-01-14 Sadie kill d 2 11:08:00 [place] deficit: pt 11:30: [id number] 00 Safety fall risk Safety Resolve 2018-112020-01-14 Sadie factor d 2 11:08:00 Travis present 11:30: [id number] 00 Safety risk for Safety Resolve 2018-112020-01-14 Sadie hospitaliza d 2 11:08:00 [place] tion 11:30: [id number] 00 Medication oral med Meds Resolve 2018-112020-01-14 Sadie assistance d 2- 11:08:00 [place] required 11:30: [id number] 00 Medication knowledge/s Meds Resolve 2018-112020-01-14 Sadie kill d 2-30 11:08:00 [place] deficit: pt 11:30: [id number] 00 Musculoskel transfer Musculoske Resolve 2018-112020-01-14 Sadie etal assistance letal d 2 11:08:00 [place] required 11:30: [id number] 00 Musculoskel requires Musculoske Resolve 2018-112020-01-14 Sadie etal human letal d 2 11:08:00 [place] assist to 11:30: [id number] leave home 00 Safety can be left Safety Resolve 2018-112020-01-14 Ethan alone for d 2 11:08:00 Anguish only short 12:08: [id number] periods 00 Bed transfer PT/OT: Bed Resolve 2018-112020-01-16 Ethan Mobility/Tr deficit: Mobility/T d 230 10:32:00 Anguish ansfer sit/stand ransfer 12:08: [id number] 00 Bed transfer PT/OT: Bed Resolve 2018-112020-01-16 Ethan Mobility/Tr deficit: Mobility/T d 2 10:32:00 Anguish ansfer toilet/comm ransfer 12:08: [id number] ode 00 Balance/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/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 coordinator PT/OT: Resolve 2018-112020-01-16 Ethan soliz rdination Balance/En d 10:32:00 Anguish deficit durance 12:08: [id number] 00 Balance/End endurance PT/OT: Resolve 2018-112020-01-16 Ethan urance deficit Balance/En d 10:32:00 Anguish durance 12:08: [id number] 00 Gait/Locomo gait PT/OT: Resolve 2018-112020-01-16 Ethan tion assistive Gait/Locom d 230 10:32:00 Anguish problems device otion 12:08: [id number] present 00 Gait/Locomo gait PT/OT: Resolve 2018-112020-01-16 Ethan tion deficit Gait/Locom d 230 10:32:00 Anguish problems otion 12:08: [id number] 00 OT: Self self-care OT: Resolve 2020-01-16 Stefany Care deficit Self-Care d 12-02 10:32:00 Mode 13:00: [id number] 00 Allergies, Adverse Reactions, Alerts Allergy Allergy [...]
--- OUTSIDE RECORDS SUMMARY | 2020-02-13 17:30 | XMS REPORT ---
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 2- Anguish disease of disease of [id number] [place]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 History of History of Diagnosis Active 2018-11 Ethan falling falling 2-30 Anguish [id number] Nicotine Nicotine Diagnosis Active 2018-11 Ethan dependence, dependence, 2-30 Anguish cigarettes, cigarettes, [id number] uncomplicat uncomplicat 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) (current) 2-30 Anguish use of use of [id number] aspirin aspirin Pain frequent Pain Mgmt Active 2018-11 Sadie pain [place] 11:30: [id number] 00 Respiratory dyspnea Respirator Active 2018-11 Sadie present y [place] 11:30: [id number] 00 Respiratory oxygen Respirator Active 2018-11 Sadie treatments y [place] in home 11:30: [id number] 00 Respiratory lung sounds Respirator Active 2018-11 Sadie deficit y [place] 11:30: [id number] 00 Endo/Andrew anti-coagul Endo/Andrew Active 2018-11 Sadie ation [place] therapy 11:30: [id number] 00 Nutrition nutritional Nutrition Active 2018-11 Sadie restriction [place] s 11:30: [id number] 00 Elimination urinary Eliminatio Active 2018-11 Sadie incontinenc n [place] e 11:30: [id number] 00 Neuro confusion Neuro/Emot Active 2018-11 Sadie present ion [place] 11:30: [id number] 00 Neuro impaired Neuro/Emot Active 2018-11 Sadie decision-ma ion [place] manuel 11:30: [id number] 00 Neuro memory Neuro/Emot Active 2018-11 Sadie deficit ion [place] needing 11:30: [id number] supervision 00 Activity ADL Activity Active 2018-11 Sadie assistance [place] required 11:30: [id number] 00 Activity self-care Activity Active 2018-11 Sadie deficit [place] 11:30: [id number] 00 Safety cannot be Safety Active 2018-11 Sadie left alone [place] 11:30: [id number] 00 Safety knowledge/s Safety Active 2018-11 Sadie kill [place] deficit: pt 11:30: [id number] 00 Safety fall risk Safety Active 2018-11 Sadie factor [place] present 11:30: [id number] 00 Safety risk for Safety Active 2018-11 Sadie hospitaliza [place] tion 11:30: [id number] 00 Medication oral med Meds Active 2018-11 Sadie assistance [place] required 11:30: [id number] 00 Medication knowledge/s Meds Active 2018-11 Sadie kill [place] deficit: pt 11:30: [id number] 00 Musculoskel transfer Musculoske Active 2018-11 Sadie etal assistance letal [place] required 11:30: [id number] 00 Musculoskel requires Musculoske Active 2018-11 Sadie etal human letal [place] assist to 11:30: [id number] leave home 00 Safety can be left Safety Active 2018-11 Ethan alone for Anguish only short 12:08: [id number] periods 00 Bed transfer PT/OT: Bed Active 2018-11 Ethan Mobility/Tr deficit: Mobility/T Anguish ansfer sit/stand ransfer 12:08: [id number] 00 Bed transfer PT/OT: Bed Active 2018-11 Ethan Mobility/Tr deficit: Mobility/T 2-30 Anguish ansfer toilet/comm ransfer 12:08: [id number] ode 00 Balance/End balance/admitting coordinator PT/OT: Active 2018-11 Ethan soliz rdination Balance/En 2-30 Anguish deficit durance 12:08: [id number] 00 Balance/End endurance PT/OT: Active 2018-11 Ethan urance deficit Balance/En 2-30 Anguish durance 12:08: [id number] 00 Gait/Locomo gait PT/OT: Active 2018-11 Ethan tion assistive Gait/Locom 2-30 Anguish problems device otion 12:08: [id number] present 00 Gait/Locomo gait PT/OT: Active 2018-11 Ethan tion deficit Gait/Locom 2-30 Anguish problems otion 12:08: [id number] 00 OT: Self self-care OT: Active Stefany Care deficit Self-Care -07 Mode 13:00: [id number] 00 Allergies, Adverse Reactions, Alerts Allergy Allergy [...]
--- OUTSIDE RECORDS SUMMARY | 2020-02-13 17:31 | XMS REPORT ---
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 2- Anguish disease of disease of [id number] [place]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 History of History of Diagnosis Active 2018-11 Ethan falling falling 2-30 Anguish [id number] Nicotine Nicotine Diagnosis Active 2018-11 Ethan dependence, dependence, 2-30 Anguish cigarettes, cigarettes, [id number] uncomplicat 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) (current) 2-30 Anguish use of use of [id number] aspirin aspirin Pain frequent Pain Mgmt Active 2018-11 Sadie pain [place] 11:30: [id number] 00 Respiratory dyspnea Respirator Active 2018-11 Sadie present y [place] 11:30: [id number] 00 Respiratory oxygen Respirator Active 2018-11 Sadie treatments y [place] in home 11:30: [id number] 00 Respiratory lung sounds Respirator Active 2018-11 Sadie deficit y [place] 11:30: [id number] 00 Endo/Andrew anti-coagul Endo/Andrew Active 2018-11 Sadie ation [place] therapy 11:30: [id number] 00 Nutrition nutritional Nutrition Active 2018-11 Sadie restriction [place] s 11:30: [id number] 00 Elimination urinary Eliminatio Active 2018-11 Sadie incontinenc n [place] e 11:30: [id number] 00 Neuro confusion Neuro/Emot Active 2018-11 Sadie present ion [place] 11:30: [id number] 00 Neuro impaired Neuro/Emot Active 2018-11 Sadie decision-ma ion [place] manuel 11:30: [id number] 00 Neuro memory Neuro/Emot Active 2018-11 Sadie deficit ion [place] needing 11:30: [id number] supervision 00 Activity ADL Activity Active 2018-11 Sadie assistance [place] required 11:30: [id number] 00 Activity self-care Activity Active 2018-11 Sadie deficit [place] 11:30: [id number] 00 Safety cannot be Safety Active 2018-11 Sadie left alone [place] 11:30: [id number] 00 Safety knowledge/s Safety Active 2018-11 Sadie kill [place] deficit: pt 11:30: [id number] 00 Safety fall risk Safety Active 2018-11 Sadie factor [place] present 11:30: [id number] 00 Safety risk for Safety Active 2018-11 Sadie hospitaliza [place] tion 11:30: [id number] 00 Medication oral med Meds Active 2018-11 Sadie assistance [place] required 11:30: [id number] 00 Medication knowledge/s Meds Active 2018-11 Sadie kill [place] deficit: pt 11:30: [id number] 00 Musculoskel transfer Musculoske Active 2018-11 Sadie etal assistance letal [place] required 11:30: [id number] 00 Musculoskel requires Musculoske Active 2018-11 Sadie etal human letal [place] assist to 11:30: [id number] leave home 00 Safety can be left Safety Active 2018-11 Ethan alone for Anguish only short 12:08: [id number] periods 00 Bed transfer PT/OT: Bed Active 2018-11 Ethan Mobility/Tr deficit: Mobility/T Anguish ansfer sit/stand ransfer 12:08: [id number] 00 Bed transfer PT/OT: Bed Active 2018-11 Ethan Mobility/Tr deficit: Mobility/T 2-30 Anguish ansfer toilet/comm ransfer 12:08: [id number] ode 00 Balance/End balance/cooperer PT/OT: Active 2018-11 Ethan soliz rdination Balance/En 2-30 Anguish deficit [place] 12:08: [id number] 00 Balance/End endurance PT/OT: Active 2018-11 Ethan urance deficit Balance/En 2-30 Anguish durance 12:08: [id number] 00 Gait/Locomo gait PT/OT: Active 2018-11 Ethan tion assistive Gait/Locom 2-30 Anguish problems device otion 12:08: [id number] present 00 Gait/Locomo gait PT/OT: Active 2018-11 Ethan tion deficit Gait/Locom 2-30 Anguish problems otion 12:08: [id number] 00 OT: Self self-care OT: Active Stefany Care deficit Self-Care -07 Mode 13:00: [id number] 00 Allergies, Adverse Reactions, Alerts Allergy Allergy [...] Observation Time Observation Value Comments SYSTOLIC mm[Hg] 2019-12-15 18:09:58 102 mm[Hg] mm[Hg] Method: Sit SYSTOLIC mm[Hg] 2019-11-24 18:09:37 100 mm[Hg] mm[Hg] Method: Stand DIASTOLIC mm[Hg] 2019-12-15 18:09:58 60 mm[Hg] mm[Hg] Method: Sit DIASTOLIC mm[Hg] 2019-11-24 18:09:37 60 mm[Hg] mm[Hg] Method: Stand PULSE 2019-12-15 18:09:58 76 /min /min RESP RATE 2019-11-24 18:09:37 18 /min /min TEMP 2019-12-15 18:09:58 97.9 [degF] Procedures This patient has no known procedures. Results This patient has no known results.
--- OUTSIDE RECORDS SUMMARY | 2020-02-13 17:31 | XMS REPORT ---
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 History of History of Diagnosis Active 2018-11 Ethan falling falling 2-30 Anguish [id number] Nicotine Nicotine Diagnosis Active 2018-11 Ethan dependence, dependence, 2-30 Anguish cigarettes, cigarettes, [id number] uncomplicat uncomplicat 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 2018-11 Ethan (current) (current) 2-30 Anguish use of use of [id number] aspirin aspirin Pain frequent Pain Mgmt Active 2018-11 Sadie pain [place] 11:30: [id number] 00 Respiratory dyspnea Respirator Active 2018-11 Sadie present y [place] 11:30: [id number] 00 Respiratory oxygen Respirator Active 2018-11 Sadie treatments y [place] in home 11:30: [id number] 00 Respiratory lung sounds Respirator Active 2018-11 Sadie deficit y [place] 11:30: [id number] 00 Endo/Andrew anti-coagul Endo/Andrew Active 2018-11 Sadie ation [place] therapy 11:30: [id number] 00 Nutrition nutritional Nutrition Active 2018-11 Sadie restriction [place] s 11:30: [id number] 00 Elimination urinary Eliminatio Active 2018-11 Sadie incontinenc n [place] e 11:30: [id number] 00 Neuro confusion Neuro/Emot Active 2018-11 Sadie present ion [place] 11:30: [id number] 00 Neuro impaired Neuro/Emot Active 2018-11 Sadie decision-ma ion [place] manuel 11:30: [id number] 00 Neuro memory Neuro/Emot Active 2018-11 Sadie deficit ion [place] needing 11:30: [id number] supervision 00 Activity ADL Activity Active 2018-11 Sadie assistance [place] required 11:30: [id number] 00 Activity self-care Activity Active 2018-11 Sadie deficit [place] 11:30: [id number] 00 Safety cannot be Safety Active 2018-11 Sadie left alone [place] 11:30: [id number] 00 Safety knowledge/s Safety Active 2018-11 Sadie kill [place] deficit: pt 11:30: [id number] 00 Safety fall risk Safety Active 2018-11 Sadie factor [place] present 11:30: [id number] 00 Safety risk for Safety Active 2018-11 Sadie hospitaliza [place] tion 11:30: [id number] 00 Medication oral med Meds Active 2018-11 Sadie assistance [place] required 11:30: [id number] 00 Medication knowledge/s Meds Active 2018-11 Sadie kill [place] deficit: pt 11:30: [id number] 00 Musculoskel transfer Musculoske Active 2018-11 Sadie etal assistance letal [place] required 11:30: [id number] 00 Musculoskel requires Musculoske Active 2018-11 Sadie etal human letal [place] assist to 11:30: [id number] leave home 00 Safety can be left Safety Active 2018-11 Ethan alone for Anguish only short 12:08: [id number] periods 00 Bed transfer PT/OT: Bed Active 2018-11 Ethan Mobility/Tr deficit: Mobility/T Anguish ansfer sit/stand ransfer 12:08: [id number] 00 Bed transfer PT/OT: Bed Active 2018-11 Ethan Mobility/Tr deficit: Mobility/T 2-30 Anguish ansfer toilet/comm ransfer 12:08: [id number] ode 00 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 PT/OT: Active 2018-11 Ethan soliz rdination Balance/En 2-30 Anguish deficit [place] 12:08: [id number] 00 Balance/End endurance PT/OT: Active 2018-11 Ethan urance deficit Balance/En 2-30 Anguish durance 12:08: [id number] 00 Gait/Locomo gait PT/OT: Active 2018-11 Ethan tion assistive Gait/Locom 2-30 Anguish problems device otion 12:08: [id number] present 00 Gait/Locomo gait PT/OT: Active 2018-11 Ethan tion deficit Gait/Locom 2-30 Anguish problems otion 12:08: [id number] 00 OT: Self self-care OT: Active Stefany Care deficit Self-Care -07 Mode 13:00: [id number] 00 Allergies, Adverse Reactions, Alerts Allergy Allergy [...] 1 mg tablet 1 mg tablet 2-30 hJon MACEDO oxybutynin oxybutynin 2018-11 Yes Samodal Unknown [...] Observation Time Observation Value Comments SYSTOLIC mm[Hg] 2019-12-22 18:10:05 120 mm[Hg] mm[Hg] Method: Sit SYSTOLIC mm[Hg] 2019-11-24 18:09:37 100 mm[Hg] mm[Hg] Method: Stand DIASTOLIC mm[Hg] 2019-12-22 18:10:05 68 mm[Hg] mm[Hg] Method: Sit DIASTOLIC mm[Hg] 2019-11-24 18:09:37 60 mm[Hg] mm[Hg] Method: Stand PULSE 2019-12-22 18:10:05 68 /min /min RESP RATE 2019-11-24 18:09:37 18 /min /min TEMP 2019-12-22 18:10:05 98.1 [degF] Procedures This patient has no known procedures. Results This patient has no known results.
--- OUTSIDE RECORDS SUMMARY | 2020-02-13 17:31 | XMS REPORT ---
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 [id number] [place]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 History of History of Diagnosis Active 2018-11 Ethan falling falling 2-30 Anguish [id number] Nicotine Nicotine Diagnosis Active 2018-11 Ethan dependence, dependence, 2-30 Anguish cigarettes, cigarettes, [id number] uncomplicat uncomplicat ed 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) (current) 2-30 Anguish use of use of [id number] aspirin aspirin Pain frequent Pain Mgmt Active 2018-11 Sadie pain [place] 11:30: [id number] 00 Respiratory dyspnea Respirator Active 2018-11 Sadie present y [place] 11:30: [id number] 00 Respiratory oxygen Respirator Active 2018-11 Sadie treatments y [place] in home 11:30: [id number] 00 Respiratory lung sounds Respirator Active 2018-11 Sadie deficit y [place] 11:30: [id number] 00 Endo/Andrew anti-coagul Endo/Andrew Active 2018-11 Sadie ation [place] therapy 11:30: [id number] 00 Nutrition nutritional Nutrition Active 2018-11 Sadie restriction [place] s 11:30: [id number] 00 Elimination urinary Eliminatio Active 2018-11 Sadie incontinenc n [place] e 11:30: [id number] 00 Neuro confusion Neuro/Emot Active 2018-11 Sadie present ion [place] 11:30: [id number] 00 Neuro impaired Neuro/Emot Active 2018-11 Sadie decision-ma ion [place] manuel 11:30: [id number] 00 Neuro memory Neuro/Emot Active 2018-11 Sadie deficit ion [place] needing 11:30: [id number] supervision 00 Activity ADL Activity Active 2018-11 Sadie assistance [place] required 11:30: [id number] 00 Activity self-care Activity Active 2018-11 Sadie deficit [place] 11:30: [id number] 00 Safety cannot be Safety Active 2018-11 Sadie left alone [place] 11:30: [id number] 00 Safety knowledge/s Safety Active 2018-11 Sadie kill [place] deficit: pt 11:30: [id number] 00 Safety fall risk Safety Active 2018-11 Sadie factor [place] present 11:30: [id number] 00 Safety risk for Safety Active 2018-11 Sadie hospitaliza [place] tion 11:30: [id number] 00 Medication oral med Meds Active 2018-11 Sadie assistance [place] required 11:30: [id number] 00 Medication knowledge/s Meds Active 2018-11 Sadie kill [place] deficit: pt 11:30: [id number] 00 Musculoskel transfer Musculoske Active 2018-11 Sadie etal assistance letal [place] required 11:30: [id number] 00 Musculoskel requires Musculoske Active 2018-11 Sadie etal human letal [place] assist to 11:30: [id number] leave home 00 Safety can be left Safety Active 2018-11 Ethan alone for Anguish only short 12:08: [id number] periods 00 Bed transfer PT/OT: Bed Active 2018-11 Ethan Mobility/Tr deficit: Mobility/T Anguish ansfer sit/stand ransfer 12:08: [id number] 00 Bed transfer PT/OT: Bed Active 2018-11 Ethan Mobility/Tr deficit: Mobility/T 2-30 Anguish ansfer toilet/comm ransfer 12:08: [id number] ode 00 Balance/End balance/access coordinator PT/OT: Active 2018-11 Ethan soliz rdination Balance/En 2-30 Anguish deficit [place] 12:08: [id number] 00 Balance/End endurance PT/OT: Active 2018-11 Ethan urance deficit Balance/En 2-30 Anguish durance 12:08: [id number] 00 Gait/Locomo gait PT/OT: Active 2018-11 Ethan tion assistive Gait/Locom 2-30 Anguish problems device otion 12:08: [id number] present 00 Gait/Locomo gait PT/OT: Active 2018-11 Ethan tion deficit Gait/Locom 2-30 Anguish problems otion 12:08: [id number] 00 OT: Self self-care OT: Active Stefany Care deficit Self-Care -07 Mode 13:00: [id number] 00 Allergies, Adverse Reactions, Alerts Allergy Allergy [...] Observation Time Observation Value Comments SYSTOLIC mm[Hg] 2019-12-26 18:10:09 118 mm[Hg] mm[Hg] Method: Sit SYSTOLIC mm[Hg] 2019-11-24 18:09:37 100 mm[Hg] mm[Hg] Method: Stand DIASTOLIC mm[Hg] 2019-12-26 18:10:09 60 mm[Hg] mm[Hg] Method: Sit DIASTOLIC mm[Hg] 2019-11-24 18:09:37 60 mm[Hg] mm[Hg] Method: Stand PULSE 2019-12-26 18:10:09 60 /min /min RESP RATE 2019-11-24 18:09:37 18 /min /min TEMP 2019-12-26 18:10:09 97.8 [degF] Procedures This patient has no known procedures. Results This patient has no known results.
--- OUTSIDE RECORDS SUMMARY | 2020-02-13 17:31 | XMS REPORT ---
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 [id number] [place]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 History of History of Diagnosis Active 2018-11 Ethan falling falling 2-30 Anguish [id number] Nicotine Nicotine Diagnosis Active 2018-11 Ethan dependence, dependence, 2-30 Anguish cigarettes, cigarettes, [id number] uncomplicat uncomplicat ed 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-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 (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) (current) 2-30 Anguish use of use of [id number] aspirin aspirin Pain frequent Pain Mgmt Active 2018-11 Sadie pain [place] 11:30: [id number] 00 Respiratory dyspnea Respirator Active 2018-11 Sadie present y [place] 11:30: [id number] 00 Respiratory oxygen Respirator Active 2018-11 Sadie treatments y [place] in home 11:30: [id number] 00 Respiratory lung sounds Respirator Active 2018-11 Sadie deficit y [place] 11:30: [id number] 00 Endo/Andrew anti-coagul Endo/Andrew Active 2018-11 Sadie ation [place] therapy 11:30: [id number] 00 Nutrition nutritional Nutrition Active 2018-11 Sadie restriction [place] s 11:30: [id number] 00 Elimination urinary Eliminatio Active 2018-11 Sadie incontinenc n [place] e 11:30: [id number] 00 Neuro confusion Neuro/Emot Active 2018-11 Sadie present ion [place] 11:30: [id number] 00 Neuro impaired Neuro/Emot Active 2018-11 Sadie decision-ma ion [place] manuel 11:30: [id number] 00 Neuro memory Neuro/Emot Active 2018-11 Sadie deficit ion [place] needing 11:30: [id number] supervision 00 Activity ADL Activity Active 2018-11 Sadie assistance [place] required 11:30: [id number] 00 Activity self-care Activity Active 2018-11 Sadie deficit [place] 11:30: [id number] 00 Safety cannot be Safety Active 2018-11 Sadie left alone [place] 11:30: [id number] 00 Safety knowledge/s Safety Active 2018-11 Sadie kill [place] deficit: pt 11:30: [id number] 00 Safety fall risk Safety Active 2018-11 Sadie factor [place] present 11:30: [id number] 00 Safety risk for Safety Active 2018-11 Sadie hospitaliza [place] tion 11:30: [id number] 00 Medication oral med Meds Active 2018-11 Sadie assistance [place] required 11:30: [id number] 00 Medication knowledge/s Meds Active 2018-11 Sadie kill [place] deficit: pt 11:30: [id number] 00 Musculoskel transfer Musculoske Active 2018-11 Sadie etal assistance letal [place] required 11:30: [id number] 00 Musculoskel requires Musculoske Active 2018-11 Sadie etal human letal [place] assist to 11:30: [id number] leave home 00 Safety can be left Safety Active 2018-11 Ethan alone for Anguish only short 12:08: [id number] periods 00 Bed transfer PT/OT: Bed Active 2018-11 Ethan Mobility/Tr deficit: Mobility/T Anguish ansfer sit/stand ransfer 12:08: [id number] 00 Bed transfer PT/OT: Bed Active 2018-11 Ethan Mobility/Tr deficit: Mobility/T 2-30 Anguish ansfer toilet/comm ransfer 12:08: [id number] ode 00 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/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 PT/OT: Active 2018-11 Ethan soliz rdination Balance/En 2-30 Anguish deficit durance 12:08: [id number] 00 Balance/End endurance PT/OT: Active 2018-11 Ethan urance deficit Balance/En 2-30 Anguish durance 12:08: [id number] 00 Gait/Locomo gait PT/OT: Active 2018-11 Ethan tion assistive Gait/Locom 2-30 Anguish problems device otion 12:08: [id number] present 00 Gait/Locomo gait PT/OT: Active 2018-11 Ethan tion deficit Gait/Locom 2-30 Anguish problems otion 12:08: [id number] 00 OT: Self self-care OT: Active Stefany Care deficit Self-Care -07 Mode 13:00: [id number] 00 Allergies, Adverse Reactions, Alerts Allergy Allergy [...]
--- OUTSIDE RECORDS SUMMARY | 2020-02-13 17:31 | XMS REPORT ---
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 [id number] [place]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 History of History of Diagnosis Active 2018-11 Ethan falling falling 2-30 Anguish [id number] Nicotine Nicotine Diagnosis Active 2018-11 Ethan dependence, dependence, 2-30 Anguish cigarettes, cigarettes, [id number] uncomplicat uncomplicat ed 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) (current) 2-30 Anguish use of use of [id number] aspirin aspirin Pain frequent Pain Mgmt Active 2018-11 Sadie pain [place] 11:30: [id number] 00 Respiratory dyspnea Respirator Active 2018-11 Sadie present y [place] 11:30: [id number] 00 Respiratory oxygen Respirator Active 2018-11 Sadie treatments y [place] in home 11:30: [id number] 00 Respiratory lung sounds Respirator Active 2018-11 Sadie deficit y [place] 11:30: [id number] 00 Endo/Andrew anti-coagul Endo/Andrew Active 2018-11 Sadie ation [place] therapy 11:30: [id number] 00 Nutrition nutritional Nutrition Active 2018-11 Sadie restriction [place] s 11:30: [id number] 00 Elimination urinary Eliminatio Active 2018-11 Sadie incontinenc n [place] e 11:30: [id number] 00 Neuro confusion Neuro/Emot Active 2018-11 Sadie present ion [place] 11:30: [id number] 00 Neuro impaired Neuro/Emot Active 2018-11 Sadie decision-ma ion [place] manuel 11:30: [id number] 00 Neuro memory Neuro/Emot Active 2018-11 Sadie deficit ion [place] needing 11:30: [id number] supervision 00 Activity ADL Activity Active 2018-11 Sadie assistance [place] required 11:30: [id number] 00 Activity self-care Activity Active 2018-11 Sadie deficit [place] 11:30: [id number] 00 Safety cannot be Safety Active 2018-11 Sadie left alone [place] 11:30: [id number] 00 Safety knowledge/s Safety Active 2018-11 Sadie kill [place] deficit: pt 11:30: [id number] 00 Safety fall risk Safety Active 2018-11 Sadie factor [place] present 11:30: [id number] 00 Safety risk for Safety Active 2018-11 Sadie hospitaliza [place] tion 11:30: [id number] 00 Medication oral med Meds Active 2018-11 Sadie assistance [place] required 11:30: [id number] 00 Medication knowledge/s Meds Active 2018-11 Sadie kill [place] deficit: pt 11:30: [id number] 00 Musculoskel transfer Musculoske Active 2018-11 Sadie etal assistance letal [place] required 11:30: [id number] 00 Musculoskel requires Musculoske Active 2018-11 Sadie etal human letal [place] assist to 11:30: [id number] leave home 00 Safety can be left Safety Active 2018-11 Ethan alone for Anguish only short 12:08: [id number] periods 00 Bed transfer PT/OT: Bed Active 2018-11 Ethan Mobility/Tr deficit: Mobility/T Anguish ansfer sit/stand ransfer 12:08: [id number] 00 Bed transfer PT/OT: Bed Active 2018-11 Ethan Mobility/Tr deficit: Mobility/T 2-30 Anguish ansfer toilet/comm ransfer 12:08: [id number] ode 00 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/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 PT/OT: Active 2018-11 Ethan soliz rdination Balance/En 2-30 Anguish deficit durance 12:08: [id number] 00 Balance/End endurance PT/OT: Active 2018-11 Ethan urance deficit Balance/En 2-30 Anguish durance 12:08: [id number] 00 Gait/Locomo gait PT/OT: Active 2018-11 Ethan tion assistive Gait/Locom 2-30 Anguish problems device otion 12:08: [id number] present 00 Gait/Locomo gait PT/OT: Active 2018-11 Ethan tion deficit Gait/Locom 2-30 Anguish problems otion 12:08: [id number] 00 OT: Self self-care OT: Active Stefany Care deficit Self-Care -07 Mode 13:00: [id number] 00 Allergies, Adverse Reactions, Alerts Allergy Allergy [...] Observation Time Observation Value Comments SYSTOLIC mm[Hg] 2019-12-17 18:10:00 110 mm[Hg] mm[Hg] Method: Sit SYSTOLIC mm[Hg] 2019-11-24 18:09:37 100 mm[Hg] mm[Hg] Method: Stand DIASTOLIC mm[Hg] 2019-12-17 18:10:00 62 mm[Hg] mm[Hg] Method: Sit DIASTOLIC mm[Hg] 2019-11-24 18:09:37 60 mm[Hg] mm[Hg] Method: Stand PULSE 2019-12-17 18:10:00 62 /min /min RESP RATE 2019-11-24 18:09:37 18 /min /min TEMP 2019-12-17 18:10:00 98.3 [degF] Procedures This patient has no known procedures. Results This patient has no known results.
--- OUTSIDE RECORDS SUMMARY | 2020-02-13 17:31 | XMS REPORT ---
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 [id number] [place]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 History of History of Diagnosis Active 2018-11 Ethan falling falling 2-30 Anguish [id number] Nicotine Nicotine Diagnosis Active 2018-11 Ethan dependence, dependence, 2-30 Anguish cigarettes, cigarettes, [id number] uncomplicat uncomplicat 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) (current) 2-30 Anguish use of use of [id number] aspirin aspirin Pain frequent Pain Mgmt Active 2018-[address] 11:30: [id number] 00 Respiratory dyspnea Respirator Active 2018-11 Sadie present y [place] 11:30: [id number] 00 Respiratory oxygen Respirator Active 2018-11 Sadie treatments y [place] in home 11:30: [id number] 00 Respiratory lung sounds Respirator Active 2018-11 Sadie deficit y [place] 11:30: [id number] 00 Endo/Andrew anti-coagul Endo/Andrew Active 2018-[address] therapy 11:30: [id number] 00 Nutrition nutritional Nutrition Active 2018-[address] s 11:30: [id number] 00 Elimination urinary Eliminatio Active 2018-[address] [place] e 11:30: [id number] 00 Neuro confusion Neuro/Emot Active 2018-11 Sadie present ion [place] 11:30: [id number] 00 Neuro impaired Neuro/Emot Active 2018-11 Sadie decision-ma ion [place] manuel 11:30: [id number] 00 Neuro memory Neuro/Emot Active 2018-11 Sadie deficit ion [address] [place] needing 11:30: [id number] supervision 00 Activity ADL Activity Active 2018-[address] Sadie [address] [place] required 11:30: [id number] 00 Activity self-care Activity Active 2018-11 Sadie deficit [place] 11:30: [id number] 00 Safety cannot be Safety Active 2018-11 Sadie left alone [place] 11:30: [id number] 00 Safety knowledge/s Safety Active 2018-[address] deficit: pt 11:30: [id number] 00 Safety fall risk Safety Active 2018-[address] present 11:30: [id number] 00 Safety risk for Safety Active 2018-[address] tion 11:30: [id number] 00 Medication oral med Meds Active 2018-[address] Sadie [address] required 11:30: [id number] 00 Medication knowledge/s Meds Active 2018-[address] deficit: pt 11:30: [id number] 00 Musculoskel transfer Musculoske Active 2018-11 Sadie etal assistance letal [place] required 11:30: [id number] 00 Musculoskel requires Musculoske Active 2018-11 Sadie etal human letal [place] assist to 11:30: [id number] leave home 00 Safety can be left Safety Active 2018-11 Ethan alone for Anguish only short 12:08: [id number] periods 00 Bed transfer PT/OT: Bed Active 2018-11 Ethan Mobility/Tr deficit: Mobility/T Anguish ansfer sit/stand ransfer 12:08: [id number] 00 Bed transfer PT/OT: Bed Active 2018-11 Ethan Mobility/Tr deficit: Mobility/T 2-30 Anguish ansfer toilet/comm ransfer 12:08: [id number] ode 00 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/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 PT/OT: Active 2018-11 Ethan soliz rdination Balance/En 2-30 Anguish deficit durance 12:08: [id number] 00 Balance/End endurance PT/OT: Active 2018-11 Ethan urance deficit Balance/En 2-30 Anguish durance 12:08: [id number] 00 Gait/Locomo gait PT/OT: Active 2018-11 Ethan tion assistive Gait/Locom 2-30 Anguish problems device otion 12:08: [id number] present 00 Gait/Locomo gait PT/OT: Active 2018-11 Ethan tion deficit Gait/Locom 2-30 Anguish problems otion 12:08: [id number] 00 OT: Self self-care OT: Active Stefany Care deficit Self-Care -07 Mode 13:00: [id number] 00 Allergies, Adverse Reactions, Alerts Allergy Allergy [...]
--- OUTSIDE RECORDS SUMMARY | 2020-02-13 17:31 | XMS REPORT ---
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 History of History of Diagnosis Active 2018-11 Ethan falling falling 2-30 Anguish [id number] Nicotine Nicotine Diagnosis Active 2018-11 Ethan dependence, dependence, 2-30 Anguish cigarettes, cigarettes, [id number] uncomplicat 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 2018-11 Ethan (current) (current) 2-30 Anguish use of use of [id number] aspirin aspirin Pain frequent Pain Mgmt Active 2018-11 Sadie pain [place] 11:30: [id number] 00 Respiratory dyspnea Respirator Active 2018-11 Sadie present y [place] 11:30: [id number] 00 Respiratory oxygen Respirator Active 2018-11 Sadie treatments y [place] in home 11:30: [id number] 00 Respiratory lung sounds Respirator Active 2018-11 Sadie deficit y [place] 11:30: [id number] 00 Endo/Anrdew anti-coagul Endo/Andrew Active 2018-11 Sadie ation [place] therapy 11:30: [id number] 00 Nutrition nutritional Nutrition Active 2018-11 Sadie restriction [place] s 11:30: [id number] 00 Elimination urinary Eliminatio Active 2018-11 Sadie incontinenc n [place] e 11:30: [id number] 00 Neuro confusion Neuro/Emot Active 2018-11 Sadie present ion [place] 11:30: [id number] 00 Neuro impaired Neuro/Emot Active 2018-11 Sadie decision-ma ion [place] manuel 11:30: [id number] 00 Neuro memory Neuro/Emot Active 2018-11 Sadie deficit ion [place] needing 11:30: [id number] supervision 00 Activity ADL Activity Active 2018-11 Sadie assistance [place] required 11:30: [id number] 00 Activity self-care Activity Active 2018-11 Sadie deficit [place] 11:30: [id number] 00 Safety cannot be Safety Active 2018-11 Sadie left alone [place] 11:30: [id number] 00 Safety knowledge/s Safety Active 2018-11 Sadie kill [place] deficit: pt 11:30: [id number] 00 Safety fall risk Safety Active 2018-11 Sadie factor [place] present 11:30: [id number] 00 Safety risk for Safety Active 2018-11 Sadie hospitaliza [place] tion 11:30: [id number] 00 Medication oral med Meds Active 2018-11 Sadie assistance [place] required 11:30: [id number] 00 Medication knowledge/s Meds Active 2018-11 Sadie kill [place] deficit: pt 11:30: [id number] 00 Musculoskel transfer Musculoske Active 2018-11 Sadie etal assistance letal [place] required 11:30: [id number] 00 Musculoskel requires Musculoske Active 2018-11 Sadie etal human letal [place] assist to 11:30: [id number] leave home 00 Safety can be left Safety Active 2018-11 Ethan alone for Anguish only short 12:08: [id number] periods 00 Bed transfer PT/OT: Bed Active 2018-11 Ethan Mobility/Tr deficit: Mobility/T Anguish ansfer sit/stand ransfer 12:08: [id number] 00 Bed transfer PT/OT: Bed Active 2018-11 Ethan Mobility/Tr deficit: Mobility/T 2-30 Anguish ansfer toilet/comm ransfer 12:08: [id number] ode 00 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 PT/OT: Active 2018-11 Ethan soliz rdination Balance/En 2-30 Anguish deficit durance 12:08: [id number] 00 Balance/End endurance PT/OT: Active 2018-11 Ethan urance deficit Balance/En 2-30 Anguish durance 12:08: [id number] 00 Gait/Locomo gait PT/OT: Active 2018-11 Ethan tion assistive Gait/Locom 2-30 Anguish problems device otion 12:08: [id number] present 00 Gait/Locomo gait PT/OT: Active 2018-11 Ethan tion deficit Gait/Locom 2-30 Anguish problems otion 12:08: [id number] 00 OT: Self self-care OT: Active Stefany Care deficit Self-Care -07 Mode 13:00: [id number] 00 Allergies, Adverse Reactions, Alerts Allergy Allergy [...]
--- OUTSIDE RECORDS SUMMARY | 2020-02-13 17:31 | XMS REPORT ---
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 [id number] [place]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 History of History of Diagnosis Active 2018-11 Ethan falling falling 2-30 Anguish [id number] Nicotine Nicotine Diagnosis Active 2018-11 Ethan dependence, dependence, 2-30 Anguish cigarettes, cigarettes, [id number] uncomplicat uncomplicat 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) (current) 2-30 Anguish use of use of [id number] aspirin aspirin Pain frequent Pain Mgmt Active 2018-11 Sadie pain [place] 11:30: [id number] 00 Respiratory dyspnea Respirator Active 2018-11 Sadie present y [place] 11:30: [id number] 00 Respiratory oxygen Respirator Active 2018-11 Sadie treatments y [place] in home 11:30: [id number] 00 Respiratory lung sounds Respirator Active 2018-11 Sadie deficit y [place] 11:30: [id number] 00 Endo/Andrew anti-coagul Endo/Andrew Active 2018-11 Sadie ation [place] therapy 11:30: [id number] 00 Nutrition nutritional Nutrition Active 2018-11 Sadie restriction [place] s 11:30: [id number] 00 Elimination urinary Eliminatio Active 2018-11 Sadie incontinenc n [place] e 11:30: [id number] 00 Neuro confusion Neuro/Emot Active 2018-11 Sdaie present ion [place] 11:30: [id number] 00 Neuro impaired Neuro/Emot Active 2018-11 Sadie decision-ma ion [place] manuel 11:30: [id number] 00 Neuro memory Neuro/Emot Active 2018-11 Sadie deficit ion [place] needing 11:30: [id number] supervision 00 Activity ADL Activity Active 2018-11 Sadie assistance [place] required 11:30: [id number] 00 Activity self-care Activity Active 2018-11 Sadie deficit [place] 11:30: [id number] 00 Safety cannot be Safety Active 2018-11 Sadie left alone [place] 11:30: [id number] 00 Safety knowledge/s Safety Active 2018-11 Sadie kill [place] deficit: pt 11:30: [id number] 00 Safety fall risk Safety Active 2018-11 Sadie factor [place] present 11:30: [id number] 00 Safety risk for Safety Active 2018-11 Sadie hospitaliza [place] tion 11:30: [id number] 00 Medication oral med Meds Active 2018-11 Sadie assistance [place] required 11:30: [id number] 00 Medication knowledge/s Meds Active 2018-11 Sadie kill [place] deficit: pt 11:30: [id number] 00 Musculoskel transfer Musculoske Active 2018-11 Sadie etal assistance letal [place] required 11:30: [id number] 00 Musculoskel requires Musculoske Active 2018-11 Sadie etal human letal [place] assist to 11:30: [id number] leave home 00 Safety can be left Safety Active 2018-11 Ethan alone for Anguish only short 12:08: [id number] periods 00 Bed transfer PT/OT: Bed Active 2018-11 Ethan Mobility/Tr deficit: Mobility/T Anguish ansfer sit/stand ransfer 12:08: [id number] 00 Bed transfer PT/OT: Bed Active 2018-11 Ethan Mobility/Tr deficit: Mobility/T 2-30 Anguish ansfer toilet/comm ransfer 12:08: [id number] ode 00 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/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 PT/OT: Active 2018-11 Ethan soliz rdination Balance/En 2-30 Anguish deficit durance 12:08: [id number] 00 Balance/End endurance PT/OT: Active 2018-11 Ethan urance deficit Balance/En 2-30 Anguish durance 12:08: [id number] 00 Gait/Locomo gait PT/OT: Active 2018-11 Ethan tion assistive Gait/Locom 2-30 Anguish problems device otion 12:08: [id number] present 00 Gait/Locomo gait PT/OT: Active 2018-11 Ethan tion deficit Gait/Locom 2-30 Anguish problems otion 12:08: [id number] 00 OT: Self self-care OT: Active Stefany Care deficit Self-Care -07 Mode 13:00: [id number] 00 Allergies, Adverse Reactions, Alerts Allergy Allergy [...]
--- OUTSIDE RECORDS SUMMARY | 2020-02-13 17:31 | XMS REPORT ---
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 [id number] [place]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 History of History of Diagnosis Active 2018-11 Ethan falling falling 2-30 Anguish [id number] Nicotine Nicotine Diagnosis Active 2018-11 Ethan dependence, dependence, 2-30 Anguish cigarettes, cigarettes, [id number] uncomplicat uncomplicat 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-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 (current) (current) 2-30 Anguish use of use of [id number] aspirin aspirin Pain frequent Pain Mgmt Active 2018-11 Sadie pain [place] 11:30: [id number] 00 Respiratory dyspnea Respirator Active 2018-11 Sadie present y [place] 11:30: [id number] 00 Respiratory oxygen Respirator Active 2018-11 Sadie treatments y [place] in home 11:30: [id number] 00 Respiratory lung sounds Respirator Active 2018-11 Sadie deficit y [place] 11:30: [id number] 00 Endo/Andrew anti-coagul Endo/Andrew Active 2018-11 Sadie ation [place] therapy 11:30: [id number] 00 Nutrition nutritional Nutrition Active 2018-11 Sadie restriction [place] s 11:30: [id number] 00 Elimination urinary Eliminatio Active 2018-11 Sadie incontinenc n [place] e 11:30: [id number] 00 Neuro confusion Neuro/Emot Active 2018-11 Sadie present ion [place] 11:30: [id number] 00 Neuro impaired Neuro/Emot Active 2018-11 Sadie decision-ma ion [place] manuel 11:30: [id number] 00 Neuro memory Neuro/Emot Active 2018-11 Sadie deficit ion [place] needing 11:30: [id number] supervision 00 Activity ADL Activity Active 2018-11 Sadie assistance [place] required 11:30: [id number] 00 Activity self-care Activity Active 2018-11 Sadie deficit [place] 11:30: [id number] 00 Safety cannot be Safety Active 2018-11 Sadie left alone [place] 11:30: [id number] 00 Safety knowledge/s Safety Active 2018-11 Sadie kill [place] deficit: pt 11:30: [id number] 00 Safety fall risk Safety Active 2018-11 Sadie factor [place] present 11:30: [id number] 00 Safety risk for Safety Active 2018-11 Sadie hospitaliza [place] tion 11:30: [id number] 00 Medication oral med Meds Active 2018-11 Sadie assistance [place] required 11:30: [id number] 00 Medication knowledge/s Meds Active 2018-11 Sadie kill [place] deficit: pt 11:30: [id number] 00 Musculoskel transfer Musculoske Active 2018-11 Sadie etal assistance letal [place] required 11:30: [id number] 00 Musculoskel requires Musculoske Active 2018-11 Sadei etal human letal [place] assist to 11:30: [id number] leave home 00 Safety can be left Safety Active 2018-11 Ethan alone for Anguish only short 12:08: [id number] periods 00 Bed transfer PT/OT: Bed Active 2018-11 Ethan Mobility/Tr deficit: Mobility/T Anguish ansfer sit/stand ransfer 12:08: [id number] 00 Bed transfer PT/OT: Bed Active 2018-11 Ethan Mobility/Tr deficit: Mobility/T 2-30 Anguish ansfer toilet/comm ransfer 12:08: [id number] ode 00 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/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 PT/OT: Active 2018-11 Ethan soliz rdination Balance/En 2-30 Anguish deficit durance 12:08: [id number] 00 Balance/End endurance PT/OT: Active 2018-11 Ethan urance deficit Balance/En 2-30 Anguish durance 12:08: [id number] 00 Gait/Locomo gait PT/OT: Active 2018-11 Ethan tion assistive Gait/Locom 2-30 Anguish problems device otion 12:08: [id number] present 00 Gait/Locomo gait PT/OT: Active 2018-11 Ethan tion deficit Gait/Locom 2-30 Anguish problems otion 12:08: [id number] 00 OT: Self self-care OT: Active Stefany Care deficit Self-Care -07 Mode 13:00: [id number] 00 Allergies, Adverse Reactions, Alerts Allergy Allergy [...]
[2020-02-13 17:32] LABS: Troponin I 0.03 ng/mL (<0.03)
[2020-02-13 17:59] LABS: Alcohol < 10 mg/dL (<10)
[2020-02-13 18:07] LABS: CO2 Carbon Dioxide 28 mmol/L (22-32); Calcium 9.5 mg/dL (8.6-10.3); Chloride 98 mmol/L (101-111); Sodium 131 mmol/L (135-145)
[2020-02-13 18:08] LABS: Anion Gap 5 mmol/L (2-11); Potassium 5.2 mmol/L (3.5-5.0)
[2020-02-13 18:10] LABS: TSH (Thyroid Stimulating Horm) 2.23 mcIU/mL (0.34-5.60)
[2020-02-13 18:13] LABS: ALT 30 U/L (7-52); AST 28 U/L (13-39); Albumin/Globulin Ratio 1.5 (1-3); Alkaline Phosphatase 86 U/L (34-104); BUN/Creatinine Ratio 12.7 (8-20); Blood Urea Nitrogen 10 mg/dL (6-24); EGFR Non-African American 95.9 (>60); Globulin 2.7 g/dL (2-4); Glucose 100 mg/dL (70-100); Total Protein 6.7 g/dL (6.4-8.9)
[2020-02-13 19:32] LABS: Urine Appearance Clear; Urine Bilirubin Negative (Negative); Urine Blood Negative (Negative); Urine Color Straw; Urine Glucose Negative (Negative); Urine Ketones Negative (Negative); Urine Nitrite Negative (Negative); Urine Protein Negative (Negative); Urine Specific Gravity 1.003 (1.010-1.030); Urine Urobilinogen Negative (Negative)
[2020-02-13 19:45] LABS: Urine Benzodiazepine Screen None Detected (None Detect); Urine Opiates Screen None Detected (None Detect)
[2020-02-13] MEDS ORDERED: Thiamine INJ* 100 MG/ML 2 ML VIAL IV ONE (20:13)
[2020-02-13 20:32] LABS: Troponin I 0.03 ng/mL (<0.03)
[2020-02-13 20:34] LABS: Anion Gap 6 mmol/L (2-11); BUN/Creatinine Ratio 13.2 (8-20); Blood Urea Nitrogen 9 mg/dL (6-24); CO2 Carbon Dioxide 25 mmol/L (22-32); Chloride 100 mmol/L (101-111); EGFR African American 137.9 (>60); Glucose 91 mg/dL (70-100); Potassium 4.6 mmol/L (3.5-5.0); Sodium 131 mmol/L (135-145)
[2020-02-13] MEDS ORDERED: Thiamine IV 100 MG in NS 0.9% 50 ML Q24H IV ONE (22:00)
[2020-02-13 23:22] VITALS: BP 99/58
== END 2020-02-13 23:10 | disposition home or self-care (01) ==
LOC: ED 16:27
DX: R42 Dizziness and giddiness (principal); R53.1 Weakness; Z91.81 History of falling; R51 Headache; R06.02 Shortness of breath; J44.9 Chronic obstructive pulmonary disease, unspecified; I45.10 Unspecified right bundle-branch block; F41.9 Anxiety disorder, unspecified; F32.9 Major depressive disorder, single episode, unspecified; F17.210 Nicotine dependence, cigarettes, uncomplicated; Z79.82 Long term (current) use of aspirin; Z79.899 Other long term (current) drug therapy; Z86.718 Personal history of other venous thrombosis and embolism; Z79.890 Hormone replacement therapy; R94.31 Abnormal electrocardiogram [ECG] [EKG]
CPT/HCPCS: 36415; 70450; 71046; 80048; 80053; 80307; 80320; 81003; 82375; 83605; 83735; 84443; 84484; 85025; 86140; 93005; 99284; G0480; J3411

== ENCOUNTER 2020-09-02 16:27 | Inpatient (IN) ==
[2020-09-02] MEDS ORDERED: Albuterol/Ipratropium NEB.SOL (2.5/0.5 MG) 3 ML NEB.SOLN INH ONE (16:34)
[2020-09-02 17:23] LABS: INR 1.03 (0.82-1.09)
[2020-09-02 17:36] LABS: ALT 29 U/L (7-52); AST 19 U/L (13-39); Albumin 4.4 g/dL (3.2-5.2); Albumin/Globulin Ratio 1.4 (1-3); Alkaline Phosphatase 104 U/L (34-104); Anion Gap 8 mmol/L (2-11); BUN/Creatinine Ratio 18.7 (8-20); Blood Urea Nitrogen 23 mg/dL (6-24); CO2 Carbon Dioxide 26 mmol/L (22-32); Calcium 9.5 mg/dL (8.6-10.3); Chloride 100 mmol/L (101-111); EGFR African American 69.4 (>60); EGFR Non-African American 57.4 (>60); Globulin 3.2 g/dL (2-4); Glucose 109 mg/dL (70-100); Magnesium 1.9 mg/dL (1.9-2.7); Potassium 4.4 mmol/L (3.5-5.0); Sodium 134 mmol/L (135-145); Total Protein 7.6 g/dL (6.4-8.9)
[2020-09-02] MEDS ORDERED: Atropine 0.1 MG/ML 10 ml SYR (1 mg) IV PUSH PRN (17:45)
[2020-09-02] MEDS ORDERED: Albuterol HFA INHALER 8 gm MDI INH PRN (17:46)
[2020-09-02 18:05] LABS: Troponin I 0.03 ng/mL (<0.03)
[2020-09-02 18:06] LABS: TSH Ultra Thyroid Stim Horm 0.75 mcIU/mL (0.34-5.60)
[2020-09-02 18:15] LABS: ABS Basophils 0.1 10^3/ul (0-0.2); ABS Eosinophils 0.4 10^3/ul (0-0.6); ABS Lymphocytes 1.7 10^3/ul (1.0-4.8); ABS Monocytes 0.7 10^3/ul (0-0.8); ABS Neutrophils 6.1 10^3/ul (1.5-7.7); Eosinophil % 4.4 %; Hematocrit 43 % (42-52); Hemoglobin 14.8 g/dL (14.0-18.0); Lymphocyte % 18.9 %; Mean Corpuscular HGB Conc 34 g/dL (31-36); Mean Corpuscular Hemoglobin 33 pg (27-31); Mean Corpuscular Volume 97 fL (80-94); Nucleated Red Blood Cells % 0.1; Red Blood Count 4.46 10^6 /uL (4.18-5.48); Red Cell Distribution Width 13 % (10-15)
[2020-09-02 18:28] LABS: Mean Platelet Volume 8.3 fL (7.4-10.4); Platelet Count 186 10^3/uL (150-450)
[2020-09-02] MEDS ORDERED: Furosemide 40 mg/4 ml IV VIAL IV ONE (18:34)
[2020-09-02 20:36] LABS: Free T3 2.7 pg/mL (2.5-3.9)
[2020-09-02 20:39] LABS: Free T4 0.78 ng/dL (0.61-1.12)
[2020-09-02 21:15] LABS: Urine Appearance Clear; Urine Bilirubin Negative (Negative); Urine Blood 3+ (Negative); Urine Color Yellow; Urine Glucose Negative (Negative); Urine Ketones Negative (Negative); Urine Nitrite Negative (Negative); Urine Protein Negative (Negative); Urine Urobilinogen Negative (Negative)
[2020-09-02 21:17] LABS: Urine Bacteria Absent (Absent); Urine Red Blood Cell 3+(>10/hpf) (Absent); Urine White Blood Cell Absent (Absent)
[2020-09-03] MEDS: NS 0.9% 1000 ml BAG 1,000 ML IV SCH ×2 (04:43→12:34)
[2020-09-03 04:51] LABS: ABS Basophils 0.1 10^3/ul (0-0.2); ABS Eosinophils 0.3 10^3/ul (0-0.6); ABS Lymphocytes 1.4 10^3/ul (1.0-4.8); ABS Neutrophils 5.1 10^3/ul (1.5-7.7); Eosinophil % 3.8 %; Hematocrit 45 % (42-52); Lymphocyte % 17.8 %; Mean Corpuscular HGB Conc 33 g/dL (31-36); Mean Corpuscular Hemoglobin 32 pg (27-31); Mean Corpuscular Volume 97 fL (80-94); Mean Platelet Volume 7.8 fL (7.4-10.4); Nucleated Red Blood Cells % 0.1; Platelet Count 215 10^3/uL (150-450); Red Blood Count 4.65 10^6 /uL (4.18-5.48); Red Cell Distribution Width 14 % (10-15); White Blood Count 7.9 10^3/uL (3.5-10.8)
[2020-09-03 05:23] LABS: Albumin 4.1 g/dL (3.2-5.2); Calcium 9.2 mg/dL (8.6-10.3); Potassium 4.3 mmol/L (3.5-5.0); Total Bilirubin 0.5 mg/dL (0.2-1.0)
[2020-09-03 05:29] LABS: Albumin/Globulin Ratio 1.3 (1-3); BUN/Creatinine Ratio 26.4 (8-20); EGFR African American 82.4 (>60); EGFR Non-African American 68.1 (>60); Globulin 3.2 g/dL (2-4); Total Protein 7.3 g/dL (6.4-8.9)
[2020-09-03] MEDS ORDERED: ceFAZolin 2 GM PREMIX 2 GM/50 ML BAG IVPB ONE (07:00)
[2020-09-03] MEDS ORDERED: Naloxone 0.4 mg VIAL 0.4 mg/ml 1 ml VIAL ONE (07:35)
[2020-09-03] MEDS ORDERED: fentaNYL 100 mcg/2 ml 50 MCG/ML VIAL ONE (07:35)
[2020-09-03] MEDS ORDERED: Flumazenil 0.5 mg/5 ml 0.1 MG/ML 5 ml VIAL ONE (07:35)
[2020-09-03] MEDS ORDERED: Midazolam 5 mg/5 ml VIAL 1 mg/ml 5 ml VIAL (5 mg) ONE (07:35)
[2020-09-03] MEDS ORDERED: Lidocaine 1% VIAL 10 MG/ML VIAL ONE (07:35)
[2020-09-03] MEDS ORDERED: Iohexol 300 (CONTRAST) 10 ML SDV ONE (07:36)
[2020-09-03] MEDS ORDERED: Pneumococcal Vac 23-Polyvalent IM ONE (09:00)
[2020-09-03] MEDS: Isosorbide Mononit ER 30mg TAB PO SCH (09:59)
[2020-09-03] MEDS: Polyethylene Glycol 3350 17 GM PACKET PO SCH (09:59)
[2020-09-03] MEDS: Tiotropium Brom/Olodaterol MDI INH SCH (09:59)
[2020-09-03] MEDS ORDERED: Heparin 5000 UNITS/ML 1 mL VIAL SUBCUT SCH (14:00)
[2020-09-03] MEDS: ceFAZolin 1 GM ADVAN 1 GM in NS 0.9% 50 ML 50 ML IVPB SCH ×2 (16:00→23:49)
[2020-09-04 04:10] VITALS: BP 102/61
[2020-09-04 07:06] LABS: Albumin 3.7 g/dL (3.2-5.2); Albumin/Globulin Ratio 1.3 (1-3); Calcium 8.5 mg/dL (8.6-10.3); EGFR Non-African American 94.2 (>60); Globulin 2.8 g/dL (2-4); Potassium 4.4 mmol/L (3.5-5.0); Total Bilirubin 0.5 mg/dL (0.2-1.0); Total Protein 6.5 g/dL (6.4-8.9)
[2020-09-04] MEDS: Polyethylene Glycol 3350 17 GM PACKET PO SCH (07:50)
[2020-09-04] MEDS: Isosorbide Mononit ER 30mg TAB PO SCH (07:50)
[2020-09-04] MEDS: ceFAZolin 1 GM ADVAN 1 GM in NS 0.9% 50 ML 50 ML IVPB SCH (07:50)
[2020-09-04] MEDS: Tiotropium Brom/Olodaterol MDI INH SCH (09:53)
[2020-09-07 09:59] LABS: B garinii/B afzelii PCR Negative (Negative); B mayonii PCR Negative (Negative)
== END 2020-09-04 14:28 | DRG 244 ==
LOC: ED 16:27 → ICU 17:32 → MEDTELE 09-03 17:52
PROVIDERS: ADMIT Internal Medicine; ATTEND Student in an Organized Health Care Education/Training Program